=== PATIENT | male | born 1960 | race Caucasian/White ===

== ENCOUNTER 2021-08-24 11:49 | Inpatient (IN) ==
[2021-08-24] MEDS ORDERED: SODIUM CHLORIDE 0.9% 500 ML IV STA (12:33)
[2021-08-24] MEDS ORDERED: ONDANSETRON INJ 2 MG/ML 2 ML VIAL IV STA (12:33)
[2021-08-24] MEDS ORDERED: fentaNYL citrate 100 MCG/2 ML VIAL IV STA (12:33)
--- NOTE | 2021-08-24 12:40 | Emergency Department Note ---
History of Present Illness General Chief complaint: Chest Pain Stated complaint: CHEST PAIN Time Seen by Provider: 08/24/21 12:19 Source: patient History of Present Illness Provider complaint: Chest pain Onset (ago): hour(s) Location: chest and left Radiation: non-radiation Pain Consistency: + intermittent Maximum Pain Intensity: 2 Quality: + sharp Relieved By: + medication (Nitroglycerin) Exacerbated By: + other (Coughing) Associated symptoms: + chest pain, + cough and + shortness of breath; no diaphoresis or no nausea/vomiting This is a 60-year-old male with a history of CAD and cardiac stent presenting with chest pain starting yesterday evening. The pain is intermittent. He states its left of his sternum without radiation. It is associated with some shortness of breath. He is however normally short of breath due to his COPD and is on 3 L of oxygen 02/09. He states that his chest pain is worse when he coughs. He has a regular smoker's cough. He denies feeling fevers or malaise or any loss of taste or smell. He denies any leg swelling or pain. He does have a prior history of cardiac stent and states that his chest pain feels similar to that. He also states that he has been having 6 months of chest tightness with exertion and saw a fish cutting machine operator for that recently. He is scheduled for a nuclear stress test. He denies any abdominal pain, vomiting, diarrhea, or urinary symptoms. He states that he was given nitroglycerin in the ambulance and his pain is almost gone. He was also given aspirin. Home Medications Medication Instructions Recorded Confirmed Type Oxygen Home #1 ea 09/21/18 10/17/20 History albuterol sulfate 2.5 mg inhalation DIRECTED PRN 09/21/18 08/24/21 History Shortness Of Breath #1 mL aspirin 81 mg tablet,delayed 81 mg PO DAILY 10/05/18 08/24/21 History release tiotropium bromide 2.5 2 inh inhalation DAILY #4 grams 06/15/20 08/24/21 Rx mcg/actuation mist for inhalation fluticasone furoate 200 1 inh inhalation DAILY #1 ea 01/17/21 08/24/21 Rx mcg-vilanterol 25 mcg/dose inhalation powder furosemide 20 mg tablet 20 mg PO DAILY #30 tabs 03/15/21 08/24/21 Rx albuterol sulfate 90 mcg/actuation 2 inh inhalation Q6H PRN Shortness 08/24/21 08/24/21 History aerosol inhaler Of Breath Or Wheezing metoprolol succinate 25 mg 25 mg PO DAILY 08/24/21 08/24/21 History tablet,extended release 24 hr Allergies Allergy/AdvReac Type Severity Reaction Status Date / Time No Known Allergies Allergy Verified 08/24/21 15:47 Past Med/Surg History Medical History [id number] deficiency CAD (coronary artery disease) Chronic obstructive pulmonary disease Social History Smoking Status: Current every day smoker Tobacco Type: Cigarettes Preferred Language: French Feels Safe at Home: Yes Review of Systems See HPI for pertinent positives & negatives. and A total of 10 systems reviewed and were otherwise negative Physical Exam Vital Signs Vital Signs - 24 hr 08/24/21 11:49 08/24/21 13:11 08/24/21 12:27 Temperature 36.6 C Temperature Source Oral Pulse Rate 86 70 Pulse Rate [Finger] 77 Pulse Rate from SpO2 Sensor Pulse Rhythm Regular Pulse Rhythm [Finger] Pulse Strength [Finger] Respiratory Rate 16 12 16 Respiratory Effort / Characteristics Non-Labored Respiratory Depth Normal Respiratory Pattern Regular Blood Pressure 104/75 Blood Pressure [Left Arm] 119/79 Blood Pressure Mean 84 Blood Pressure Mean [Left Arm] 92 Blood Pressure Position [Left Arm] Pulse Oximetry 97 94 96 Oxygen Delivery Method Nasal Cannula Nasal Cannula Room Air Oxygen Flow Rate 3 3 Sepsis Recent Fever Within 48 Hours No Sepsis New/Unexplained Change in Mental Status No Sepsis Action Taken by Nursing No Action Required 08/24/21 13:11 08/24/21 13:30 08/24/21 14:00 Temperature Temperature Source Pulse Rate 75 73 76 Pulse Rate [Finger] Pulse Rate from SpO2 Sensor 75 75 75 Pulse Rhythm Pulse Rhythm [Finger] Pulse Strength [Finger] Respiratory Rate 23 21 14 Respiratory Effort / Characteristics Respiratory Depth Respiratory Pattern Blood Pressure 119/79 120/77 122/81 Blood Pressure [Left Arm] Blood Pressure Mean 92 91 94 Blood Pressure Mean [Left Arm] Blood Pressure Position [Left Arm] Pulse Oximetry 95 92 95 Oxygen Delivery Method Oxygen Flow Rate Sepsis Recent Fever Within 48 Hours Sepsis New/Unexplained Change in Mental Status Sepsis Action Taken by Nursing 08/24/21 14:30 08/24/21 16:36 Temperature Temperature Source Pulse Rate 74 Pulse Rate [Finger] 77 Pulse Rate from SpO2 Sensor 75 Pulse Rhythm Pulse Rhythm [Finger] Regular Pulse Strength [Finger] Normal Respiratory Rate 17 16 Respiratory Effort / Characteristics Non-Labored Spontaneous Respiratory Depth Normal Respiratory Pattern Regular Blood Pressure 128/99 Blood Pressure [Left Arm] 143/81 H Blood Pressure Mean 108 Blood Pressure Mean [Left Arm] 101 Blood Pressure Position [Left Arm] Sitting Pulse Oximetry 98 99 Oxygen Delivery Method Nebulizer Oxygen Flow Rate 8 Sepsis Recent Fever Within 48 Hours Sepsis New/Unexplained Change in Mental Status Sepsis Action Taken by Nursing Constitutional: Vital signs reviewed. Eyes: Pupils are equal round reactive to light. Conjunctiva are noninjected. ENT: Pharynx is clear without erythema or exudate. Mucous membranes are moist. Neck supple without meningeal signs. Respiratory: Clear to auscultation bilaterally. Breath sounds are equal bilaterally. Cardiovascular: Regular rate and rhythm. No rubs or gallops. GI: Soft, nondistended and nontender. Bowel sounds are present. Musculoskeletal: No peripheral edema. No lower extremity tenderness. Integumentary: No cyanosis. or jaundice. Neurological: The patient is awake and alert. No focal deficits. Psychiatric: Normal affect. Not anxious appearing. Course Administered Medications Discontinued Medications Albuterol (Albut/Ipratrop 3mg/0.5mg Neb 3 Ml Vial) 3 ml NEB NOW STA; Protocol Stop: 08/24/21 15:42 Last Admin: 08/24/21 16:29 Dose: 3 ml Documented By: DIXIE Fentanyl Citrate (Fentanyl Citrate 100 Mcg/2 Ml Vial) 50 mcg IV NOW STA Stop: 08/24/21 12:34 Last Admin: 08/24/21 13:07 Dose: 50 mcg Documented By: SERJIO Sodium Chloride (Nss) 500 mls @ 999 mls/hr IV .Q31M STA Stop: 08/24/21 13:03 Last Infusion: 08/24/21 13:49 Dose: 0 mls/hr Documented By: Admin: 08/24/21 13:07 Dose: 999 mls/hr Documented By: SERJIO Piperacillin Sod/Tazobactam Sod (Zosyn) 4.5 gm in 120 mls @ 240 mls/hr IV NOW ONE Stop: 08/24/21 16:10 Last Infusion: 08/24/21 17:05 Dose: 0 mls/hr Documented By: Admin: 08/24/21 16:29 Dose: 240 mls/hr Documented By: DIXIE Ioversol (Optiray 320 125ml) 120 ml IV ONCE ONE Stop: 08/24/21 15:10 Last Admin: 08/24/21 15:09 Dose: 120 ml Documented By: GEMINI Methylprednisolone (Methylprednisolone 125 Mg/2 Ml Vial) 125 mg IV NOW STA Stop: 08/24/21 15:42 Last Admin: 08/24/21 16:29 Dose: 125 mg Documented By: DIXIE Ondansetron HCl (Ondansetron Inj 2 Mg/Ml 2 Ml Vial) 4 mg IV NOW STA Stop: 08/24/21 12:34 Last Admin: 08/24/21 13:07 Dose: 4 mg Documented By: SERJIO Medical Decision Making Differential Diagnosis Unstable angina, OK, PE, pneumonia, pleurisy, GERD Medical Records Attestation: I reviewed the patient's medical records. I did perform a limited focused review of portions of the patient's old chart o n the electronic medical record. The patient has had no recent pertinent visits to this hospital. Home Medications Current Medication List: was personally reviewed by me Laboratory Data Attestation: I reviewed the patient's lab results. Result diagrams: 08/24/21 12:09 08/24/21 12:09 Lab Results 08/24/21 08/24/21 08/24/21 Range/Units 12:09 12:09 12:09 WBC 15.50 H (4.8-10.8) K/ul RBC 4.67 (4.63-6.08) M/uL Hgb 14.7 (14.0-18.0) g/dl Hct 44.9 (40.1-51.0) % MCV 96.1 (80.0-100.0) fL MCH 31.5 (25.0-34.0) pg MCHC 32.7 (32.0-36.0) g/dL RDW Std Deviation 44.9 (36.4-46.3) fL RDW Coeff of Lena 12.7 (11.5-14.5) % Plt Count 204 (130-400) K/uL MPV 10.4 (9.4-12.4) fL Immature Gran % (Auto) 0.5 % Neut % (Auto) 83.2 % Lymph % (Auto) 7.2 % Imperial % (Auto) 7.5 % Eos % (Auto) 1.3 % Baso % (Auto) 0.3 % Neut # (Auto) 12.88 H (1.4-6.5) K/uL Lymph # (Auto) 1.12 L (1.2-3.4) K/uL Imperial # (Auto) 1.17 H (0.24-0.82) K/uL Eos # (Auto) 0.20 (0-0.50) K/uL Baso # (Auto) 0.05 (0-0.2) K/uL Immature Gran # (Auto) 0.08 H (0.00-0.02) K/uL PT 11.7 (9.0-12.0) Seconds INR 1.1 (0.9-1.1) APTT 29.9 (21.0-31.0) Seconds PTT Ratio 1.1 D-Dimer 530 H* (0-500) ug/L FEU Sodium 139 (136-145) mmol/L Potassium 4.3 (3.5-5.1) mmol/L Chloride 99 (98-107) mmol/L Carbon Dioxide 34 H (21-32) mmol/L Anion Gap 6 (3-11) BUN 12 (6-23) mg/dl Creatinine 0.72 (0.6-1.4) mg/dl Est Cr Clr Drug Dosing 96.0 ml/min Est GFR ( Amer) 115.9 ml/min Est GFR (Non-Af Amer) 100.0 ml/min BUN/Creatinine Ratio 16.7 (10-20) Glucose 92 (70-99(Fasting)) mg/dl Calcium 9.5 (8.5-10.1) mg/dl Total Bilirubin 1.5 H (0.2-1.0) mg/dl AST 16 (13-39) U/L ALT 13 (7-52) U/L Alkaline Phosphatase 85 (34-104) U/L Troponin I High Sens 5.3 (0-20) pg/ml Total Protein 7.2 (6.0-8.3) gm/dl Albumin 3.8 (3.4-5.0) gm/dl Globulin 3.4 (2.5-4.0) gm/dl Albumin/Globulin Ratio 1.1 (0.9-2) Lipase 9 L (11-82) U/L SARS-CoV-2, RNA, NAAT (NEGATIVE) 08/24/21 Range/Units 13:15 WBC (4.8-10.8) K/ul RBC (4.63-6.08) M/uL Hgb (14.0-18.0) g/dl Hct (40.1-51.0) % MCV (80.0-100.0) fL MCH (25.0-34.0) pg MCHC (32.0-36.0) g/dL RDW Std Deviation (36.4-46.3) fL RDW Coeff of Lena (11.5-14.5) % Plt Count (130-400) K/uL MPV (9.4-12.4) fL Immature Gran % (Auto) % Neut % (Auto) % Lymph % (Auto) % Imperial % (Auto) % Eos % (Auto) % Baso % (Auto) % Neut # (Auto) (1.4-6.5) K/uL Lymph # (Auto) (1.2-3.4) K/uL Imperial # (Auto) (0.24-0.82) K/uL Eos # (Auto) (0-0.50) K/uL Baso # (Auto) (0-0.2) K/uL Immature Gran # (Auto) (0.00-0.02) K/uL PT (9.0-12.0) Seconds INR (0.9-1.1) APTT (21.0-31.0) Seconds PTT Ratio D-Dimer (0-500) ug/L FEU Sodium (136-145) mmol/L Potassium (3.5-5.1) mmol/L Chloride (98-107) mmol/L Carbon Dioxide (21-32) mmol/L Anion Gap (3-11) BUN (6-23) mg/dl Creatinine (0.6-1.4) mg/dl Est Cr Clr Drug Dosing ml/min Est GFR ( Amer) ml/min Est GFR (Non-Af Amer) ml/min BUN/Creatinine Ratio (10-20) Glucose (70-99(Fasting)) mg/dl Calcium (8.5-10.1) mg/dl Total Bilirubin (0.2-1.0) mg/dl AST (13-39) U/L ALT (7-52) U/L Alkaline Phosphatase (34-104) U/L Troponin I High Sens (0-20) pg/ml Total Protein (6.0-8.3) gm/dl Albumin (3.4-5.0) gm/dl Globulin (2.5-4.0) gm/dl Albumin/Globulin Ratio (0.9-2) Lipase (11-82) U/L SARS-CoV-2, RNA, NAAT NEGATIVE (NEGATIVE) Imaging Data Radiologist's Impression: Chest X-Ray 08/24/21 12:33 XR chest 1V portable CLINICAL HISTORY: Chest Pain evalfor pna TECHNIQUE: Single frontal radiograph of the chest was obtained. Comparison: Comparison is made to outside hospital chest radiograph 09/18/2020 FINDINGS: No lines and tubes are seen. Interval removal of previously noted right sided catheter. The cardiomediastinal silhouette is normal. Interval development of a left midlung airspace opacity. No evidence of pleural effusion or pneumothorax. IMPRESSION: Left midlung airspace opacity may represent atelectasis, pneumonia, and/or as piration. ACT 112: Negative or not required by law. Electronically signed by: Sajan Rosenbaum M.D. 08/24/2021 12:53 PM Chest CTA 08/24/21 13:44 CT ANGIOGRAM OF THE CHEST CLINICAL HISTORY: Atypical chest pain. Dyspnea. COMPARISON STUDY: Chest x-ray dated 08/24/2021. TECHNIQUE: Following the IV administration of 120 cc of Optiray 320, CT angiogram of the chest was performed from the upper abdomen to the thoracic inlet utilizing the pulmonary embolus protocol. Images are reviewed in the axial, sagittal, and coronal planes. 3-D MIPS images are created and assessed. IV contrast was administered without complication. A dose lowering technique was utilized adhering to the principles of ALARA. CT DOSE: 326.74 mGy.cm FINDINGS: Thyroid: Imaged portions of the thyroid gland are normal in size and attenu ation. Thoracic aorta: There is atherosclerotic calcification of the thoracic aorta, which is normal in caliber and demonstrates standard 3-vessel arch anatomy. No dissection is seen. Pulmonary vasculature: The pulmonary trunk is normal in caliber. There are no filling defects identified in main, lobar, or segmental pulmonary branches to suggest pulmonary embolus. 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 The superior vena cava appears decompressed/diminutive above the level of the aortic arch. There are large azygos and hemiazygos veins. Heart: The heart is top normal in size and without pericardial effusion. The coronary arteries are densely calcified there Lungs and pleural spaces: There is advanced emphysema. Patchy airspace consolidation is seen in the anterior left upper lobe and lingula, as well as dependently at the left lung base. Additional minimal patchy airspace opacities are seen at the right lung base Foci of parenchymal scarring are seen throughout both lungs. Diffuse peribronchial thickening is observed. There are scattered calcified granulomas. Mediastinum: There is no mediastinal lymphadenopathy. Giselle: Mildly enlarged hilar nodes measure up to 12 mm in short axis. Axillae: There is no axillary lymphadenopathy. Upper abdomen: A 13 mm hyperdense cyst is seen in the upper pole of the right kidney. Nonobstructing calculi in the upper pole of the left kidney measure up to 4 mm. There is nonspecific perinephric stranding. Skeletal structures: No lytic or blastic bony lesions are seen. Arthritic change is noted in the shoulders. There are chronic/healed right-sided rib fractures. IMPRESSION: 1. There is no evidence of pulmonary embolus in the main, lobar, or segmental pulmonary arteries. 2. Advanced emphysema. 3. Airspace consolidation throughout the left lung as detailed above is typical for pneumonia/aspiration pneumonitis. There are also minimal opacities at the right lung base. Radiographic follow-up to resolution is recommended. A 3 month follow-up chest CT is recommended to assess the underlying lung parenchyma and exclude underlying pulmonary lesion. 4. There is left-sided nephrolithiasis and nonspecific bilateral perinephric stranding. Correlate with clinical findings and urinalysis. 5. 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 Although not well assessed, the SVC also appears to be diminutive above the level of the aortic arch. Underlying stenoses of these vessels is not excluded. 6. Mildly enlarged hilar lymph nodes are nonspecific and may be reactive. 7. Additional findings as above. ACT 112: Negative or not required by law. Electronically signed by: Andres Astorga M.D. 08/24/2021 3:25 PM ECG Data Attestation: I personally reviewed and interpreted this ECG as follows: Indication: + chest pain Rate (beats per minute): 84 Rhythm: + normal sinus ECG [place]: + Left axis deviation ECG ST segments: + ST elevation ECG Findings: + Q waves; no PVCs Comparison ECG Date: from (August 22, 2021) Change: no significant change Additional Comments: Repeat twelve-lead EKG performed at 1227 per my interpretation demonstrates normal sinus rhythm at a rate of 81 bpm. There is a new PVC. He has continued ST elevations in leads V3 to V6. These have not changed at all and were present from his previous EKG from August 22. Continued left axis deviation and Q waves inferiorly. MDM Narrative I did evaluate the patient as noted above. The patient is presenting with cough and pleuritic chest pain on the left side. He also states that he has been having exertional chest tightness which has been going on for approximately 6 months. He just saw his fish cutting machine operator for this and is scheduled to have an outpatient nuclear stress test. He is not having any chest tightness at this time. He states the last time he had it was last night. IV access was established. I did place an order for continuous cardiac monitoring. The monitor showed normal sinus rhythm at a rate of 76 bpm. I did order and personally review the patient's 12-lead EKG as described above. His EKG is concerning with some ST elevations in the precordial leads. We did obtain an old EKG from earlier this month from his fish cutting machine operator office and these findings are not new. I did repeat another twelve-lead EKG and he had similar findings. I did treat the patient with fentanyl IV for pain. He was also given Zofran for nausea. I did order and personally reviewed the images of the patient's chest x-ray as described above. Chest x-ray is concerning for left-sided infiltrate. I did order and review the patient's blood work as noted in the electronic medical record. CBC demonstrates an elevated white count of 15.5. He is not anemic. D-dimer is elevated at 530. CMP is unremarkable other than a total bili of 1.5. High-sensitivity troponin is negative. After discussion with the patient, I did order a CT angiogram of the chest to rule out PE. I did review the images myself as well as the radiology report as described above. He has consolidation in the left lower lobe as well as some infiltrate on the right side. He has no pulmonary embolism. I did reevaluate the patient. He states that he does not feel well. He has been having difficulty with activity at home due to his shortness of breath. I did reexamine him. He has some mild expiratory wheezing on exam and so I did treat him with a DuoNeb as well as Solu-Medrol IV. I did order blood cultures and he was given Zosyn IV. I did discuss the case with the hospitalist and director case. Impression & Plan Multifocal pneumonia, Chest pain, exertional, Acute exacerbation of chronic obstructive pulmonary disease Discharge Plan Visit Data Chief Complaint: Chest Pain Stated Complaint: CHEST PAIN ED Provider: Joel Pringle Discharge Problem: Multifocal pneumonia, Chest pain, exertional, Acute exacerbation of chronic obstructive pulmonary disease Patient Disposition: Being Evaluated by Hospitalist Forms Stand Alone Forms: My [facility] Prescriptions Prescriptions: No Action tiotropium bromide 2.5 mcg/actuation mist 2 inh inhalation DAILY Qty: 4 5RF fluticasone furoate-vilanterol 200-25 mcg/dose blister with device 1 inh inhalation DAILY Qty: 1 5RF furosemide 20 mg tablet 20 mg PO DAILY Qty: 30 2RF (DME) Oxygen Home Liters Per Minute See Dose Instructions .ROUTE .MEDSUPPLY Qty: 1 Rx Instructions: As directed albuterol sulfate 2.5 mg /3 mL (0.083 %) solution for nebulization 2.5 mg inhalation DIRECTED PRN (Reason: Shortness Of Breath) Qty: 1 aspirin 81 mg tablet,delayed release (DR/EC) 81 mg PO DAILY metoprolol succinate 25 mg tablet extended release 24 hr 25 mg PO DAILY albuterol sulfate 90 mcg/actuation HFA aerosol inhaler 2 inh inhalation Q6H PRN (Reason: Shortness Of Breath Or Wheezing) Referrals Referrals: Mirna Moore PA-C [Outside Practitioners] -
--- NOTE | 2021-08-24 12:54 | XRay Report ---
XR chest 1V portable CLINICAL HISTORY: Chest Pain evalfor pna TECHNIQUE: Single frontal radiograph of the chest was obtained. Comparison: Comparison is made to outside hospital chest radiograph 09/18/2020 FINDINGS: No lines and tubes are seen. Interval removal of previously noted right sided catheter. The cardiomed iastinal silhouette is normal. Interval development of a left midlung airspace opacity. No evidence o f pleural effusion or pneumothorax. IMPRESSION: Left midlung airspace opacity may represent atelectasis, pneumonia, and/or aspiration. ACT 112: Negative or not required by law. Electronically signed by: Sajan Rosenbaum M.D. 08/24/2021 12:53 PM
[2021-08-24 13:09] LABS: INR 1.1 (0.9-1.1); Partial Thromboplastin Ratio 1.1; Partial Thromboplastin Time 29.9 Seconds (21.0-31.0); Prothrombin Time 11.7 Seconds (9.0-12.0)
[2021-08-24 13:14] LABS: Troponin I High Sensitivity 5.3 pg/ml (0-20)
[2021-08-24 13:16] LABS: Basophils # (auto) 0.05 K/uL (0-0.2); Basophils % (auto) 0.3 %; D Dimer 530 ug/L FEU (0-500); Eosinophils % (auto) 1.3 %; Hematocrit (blood only) 44.9 % (40.1-51.0); Hemoglobin 14.7 g/dl (14.0-18.0); Immature Granulocytes # (auto) 0.08 K/uL (0.00-0.02); Immature Granulocytes % (auto) 0.5 %; Lymphocytes # (auto) 1.12 K/uL (1.2-3.4); Lymphocytes % (auto) 7.2 %; Mean Corpuscular Hemoglobin 31.5 pg (25.0-34.0); Mean Corpuscular Hgb Conc 32.7 g/dL (32.0-36.0); Mean Corpuscular Volume 96.1 fL (80.0-100.0); Mean Platelet Volume 10.4 fL (9.4-12.4); Monocytes # (auto) 1.17 K/uL (0.24-0.82); Monocytes % (auto) 7.5 %; Neutrophils # (auto) 12.88 K/uL (1.4-6.5); Neutrophils % (auto) 83.2 %; Platelet Count 204 K/uL (130-400); RDW Coefficient of Variation 12.7 % (11.5-14.5); RDW Standard Deviation 44.9 fL (36.4-46.3); Red Blood Count 4.67 M/uL (4.63-6.08)
[2021-08-24 13:24] LABS: Albumin Globulin Ratio 1.1 (0.9-2); Albumin Level 3.8 gm/dl (3.4-5.0); BUN Creatinine Ratio 16.7 (10-20); Bilirubin,Total 1.5 mg/dl (0.2-1.0); Calcium 9.5 mg/dl (8.5-10.1); Est GFR (African American) 115.9 ml/min; Globulin 3.4 gm/dl (2.5-4.0); Potassium 4.3 mmol/L (3.5-5.1); Total Protein 7.2 gm/dl (6.0-8.3)
[2021-08-24] MEDS ORDERED: OPTIRAY 320 125ml IV ONE (15:09)
--- NOTE | 2021-08-24 15:26 | CT Scan Report ---
CT ANGIOGRAM OF THE CHEST CLINICAL HISTORY: Atypical chest pain. Dyspnea. COMPARISON STUDY: Chest x-ray dated 08/24/2021. TECHNIQUE: Following the IV administration of 120 cc of Optiray 320, CT angiogram of the chest was pe rformed from the upper abdomen to the thoracic inlet utilizing the pulmonary embolus protocol. Images are reviewed in the axial, sagittal, and coronal planes. 3-D MIPS images are created and assessed. I V contrast was administered without complication. A dose lowering technique was utilized adhering to the principles of ALARA. CT DOSE: 326.74 mGy.cm FINDINGS: Thyroid: Imaged portions of the thyroid gland are normal in size and attenuation. Thoracic aorta: There is atherosclerotic calcification of the thoracic aorta, which is normal in eugene jemma and demonstrates standard 3-vessel arch anatomy. No dissection is seen. Pulmonary vasculature: The pulmonary trunk is normal in caliber. There are no filling defects identif ied in main, lobar, or segmental pulmonary branches to suggest pulmonary embolus. 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 The superior vena cava appe ars decompressed/diminutive above the level of the aortic arch. There are large azygos and hemiazygos veins. Heart: The heart is top normal in size and without pericardial effusion. The coronary arteries are de nsely calcified there Lungs and pleural spaces: There is advanced emphysema. Patchy airspace consolidation is seen in the a nterior left upper lobe and lingula, as well as dependently at the left lung base. Additional minimal patchy airspace opacities are seen at the right lung base Foci of parenchymal scarring are seen thro ughout both lungs. Diffuse peribronchial thickening is observed. There are scattered calcified granul omas. Mediastinum: There is no mediastinal lymphadenopathy. Giselle: Mildly enlarged hilar nodes measure up to 12 mm in short axis. Axillae: There is no axillary lymphadenopathy. Upper abdomen: A 13 mm hyperdense cyst is seen in the upper pole of the right kidney. Nonobstructing calculi in the upper pole of the left kidney measure up to 4 mm. There is nonspecific perinephric str anding. Skeletal structures: No lytic or blastic bony lesions are seen. Arthritic change is noted in the shou lders. There are chronic/healed right-sided rib fractures. IMPRESSION: 1. There is no evidence of pulmonary embolus in the main, lobar, or segmental pulmonary arteries. 2. Advanced emphysema. 3. Airspace consolidation throughout the left lung as detailed above is typical for pneumonia/aspirat ion pneumonitis. There are also minimal opacities at the right lung base. Radiographic follow-up to [facility] is recommended. A 3 month follow-up chest CT is recommended to assess the underlying lung p arenchyma and exclude underlying pulmonary lesion. 4. There is left-sided nephrolithiasis and nonspecific bilateral perinephric stranding. Correlate wit h clinical findings and urinalysis. 5. 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 Although not well assessed, the SV C also appears to be diminutive above the level of the aortic arch. Underlying stenoses of these vess els is not excluded. 6. Mildly enlarged hilar lymph nodes are nonspecific and may be reactive. 7. Additional findings as above. ACT 112: Negative or not required by law. Electronically signed by: Andres Astorga M.D. 08/24/2021 3:25 PM
[2021-08-24] MEDS ORDERED: ALBUT/IPRATROP 3MG/0.5MG NEB 3 ML VIAL NEB STA (15:41)
[2021-08-24] MEDS ORDERED: PIPERACILLIN/TAZOBACTAM 4.5 GM/120 ML BAG IV ONE (15:41)
[2021-08-24] MEDS ORDERED: methylPREDNISolone 125 MG/2 ML VIAL IV STA (15:41)
--- NOTE | 2021-08-24 16:14 | History & Physical Report ---
Date of Service August 24, 2021 Assessment & Plan (1) Pneumonia: Plan: Community acquired pneumonia in a 60 yo male with history of centrilobular emphysema Patient continues to smoke, THOUGH HE IS CUTTING BACK. Patient also has Alpha 1-antitrypsin deficiiency will place on antibiotics: cefepime for antipseudomona coverage as stated place on solumedrol 40 mg resume home inhalers. (2) CAD (coronary artery disease): Plan: resume aspirin. H/O stent placement. Patient does not take statins. Patient does not know why. (3) Yueqa-4-srpmogckbav deficiency: Plan: as above (4) Chronic obstructive pulmonary disease: Plan: As stated above, (5) History of tobacco use: Plan: Patient reports he has cut back from his smoking and onlybhad 1 cigarette yesterday. Patient refuses nicotine patch Plan dvt: heparin History of Present Illness Chief Complaint: chest pain. Primary Care Provider: [facility] 60 yo male with PMH of Coronary artery disease, presents with sharp chest pain and a cough. Patient decided to come to the ER. Patient reports the pain is intermittent, left sternum with no radiation. This is accompanied by SOB. Patient was found to have pneumonia on CTA imaging and admission was called. Patient also reports 6 mponth hsitory of pressure like chest pain. This acute chest pain however is different. Allergies Allergy/AdvReac Type Severity Reaction Status Date / Time No Known Allergies Allergy Verified 08/24/21 15:47 Home Medications Medication Instructions Recorded Confirmed Type Oxygen Home #1 ea 09/21/18 10/17/20 History albuterol sulfate 2.5 mg inhalation DIRECTED PRN 09/21/18 08/24/21 History Shortness Of Breath #1 mL aspirin 81 mg tablet,delayed 81 mg PO DAILY 10/05/18 08/24/21 History release tiotropium bromide 2.5 2 inh inhalation DAILY #4 grams 06/15/20 08/24/21 Rx mcg/actuation mist for inhalation fluticasone furoate 200 1 inh inhalation DAILY #1 ea 01/17/21 08/24/21 Rx mcg-vilanterol 25 mcg/dose inhalation powder furosemide 20 mg tablet 20 mg PO DAILY #30 tabs 03/15/21 08/24/21 Rx albuterol sulfate 90 mcg/actuation 2 inh inhalation Q6H PRN Shortness 08/24/21 08/24/21 History aerosol inhaler Of Breath Or Wheezing metoprolol succinate 25 mg 25 mg PO DAILY 08/24/21 08/24/21 History tablet,extended release 24 hr Past Med/Surg History Medical History Ljuyw-1-[id number] deficiency CAD (coronary artery disease) Chronic obstructive pulmonary disease Social History Smoking Status: Current every day smoker Tobacco Type: Cigarettes Cigarettes Per Day: 1; Second Hand Exposure: No; Do You Dip or Chew Tobacco: No; Tobacco Cessation Education Requested by Patient: No Hx Alcohol Use: No Hx Substance Use: Yes Last Used Substance: Days (ago) Preferred Language: Chinese Communication Ability: Effective Depilatory Painter Required: No Beliefs That Will Affect Care: None Current Living Situation: Family Current Living Situation Comment: dtr Other Information That Helps Us Care for You: No Feels Safe at Home: Yes Safety Concerns: Feels Safe At This Time Assistive Devices: Denture - Upper, Denture - Lower and Oxygen - Continuous Review of Systems Constitutional: no fever and no body aches Eyes: no blind spots Ear, Nose, Mouth, Throat: no ear pain and no ear trauma Respiratory: + cough and + dyspnea Cardiovascular: + chest pain Gastrointestinal: no abdominal pain Genitourinary: no dysuria Musculoskeletal: no back pain Integumentary: no acne Neurologic: no gait abnormality Psychiatric: no behavioral changes Endocrine: no fatigue Hematologic / Lymphatic: no easy bleeding Allergy / Immunological: no GI upset with certain foods Physical Exam Constitutional: WD/WN, vitals as above (on oxymask: 6 liters) Eyes: PERRL, conjunctivae normal, anicteric sclerae ENMT: external ear and nose normal, oropharynx normal Neck: trachea midline, no thyromegaly Respiratory: using accesory muscles to breath, decreased breath sounds on lower lung jacobson bilaterally Cardiovascular: RRR, no murmur, no edema Gastrointestinal (Abdomen): normal bowel sounds, soft, nontender, no hepatosplenomegaly Musculoskeletal: no cyanosis or clubbing, extremities motor strength 5/5 Skin: no rashes, warm and dry Neurologic: PERRL, EOMI, accommodation nl, no face palsy, no dysarthria Psychiatric: A+Ox3, euthymic affect Lymphatic: no cervical or axillary lymphadenopathy Results & Data Results & Data ([facility]) Vital Signs (Past 12 Hours) Vital Signs Temp Pulse Pulse Resp BP BP Pulse Ox 08/24/21 14:30 74 17 128/99 98 08/24/21 14:00 76 14 122/81 95 08/24/21 13:30 73 21 120/77 92 08/24/21 13:11 75 23 119/79 95 08/24/21 12:27 70 16 96 08/24/21 13:11 77 12 119/79 94 08/24/21 11:49 36.6 C 86 16 104/75 97 O2 Del Method O2 Flow Rate 08/24/21 14:30 08/24/21 14:00 08/24/21 13:30 08/24/21 13:11 08/24/21 12:27 Room Air 08/24/21 13:11 Nasal Cannula 3 08/24/21 11:49 Nasal Cannula 3 PG Care Time/CCT Total # of Minutes Spent Total Time Spent with Patient: Total time spent is greater than 50% in coordination of care (as documented) at patient's floor/unit and/or counseling patient: Coding Level of Care Code 72077 Initial Inpt Care Lvl 3 Diagnoses Pneumonia J18.9 CAD (coronary artery disease) I25.10 Orklz-2-zgykpuetczx deficiency E88.01 Chronic obstructive pulmonary disease J44.9 History of tobacco use Z87.891
[2021-08-24] MEDS ORDERED: ALBUTEROL 0.083% NEBU SOLN 3 ML VIAL INH PRN (16:50)
--- NOTE | 2021-08-24 18:09 | Electrocardiogram Report ---
Test Reason : Blood Pressure : / mmHG Vent. Rate : 084 BPM Atrial Rate : 084 BPM P-R Int : 160 ms QRS Dur : 096 ms QT Int : 380 ms P-R-T Axes : 064 -72 065 degrees QTc Int : 449 ms Normal sinus rhythm Left axis deviation Inferior infarct , age undetermined Anteroseptal infarct , age undetermined Abnormal ECG No previous ECGs available Confirmed by Víctor Hernandez ([id number]) on 08/24/2021 6:09:23 PM Referred By: REFERRED SELF Confirmed By:Chapin Hernandez
--- NOTE | 2021-08-24 18:10 | Electrocardiogram Report ---
Test Reason : Blood Pressure : / mmHG Vent. Rate : 081 BPM Atrial Rate : 081 BPM P-R Int : 162 ms QRS Dur : 098 ms QT Int : 386 ms P-R-T Axes : 036 -74 061 degrees QTc Int : 448 ms Sinus rhythm with occasional Premature ventricular complexes Left axis deviation Inferior infarct (cited on or before 24-AUG-2021) Anteroseptal infarct (cited on or before 24-AUG-2021) T wave abnormality, consider lateral ischemia Abnormal ECG When compared with ECG of 24-AUG-2021 11:56, (unconfirmed) Premature ventricular complexes are now Present Confirmed by Víctor Hernandez ([id number]) on 08/24/2021 6:10:05 PM Referred By: REFERRED SELF Confirmed By:Chapin Hernandez
[2021-08-25] MEDS: CEFEPIME 2,000 MG in SYRINGE 0 ML IV SCH ×3 (00:03→16:46)
[2021-08-25 06:41] LABS: Hematocrit (blood only) 45.2 % (40.1-51.0); Hemoglobin 14.5 g/dl (14.0-18.0); Mean Corpuscular Hgb Conc 32.1 g/dL (32.0-36.0); Mean Corpuscular Volume 96.8 fL (80.0-100.0); Mean Platelet Volume 10.2 fL (9.4-12.4); Platelet Count 186 K/uL (130-400); RDW Coefficient of Variation 12.4 % (11.5-14.5); RDW Standard Deviation 44.3 fL (36.4-46.3); Red Blood Count 4.67 M/uL (4.63-6.08); White Blood Count 10.96 K/ul (4.8-10.8)
[2021-08-25 07:13] LABS: BUN Creatinine Ratio 17.9 (10-20); Calcium 8.8 mg/dl (8.5-10.1); Chol HDL Ratio 2.7 (0-5); Creatinine Clr Calc Pharmacy 82.3 ml/min; Est GFR (African American) 108.8 ml/min; Est GFR (Non-African American) 93.8 ml/min; Potassium 5.2 mmol/L (3.5-5.1)
[2021-08-25] MEDS: FUROSEMIDE 20 MG TAB PO SCH (08:46)
[2021-08-25] MEDS: METOPROLOL SUCC 25MG EXT REL TAB PO SCH (08:46)
[2021-08-25] MEDS: ASPIRIN 81 MG ECTAB PO SCH (08:46)
[2021-08-25] MEDS: FLUTICASONE/VILANTEROL 200/25MCG 14 PUFFS/INHALER INH SCH (08:47)
[2021-08-25] MEDS: UMECLIDINIUM BROMIDE 62.5MCG/BLISTER 7 PUFFS/INHALER INH SCH (08:47)
[2021-08-25] MEDS: HEPARIN SOD 5,000 UNIT/0.5 ML VIAL SQ SCH ×2 (08:48→20:49)
[2021-08-25] MEDS ORDERED: methylPREDNISolone 40 MG in SYRINGE 0 ML IV SCH (09:00)
--- NOTE | 2021-08-25 12:35 | Hospitalist Progress Note ---
Date of Service August 25, 2021 Assessment & Plan (1) Pneumonia: Plan: Community acquired pneumonia in a 60 yo male with history of centrilobular emphysema Patient continues to smoke, claims he has cut back significantly X ray shows evidence of multilobar PNA CTA did not show any evidence of PE Patient also has Alpha 1-antitrypsin deficiency will place on antibiotics: cefepime for antipseudomonal coverage as stated resume home inhalers. (2) CAD (coronary artery disease): Plan: resume aspirin. H/O stent placement. Patient does not take statins. Patient does not know why. (3) Heolo-6-lnznmqzfkut deficiency: Plan: Follows up with Pulmonology outpatient Used to receive injections of prolastin If he stops smoking, he may be a candidate for lung transplant (4) Chronic obstructive pulmonary disease: Plan: As stated above, (5) History of tobacco use: Plan: Patient reports he has cut back from his smoking and onlybhad 1 cigarette yesterday. Patient refuses nicotine patch Plan dvt: heparin Full code Admission and Anticipated Discharge Date Admission Date: August 24, 2021 Subjective patient seen and examined, says SOB is better, still coughing a little bit Review of Systems Review of Systems: All systems reviewed are negative, apart from the ones contained in the history. Physical Exam Physical Exam: The patient is awake, alert and oriented 3, well developed and well nourished, normocephalic and atraumatic, lying in bed and in no acute distress. HEENT--PERRL, EOMI, mucous membranes and oropharynx mildly dry Neck--supple. No JVD. No bruits. Thyroid normal, trachea midline, no adenopathy. Heart--normal S1 and S2. No murmurs, rubs or gallops. Lungs--Reduced air entry on auscultation Abdomen--normal bowel sounds and soft. Mild epigastric and left sided abdominal pain Extremities--no cyanosis or clubbing. No edema. Dermatologic--normal skin turgor, normal color, no abnormal lymph nodes, no rash. Neurologic--cranial nerves II through XII grossly intact. Rheumatologic--normal range of motion. Psychiatric--normal affect. Results & Data Results & Data ([facility]) Vital Signs (Past 12 Hours) Vital Signs Temp Pulse Pulse Resp BP Pulse Ox O2 Del Method 08/25/21 12:14 85 08/25/21 12:14 Oxymask 08/25/21 11:35 97.5 F L 80 20 108/73 92 Oxymask 08/25/21 07:03 98.1 F 80 20 123/87 90 Oxymask 08/25/21 03:48 97.5 F L 81 20 117/75 94 Oxymask O2 Flow Rate 08/25/21 12:14 08/25/21 12:14 6 08/25/21 11:35 7.0 08/25/21 07:03 7.0 08/25/21 03:48 6 PG Care Time/CCT Total # of Minutes Spent Total Time Spent with Patient: Total time spent is greater than 50% in coordination of care (as documented) at patient's floor/unit and/or counseling patient: Coding Level of Care Code 66725 Subseq Hosp Care Lvl 2 Diagnoses Pneumonia J18.9 CAD (coronary artery disease) I25.10 Bzskq-3-qjhkdsiofvh deficiency E88.01 Chronic obstructive pulmonary disease J44.9 History of tobacco use Z87.891 Time Spent (min) 35
[2021-08-26] MEDS: CEFEPIME 2,000 MG in SYRINGE 0 ML IV SCH ×2 (00:16→08:56)
[2021-08-26] MEDS: METOPROLOL SUCC 25MG EXT REL TAB PO SCH (08:54)
[2021-08-26] MEDS: FUROSEMIDE 20 MG TAB PO SCH (08:54)
[2021-08-26] MEDS: FLUTICASONE/VILANTEROL 200/25MCG 14 PUFFS/INHALER INH SCH (08:55)
[2021-08-26] MEDS: ASPIRIN 81 MG ECTAB PO SCH (08:55)
[2021-08-26] MEDS: UMECLIDINIUM BROMIDE 62.5MCG/BLISTER 7 PUFFS/INHALER INH SCH (08:55)
[2021-08-26] MEDS: HEPARIN SOD 5,000 UNIT/0.5 ML VIAL SQ SCH (08:55)
--- NOTE | 2021-08-26 13:03 | Discharge Summary ---
Date of Service August 26, 2021 Admission HPI Per Admitting Provider 60 yo male with PMH of Coronary artery disease, presents with sharp chest pain and a cough. Patient decided to come to the ER. Patient reports the pain is intermittent, left sternum with no radiation. This is accompanied by SOB. Patient was found to have pneumonia on CTA imaging and admission was called. Patient also reports 6 mponth hsitory of pressure like chest pain. This acute chest pain however is different. Principal Diagnosis multifocal PNA Discharge Exam The patient is awake, alert and oriented 3, well developed and well nourished, normocephalic and atraumatic, lying in bed and in no acute distress. HEENT--PERRL, EOMI, mucous membranes and oropharynx mildly dry Neck--supple. No JVD. No bruits. Thyroid normal, trachea midline, no adenopathy. Heart--normal S1 and S2. No murmurs, rubs or gallops. Lungs--Reduced air entry on auscultation Abdomen--normal bowel sounds and soft. Mild epigastric and left sided abdominal pain Extremities--no cyanosis or clubbing. No edema. Dermatologic--normal skin turgor, normal color, no abnormal lymph nodes, no rash. Neurologic--cranial nerves II through XII grossly intact. Rheumatologic--normal range of motion. Psychiatric--normal affect. Discharge Data Allergies Allergy/AdvReac Type Severity Reaction Status Date / Time No Known Allergies Allergy Verified 08/24/21 15:47 Consultations 08/24/21 15:49 ED Decision to Admit Stat Ordered Studies 08/24/21 13:44 CT angio chest PE protocol Stat Hospital Course (1) Pneumonia: Community acquired pneumonia in a 60 yo male with history of centrilobular emphysema Patient continues to smoke, claims he has cut back significantly X ray shows evidence of multilobar PNA CTA did not show any evidence of PE Patient also has Alpha 1-antitrypsin deficiency will place on antibiotics: cefepime for antipseudomonal coverage as stated resume home inhalers. Clinically much improved Cultures negative patient says he is at baseline and would like to be discharged Will d/c on PO Cefdinir 300mg and PO levofloxacin 500mg for 5 days (2) CAD (coronary artery disease): resume aspirin. H/O stent placement. Patient does not take statins. Patient does not know why. (3) Datyu-1-xusbxhgriwl deficiency: Follows up with Pulmonology outpatient Used to receive injections of prolastin If he stops smoking, he may be a candidate for lung transplant (4) Chronic obstructive pulmonary disease: As stated above, (5) History of tobacco use: Patient reports he has cut back from his smoking and onlybhad 1 cigarette yesterday. Patient refuses nicotine patch Plan dvt: heparin Full code Total Time Total Time Spent Total Time Spent (In Minutes): 35 Discharge Plan Discharge Items Patient Disposition: Home - Self-Care Reason For Visit: ACUTE RESPIRATORY FAILURE Discharge Diagnosis: Lobar PNA Activity: Resume your previous activity Non-emergency contact: Primary Care Provider and Cultural Centre Manager Call non-emergency contact if: you have any medication questions Follow-up/Referrals: [facility] [Primary Care Provider] - Diet: Regular Addtl Attending Provider Instructions: please make appointment to follow up with your regular PCP Pending Studies at Discharge: No Stand-Alone Forms: My [facility] [employer], Smoking Cessation Medications and DC Order Prescriptions: New cefdinir 300 mg capsule 300 mg PO BID 5 Days Qty: 10 0RF levofloxacin 500 mg tablet 500 mg PO DAILY 5 Days Qty: 5 0RF Continued tiotropium bromide 2.5 mcg/actuation mist 2 inh inhalation DAILY Qty: 4 5RF fluticasone furoate-vilanterol 200-25 mcg/dose blister with device 1 inh inhalation DAILY Qty: 1 5RF furosemide 20 mg tablet 20 mg PO DAILY Qty: 30 2RF (DME) Oxygen Home Liters Per Minute See Dose Instructions .ROUTE .MEDSUPPLY Qty: 1 Rx Instructions: As directed albuterol sulfate 2.5 mg /3 mL (0.083 %) solution for nebulization 2.5 mg inhalation DIRECTED PRN (Reason: Shortness Of Breath) Qty: 1 aspirin 81 mg tablet,delayed release (DR/EC) 81 mg PO DAILY metoprolol succinate 25 mg tablet extended release 24 hr 25 mg PO DAILY albuterol sulfate 90 mcg/actuation HFA aerosol inhaler 2 inh inhalation Q6H PRN (Reason: Shortness Of Breath Or Wheezing) Discharge Orders: Discharge Order (Routine); Ordered 08/26/21 Ordered By: Susan Silva Admission Data Admit Date/Time: 08/24/21 16:41 Attending Provider: Susan Silva Admit Provider: Ariel Tanner Primary Care Provider: [facility] Other Providers: Ariel Tanner Other Interventions: Discharge Summary Assessment (RN) Last Done: 08/26/21 11:44 Coding Level of Care Code D/C DAY MANAGEMENT >30 MINS Diagnoses Pneumonia J18.9 CAD (coronary artery disease) I25.10 Xibzt-0-izmndltcsov deficiency E88.01 Chronic obstructive pulmonary disease J44.9 History of tobacco use Z87.891 Time Spent (min) 35
== END 2021-08-26 13:18 | disposition home or self-care (01) | DRG 194 ==
LOC: ED 11:49 → SUATTDRO 16:41 → 2S 16:41

== ENCOUNTER 2021-10-01 12:46 | Inpatient (IN) ==
[2021-10-01] MEDS ORDERED: ALBUT/IPRATROP 3MG/0.5MG NEB 3 ML VIAL NEB ONE (13:02)
--- NOTE | 2021-10-01 13:10 | Emergency Department Note ---
History of Present Illness General Chief complaint: Shortness of Breath/Dyspnea Time Seen by Provider: 10/01/21 12:52 Source: patient Mode of arrival: EMS Limitations: physical limitation History of Present Illness Provider complaint: Increased shortness of breath Onset (ago): week(s) 1 Maximum Pain Intensity: 0 This is a 60-year-old male presents emergency department via EMS due to increased shortness of breath. Patient does have a history of COPD and typically wears oxygen at home, 2 L/min. Patient states over the course of the last week he has increased it to 4 L/min at home and despite continuing to use his home breathing treatments still feels increasingly short of breath. He states his symptoms are worse with exertion. He denies any change in his cough or sputum production, denies hemoptysis. He states with fits of coughing he develops chest tightness and lightheadedness. He denies fevers, chills, or any known sick contact. Denies leg swelling, vomiting, change in bowel or bladder function. In route, patient was given 1 DuoNeb and Solu-Medrol 125 mg. Pt seen during a time of high acuity and national emergency pandemic while wearing PPE. Home Medications Medication Instructions Recorded Confirmed Type Oxygen Home #1 ea 09/21/18 10/17/20 History albuterol sulfate 2.5 mg/3 mL 2.5 mg inhalation DIRECTED PRN 09/21/18 08/24/21 History (0.083 %) solution for nebulization Shortness Of Breath #1 mL aspirin 81 mg tablet,delayed 81 mg PO DAILY 10/05/18 08/24/21 History release tiotropium bromide 2.5 2 inh inhalation DAILY #4 grams 06/15/20 08/24/21 Rx mcg/actuation mist for inhalation fluticasone furoate 200 1 inh inhalation DAILY #1 ea 01/17/21 08/24/21 Rx mcg-vilanterol 25 mcg/dose inhalation powder furosemide 20 mg tablet 20 mg PO DAILY #30 tabs 03/15/21 08/24/21 Rx albuterol sulfate 90 mcg/actuation 2 inh inhalation Q6H PRN Shortness 08/24/21 08/24/21 History aerosol inhaler Of Breath Or Wheezing metoprolol succinate 25 mg 25 mg PO DAILY 08/24/21 08/24/21 History tablet,extended release 24 hr Allergies Allergy/AdvReac Type Severity Reaction Status Date / Time No Known Allergies Allergy Verified 08/24/21 15:47 Past Med/Surg History Medical History Cujqh-[id number]-shtqrlrvuhk deficiency CAD (coronary artery disease) Chronic obstructive pulmonary disease Multifocal pneumonia Social History Smoking Status: Former smoker Tobacco Type: Cigarettes Cigarettes Per Day: 1; Second Hand Exposure: No; Hx Alcohol Use: Yes Alcohol type: beer Hx Substance Use: Yes Last Used Substance: Days (ago) Last Used Substance Other:: he states a few days ago. Preferred Language: [place] Communication Ability: Effective Production Artist Required: No Beliefs That Will Affect Care: None marital status: Single Current Living Situation: Family Current Living Situation Comment: dtr Feels Safe at Home: Yes Assistive Devices: Oxygen - Continuous Review of Systems A total of 10 systems reviewed and were otherwise negative All systems reviewed & are unremarkable except as noted in HPI & below Physical Exam Vital Signs Vital Signs - 24 hr 10/01/21 12:57 10/01/21 12:57 10/01/21 13:36 Temperature 36.9 C Temperature Source Oral Pulse Rate 95 H Pulse Rate [Apical] Respiratory Rate 22 96 H Respiratory Effort / Characteristics Spontaneous Blood Pressure 121/92 Blood Pressure [Left Arm] Blood Pressure Mean 101 Blood Pressure Mean [Left Arm] Pulse Oximetry 98 97 98 Oxygen Delivery Method Nasal Cannula Nasal Cannula Nasal Cannula Oxygen Flow Rate 4 4 4 Sepsis Recent Fever Within 48 Hours No Sepsis New/Unexplained Change in Mental Status No Sepsis Action Taken by Nursing No Action Required 10/01/21 15:53 Temperature Temperature Source Pulse Rate Pulse Rate [Apical] 108 H Respiratory Rate 20 Respiratory Effort / Characteristics Blood Pressure Blood Pressure [Left Arm] 118/80 Blood Pressure Mean Blood Pressure Mean [Left Arm] 92 Pulse Oximetry 89 L Oxygen Delivery Method Oxygen Flow Rate Sepsis Recent Fever Within 48 Hours Sepsis New/Unexplained Change in Mental Status Sepsis Action Taken by Nursing GENERAL: alert, well appearing, well nourished, no distress, non-toxic EYE EXAM: normal conjunctiva, PERRL and EOM's grossly intact OROPHARYNX: no exudate, no erythema, lips, buccal mucosa, and tongue normal and mucous membranes are moist NECK: supple, no nuchal rigidity, no adenopathy, non-tender LUNGS: Normal chest wall mechanics, no r/r, scattered bilateral expiratory wheeze, decreased air movement bilaterally, mild tachypnea noted HEART: no murmurs, S1 normal and S2 normal ABDOMEN: abdomen soft, non-tender, normo-active bowel sounds, no masses, no rebound or guarding. BACK: Back is symmetrical on inspection and there is no deformity, no midline tenderness, no CVA tenderness. SKIN: no rashes and no bruising UPPER EXTREMITIES: upper extremities are grossly normal. FROM, nml pulses b/l. LOWER EXTREMITIES: No pitting edema. FROM, nml pulses b/l. NEURO EXAM: Normal sensorium, cranial nerves II-XII grossly intact, normal speech, no gross weakness of arms, no gross weakness of legs. Gross sensation intact. Course Course 1515: Pt states he is feeling improved. Repeat lung exam improved with no further wheezing and increased air movement. Administered Medications Albuterol (Albuterol 0.083% Nebu Soln 3 Ml Vial) 2.5 mg INH Q6R [facility]; Protocol Stop: 11/01/21 00:59 Last Admin: 10/02/21 19:36 Dose: Not Given Documented By: Admin: 10/02/21 13:30 Dose: 2.5 mg Documented By: Admin: 10/02/21 07:14 Dose: Not Given Documented By: Admin: 10/02/21 01:22 Dose: 2.5 mg Documented By: SANDRA Aspirin (Aspirin 81 Mg Ectab) 81 mg PO DAILY [facility] Stop: 11/01/21 08:59 Last Admin: 10/02/21 09:01 Dose: 81 mg Documented By: HOLLIS Fluticasone/Vilanterol (Fluticasone/Vilanterol 200/25mcg 14 Puffs/Inhaler) 1 puffs INH DAILY [facility] Stop: 11/01/21 08:59 Last Admin: 10/02/21 09:02 Dose: 1 puffs Documented By: HOLLIS Formoterol Fumarate (Formoterol 20 Mcg/2 Ml Vial) 20 mcg NEB BIDR [facility] Stop: 10/31/21 22:23 Last Admin: 10/02/21 19:36 Dose: 20 mcg Documented By: Admin: 10/02/21 07:14 Dose: 20 mcg Documented By: Admin: 10/01/21 23:24 Dose: 20 mcg Documented By: SANDRA Heparin Sodium/Dextrose (Heparin Sodium/Dextrose) 25,000 units in 500 mls @ 22 mls/hr IV .[id number] [facility]; Protocol Stop: 10/31/21 18:44 Last Admin: 10/02/21 19:24 Dose: 1,100 units/hr, 22 mls/hr Documented By: HOLLIS Co-signed By: REYNOLD Titration: 10/02/21 19:24 Dose: 1,100 units/hr, 22 mls/hr Documented By: RLElpidio Co-signed By: CML Titration: 10/02/21 11:43 Dose: 1,100 units/hr, 22 mls/hr Documented By: HOLLIS Co-signed By: SHANNAN Titration: 10/02/21 04:59 Dose: 1,100 units/hr, 22 mls/hr Documented By: DILLON Co-signed By: Admin: 10/01/21 21:35 Dose: 1,150 units/hr, 23 mls/hr Documented By: MED Co-signed By: SADE Methylprednisolone 40 mg/ (Syringe) 0.64 mls @ 1.5 mls/min IV Q6 [facility] Stop: 10/31/21 22:29 Last Admin: 10/02/21 18:07 Dose: 1.5 mls/min Documented By: Admin: 10/02/21 12:44 Dose: 1.5 mls/min Documented By: Admin: 10/02/21 05:55 Dose: 1.5 mls/min Documented By: Admin: 10/01/21 23:48 Dose: 1.5 mls/min Documented By: DILLON Insulin Aspart (Insulin Aspart Per Unit) 0 units SC ACHS [facility] Stop: 11/01/21 16:29 Last Admin: 10/02/21 18:08 Dose: Not Given Documented By: HOLLIS Metoprolol Succinate (Metoprolol Succ 25mg Ext Rel Tab) 25 mg PO DAILY [facility] Stop: 11/01/21 08:59 Last Admin: 10/02/21 09:01 Dose: 25 mg Documented By: HOLLIS Miscellaneous (Remove Nicoderm Patch) 1 each N/A DAILY@0859 [facility] Stop: 11/01/21 08:58 Last Admin: 10/02/21 09:00 Dose: Not Given Documented By: HOLLIS Nicotine (Nicotine 14 Mg/24 Hr Patch) 14 mg TD QAM [facility] Stop: 10/31/21 22:23 Last Admin: 10/02/21 09:02 Dose: Not Given Documented By: Admin: 10/01/21 23:47 Dose: Not Given Documented By: DILLON Umeclidinium [place] (Umeclidinium [place] 62.5mcg/Blister 7 Puffs/Inhaler) 1 puffs INH DAILY [facility] Stop: 10/31/21 22:23 Last Admin: 10/02/21 09:01 Dose: 1 puffs Documented By: Admin: 10/01/21 23:47 Dose: 1 puffs Documented By: DILLON Discontinued Medications Albuterol (Albut/Ipratrop 3mg/0.5mg Neb 3 Ml Vial) 12 ml NEB ONE ONE; Protocol Stop: 10/01/21 13:03 Last Admin: 10/01/21 13:36 Dose: 12 ml Documented By: [id number] Azithromycin (Azithromycin 250 Mg Tab) 500 mg PO NOW ONE Stop: 10/01/21 22:25 Last Admin: 10/01/21 23:49 Dose: 500 mg Documented By: DILLON Doxycycline Hyclate (Doxycycline Hyclate 100 Mg Cap) 100 mg PO NOW STA Stop: 10/01/21 14:56 Last Admin: 10/01/21 15:58 Dose: 100 mg Documented By: SADE(2) Furosemide (Furosemide 20 Mg Tab) 20 mg PO ONE ONE Stop: 10/02/21 15:55 Last Admin: 10/02/21 18:07 Dose: 20 mg Documented By: HOLLIS Heparin Sodium (Porcine) (Heparin Sod (Porcine) 1000 Unit/Ml) 5,000 units IV NOW ONE Stop: 10/01/21 19:01 Last Admin: 10/01/21 21:35 Dose: 5,000 units Documented By: MED Co-signed By: SADE Heparin Sodium (Porcine) (Heparin Sod (Porcine) 1000 Unit/Ml) Confirm Administered Dose 1,000 units .ROUTE .STK-MED ONE Stop: 10/01/21 21:33 Last Admin: 10/01/21 23:19 Dose: Not Given Documented By: DILLON Sodium Chloride (Nss 1000ml) 1,000 mls @ 125 mls/hr IV .Q8H [facility] Stop: 10/31/21 13:14 Last Admin: 10/02/21 19:27 Dose: Not Given Documented By: Infusion: 10/02/21 06:58 Dose: 0 mls/hr Documented By: Admin: 10/01/21 13:59 Dose: 125 mls/hr Documented By: GILMER Ioversol (Optiray 300 500ml) 120 ml IV ONCE ONE Stop: 10/01/21 16:11 Last Admin: 10/01/21 16:14 Dose: 120 ml Documented By: JASIEL Medical Decision Making Differential Diagnosis Differential diagnoses includes but is not limited to pneumonia, bronchitis, COPD/Asthma exacerbation, pneumothorax, pulmonary embolism, congestive heart failure, acute coronary syndrome Medical Records Attestation: I reviewed the patient's medical records. Home Medications Current Medication List: was personally reviewed by me Laboratory Data Attestation: I reviewed the patient's lab results. Result diagrams: 10/02/21 04:03 10/02/21 04:03 Lab Results 10/01/21 10/01/21 10/01/21 Range/Units 13:17 13:17 13:17 WBC 9.38 (4.8-10.8) K/ul RBC 4.61 L (4.63-6.08) M/uL Hgb 14.1 (14.0-18.0) g/dl POC Hgb (14.0-18.0) g/dl Hct 43.8 (40.1-51.0) % POC Hct (42-52) % MCV 95.0 (80.0-100.0) fL MCH 30.6 (25.0-34.0) pg MCHC 32.2 (32.0-36.0) g/dL RDW Std Deviation 43.8 (36.4-46.3) fL RDW Coeff of Lena 12.6 (11.5-14.5) % Plt Count 217 (130-400) K/uL MPV 10.4 (9.4-12.4) fL Immature Gran % (Auto) 0.3 % Neut % (Auto) 47.4 % Lymph % (Auto) 13.8 % [place] % (Auto) 8.4 % Eos % (Auto) 29.4 % Baso % (Auto) 0.7 % Neut # (Auto) 4.44 (1.4-6.5) K/uL Lymph # (Auto) 1.29 (1.2-3.4) K/uL [place] # (Auto) 0.79 (0.24-0.82) K/uL Eos # (Auto) 2.76 H (0-0.50) K/uL Baso # (Auto) 0.07 (0-0.2) K/uL Immature Gran # (Auto) 0.03 H (0.00-0.02) K/uL POC pH (7.35-7.45) POC pCO2 (35-46) mmHg POC pO2 (80-95) mmHg POC HCO3 (19-24) jossy/L POC Total CO2 (24-31) mmol/L POC Base Excess (-9-1.8) jossy/L POC ABG O2 Sat (90-95) % POC Sodium (135-144) mmol/L Sodium 138 (136-145) mmol/L POC Potassium (3.3-5.0) mmol/L Potassium 4.3 (3.5-5.1) mmol/L Chloride 97 L (98-107) mmol/L Carbon Dioxide 36 H (21-32) mmol/L Anion Gap 5 (3-11) BUN 12 (6-23) mg/dl Creatinine 0.80 (0.6-1.4) mg/dl Est Cr Clr Drug Dosing Not Reportable Est GFR ( Amer) 111.0 ml/min Est GFR (Non-Af Amer) 95.7 ml/min BUN/Creatinine Ratio 15.0 (10-20) Glucose 85 (70-99(Fasting)) mg/dl Calcium 9.1 (8.5-10.1) mg/dl Magnesium 1.8 (1.7-2.4) mg/dl Total Bilirubin 0.6 (0.2-1.0) mg/dl AST 21 (13-39) U/L ALT 15 (7-52) U/L Alkaline Phosphatase 105 H (34-104) U/L Troponin I High Sens 6.9 (0-20) pg/ml Total Protein 7.3 (6.0-8.3) gm/dl Albumin 4.2 (3.4-5.0) gm/dl Globulin 3.1 (2.5-4.0) gm/dl Albumin/Globulin Ratio 1.4 (0.9-2) TSH 0.681 (0.300-4.500) uIu/ml SARS-CoV-2 (PCR) (Negative) Influenza Type A (PCR) (Neg) Influenza Type B (PCR) (Neg) RSV (RT-PCR) (Neg) 10/01/21 10/01/21 Range/Units 13:20 13:47 WBC (4.8-10.8) K/ul RBC (4.63-6.08) M/uL Hgb (14.0-18.0) g/dl POC Hgb 14.6 (14.0-18.0) g/dl Hct (40.1-51.0) % POC Hct 43 (42-52) % MCV (80.0-100.0) fL MCH (25.0-34.0) pg MCHC (32.0-36.0) g/dL RDW Std Deviation (36.4-46.3) fL RDW Coeff of Lena (11.5-14.5) % Plt Count (130-400) K/uL MPV (9.4-12.4) fL Immature Gran % (Auto) % Neut % (Auto) % Lymph % (Auto) % [place] % (Auto) % Eos % (Auto) % Baso % (Auto) % Neut # (Auto) (1.4-6.5) K/uL Lymph # (Auto) (1.2-3.4) K/uL [place] # (Auto) (0.24-0.82) K/uL Eos # (Auto) (0-0.50) K/uL Baso # (Auto) (0-0.2) K/uL Immature Gran # (Auto) (0.00-0.02) K/uL POC pH 7.35 (7.35-7.45) POC pCO2 70 H (35-46) mmHg POC pO2 94 (80-95) mmHg POC HCO3 38 H (19-24) jossy/L POC Total CO2 > 40 H* (24-31) mmol/L POC Base Excess 13.0 H (-9-1.8) jossy/L POC ABG O2 Sat 96.0 H (90-95) % POC Sodium 135 (135-144) mmol/L Sodium (136-145) mmol/L POC Potassium 4.4 (3.3-5.0) mmol/L Potassium (3.5-5.1) mmol/L Chloride (98-107) mmol/L Carbon Dioxide (21-32) mmol/L Anion Gap (3-11) BUN (6-23) mg/dl Creatinine (0.6-1.4) mg/dl Est Cr Clr Drug Dosing Est GFR ( Amer) ml/min Est GFR (Non-Af Amer) ml/min BUN/Creatinine Ratio (10-20) Glucose (70-99(Fasting)) mg/dl Calcium (8.5-10.1) mg/dl Magnesium (1.7-2.4) mg/dl Total Bilirubin (0.2-1.0) mg/dl AST (13-39) U/L ALT (7-52) U/L Alkaline Phosphatase (34-104) U/L Troponin I High Sens (0-20) pg/ml Total Protein (6.0-8.3) gm/dl Albumin (3.4-5.0) gm/dl Globulin (2.5-4.0) gm/dl Albumin/Globulin Ratio (0.9-2) TSH (0.300-4.500) uIu/ml SARS-CoV-2 (PCR) NEGATIVE (Negative) Influenza Type A (PCR) Negative (Neg) Influenza Type B (PCR) Negative (Neg) RSV (RT-PCR) Negative (Neg) Imaging Data Radiologist's Impression: Chest X-Ray 10/01/21 13:02 XR chest 1V portable CLINICAL HISTORY: sob TECHNIQUE: Single frontal radiograph of the chest was obtained. Comparison: Comparison is made to chest radiograph 08/24/2021 FINDINGS: No lines and tubes are seen. The cardiomediastinal silhouette is normal. Previous seen noted left midlung opacity has resolved. Emphysema is unchanged. No evidence of pleural effusion or pneumothorax. IMPRESSION: Emphysema without acute chest disease. ACT 112: Negative or not required by law. Electronically signed by: Sajan Rosenbaum M.D. 10/01/2021 1:21 PM Chest CTA 10/01/21 16:00 CT angio chest PE protocol CT DOSE: 360.24 mGy.cm HISTORY: 60 years-old Male with PE. Acute shortness of breath TECHNIQUE: Multiple CTA images of the chest were obtained after the intravenous administration of 113 ml Optiray. Coronal and sagittal MIPS were obtained from the axial data set and were submitted for review. All measurements were obtained according to NASCET criteria. A dose lowering technique was utilized adhering to the principles of ALARA. COMPARISON: Chest radiograph of same day, CTA chest 08/24/2021 FINDINGS: CTA: The heart is normal in size. No pericardial effusion. Extensive coronary artery calcifications. Atherosclerosis of the thoracic aorta. The pulmonary artery is o pacified to the level of the inguinal branches. The subsegmental branches are not well visualized secondary to contrast bolus timing. There is a tiny linear nonocclusive filling defect noted within a segmental branch of the right lower lobe on image 151 which is unchanged from the prior study and may represent a small chronic pulmonary embolus. No acute pulmonary emboli are identified. Narrowing of the left brachiocephalic vein likely chronic with numerous opacified collateral vessels within the mediastinum and left chest. The superior vena cava is also diminutive and may be chronically thrombosed or narrowed. Contrast opacified azygos venous system. CT CHEST: Unremarkable thyroid. Nonspecific mildly prominent bilateral hilar lymph nodes are favored to be reactive. There is no pneumothorax or overt pulmonary edema. Severe emphysema with chronic fibrotic changes. Bronchial wall thickening suggestive of bronchitis with areas of mucous plugging. There is improved aeration of the left lung compared to the prior study with mild persistent predominantly linear subsegmental consolidation noted within the left lung base. There are no new or worsening pulmonary opacities identified. 5 mm fissural nodule within the right midlung on image 186 is unchanged suggestive of a benign lymph node. Decreased transverse dimension of the trachea (Aber sheath trachea). Nonspecific bilateral perinephric stranding redemonstrated. Nonobstructing calculi of the bilateral kidneys measure up to 4 mm. 1.3 cm proteinaceous versus hemorrhagic cyst of the superior pole right kidney. Subcentimeter hepatic hypodensities are too small to characterize. Unremarkable soft tissues. No acute fracture. IMPRESSION: 1. No acute pulmonary emboli identified. 2. Probable tiny chronic segmental pulmonary embolus within the right lower lobe is unchanged from 08/24/2021. 3. Severe emphysema with bronchial wall thickening suggestive of bronchitis. 4. There is improved aeration of left lung with mild persistent subsegmental linear opacities suggestive of atelectasis versus postinflammatory scarring. A mild residual infectious or inflammatory pneumonitis is considered less likely. 5. Nonobstructing bilateral nephrolithiasis. 6. Additional findings as above. ACT 112: Negative or not required by law. The above report was generated using voice recognition software. It may contain grammatical, syntax or spelling errors. Electronically signed by: Anderson Beckwith M.D. 10/01/2021 4:43 PM ECG Data Attestation: I personally reviewed and interpreted this ECG as follows: Indication: + SOB/dyspnea MDM Narrative An order was placed for continuous cardiac monitoring. The monitor shows a rate of _96__ with _normal sinus_ rhythm. This is a 60-year-old male who presents emergency department due to concern for worsening shortness of breath despite use of home breathing treatments and home oxygen. Patient with diminished breath sounds with diffuse bilateral wheezing on initial exam and oxygen was increased. He was otherwise afebrile and hemodynamically stable. Patient had received Solu-Medrol and a DuoNeb by EMS prior to arrival. A continuous DuoNeb was given here which did have some improvement. Patient did not feel back to his baseline and continued to require higher oxygen amounts than his baseline at home. Patient's other labs reassurin g. Due to persistent tachycardia despite improvement of symptoms and prior diagnosis of pneumonia despite negative chest x-ray, patient was sent for CT of the chest. There was some question as to a possible PE on the CT. Patient denied any prior known diagnosis of PE. Case discussed with hospitalist for additional evaluation and management. Impression & Plan Dyspnea, Chest pain, exertional, Acute exacerbation of chronic obstructive pulmonary disease (COPD), Hypoxia Discharge Plan Visit Data Chief Complaint: Shortness of Breath/Dyspnea ED Provider: Gabriela Weeks Discharge Problem: Dyspnea, Chest pain, exertional, Acute exacerbation of chronic obstructive pulmonary disease (COPD), Hypoxia Patient Disposition: Admitted As Inpatient Condition: Fair Discharge Instructions Interventions: ED Discharge Assessment Last Done: 10/01/21 22:01
--- NOTE | 2021-10-01 13:22 | XRay Report ---
XR chest 1V portable CLINICAL HISTORY: sob TECHNIQUE: Single frontal radiograph of the chest was obtained. Comparison: Comparison is made to chest radiograph 08/24/2021 FINDINGS: No lines and tubes are seen. The cardiomediastinal silhouette is normal. Previous seen noted left mid lung opacity has resolved. Emphysema is unchanged. No evidence of pleural effusion or pneumothorax. IMPRESSION: Emphysema without acute chest disease. ACT 112: Negative or not required by law. Electronically signed by: Sajan Rosenbaum M.D. 10/01/2021 1:21 PM
[2021-10-01 13:44] LABS: Basophils # (auto) 0.07 K/uL (0-0.2); Basophils % (auto) 0.7 %; Eosinophils # (auto) 2.76 K/uL (0-0.50); Eosinophils % (auto) 29.4 %; Hematocrit (blood only) 43.8 % (40.1-51.0); Hemoglobin 14.1 g/dl (14.0-18.0); Immature Granulocytes # (auto) 0.03 K/uL (0.00-0.02); Immature Granulocytes % (auto) 0.3 %; Lymphocytes # (auto) 1.29 K/uL (1.2-3.4); Lymphocytes % (auto) 13.8 %; Mean Corpuscular Hemoglobin 30.6 pg (25.0-34.0); Mean Corpuscular Hgb Conc 32.2 g/dL (32.0-36.0); Mean Platelet Volume 10.4 fL (9.4-12.4); Monocytes # (auto) 0.79 K/uL (0.24-0.82); Monocytes % (auto) 8.4 %; Neutrophils # (auto) 4.44 K/uL (1.4-6.5); Neutrophils % (auto) 47.4 %; Platelet Count 217 K/uL (130-400); RDW Coefficient of Variation 12.6 % (11.5-14.5); RDW Standard Deviation 43.8 fL (36.4-46.3); Red Blood Count 4.61 M/uL (4.63-6.08); White Blood Count 9.38 K/ul (4.8-10.8)
[2021-10-01] MEDS: SODIUM CHLORIDE 0.9% 1000ML 1,000 ML IV SCH (13:59)
[2021-10-01 14:03] LABS: iSTAT Arterial Blood Gas HCO3 38 meg/L (19-24); iSTAT Arterial Blood Gas pCO2 70 mmHg (35-46); iSTAT Arterial Blood Gas pH 7.35 (7.35-7.45); iSTAT Arterial Blood Gas pO2 94 mmHg (80-95); iSTAT Carbon Dioxide > 40 mmol/L (24-31); iSTAT Hematocrit 43 % (42-52); iSTAT Hemoglobin 14.6 g/dl (14.0-18.0); iSTAT Potassium 4.4 mmol/L (3.3-5.0); iSTAT Sodium 135 mmol/L (135-144)
[2021-10-01 14:06] LABS: Alanine Aminotransferase 15 U/L (7-52); Albumin Globulin Ratio 1.4 (0.9-2); Albumin Level 4.2 gm/dl (3.4-5.0); Alkaline Phosphatase 105 U/L (34-104); Anion Gap 5 (3-11); Aspartate Aminotransferase 21 U/L (13-39); Bilirubin,Total 0.6 mg/dl (0.2-1.0); Blood Urea Nitrogen 12 mg/dl (6-23); Calcium 9.1 mg/dl (8.5-10.1); Carbon Dioxide 36 mmol/L (21-32); Chloride 97 mmol/L (98-107); Est GFR (Non-African American) 95.7 ml/min; Globulin 3.1 gm/dl (2.5-4.0); Glucose 85 mg/dl (70-99(Fasting)); Magnesium 1.8 mg/dl (1.7-2.4); Potassium 4.3 mmol/L (3.5-5.1); Sodium 138 mmol/L (136-145); Total Protein 7.3 gm/dl (6.0-8.3)
[2021-10-01 14:08] LABS: Troponin I High Sensitivity 6.9 pg/ml (0-20)
[2021-10-01 14:22] LABS: Influenza A virus by PCR Negative (Neg); Influenza B virus by PCR Negative (Neg); RSV by PCR Negative (Neg); SARS CoV2 RNA(COVID-19) InHosp NEGATIVE (Negative)
[2021-10-01] MEDS ORDERED: DOXYCYCLINE HYCLATE 100 MG CAP PO STA (14:55)
[2021-10-01] MEDS ORDERED: OPTIRAY 300 500mL IV ONE (16:10)
--- NOTE | 2021-10-01 16:45 | CT Scan Report ---
CT angio chest PE protocol CT DOSE: 360.24 mGy.cm HISTORY: 60 years-old Male with PE. Acute shortness of breath TECHNIQUE: Multiple CTA images of the chest were obtained after the intravenous administration of 113 ml Optiray. Coronal and sagittal MIPS were obtained from the axial data set and were submitted for review. All measurements were obtained according to NASCET criteria. A dose lowering technique was u tilized adhering to the principles of ALARA. COMPARISON: Chest radiograph of same day, CTA chest 08/24/2021 FINDINGS: CTA: The heart is normal in size. No pericardial effusion. Extensive coronary artery calcifications. Ather osclerosis of the thoracic aorta. The pulmonary artery is opacified to the level of the inguinal bran ches. The subsegmental branches are not well visualized secondary to contrast bolus timing. There is a tiny linear nonocclusive filling defect noted within a segmental branch of the right lower lobe on image 151 which is unchanged from the prior study and may represent a small chronic pulmonary embolus . No acute pulmonary emboli are identified. Narrowing of the left brachiocephalic vein likely chronic with numerous opacified collateral vessels within the mediastinum and left chest. The superior vena cava is also diminutive and may be chronically thrombosed or narrowed. Contrast opacified azygos veno us system. CT CHEST: Unremarkable thyroid. Nonspecific mildly prominent bilateral hilar lymph nodes are favored to be reac tive. There is no pneumothorax or overt pulmonary edema. Severe emphysema with chronic fibrotic changes. Br onchial wall thickening suggestive of bronchitis with areas of mucous plugging. There is improved aer ation of the left lung compared to the prior study with mild persistent predominantly linear subsegme ntal consolidation noted within the left lung base. There are no new or worsening pulmonary opacities identified. 5 mm fissural nodule within the right midlung on image 186 is unchanged suggestive of a benign lymph node. Decreased transverse dimension of the trachea (Aber sheath trachea). Nonspecific bilateral perinephric stranding redemonstrated. Nonobstructing calculi of the bilateral k idneys measure up to 4 mm. 1.3 cm proteinaceous versus hemorrhagic cyst of the superior pole right ki dney. Subcentimeter hepatic hypodensities are too small to characterize. Unremarkable soft tissues. N o acute fracture. IMPRESSION: 1. No acute pulmonary emboli identified. 2. Probable tiny chronic segmental pulmonary embolus within the right lower lobe is unchanged from . 3. Severe emphysema with bronchial wall thickening suggestive of bronchitis. 4. There is improved aeration of left lung with mild persistent subsegmental linear opacities suggest isaura of atelectasis versus postinflammatory scarring. A mild residual infectious or inflammatory pneum onitis is considered less likely. 5. Nonobstructing bilateral nephrolithiasis. 6. Additional findings as above. ACT 112: Negative or not required by law. The above report was generated using voice recognition software. It may contain grammatical, syntax o r spelling errors. Electronically signed by: Anderson Beckwith M.D. 10/01/2021 4:43 PM
--- NOTE | 2021-10-01 17:46 | History & Physical Report ---
Date of Service October 01, 2021 Assessment & Plan (1) Acute exacerbation of chronic obstructive pulmonary disease: Plan: Abdulaziz is a 58-year-old male with a past medical history of COPD, alpha 1 antitrypsin deficiency, and CA with PCI to LAD in 2018 who presents with increased hypoxia and increase in chronic oxygen requirement from 2.5-3 L to 4 L with incomplete return to baseline after recent treatment for pneumonia. Patient does have antibiotics with him, has 2 bottles of Bactrim 1 from a year ago and 1 from beginning of September but with 4 tablets still remaining. He is a very poor historian of which med he takes and how often. Has multiple bottles of Brilinta. Acute on chronic COPD exacerbation Received 125 mg methylprednisolone in route by EMS, this is not noted on the APR. 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, continue inhalers as above CAD, CA with history of LAD stent More than 1 year out, reportedly on DAPT Will anticoagulate for possible segmental chronic PE as noted and switch DAPT to aspirin monotherapy Patient has multiple bottles of clopidogrel, concern for medication noncompliance and is an extremely poor historian of his medications Continue metoprolol Segmental PE, chronic Patient with CTA showing chronic isolated segmental PE, not mentioned on prior report in August but on comparison does appear to be present at that time review Dopplers without evidence of DVT We will continue empiric anticoagulation with heparin at this time Alpha antitrypsin deficiency: Status post port placement for transfusions and subsequent removal. No acute intervention at this time Medication compliance issues: Would consult case management to see if patient can have home health services for patient at discharge. He is a very poor historian of his medications, has had difficulties signing up online and with his refills, and suspect that he is largely noncompliant with these due to overall compliance and poor health literacy. Would benefit from having home health check ins periodically and assistance with medication management. DVT PPX: Heparin CODE: Full (2) CAD (coronary artery disease): (3) Yzdei-8-uottghgtdtf deficiency: (4) Emphysema lung: (5) H/O heart artery stent: (6) History of tobacco use: History of Present Illness Primary Care Provider: [facility] Abdulaziz is a 58-year-old male with a past medical history of COPD, alpha 1 antitrypsin deficiency, and CA with PCI to LAD in 2019 who presents with increased hypoxia and increase in chronic oxygen requirement from 2.5-3 L to 4 L with incomplete return to baseline after recent treatment for pneumonia. Patient does have antibiotics with him, has 2 bottles of Bactrim 1 from a year ago and 1 from beginning of September but with 4 tablets still remaining. He is a very poor historian of which med he takes and how often. Has multiple bottles of Brilinta. Breathing suddenly worsened on Friday Shortness of breath increased Brining up clear/yellowish/thick sputum which has not changed recently No fevers or chills Uses his nebulizer at home ~1ce per day. Has not increased doses, but is running out of the neb and has not increased to more than 1ce a day out of fear of running out. Has not been able to get a hold of his PCP with the [facility]. PCP is Dr. Real. Next followup is Jan 10 Quit tobacco recently. Using nicotine tablets and patch, uses the patch less. Has not used Chantix. Uses a 14mcg patch. Cardiac History: - Hx of CA with PCI - LAD stend x1 ADELAIDA XIENCE Anyi 2.5x15mm in 2019 at [facility] - Remains on DAPT, has not followed up with Epic Beacon Analyst recently - Takes lasix 20mg daily as needed, does not weigh himself daily - Hx HTN: Metoprolol, has run out of meds Hx COPD - Spriva, Breo, Albuterol at home - Home oxygen has been at 4L for last month, baseline normally ~2.5-3L - Breathign has not returned to baseline since PNA 1 month ago Medical History: Reviewed, very poor historian Medications: Reviewed, as below. Checked w/ medications in bag pt had on person Surgical History: Reviewed Allergies: Reviewed Social History: Tobacco as noted, quit recently. No EtoH Code Status: Full Vitamin D3 Brilinta 90mg Lasix 20mg PRN MTP Succinate 25mg daily Aspirin 81mg daily Atorvastatin 40mg Bactrim x 14days refills filled Sep 20 with 4 left. Amlodipine 2.5mg Hx Port Placement, subsequent removal ~May of this year, thinks has not been used since prior ~October Allergies Allergy/AdvReac Type Severity Reaction Status Date / Time No Known Allergies Allergy Verified 08/24/21 15:47 Home Medications Medication Instructions Recorded Confirmed Type Oxygen Home #1 ea 09/21/18 10/17/20 History albuterol sulfate 2.5 mg/3 mL 2.5 mg inhalation DIRECTED PRN 09/21/18 08/24/21 History (0.083 %) solution for nebulization Shortness Of Breath #1 mL aspirin 81 mg tablet,delayed 81 mg PO DAILY 10/05/18 08/24/21 History release tiotropium bromide 2.5 2 inh inhalation DAILY #4 grams 06/15/20 08/24/21 Rx mcg/actuation mist for inhalation fluticasone furoate 200 1 inh inhalation DAILY #1 ea 01/17/21 08/24/21 Rx mcg-vilanterol 25 mcg/dose inhalation powder furosemide 20 mg tablet 20 mg PO DAILY #30 tabs 03/15/21 08/24/21 Rx albuterol sulfate 90 mcg/actuation 2 inh inhalation Q6H PRN Shortness 08/24/21 08/24/21 History aerosol inhaler Of Breath Or Wheezing metoprolol succinate 25 mg 25 mg PO DAILY 08/24/21 08/24/21 History tablet,extended release 24 hr Past Med/Surg History Medical History Cqnsz-7-hcssiizgtiq deficiency CAD (coronary artery disease) Chronic obstructive pulmonary disease Multifocal pneumonia Social History Smoking Status: Former smoker Tobacco Type: Cigarettes Cigarettes Per Day: 1; Second Hand Exposure: No; Do You Dip or Chew Tobacco: No; Tobacco Cessation Education Requested by Patient: No Hx Alcohol Use: Yes Alcohol type: beer Hx Substance Use: Yes Last Used Substance: Days (ago) Last Used Substance Other :: he states a few days ago. Preferred Language: Niuean Communication Ability: Effective Packer Required: No Beliefs That Will Affect Care: None Current Living Situation: Family Current Living Situation Comment: dtr Other Information That Helps Us Care for You: No Feels Safe at Home: Yes Safety Concerns: Feels Safe At This Time Assistive Devices: Oxygen - Continuous Review of Systems Review of Systems: All systems reviewed & are unremarkable except as noted in Subjective Physical Exam Physical Exam: General: A&Ox3. NAD. Cooperative. HEENT: Atraumatic, normocephalic.Vision and hearing grossly intact Pulm: With diffuse inspiratory wheezes, expiratory wheezes and prolonged expiration symmetrical chest rise. No increase in work of breathing. No respiratory distress. Cardiac: Regular, tachycardic, -mrg. Radial pulses intact and symmetrical. Abdominal: Nontender, nondistended, soft. BS present. Extremities: Warm, dry. No lower extremity edema. Results & Data Results & Data ([facility]) Vital Signs (Past 12 Hours) Vital Signs Temp Pulse Pulse Resp BP BP Pulse Ox 10/01/21 17:20 111 H 18 121/77 91 10/01/21 15:53 108 H 20 118/80 89 L 10/01/21 13:36 96 H 98 10/01/21 12:57 97 10/01/21 12:57 36.9 C 95 H 22 121/92 98 O2 Del Method O2 Flow Rate 10/01/21 17:20 Nasal Cannula 4 10/01/21 15:53 10/01/21 13:36 Nasal Cannula 4 10/01/21 12:57 Nasal Cannula 4 10/01/21 12:57 Nasal Cannula 4 PG Care Time/CCT Total # of Minutes Spent Total Time Spent with Patient: Total time spent is greater than 50% in coordination of care (as documented) at patient's floor/unit and/or counseling patient: Coding Level of Care Code 61899 Initial Inpt Care Lvl 3 Diagnoses Acute exacerbation of chronic obstructive pulmonary disease J44.1 CAD (coronary artery disease) I25.10 Erezq-6-pnfbdhpsasm deficiency E88.01 Emphysema lung J43.9 H/O heart artery stent Z95.5 History of tobacco use Z87.891
[2021-10-01] MEDS ORDERED: Heparin IV Adult Wt-Based Standard WITH Bolus Protocol IV STA (18:13)
[2021-10-01] MEDS ORDERED: Heparin IV Adult Wt-Based Standard WITH Bolus Protocol IV SCH (18:45)
[2021-10-01] MEDS ORDERED: HEPARIN SOD (PORCINE) 1000 UNIT/ML IV ONE (19:00)
[2021-10-01 19:01] LABS: INR 1.1 (0.9-1.1); Partial Thromboplastin Time 26.8 Seconds (21.0-31.0); Prothrombin Time 11.2 Seconds (9.0-12.0)
[2021-10-01 20:50] LABS: Influenza A virus by PCR Negative (Negative); Influenza B virus by PCR Negative (Negative)
[2021-10-01] MEDS ORDERED: HEPARIN SOD (PORCINE) 1000 UNIT/ML ONE (21:32)
[2021-10-01] MEDS: HEPARIN SODIUM/DEXTROSE 25,000 UNITS/500 ML BAG IV SCH (21:35)
[2021-10-01] MEDS ORDERED: ACETAMINOPHEN 325 MG TAB PO PRN (22:24)
[2021-10-01] MEDS ORDERED: AZITHROMYCIN 250 MG TAB PO ONE (22:24)
[2021-10-01] MEDS: FORMOTEROL 20 MCG/2 ML VIAL NEB SCH (23:24)
[2021-10-01] MEDS: NICOTINE 14 MG/24 HR PATCH TD SCH (23:47)
[2021-10-01] MEDS: UMECLIDINIUM BROMIDE 62.5MCG/BLISTER 7 PUFFS/INHALER INH SCH (23:47)
[2021-10-01] MEDS: methylPREDNISolone 40 MG in SYRINGE 0 ML IV SCH (23:48)
[2021-10-02] MEDS: ALBUTEROL 0.083% NEBU SOLN 3 ML VIAL INH SCH ×4 (01:22→19:36)
[2021-10-02 04:21] LABS: Basophils # (auto) 0.01 K/uL (0-0.2); Basophils % (auto) 0.1 %; Hematocrit (blood only) 39.8 % (40.1-51.0); Hemoglobin 12.7 g/dl (14.0-18.0); Immature Granulocytes # (auto) 0.04 K/uL (0.00-0.02); Immature Granulocytes % (auto) 0.5 %; Lymphocytes % (auto) 8.6 %; Mean Corpuscular Hemoglobin 30.5 pg (25.0-34.0); Mean Corpuscular Hgb Conc 31.9 g/dL (32.0-36.0); Mean Corpuscular Volume 95.7 fL (80.0-100.0); Mean Platelet Volume 10.1 fL (9.4-12.4); Monocytes # (auto) 0.21 K/uL (0.24-0.82); Monocytes % (auto) 2.6 %; Neutrophils # (auto) 7.17 K/uL (1.4-6.5); Neutrophils % (auto) 88.2 %; Platelet Count 188 K/uL (130-400); RDW Coefficient of Variation 12.3 % (11.5-14.5); RDW Standard Deviation 43.5 fL (36.4-46.3); Red Blood Count 4.16 M/uL (4.63-6.08); White Blood Count 8.13 K/ul (4.8-10.8)
[2021-10-02 04:46] LABS: BUN Creatinine Ratio 19.8 (10-20); Calcium 8.5 mg/dl (8.5-10.1); Creatinine Clr Calc Pharmacy 80.4 ml/min; Est GFR (African American) 107.7 ml/min; Est GFR (Non-African American) 92.9 ml/min; Magnesium 1.8 mg/dl (1.7-2.4); Potassium 4.2 mmol/L (3.5-5.1)
[2021-10-02 04:49] LABS: Partial Thromboplastin Ratio 2.5
[2021-10-02 04:56] LABS: Partial Thromboplastin Time 69.2 Seconds (21.0-31.0)
[2021-10-02] MEDS: methylPREDNISolone 40 MG in SYRINGE 0 ML IV SCH ×3 (05:55→18:07)
[2021-10-02] MEDS: FORMOTEROL 20 MCG/2 ML VIAL NEB SCH ×2 (07:14→19:36)
--- NOTE | 2021-10-02 07:38 | Hospitalist Progress Note ---
Date of Service October 02, 2021 Assessment & Plan (1) Acute exacerbation of chronic obstructive pulmonary disease: Plan: Abdulaziz is a 58-year-old male with a past medical history of COPD, alpha 1 antitrypsin deficiency (prior port and treatment with Prolastin once a week at home for 5 years which were stopped Oct 2020 and levels normal per recent pulm note earlier this year), who presents with increased hypoxia and increase in chronic oxygen requirement from 2.5-3 L to 4 L with incomplete return to baseline after recent treatment for pneumonia. Although, notes with pulm (Hilton Chauhan) from earlier this year with O2 requirement up to 4L prior to coming in with pneumonia. Also with hx and UT with PCI to LAD in 2019 . Also has bottles of Brillinta but states he takes this everyday. ? suspect poor historian, has 2 bottle of bactrim from >1 year ago (reports putting meds in that bottle, had from a cyst to back of his next I&D earlier this year at [place], denies hx MRSA) Recent admission for LEFT sided pneumonia, appears sent rxs for Levaquin and Cefdinir (to two different pharmacies) after discharge last month, however these were not filled until September 20. Acute on chronic COPD exacerbation Reports feeling better than he did on admission CTA chest * severe emphysema with bronchial wall thickening suggestive of bronchitis. ==> Flu, RSV, COVID NEGATIVE on admit * Improvement in aeration of LEFT LUNG with mild persistant subsegmental linear opacities suggestive of atelctasis vs postinflammatory scarring. Mild residual infectious or inflammatory pneumonitis considered less likely mindful of patient non-compliance w/ abx however improvement in prior L pneumonia Methylprednisolone 125mg en route by EMS (not on APR) --Continue 80mg IV Q8H for now, consider transitioning to prednisone 40mg daily x 5 days tomorrow Continue azithromycin 5 day course (day 2 of therapy) Added mucinex Continue incentive spirometer, flutter valve Sputum cx if able to produce Patient to be on Breo, Spiriva, Tiotropium at home -- has not had medications, getting nebs "from a friend" only using 1x/daily to reserve and not run out Continue on Breo, Incruse Perforomist BID while inpatient Will need new rx for discharge along with nebulizers Venous Dopplers NEGATIVE for acute DVT however CTA chest showing chronic isolated segmental PE (not mentioned on prior report in August but on comparison does appear to have been present at that time) -Continue empiric Heparin gtt for now Will further discuss with patient chronic anticoagulation vs discontinuing once return call back from daughter to corroborate story. Had been following with Mc Chauhan earlier this year from pulmonology, however notes state patient wanted to follow up elsewhere rather than see one of the other pulmonologists in the office. Last alpha 1 antitrypsin level normal per pulm notes -Will need CM to assist with arranging Continue smoking cessation -- recently quit and using nicotine patches/tablets. Titrate O2 to maintain sat >=88% (2) CAD (coronary artery disease): Plan: Hx UT s/p PCI to LAD 2018 at [facility]. trop high sen on admit 6.9, no CP re ported To supposedly have remained on DAPT, but hasn't followed with cardiology recently also with multiple bottles of brillinta Takes lasix 20mg daily as needed but does not weigh himself daily Will check BNP w/ AM labs given Na 135 however suspect from steroids. TSH wnl Daily weights/I&O Is >1 year out, and as anticoagulation for chronic PEs noted above, switched to monotherapy with ASA alone Patient also reports he ran out of his metoprolol -- to be on 25mg succinate daily continued. need new rx at d/c Does not appear to be on statin either? -- [facility], patient listed to be taking atorvastatin 80mg daily (also had prednisone 5mg daily listed at that time January 2021) --will check lipid panel in AM for risk strat however given CAD with PCI to LAD should be on high intensity statin Also checking A1c given prior level in 2020 5.7, continued steroid use add ISS while inpatient on steroids Will check ECHO given chronic PEs, continued exertional dyspnea and possible non-compliance with medications at home. Trop neg on admit, no CP, but progressive SOB since earlier this year (after stopping tx for alpha 1) Will need cardiology follow up at discharge, local vs closer to [facility] depending on patient preference (3) Himtu-9-lqooxqxuxle deficiency: Plan: Status post port placement for transfusions and subsequent removal. had been getting weekly injections with prolastin, stopped in October 2020 No acute intervention at this time needs outpatient pulm in follow up (4) Emphysema lung: Plan: supplemental o2 as needed continued smoking cessation (had been smoking up until recently) continue nicotine patch (5) H/O heart artery stent: Plan: noted hx in 2019, no CP reported continue ASA daily, heparin gtt for above and plavix stopped given >1 year since ADELAIDA (6) History of tobacco use: Plan: continued smoking cessation Medication compliance issues Consulted case management to assist with social issues. [facility]. daughter contacted by CM this morning and apparently was unaware of her father running out of medications either. Will need to coordinate/new rxs and follow up care at discharge as [facility]. Helping to arrange home heatlh as well. 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 Subjective Evaluated this morning Reports feeling better than admission On questioning about antibiotics, he states he had put all of them in the same bottle and he did have bactrim leftover from a cyst on the back of his neck that wouldn't go away and had this drained at hospital in [place] earlier this year. Denies knowing +MRSA, but assumed was for staph. Not coughing up anything today but was coughing up yellow sputum on admission yesterday. Had been using nebulizers at home but only once a day for fear of running out. He said he got them from someone. Discussed will contact CM and assist with getting any medications at home needed and that he needs closer follow up. Uses 2.5-3L at baseline but currently up to 4L. Faint expiratory wheezing primarily on the posterior right side. Did have elevated requirements to 4L when seen by pulmonary earlier this year, [facility] Chauhan PA-C. Denies fever/chills at home, no chest pain, nausea, or abdominal pain, dysuria reported. Per discussion with CM, lives with daughter and she takes him to appointments but she was also unaware of him running out of medications. Called, no answer, left voicemail and will call again in AM to discuss medications/compliance/follow up. Review of Systems Review of Systems: All systems reviewed & are unremarkable except as noted in HPI & below Physical Exam Physical Exam: General: WD/WN elderly male, sitting up at side of bed, NAD HEENT: head normocephalic, atraumatic, mmm, trachea midline without deviation Resp: prolonged expiratory phase, faint end expiratory wheezing, L>R, diminished in the bases, no crackles, no cough, not tachypneic, on 4L NC CV: RRR, no m/r/g, no calf edema or tenderness GI: +BS, soft, nontender : no tomas MSk/Neuro: moves all extremities, no focal deficits Psych: alert, oriented to person/place/event however appears unreliable historian Skin: cool, dry Results & Data Results & Data ([facility]) Vital Signs (Past 12 Hours) Vital Signs Temp Pulse Pulse Resp BP BP Pulse Ox 10/02/21 07:29 36.3 C L 80 16 111/73 94 10/02/21 07:14 90 18 92 10/02/21 01:23 101 H 20 91 10/01/21 21:53 10/01/21 23:26 102 H 22 92 10/01/21 21:45 109 H 24 116/72 93 10/01/21 22:01 109 H 24 116/72 93 O2 Del Method O2 Flow Rate 10/02/21 07:29 Nasal Cannula 4 10/02/21 07:14 Nasal Cannula 4 10/02/21 01:23 Nasal Cannula 4 10/01/21 21:53 Nasal Cannula 4 10/01/21 23:26 Nasal Cannula 4 10/01/21 21:45 Nasal Cannula 4 10/01/21 22:01 Nasal Cannula 4 Laboratory Results 10/02/21 10/02/21 10/02/21 Range/Units 10:55 04:03 04:03 WBC (4.8-10.8) K/ul RBC (4.63-6.08) M/uL Hgb (14.0-18.0) g/dl Hct (40.1-51.0) % MCV (80.0-100.0) fL MCH (25.0-34.0) pg MCHC (32.0-36.0) g/dL RDW Std Deviation (36.4-46.3) fL RDW Coeff of Lena (11.5-14.5) % Plt Count (130-400) K/uL MPV (9.4-12.4) fL Immature Gran % (Auto) % Neut % (Auto) % Lymph % (Auto) % [place] % (Auto) % Eos % (Auto) % Baso % (Auto) % Neut # (Auto) (1.4-6.5) K/uL Lymph # (Auto) (1.2-3.4) K/uL [place] # (Auto) (0.24-0.82) K/uL Eos # (Auto) (0-0.50) K/uL Baso # (Auto) (0-0.2) K/uL Immature Gran # (Auto) (0.00-0.02) K/uL PT (9.0-12.0) Seconds INR (0.9-1.1) APTT 57.8 H* 69.2 H* (21.0-31.0) Seconds PTT Ratio 2.1 2.5 Sodium 135 L (136-145) mmol/L Potassium 4.2 (3.5-5.1) mmol/L Chloride 99 (98-107) mmol/L Carbon Dioxide 33 H (21-32) mmol/L Anion Gap 3 (3-11) BUN 17 (6-23) mg/dl Creatinine 0.86 (0.6-1.4) mg/dl Est Cr Clr Drug Dosing 80.4 ml/min Est GFR ( Amer) 107.7 ml/min Est GFR (Non-Af Amer) 92.9 ml/min BUN/Creatinine Ratio 19.8 (10-20) Glucose 151 H (70-99(Fasting)) mg/dl Calcium 8.5 (8.5-10.1) mg/dl Magnesium 1.8 (1.7-2.4) mg/dl Influ A Molecular Assay (Negative) Influ B Molecular Assay (Negative) 10/02/21 10/01/21 10/01/21 Range/Units 04:03 18:45 18:35 WBC 8.13 (4.8-10.8) K/ul RBC 4.16 L (4.63-6.08) M/uL Hgb 12.7 L (14.0-18.0) g/dl Hct 39.8 L (40.1-51.0) % MCV 95.7 (80.0-100.0) fL MCH 30.5 (25.0-34.0) pg MCHC 31.9 L (32.0-36.0) g/dL RDW Std Deviation 43.5 (36.4-46.3) fL RDW Coeff of Lena 12.3 (11.5-14.5) % Plt Count 188 (130-400) K/uL MPV 10.1 (9.4-12.4) fL Immature Gran % (Auto) 0.5 % Neut % (Auto) 88.2 % Lymph % (Auto) 8.6 % [place] % (Auto) 2.6 % Eos % (Auto) 0.0 % Baso % (Auto) 0.1 % Neut # (Auto) 7.17 H (1.4-6.5) K/uL Lymph # (Auto) 0.70 L (1.2-3.4) K/uL [place] # (Auto) 0.21 L (0.24-0.82) K/uL Eos # (Auto) 0.00 (0-0.50) K/uL Baso # (Auto) 0.01 (0-0.2) K/uL Immature Gran # (Auto) 0.04 H (0.00-0.02) K/uL PT 11.2 (9.0-12.0) Seconds INR 1.1 (0.9-1.1) APTT 26.8 (21.0-31.0) Seconds PTT Ratio 1.0 Sodium (136-145) mmol/L Potassium (3.5-5.1) mmol/L Chloride (98-107) mmol/L Carbon Dioxide (21-32) mmol/L Anion Gap (3-11) BUN (6-23) mg/dl Creatinine (0.6-1.4) mg/dl Est Cr Clr Drug Dosing ml/min Est GFR ( Amer) ml/min Est GFR (Non-Af Amer) ml/min BUN/Creatinine Ratio (10-20) Glucose (70-99(Fasting)) mg/dl Calcium (8.5-10.1) mg/dl Magnesium (1.7-2.4) mg/dl Influ A Molecular Assay Negative (Negative) Influ B Molecular Assay Negative (Negative) Diagnostic Findings Chest CTA 10/01/21 16:00 CT angio chest PE protocol CT DOSE: 360.24 mGy.cm HISTORY: 60 years-old Male with PE. Acute shortness of breath TECHNIQUE: Multiple CTA images of the chest were obtained after the intravenous administration of 113 ml Optiray. Coronal and sagittal MIPS were obtained from the axial data set and were submitted for review. All measurements were obtained according to NASCET criteria. A dose lowering technique was utilized adhering to the principles of ALARA. COMPARISON: Chest radiograph of same day, CTA chest 08/24/2021 FINDINGS: CTA: The heart is normal in size. No pericardial effusion. Extensive coronary artery calcifications. Atherosclerosis of the thoracic aorta. The pulmonary artery is opacified to the level of the inguinal branches. The subsegmental branches are not well visualized secondary to contrast bolus timing. There is a tiny linear nonocclusive filling defect noted within a segmental branch of the right lower lobe on image 151 which is unchanged from the prior study and may represent a small chronic pulmonary embolus. No acute pulmonary emboli are identified. Narrowing of the left brachiocephalic vein likely chronic with numerous opa cified collateral vessels within the mediastinum and left chest. The superior vena cava is also diminutive and may be chronically thrombosed or narrowed. Contrast opacified azygos venous system. CT CHEST: Unremarkable thyroid. Nonspecific mildly prominent bilateral hilar lymph nodes are favored to be reactive. There is no pneumothorax or overt pulmonary edema. Severe emphysema with chronic fibrotic changes. Bronchial wall thickening suggestive of bronchitis with areas of mucous plugging. There is improved aeration of the left lung compared to the prior study with mild persistent predominantly linear subsegmental consolidation noted within the left lung base. There are no new or worsening pulmonary opacities identified. 5 mm fissural nodule within the right midlung on image 186 is unchanged suggestive of a benign lymph node. Decreased transverse dimension of the trachea (Aber sheath trachea). Nonspecific bilateral perinephric stranding redemonstrated. Nonobstructing calculi of the bilateral kidneys measure up to 4 mm. 1.3 cm proteinaceous versus hemorrhagic cyst of the superior pole right kidney. Subcentimeter hepatic hypodensities are too small to characterize. Unremarkable soft tissues. No acute fracture. IMPRESSION: 1. No acute pulmonary emboli identified. 2. Probable tiny chronic segmental pulmonary embolus within the right lower lobe is unchanged from 08/24/2021. 3. Severe emphysema with bronchial wall thickening suggestive of bronchitis. 4. There is improved aeration of left lung with mild persistent subsegmental linear opacities suggestive of atelectasis versus postinflammatory scarring. A mild residual infectious or inflammatory pneumonitis is considered less likely. 5. Nonobstructing bilateral nephrolithiasis. 6. Additional findings as above. ACT 112: Negative or not required by law. The above report was generated using voice recognition software. It may contain grammatical, syntax or spelling errors. Electronically signed by: Anderson Beckwith M.D. 10/01/2021 4:43 PM Venous Doppler Study 10/01/21 18:13 ULTRASOUND BILATERAL LOWER EXTREMITY VENOUS CLINICAL HISTORY: Pulmonary embolus. COMPARISON STUDY: No priors. TECHNIQUE: Real-time, grayscale, and color Doppler sonography of the deep veins of the right and left lower extremity was performed from the inguinal crease to the calf. Compression and augmentation were utilized. FINDINGS: There is no sonographic evidence of deep venous thrombosis identified in the right or left lower extremity. The common femoral, superficial femoral, and popliteal veins are patent and normally compressible bilaterally. The greater saphenous vein and the profunda femoris vein at the junction with the common femoral vein are clear in both legs. The visualized calf veins are patent bilaterally. IMPRESSION: There is no sonographic evidence of deep venous thrombosis identified in the right or left lower extremity. ACT 112: Negative or not required by law. Electronically signed by: Andres Astorga M.D. 10/02/2021 7:44 AM PG Care Time/CCT Total # of Minutes Spent Total Time Spent with Patient: Total time spent is greater than 50% in coordination of care (as documented) at patient's floor/unit and/or counseling patient: Coding Level of Care Code 13935 Subseq Hosp Care Lvl 3 Diagnoses Acute exacerbation of chronic obstructive pulmonary disease J44.1 CAD (coronary artery disease) I25.10 Xqmnb-9-afwddfpaoeh deficiency E88.01 Emphysema lung J43.9 H/O heart artery stent Z95.5 History of tobacco use Z87.891
--- NOTE | 2021-10-02 07:46 | Ultrasound Report ---
ULTRASOUND BILATERAL LOWER EXTREMITY VENOUS CLINICAL HISTORY: Pulmonary embolus. COMPARISON STUDY: No priors. TECHNIQUE: Real-time, grayscale, and color Doppler sonography of the deep veins of the right and left lower extremity was performed from the inguinal crease to the calf. Compression and augmentation wer e utilized. FINDINGS: There is no sonographic evidence of deep venous thrombosis identified in the right or left lower extremity. The common femoral, superficial femoral, and popliteal veins are patent and normally compressible bilaterally. The greater saphenous vein and the profunda femoris vein at the junction w ith the common femoral vein are clear in both legs. The visualized calf veins are patent bilaterally. IMPRESSION: There is no sonographic evidence of deep venous thrombosis identified in the right or lef t lower extremity. ACT 112: Negative or not required by law. Electronically signed by: Andres Astorga M.D. 10/02/2021 7:44 AM
[2021-10-02] MEDS: ASPIRIN 81 MG ECTAB PO SCH (09:01)
[2021-10-02] MEDS: UMECLIDINIUM BROMIDE 62.5MCG/BLISTER 7 PUFFS/INHALER INH SCH (09:01)
[2021-10-02] MEDS: METOPROLOL SUCC 25MG EXT REL TAB PO SCH (09:01)
[2021-10-02] MEDS: FLUTICASONE/VILANTEROL 200/25MCG 14 PUFFS/INHALER INH SCH (09:02)
[2021-10-02] MEDS: NICOTINE 14 MG/24 HR PATCH TD SCH (09:02)
--- NOTE | 2021-10-02 09:02 | Electrocardiogram Report ---
Test Reason : Blood Pressure : / mmHG Vent. Rate : 091 BPM Atrial Rate : 091 BPM P-R Int : 150 ms QRS Dur : 090 ms QT Int : 340 ms P-R-T Axes : 043 -79 059 degrees QTc Int : 418 ms Normal sinus rhythm Left axis deviation Low voltage QRS Old Inferior infarct (cited on or before 24-AUG-2021) Old Anteroseptal infarct (cited on or before 24-AUG-2021) Abnormal ECG When compared with ECG of 24-AUG-2021 12:27, Premature ventricular complexes are no longer Present T wave inversion no longer evident in Lateral leads Confirmed by José Manuel Henry ([id number]) on 10/02/2021 9:01:41 AM Referred By: REFERRED SELF Confirmed By:José Manuel Henry
[2021-10-02 11:34] LABS: Partial Thromboplastin Ratio 2.1
[2021-10-02 11:35] LABS: Partial Thromboplastin Time 57.8 Seconds (21.0-31.0)
[2021-10-02] MEDS ORDERED: DEXTROSE 50% 50 ML SYRINGE IV PRN (15:44)
[2021-10-02] MEDS ORDERED: GLUCAGON FOR INJ 1 MG VIAL SQ PRN (15:44)
[2021-10-02] MEDS ORDERED: CARBOHYDRATES FOR HYPOGLYCEMIA PO PRN (15:44)
[2021-10-02] MEDS ORDERED: GLUCOSE 40% GEL 15 GM TUBE PO PRN (15:44)
[2021-10-02] MEDS ORDERED: GLUCOSE 10 TAB/TUBE PO PRN (15:44)
[2021-10-02] MEDS ORDERED: FUROSEMIDE 20 MG TAB PO ONE (15:54)
[2021-10-02] MEDS: INSULIN ASPART PER UNIT SC SCH ×2 (18:08→22:16)
[2021-10-02] MEDS: HEPARIN SODIUM/DEXTROSE 25,000 UNITS/500 ML BAG IV SCH (19:24)
[2021-10-02] MEDS: SODIUM CHLORIDE 0.9% 1000ML 1,000 ML IV SCH (19:27)
[2021-10-02] MEDS: AZITHROMYCIN 250 MG TAB PO SCH (21:33)
[2021-10-02] MEDS: guaiFENesin 600 MG TABCR PO SCH (21:33)
[2021-10-03] MEDS: methylPREDNISolone 40 MG in SYRINGE 0 ML IV SCH ×4 (00:07→18:21)
[2021-10-03] MEDS: ALBUTEROL 0.083% NEBU SOLN 3 ML VIAL INH SCH ×4 (00:12→19:59)
[2021-10-03 06:10] LABS: Hematocrit (blood only) 38.5 % (40.1-51.0); Hemoglobin 12.7 g/dl (14.0-18.0); Mean Corpuscular Hemoglobin 30.8 pg (25.0-34.0); Mean Corpuscular Volume 93.4 fL (80.0-100.0); Mean Platelet Volume 10.5 fL (9.4-12.4); Platelet Count 202 K/uL (130-400); RDW Coefficient of Variation 12.4 % (11.5-14.5); RDW Standard Deviation 42.8 fL (36.4-46.3); Red Blood Count 4.12 M/uL (4.63-6.08); White Blood Count 17.06 K/ul (4.8-10.8)
[2021-10-03 06:36] LABS: Partial Thromboplastin Ratio 2.1
[2021-10-03 06:44] LABS: Anion Gap 5 (3-11); BUN Creatinine Ratio 28.8 (10-20); Blood Urea Nitrogen 21 mg/dl (6-23); Calcium 8.7 mg/dl (8.5-10.1); Carbon Dioxide 32 mmol/L (21-32); Chloride 100 mmol/L (98-107); Creatinine Clr Calc Pharmacy 94.7 ml/min; Est GFR (African American) 115.2 ml/min; Est GFR (Non-African American) 99.4 ml/min; Glucose 132 mg/dl (70-99(Fasting)); Potassium 4.7 mmol/L (3.5-5.1); Sodium 137 mmol/L (136-145)
[2021-10-03 06:48] LABS: Partial Thromboplastin Time 58.7 Seconds (21.0-31.0)
[2021-10-03 06:51] LABS: Ferritin 126.1 ng/ml (8-388)
[2021-10-03 06:53] LABS: Alanine Aminotransferase 12 U/L (7-52); Albumin Globulin Ratio 1.4 (0.9-2); Albumin Level 3.7 gm/dl (3.4-5.0); Alkaline Phosphatase 83 U/L (34-104); Aspartate Aminotransferase 17 U/L (13-39); Bilirubin,Total 0.4 mg/dl (0.2-1.0); Chol HDL Ratio 2.6 (0-5); Cholesterol 128 mg/dl (0-200); Globulin 2.7 gm/dl (2.5-4.0); HDL Cholesterol 50 mg/dl; Iron 199 mcg/dl (35-175); LDL Cholesterol Calculated 69 mg/dl; Total Protein 6.4 gm/dl (6.0-8.3); Triglycerides 46 mg/dl (0-150); Unsaturated Iron Binding Cap < 55 mcg/dl (155-355); VLDL Cholesterol 9 mg/dl (0-30)
[2021-10-03 06:56] LABS: Folate (Folic Acid) 11.99 ng/ml (>5.38)
[2021-10-03] MEDS: FORMOTEROL 20 MCG/2 ML VIAL NEB SCH ×2 (07:06→19:58)
--- NOTE | 2021-10-03 07:20 | Hospitalist Progress Note ---
Date of Service October 03, 2021 Assessment & Plan (1) Acute exacerbation of chronic obstructive pulmonary disease: Plan: Abdulaziz is a 58-year-old male with a past medical history of COPD, alpha 1 antitrypsin deficiency, who presents with increased hypoxia and increase in chronic oxygen requirement from 2.5-3 L to 4 L with incomplete return to baseline after recent treatment for pneumonia. Although, notes with pulm ([facility]au[facility]) from earlier this year with O2 requirement up to 4L prior to coming in with pneumonia. Also with hx and [place] with PCI to LAD in 2019 . Also has bottles of Brillinta but states he takes this everyday. ? suspect poor historian, has 2 bottle of bactrim from >1 year ago (reports putting meds in that bottle, had from a cyst to back of his next I&D earlier this year at [facility], denies hx MRSA) Recent admission for LEFT sided pneumonia, appears sent rxs for Levaquin and Cefdinir (to two different pharmacies) after discharge last month, however these were not filled until September 20. mindful of patient non-compliance w/ abx however improvement in prior L pneumonia last month Last alpha 1 antitrypsin level normal per pulm notes, has not bee on prolastin since last October but was on for 5 years weekly CTA chest on admit * severe emphysema with bronchial wall thickening suggestive of bronchitis. * Improvement in aeration of LEFT LUNG with mild persistant subsegmental linear opacities suggestive of atelctasis vs postinflammatory scarring. Mild residual infectious or inflammatory pneumonitis considered less likely ==> Flu, RSV, COVID NEGATIVE on admit Reports feeling better than he did on admission but about the same as day prior Methylprednisolone 125mg x1 by EMS, continues on 80mg Q8H patient 88% on 4L currently and will continue Continue nebulizers added hypertonic saline BID Continue added mucinex BID Azithromycin (day 3 of therapy) Monitor sputum cx Continue incentive spirometer, flutter valve Patient to be on Breo, Spiriva, Tiotropium at home -- has not had medications, getting nebs "from a friend" only using 1x/daily to reserve and not run out Continue on Breo, Incruse Perforomist BID while inpatient Will need new rx for discharge along with nebulizers Titrate O2 to maintain 88% or greater QUIT SMOKING AFTER LAST ADMISSION WITH PNEUMONIA, AUGUST 2021. 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 --> Menendez checked Eliquis 5mg BID, <$10/month, discussed with daughter ([facility]). Transition to eliquis tonight vs tomorrow as consultation placed for pulmonary (He did agree for local f/u with Dr Larson, arranged by ) (3) Acute respiratory failure with hypoxia: Plan: as above, could have 4L as new baseline, but with bronchitis as above, PEs heparin, nebs, medications as above pulmonary consulted for additional recommendations, appreciate assistance (4) CAD (coronary artery disease): Plan: Hx [place] s/p PCI to LAD 2018 at [facility]. trop high sen on admit 6.9, no CP reported To supposedly have remained on DAPT, but hasn't followed with cardiology recently also with multiple bottles of brillinta Takes lasix 20mg daily as needed but does not weigh himself daily --> given 20mg dose evening 10/02 and will continue daily while on steroids Is >1 year out, and as anticoagulation for chronic PEs noted above --> switched to monotherapy with ASA alone Patient also reports he ran out of his metoprolol -- to be on 25mg succinate daily which has been continued and need new rx at d/c Does not appear to be on statin either? -- [facility], patient listed to be taking atorvastatin 80mg daily (also had prednisone 5mg daily listed at that time January 2021) placed back on 80mg atorvastatin HS given CAD w/ PCI to LAD A1c 6.0 -- will need counseling/ISS added while inpatient on steroids, BSGs acceptable Checked ECHO given progressive SOB/chest tightness (?from subseg PEs) for the past 5-6 months. Does NOT feel like prior [place] symptoms of L chest pain * ECHO w/ normal LV size, but systolic function low normal 50-55%. Moderate apical wall hypokinesis. RV normal in size and function. RVSP elevated at 30- 40mmHg. Inferior vena cava mildly dilated. No significant valvular heart disease Will request records from [facility] Will need cardiology follow up at discharge (5) Awcwa-6-qssvtziqncm deficiency: Plan: Status post port placement for transfusions and subsequent removal. had been getting weekly injections with prolastin, stopped in October 2020 No acute intervention at this time needs outpatient pulm in follow up (6) Emphysema lung: Plan: supplemental o2 as needed to maintain sats 88% or greater continued smoking cessation (had been smoking up until recently with pneumonia) if <1 year without smoking , consideration for transplant candidate? pulm consulted as above (7) H/O heart artery stent: Plan: noted hx in 2018, no CP reported continue ASA daily, heparin gtt for above and plavix stopped given >1 year since A[facility]LAIDA needs cards outpt f/u (8) History of tobacco use: Plan: continued smoking cessation encouraged Medication compliance issues Consulted case management to assist with social issues. [facility]. daughter contacted by CM this morning and apparently was unaware of her father running out of medications either. Will need to coordinate/new rxs and follow up care at discharge as [facility]. Helping to arrange home heatlh as well-- daughter aggreeable for HH She states her dad stays in his room most of the time and had been bringing him his meals over the past several weeks. ?benefit from pulmonary rehab outpatient if possible PT/OT consulted Plan continued inpatient stay Admission and Anticipated Discharge Date Admission Date: October 01, 2021 Supervising Physician Co-Signing Physician Notes PA Supervision Note: I did not personally see or examine the patient today, but I verified all mcguire points of MAYCO Mahmood's assessment and plan with the following exceptions/additions: None Subjective evaluated this morning. stating breathing improved but about the same. is coughing up more sputum today, brown in color, states RN sent down to lab. No fever/chills. Does have shortness of breath and with inspiration. Denies having ever been on anticoagulation in the past but agreeable to place on for 3 months given findings on admit. Will have CM menendez check to see about coverage prior to switching to NOAC. Discussed called daughter but left voicemail, will attempt again today. Patient denies any chest pain (symptom from prior [place] 2018), abdominal pain, nausea or vomiting. Eating/drinking without issue. States in [facility], 2021. Quit smoking since his last pneumonia. Encouraged continued abstinence. Denies need for nicotine patch. Discussed would like RN to titrate oxygen to maintain 88 or better. He is aware of prior conversations with [facility] Chauhan not to be over corrected. Review of Systems Review of Systems: All systems reviewed & are unremarkable except as noted in HPI & below Physical Exam Physical Exam: General: WD/WN elderly male, sitting up at side of bed, NAD HEENT: head normocephalic, atraumatic, mmm, trachea midline without deviation Resp: prolonged expiratory phase, improved but still present faint end expiratory wheezing primarily on the left, posterior lung field, no rales, on 4L NC CV: RRR, no m/r/g, no calf edema or tenderness, SCDs in place GI: +BS, soft, nontender : no tomas MSk/Neuro: moves all extremities, no focal deficits, no slurred speech/facial droop Psych: AOx3, cooperative Skin: cool, dry Results & Data Results & Data ([facility]) Vital Signs (Past 12 Hours) Vital Signs Temp Pulse Pulse Resp BP Pulse Ox O2 Del Method 10/03/21 07:06 83 18 92 Nasal Cannula 10/03/21 06:43 36.5 C 79 18 108/68 96 Nasal Cannula 10/02/21 20:45 Nasal Cannula 10/03/21 00:13 87 18 92 Nasal Cannula 10/02/21 22:48 36.9 C 91 H 18 125/82 91 Nasal Cannula 10/02/21 19:36 90 18 91 Nasal Cannula O2 Flow Rate 10/03/21 07:06 4 10/03/21 06:43 4.0 10/02/21 20:45 4 10/03/21 00:13 4 10/02/21 22:48 4.0 10/02/21 19:36 4 Laboratory Results 10/03/21 10/03/21 10/03/21 Range/Units 05:39 05:39 05:39 WBC (4.8-10.8) K/ul RBC (4.63-6.08) M/uL Hgb (14.0-18.0) g/dl Hct (40.1-51.0) % MCV (80.0-100.0) fL MCH (25.0-34.0) pg MCHC (32.0-36.0) g/dL RDW Std Deviation (36.4-46.3) fL RDW Coeff of Lena (11.5-14.5) % Plt Count (130-400) K/uL MPV (9.4-12.4) fL APTT (21.0-31.0) Seconds PTT Ratio Sodium (136-145) mmol/L Potassium (3.5-5.1) mmol/L Chloride (98-107) mmol/L Carbon Dioxide (21-32) mmol/L Anion Gap (3-11) BUN (6-23) mg/dl Creatinine (0.6-1.4) mg/dl Est Cr Clr Drug Dosing ml/min Est GFR ( Amer) ml/min Est GFR (Non-Af Amer) ml/min BUN/Creatinine Ratio (10-20) Glucose (70-99(Fasting)) mg/dl POC Glucose (70-99) mg/dl Estimat Average Glucose Pending Hemoglobin A1c Pending Calcium (8.5-10.1) mg/dl Magnesium (1.7-2.4) mg/dl Iron (35-175) mcg/dl TIBC Unsaturated IBC (155-355) mcg/dl Transferrin % Sat Ferritin (8-388) ng/ml Total Bilirubin (0.2-1.0) mg/dl AST (13-39) U/L ALT (7-52) U/L Alkaline Phosphatase (34-104) U/L B-Natriuretic Peptide 62 (0-100) pg/ml Total Protein (6.0-8.3) gm/dl Albumin (3.4-5.0) gm/dl Globulin (2.5-4.0) gm/dl Albumin/Globulin Ratio (0.9-2) Triglycerides (0-150) mg/dl Cholesterol (0-200) mg/dl LDL Cholesterol, Calc mg/dl VLDL Cholesterol, Calc (0-30) mg/dl HDL Cholesterol mg/dl Cholesterol/HDL Ratio (0-5) Vitamin B12 901 (180-914) pg/ml Folate 11.99 (>5.38) ng/ml 10/03/21 10/03/2122 Range/Units 05:39 05:39 05:39 WBC 17.06 H (4.8-10.8) K/ul RBC 4.12 L (4.63-6.08) M/uL Hgb 12.7 L (14.0-18.0) g/dl Hct 38.5 L (40.1-51.0) % MCV 93.4 (80.0-100.0) fL MCH 30.8 (25.0-34.0) pg MCHC 33.0 (32.0-36.0) g/dL RDW Std Deviation 42.8 (36.4-46.3) fL RDW Coeff of Lena 12.4 (11.5-14.5) % Plt Count 202 (130-400) K/uL MPV 10.5 (9.4-12.4) fL APTT 58.7 H* (21.0-31.0) Seconds PTT Ratio 2.1 Sodium 137 (136-145) mmol/L Potassium 4.7 (3.5-5.1) mmol/L Chloride 100 (98-107) mmol/L Carbon Dioxide 32 (21-32) mmol/L Anion Gap 5 (3-11) BUN 21 (6-23) mg/dl Creatinine 0.73 (0.6-1.4) mg/dl Est Cr Clr Drug Dosing 94.7 ml/min Est GFR ( Amer) 115.2 ml/min Est GFR (Non-Af Amer) 99.4 ml/min BUN/Creatinine Ratio 28.8 H (10-20) Glucose 132 H (70-99(Fasting)) mg/dl POC Glucose (70-99) mg/dl Estimat Average Glucose Hemoglobin A1c Calcium 8.7 (8.5-10.1) mg/dl Magnesium 2.0 (1.7-2.4) mg/dl Iron 199 H (35-175) mcg/dl TIBC TNP Unsaturated IBC < 55 L (155-355) mcg/dl Transferrin % Sat TNP Ferritin 126.1 (8-388) ng/ml Total Bilirubin 0.4 (0.2-1.0) mg/dl AST 17 (13-39) U/L ALT 12 (7-52) U/L Alkaline Phosphatase 83 (34-104) U/L B-Natriuretic Peptide (0-100) pg/ml Total Protein 6.4 (6.0-8.3) gm/dl Albumin 3.7 (3.4-5.0) gm/dl Globulin 2.7 (2.5-4.0) gm/dl Albumin/Globulin Ratio 1.4 (0.9-2) Triglycerides 46 (0-150) mg/dl Cholesterol 128 (0-200) mg/dl LDL Cholesterol, Calc 69 mg/dl VLDL Cholesterol, Calc 9 (0-30) mg/dl HDL Cholesterol 50 mg/dl Cholesterol/HDL Ratio 2.6 (0-5) Vitamin B12 (180-914) pg/ml Folate (>5.38) ng/ml 10/02/21 10/02/21 10/02/21 Range/Units 20:40 16:56 10:55 WBC (4.8-10.8) K/ul RBC (4.63-6.08) M/uL Hgb (14.0-18.0) g/dl Hct (40.1-51.0) % MCV (80.0-100.0) fL MCH (25.0-34.0) pg MCHC (32.0-36.0) g/dL RDW Std Deviation (36.4-46.3) fL RDW Coeff of Lena (11.5-14.5) % Plt Count (130-400) K/uL MPV (9.4-12.4) fL APTT 57.8 H* (21.0-31.0) Seconds PTT Ratio 2.1 Sodium (136-145) mmol/L Potassium (3.5-5.1) mmol/L Chloride (98-107) mmol/L Carbon Dioxide (21-32) mmol/L Anion Gap (3-11) BUN (6-23) mg/dl Creatinine (0.6-1.4) mg/dl Est Cr Clr Drug Dosing ml/min Est GFR ( Amer) ml/min Est GFR (Non-Af Amer) ml/min BUN/Creatinine Ratio (10-20) Glucose (70-99(Fasting)) mg/dl POC Glucose 155 H 126 H (70-99) mg/dl Estimat Average Glucose Hemoglobin A1c Calcium (8.5-10.1) mg/dl Magnesium (1.7-2.4) mg/dl Iron (35-175) mcg/dl TIBC Unsaturated IBC (155-355) mcg/dl Transferrin % Sat Ferritin (8-388) ng/ml Total Bilirubin (0.2-1.0) mg/dl AST (13-39) U/L ALT (7-52) U/L Alkaline Phosphatase (34-104) U/L B-Natriuretic Peptide (0-100) pg/ml Total Protein (6.0-8.3) gm/dl Albumin (3.4-5.0) gm/dl Globulin (2.5-4.0) gm/dl Albumin/Globulin Ratio (0.9-2) Triglycerides (0-150) mg/dl Cholesterol (0-200) mg/dl LDL Cholesterol, Calc mg/dl VLDL Cholesterol, Calc (0-30) mg/dl HDL Cholesterol mg/dl Cholesterol/HDL Ratio (0-5) Vitamin B12 (180-914) pg/ml Folate (>5.38) ng/ml PG Care Time/CCT Total # of Minutes Spent Total Time Spent with Patient: Total time spent is greater than 50% in coordination of care (as documented) at patient's floor/unit and/or counseling patient: Coding Level of Care Code 89614 Subseq Hosp Care Lvl 3 Diagnoses Acute exacerbation of chronic obstructive pulmonary disease J44.1 Pulmonary emboli I26.99 Acute respiratory failure with hypoxia J96.01 CAD (coronary artery disease) I25.10 Eokus-7-fjjnnadostu deficiency E88.01 Emphysema lung J43.9 H/O heart artery stent Z95.5 History of tobacco use Z87.891
[2021-10-03] MEDS: NICOTINE 14 MG/24 HR PATCH TD SCH (07:44)
[2021-10-03] MEDS: ASPIRIN 81 MG ECTAB PO SCH (07:45)
[2021-10-03] MEDS: METOPROLOL SUCC 25MG EXT REL TAB PO SCH (07:45)
[2021-10-03] MEDS: guaiFENesin 600 MG TABCR PO SCH ×2 (07:45→21:38)
[2021-10-03] MEDS: FLUTICASONE/VILANTEROL 200/25MCG 14 PUFFS/INHALER INH SCH (07:45)
[2021-10-03] MEDS: UMECLIDINIUM BROMIDE 62.5MCG/BLISTER 7 PUFFS/INHALER INH SCH (07:45)
[2021-10-03] MEDS: INSULIN ASPART PER UNIT SC SCH ×4 (08:05→21:37)
[2021-10-03 08:14] LABS: Estimated Average Glucose 126 mg/dl
[2021-10-03 08:25] LABS: Basophils # (auto) 0.01 K/uL (0-0.2); Basophils % (auto) 0.1 %; Immature Granulocytes # (auto) 0.09 K/uL (0.00-0.02); Immature Granulocytes % (auto) 0.5 %; Lymphocytes % (auto) 4.1 %; Monocytes # (auto) 0.63 K/uL (0.24-0.82); Monocytes % (auto) 3.7 %; Neutrophils # (auto) 15.63 K/uL (1.4-6.5); Neutrophils % (auto) 91.6 %
--- NOTE | 2021-10-03 13:00 | XCELERA ---
[id number] \\[id number]
[2021-10-03] MEDS: DOCUSATE SODIUM/SENNA 50/8.6MG TAB PO SCH (14:26)
[2021-10-03] MEDS: POLYETHYLENE (MIRALAX) 17 GM PACK PO SCH (14:26)
--- NOTE | 2021-10-03 17:05 | Pulmonary Consultation ---
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: (5) Pulmonary hypertension: (6) Mixed restrictive and obstructive lung disease: (7) Pulmonary emboli: (8) History of tobacco use: Plan CT chest 10/01/2021 personally reviewed: Severe centrilobular and paraseptal emphysema appreciated bilaterally Right upper lobe scarring, lingular scarring with adjacent bullous disease Multiple dependent atelectasis bilateral lower lobes No mediastinal lymphadenopathy Compared to CT chest 08/24/2021 there is improvement in the lingular pneumonia 2D echo 10/03/2021: EF 50-55%, moderate apical wall hypokinesis, RVSP 30-40 mmHg, grade 1 diastolic dysfunction PFT 10/09/2020 personally reviewed: Very severe COPD, significant bronchodilator response, mild decrease in TLC, very severe decrease in DLCO FVC 2.04 L 49%, FEV1 0.62 L 19%, FEV1/FVC 30%, RV 112%, TLC 71%, RV/TLC ratio 52, DLCO 16%, DLCO/VA 32% -- Acute on chronic hypoxic hypercapnic respiratory failure Likely secondary to COPD exacerbation QTC 418 on 10/01/2021 COVID-19 PCR negative Influenza A/B negative Continue with O2 supplementation to keep oxygen between 88-92% BiPAP nightly and as needed shortness of breath --Very severe COPD with emphysema On Breo and Spiriva at home FEV1 is only 19% predicted. 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 This does not qualify him for treatment. Will repeat alpha-1 level Plan: Continue with Solu-Medrol and azithromycin Chronic subsegmental pulmonary emboli appreciated in the right lower lobe. Continue with heparin drip Continue with hypertonic saline and Mucinex. Continue with flutter valve Repeat ABG in the morning If the patient is still hypercapnic and he will benefit from a trilogy machine at home Palliative care consult to discuss goals of care can also be thought of given very severe COPD Pulmonary will continue to follow Please note the above document was generated using voice recognition software. It may contain grammatical, syntax or spelling errors.Any formal questions or concerns about the content, text or information contained within the body of this dictation should be directly addressed to the provider for clarification. History of Present Illness Attending Physician: Carley Mckeon MD History of Present Illness 60-year-old male came to the hospital for shortness of breath Past medical history: COPD, coronary artery disease s/p LAD, chronic hypoxic respiratory failure on 2-3 L at home There is documentation the patient has alpha 1 antitrypsin deficiency. I do not see any alpha-1 level in the system or in any documentation Patient was following up with Mc Chauhan. He saw the patient last on 02/27/2021 I did go over the previous records images as well as PFT Patient says that he is feeling better compared to when he came to the hospital It is slowly getting better He does complain of chest congestion and is able to bring up the phlegm with the help of flutter valve. No hemoptysis Denies any chest pain. Does feel a tightness in the chest. No fever or chills No headache, no blurry vision No night sweats, no unintentional weight loss There is no family history of alpha 1 antitrypsin deficiency. There is a possibility of his brother also being carriers Social history: Approximately 33-rqug-vsko smoking history, states that he quit a month ago. 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 Did not wear mask all the time Allergies Allergy/AdvReac Type Severity Reaction Status Date / Time No Known Allergies Allergy Verified 08/24/21 15:47 Home Medications Medication Instructions Recorded Confirmed Type Oxygen Home #1 ea 09/21/18 10/17/20 History albuterol sulfate 2.5 mg/3 mL 2.5 mg inhalation DIRECTED PRN 09/21/18 08/24/21 History (0.083 %) solution for nebulization Shortness Of Breath #1 mL aspirin 81 mg tablet,delayed 81 mg PO DAILY 10/05/18 08/24/21 History release tiotropium bromide 2.5 2 inh inhalation DAILY #4 grams 06/15/20 08/24/21 Rx mcg/actuation mist for inhalation fluticasone furoate 200 1 inh inhalation DAILY #1 ea 01/17/21 08/24/21 Rx mcg-vilanterol 25 mcg/dose inhalation powder furosemide 20 mg tablet 20 mg PO DAILY #30 tabs 03/15/21 08/24/21 Rx albuterol sulfate 90 mcg/actuation 2 inh inhalation Q6H PRN Shortness 08/24/21 08/24/21 History aerosol inhaler Of Breath Or Wheezing metoprolol succinate 25 mg 25 mg PO DAILY 08/24/21 08/24/21 History tablet,extended release 24 hr apixaban 5 mg tablet (Eliquis) 5 mg PO BID #60 tabs 10/03/21 Rx Patient History Medical History Juhut-2-gorsorhenxi deficiency CAD (coronary artery disease) Chronic obstructive pulmonary disease Multifocal pneumonia Social History Smoking Status: Former smoker Tobacco Type: Cigarettes Cigarettes Per Day: 1; Second Hand Exposure: No; Hx Alcohol Use: Yes Alcohol type: beer Hx Substance Use: Yes Last Used Substance: Days (ago) Last Used Substance Other:: he states a few days ago. Preferred Language: [place] Islander Communication Ability: Effective Gopherman Required: No Beliefs That Will Affect Care: None marital status: Single Current Living Situation: Family Current Living Situation Comment: dtr Feels Safe at Home: Yes Assistive Devices: Oxygen - Continuous Review of Systems Review of Systems: All systems reviewed & are unremarkable except as noted in HPI & below Physical Exam Physical Exam: Constitutional: No acute distress HEENT: EOMI, PERRLA Respiratory system: Decreased air entry bilaterally, no rhonchi, mild crackles bilateral lower lobes, positive expiratory wheeze CVS: S1-S2 positive, no murmurs or gallops Abdomen: Soft, nontender, nondistended, positive bowel sounds x4 Extremities: +2 pulses bilaterally radialis/ dorsalis pedis, no cyanosis, no edema Neuro: Awake alert oriented x3 Psych: Normal mood and affect G/U: No Bazzi Skin: no rashes, warm and dry Lymphatic: no cervical or axillary lymphadenopathy Results & Data Results & Data ([facility]) Vital Signs (Past 12 Hours) Vital Signs Temp Pulse Resp BP Pulse Ox O2 Del Method O2 Flow Rate 10/03/21 14:25 37.1 C 96 H 20 106/68 10/03/21 14:24 88 L Nasal Cannula 4 10/03/21 12:57 90 20 90 Nasal Cannula 4 10/03/21 07:06 83 18 92 Nasal Cannula 4 10/03/21 06:43 36.5 C 79 18 108/68 96 Nasal Cannula 4.0 Laboratory Results 10/03/21 05:39 10/03/21 05:39 PG Care Time/CCT Total # of Minutes Spent Total Time Spent with Patient: Total time spent is greater than 50% in coordination of care (as documented) at patient's floor/unit and/or counseling patient: Coding Level of Care Code 72384 Inpt Consult Level 5 Diagnoses Acute exacerbation of chronic obstructive pulmonary disease J44.1 Acute on chronic respiratory failure with hypoxia and hypercapnia J96.21; J96.22 COPD with emphysema J43.9 Flcco-0-kndqtfzhakz deficiency carrier Z14.8 Pulmonary hypertension I27.20 Mixed restrictive and obstructive lung disease J43.9; J98.4 Pulmonary emboli I26.99 History of tobacco use Z87.891
[2021-10-03] MEDS: FUROSEMIDE 20 MG TAB PO SCH (17:30)
[2021-10-03] MEDS: HEPARIN SODIUM/DEXTROSE 25,000 UNITS/500 ML BAG IV SCH (18:25)
[2021-10-03] MEDS: SODIUM CHLOR 7% 4 ML NEB NEB SCH (19:58)
[2021-10-03] MEDS: ATORVASTATIN 40 MG TAB PO SCH (21:38)
[2021-10-03] MEDS: APIXABAN 5 MG TABLET PO SCH (21:38)
[2021-10-03] MEDS: AZITHROMYCIN 250 MG TAB PO SCH (21:39)
[2021-10-04] MEDS: methylPREDNISolone 40 MG in SYRINGE 0 ML IV SCH ×4 (01:04→22:24)
[2021-10-04] MEDS: ALBUTEROL 0.083% NEBU SOLN 3 ML VIAL INH SCH ×4 (01:36→19:37)
[2021-10-04] MEDS: FORMOTEROL 20 MCG/2 ML VIAL NEB SCH ×2 (07:07→19:38)
[2021-10-04] MEDS: SODIUM CHLOR 7% 4 ML NEB NEB SCH ×2 (07:07→19:37)
[2021-10-04 07:32] LABS: Hematocrit (blood only) 39.8 % (40.1-51.0); Mean Corpuscular Hemoglobin 31.3 pg (25.0-34.0); Mean Corpuscular Hgb Conc 32.7 g/dL (32.0-36.0); Mean Corpuscular Volume 95.7 fL (80.0-100.0); Mean Platelet Volume 9.9 fL (9.4-12.4); Platelet Count 218 K/uL (130-400); RDW Coefficient of Variation 12.7 % (11.5-14.5); RDW Standard Deviation 44.8 fL (36.4-46.3); Red Blood Count 4.16 M/uL (4.63-6.08); White Blood Count 13.14 K/ul (4.8-10.8)
[2021-10-04 07:48] LABS: Basophils # (auto) 0.01 K/uL (0-0.2); Basophils % (auto) 0.1 %; Immature Granulocytes # (auto) 0.09 K/uL (0.00-0.02); Immature Granulocytes % (auto) 0.7 %; Lymphocytes # (auto) 0.45 K/uL (1.2-3.4); Lymphocytes % (auto) 3.4 %; Monocytes # (auto) 0.29 K/uL (0.24-0.82); Monocytes % (auto) 2.2 %; Neutrophils % (auto) 93.6 %
[2021-10-04 07:54] LABS: Partial Thromboplastin Time 26.7 Seconds (21.0-31.0)
[2021-10-04 08:09] LABS: Base Excess ABG 7.6 mEq/L (-9-1.8); HCO3 ABG 34 mmol/L (19-24); Oxygen Saturation ABG 94.1 % (90-95); PCO2 ABG 52 mmHg (35-46); PO2 ABG 64 mmHg (80-95); pH ABG 7.42 (7.35-7.45)
[2021-10-04 08:11] LABS: Allen Test Pos (Pos)
--- NOTE | 2021-10-04 08:18 | Hospitalist Progress Note ---
Date of Service October 04, 2021 Assessment & Plan (1) Acute exacerbation of chronic obstructive pulmonary disease: Plan: Abdulaziz is a 58-year-old male with a past medical history of COPD, alpha 1 antitrypsin deficiency, who presents with increased hypoxia and increase in chronic oxygen requirement from 2.5-3 L to 4 L with incomplete return to baseline after recent treatment for pneumonia. Although, notes with pulm ([facility]) from earlier this year with O2 requirement up to 4L prior to coming in with pneumonia. Also with hx and OH with PCI to LAD in 2019 . Also has bottles of Brillinta but states he takes this everyday. ? suspect poor historian, has 2 bottle of bactrim from >1 year ago (reports putting meds in that bottle, had from a cyst to back of his next I&D earlier this year at [place], denies hx MRSA) Recent admission for LEFT sided pneumonia, appears sent rxs for Levaquin and Cefdinir (to two different pharmacies) after discharge last month, however these were not filled until September 20. mindful of patient non-compliance w/ abx however improvement in prior L pneumonia last month Last alpha 1 antitrypsin level normal per pulm notes, has not bee on prolastin since last October but was on for 5 years weekly CTA chest on admit * severe emphysema with bronchial wall thickening suggestive of bronchitis. * Improvement in aeration of LEFT LUNG with mild persistant subsegmental linear opacities suggestive of atelctasis vs postinflammatory scarring. Mild residual infectious or inflammatory pneumonitis considered less likely ==> Flu, RSV, COVID NEGATIVE on admit Placed on azithromycin (day 4 of therapy), consider M-W-F at discharge Continue nebulizers and hypertonic saline BID added 10/03, mucinex BID Continue incentive spirometer, flutter valve Pulmonary on consult BIPAP ordered HS, patient stated he tolerated this Prior FEV1 only 19% predicted, end-stage COPD ABG w/ 7.35/70/94--> 7.42/52/64 on 2L 10/04 after BiPAP last evening "Given the persistent hypercapnia even after using BiPAP at night I do think patient will benefit from trilogy machine * Due to chronic respiratory failure consequent to COPD, patient now requires a noninvasive home ventilator. Bilevel therapy with and without a rate would be ineffective as patient requires a volume targeted mode. * Ventilation is required to decrease work of breathing and improve pulmonary status. Interruption of ventilator support would lead to decline of health status. * NIMV settings should be AVAPS-AE; Breath rate: auto; Inspiratory time:auto; Sigh: off; Tidal Volume: 350-450, PS min: 4-10 PS max: 12-20; EPAP min: 6-10; EPAP max: 10-16; AVAPS rate: 14 during sleep and as needed " * Also agrees w/ anticoagulation x 3 months (see below) * Messaged , they are to arrange with [facility], may not have auth until Friday. Also [facility] and running out Decreased wheezing, methylprednisolone decreased from 80mg Q8H to 40mg Q8H for now Continues on added daily 20mg lasix as taking "prn" at home but hadn't been taking --> kidney function remains stable and would continue Titrate O2 to maintain sats --> 91% on 3L currently (using 2.5-3L baseline, but Ed at [facility] appt was req 4L) Patient to be on Breo, Spiriva, Tiotropium at home -- has not had medications, getting nebs "from a friend" only using 1x/daily to reserve and not run out. Needs new rxs Smoking cessation --> has not smoked since August w/ admission for pneumonia. Continued cessation. F/u pul for continued discussions regarding transplant. Also did have discussion with palliative today, wants to remain full code Needing outpatient PFTs, consider daliresp at d/c as well for end stage COPD Continued inpatient monitoring/working on [facility] for trilegy. 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 --> Mcmahon checked Eliquis 5mg BID, <$10/month, discussed with daughter (patient [facility]). ??if from prior port placement on Left for his alpha 1 medication infusions, since removed in May as not getting any longer Transitioned to eliquis evening 10/03 --> 10mg BID x 7 days, then decrease to 5mg BID after AM dose 10/10 (3) Acute respiratory failure with hypoxia: Plan: as above, could have 4L as new baseline, but with bronchitis as above, PEs heparin, nebs, medications as above pulmonary consulted for additional recommendations, appreciate assistance martina bernstein CM working on this also will need outpatient PFTs repeated alpha 1 level sent by pulm (4) CAD (coronary artery disease): Plan: Hx OH s/p PCI to LAD 2018 at [facility]. -- To supposedly have remained on DAPT, but hasn't followed with cardiology recently also with multiple bottles of brillinta Takes Lasix 20mg daily as needed but does not weigh himself daily Is >1 year out, and as anticoagulation for chronic PEs noted above--> switched to monotherapy with ASA alone, especially given anticoagulation as above Checked ECHO given progressive SOB/chest tightness (?from subseg PEs) for the past 5-6 months. Does NOT feel like prior OH symptoms of L chest pain * ECHO w/ normal LV size, but systolic function low normal 50-55%. Moderate apical wall hypokinesis. RV normal in size and function. RVSP elevated at 30- 40mmHg. Inferior vena cava mildly dilated. No significant valvular heart disease Requested request records from [facility] Placed back on metoprolol 25mg daily -- stated he ran out of this. New rx at d/c Also placed on "daily 20mg lasix" as taking prn at home and on steroids. Kidney function remains stable Did not appear to be on statin either? -- per [facility], patient listed to be taking atorvastatin 80mg daily (also had prednisone 5mg daily listed at that time January 2021) placed back on 80mg atorvastatin HS given CAD w/ PCI to LAD A1c 6.0-- will need counseling ISS added while inpatient on steroids, BSGs acceptable Will need cardiology follow up at discharge -- agreed to local as made appts for pulm locally as well EKG c CP, trop negative on admit (5) Ndlms-3-ftrjjbhxafk deficiency: Plan: Status post port placement for transfusions and subsequent removal. had been getting weekly injections with prolastin, stopped in October 2020 No acute intervention at this time needs outpatient pulm in follow up (6) Emphysema lung: Plan: supplemental o2 as needed to maintain sats 88% or greater continued smoking cessation (had been smoking up until recently with pneumonia) if <1 year without smoking , consideration for transplant candidate? -- he deferred for now, continued outpatient follow up (7) H/O heart artery stent: Plan: noted hx in 2019, no CP reported continue ASA daily, heparin gtt transitioned to eliquis as above plavix stopped as >1 year from [facility] records from [facility] requested cards outpt f/u (8) History of tobacco use: Plan: continued smoking cessation encouraged Medication compliance issues Consulted case management to assist with social issues. [facility]. daughter contacted by CM this morning and apparently was unaware of her father running out of medications either. Will need to coordinate/new rxs and follow up care at discharge as [facility] follows [facility]. Helping to arrange home health as well-- daughter agreeable for HH She states her dad stays in his room most of the time and had been bringing him his meals over the past several weeks. Per patient, daughter going through a divorce at this time... ?benefit from pulmonary rehab outpatient if possible PT/OT consulted while inpatient Plan continued inpatient stay decreased methylprednisolone to 40mg IV Q8, continue azithromycin and nebulizers/hypertonic saline, mucinex, supplemental O2 continue eliquis 10mg BID x 10 days, decrease to 5mg BID PM 10/10 CM following, assisting with setting up trilogy at discharge Admission and Anticipated Discharge Date Admission Date: October 01, 2021 Supervising Physician Co-Signing Physician Notes PA Supervision Note: I did not personally see or examine the patient today, but I verified all mcguire points of MAYCO Mahmood's assessment and plan with the following exceptions/additions: None Subjective Patient evaluated this morning. Doing much better, feeling breathing improved. Some slight wheezing primarily on the right, but overall much improved and steroids to be decreased. Hypertonic saline nebulizers effective at having him expectorate sputum and having clear sputum with some brown tinges in cup (chronic). Tolerated BIpAP last evening and discussed pending ABG would be able to qualify for trelegy at home. Continues on lasix daily for now. Discussed pending improvement tomorrow/set up for home health and possible discharge tomorrow with outpatient follow-up. Discussed switching to eliquis and continue at discharge. His port was removed in May earlier this year, was on the left side, and likely cause for SVC/brachiocephalic findings on CT chest. Review of Systems Review of Systems: All systems reviewed & are unremarkable except as noted in HPI & below Physical Exam Physical Exam: General: WD/WN elderly male, sitting up in bed eating breakfast, NAD HEENT: head normocephalic, atraumatic, mmm, trachea midline without deviation Chest: prior L port site scar well healed, non tender Resp: prolonged expiratory phase, decreased overall but improved air entry bilaterally, no rhonic, mild bibasilar crackles, faint expiratory wheezing left posterior lung jacobson, on 3L NC CV: RRR, no m/r/g, no calf edema or tenderness, SCDs in place GI: +BS, soft, nontender : no tomas MSk/Neuro: moves all extremities, no focal deficits, no slurred speech/facial droop Psych: AOx3, pleasant, improved mood and affect Skin: cool, dry Results & Data Results & Data ([facility]) Vital Signs (Past 12 Hours) Vital Signs Temp Pulse Pulse Resp BP Pulse Ox O2 Del Method 10/04/21 07:45 36.6 C 82 18 100/67 91 Nasal Cannula 10/04/21 07:07 84 20 Nasal Cannula 10/04/21 01:37 85 23 96 BiPAP O2 Flow Rate 10/04/21 07:45 2 10/04/21 07:07 4 10/04/21 01:37 4 Laboratory Results 10/04/21 10/04/21 10/04/21 Range/Units 12:26 10:44 07:48 WBC (4.8-10.8) K/ul RBC (4.63-6.08) M/uL Hgb (14.0-18.0) g/dl Hct (40.1-51.0) % MCV (80.0-100.0) fL MCH (25.0-34.0) pg MCHC (32.0-36.0) g/dL RDW Std Deviation (36.4-46.3) fL RDW Coeff of Lena (11.5-14.5) % Plt Count (130-400) K/uL MPV (9.4-12.4) fL Immature Gran % (Auto) % Neut % (Auto) % Lymph % (Auto) % [place] % (Auto) % Eos % (Auto) % Baso % (Auto) % Neut # (Auto) (1.4-6.5) K/uL Lymph # (Auto) (1.2-3.4) K/uL [place] # (Auto) (0.24-0.82) K/uL Eos # (Auto) (0-0.50) K/uL Baso # (Auto) (0-0.2) K/uL Immature Gran # (Auto) (0.00-0.02) K/uL APTT (21.0-31.0) Seconds PTT Ratio ABG pH 7.42 ABG pCO2 52 H ABG pO2 64 L ABG HCO3 34 H ABG O2 Saturation 94.1 ABG Base Excess 7.6 H Skip Test Pos Barometric Pressure Oxygen Given 2L Sodium 139 (136-145) mmol/L Potassium 4.1 (3.5-5.1) mmol/L Chloride 100 (98-107) mmol/L Carbon Dioxide 36 H (21-32) mmol/L Anion Gap 3 (3-11) BUN 21 (6-23) mg/dl Creatinine 0.68 (0.6-1.4) mg/dl Est Cr Clr Drug Dosing 101.6 ml/min Est GFR ( Amer) 118.6 ml/min Est GFR (Non-Af Amer) 102.4 ml/min BUN/Creatinine Ratio 30.9 H (10-20) Glucose 145 H (70-99(Fasting)) mg/dl POC Glucose 126 H (70-99) mg/dl Calcium 8.7 (8.5-10.1) mg/dl Magnesium (1.7-2.4) mg/dl Total Bilirubin 0.5 (0.2-1.0) mg/dl AST 16 (13-39) U/L ALT 12 (7-52) U/L Alkaline Phosphatase 75 (34-104) U/L Total Protein 6.1 (6.0-8.3) gm/dl Albumin 3.5 (3.4-5.0) gm/dl Globulin 2.6 (2.5-4.0) gm/dl Albumin/Globulin Ratio 1.3 (0.9-2) Noyfz-5-Rmclcmliihu 08/25/22 08/25/22 08/25/22 Range/Units 07:13 07:13 07:13 WBC (4.8-10.8) K/ul RBC (4.63-6.08) M/uL Hgb (14.0-18.0) g/dl Hct (40.1-51.0) % MCV (80.0-100.0) fL MCH (25.0-34.0) pg MCHC (32.0-36.0) g/dL RDW Std Deviation (36.4-46.3) fL RDW Coeff of Lena (11.5-14.5) % Plt Count (130-400) K/uL MPV (9.4-12.4) fL Immature Gran % (Auto) % Neut % (Auto) % Lymph % (Auto) % [place] % (Auto) % Eos % (Auto) % Baso % (Auto) % Neut # (Auto) (1.4-6.5) K/uL Lymph # (Auto) (1.2-3.4) K/uL [place] # (Auto) (0.24-0.82) K/uL Eos # (Auto) (0-0.50) K/uL Baso # (Auto) (0-0.2) K/uL Immature Gran # (Auto) (0.00-0.02) K/uL APTT (21.0-31.0) Seconds PTT Ratio ABG pH Cancelled ABG pCO2 Cancelled ABG pO2 Cancelled ABG HCO3 Cancelled ABG O2 Saturation Cancelled ABG Base Excess Cancelled Skip Test Cancelled Barometric Pressure Cancelled Oxygen Given Cancelled Sodium (136-145) mmol/L Potassium (3.5-5.1) mmol/L Chloride (98-107) mmol/L Carbon Dioxide (21-32) mmol/L Anion Gap (3-11) BUN (6-23) mg/dl Creatinine (0.6-1.4) mg/dl Est Cr Clr Drug Dosing ml/min Est GFR ( Amer) ml/min Est GFR (Non-Af Amer) ml/min BUN/Creatinine Ratio (10-20) Glucose (70-99(Fasting)) mg/dl POC Glucose (70-99) mg/dl Calcium (8.5-10.1) mg/dl Magnesium 2.0 (1.7-2.4) mg/dl Total Bilirubin (0.2-1.0) mg/dl AST (13-39) U/L ALT (7-52) U/L Alkaline Phosphatase (34-104) U/L Total Protein (6.0-8.3) gm/dl Albumin (3.4-5.0) gm/dl Globulin (2.5-4.0) gm/dl Albumin/Globulin Ratio (0.9-2) Tgnmo-3-Mctglppwmej Pending 10/04/21 10/04/21 10/03/21 Range/Units 07:13 07:13 20:56 WBC 13.14 H (4.8-10.8) K/ul RBC 4.16 L (4.63-6.08) M/uL Hgb 13.0 L (14.0-18.0) g/dl Hct 39.8 L (40.1-51.0) % MCV 95.7 (80.0-100.0) fL MCH 31.3 (25.0-34.0) pg MCHC 32.7 (32.0-36.0) g/dL RDW Std Deviation 44.8 (36.4-46.3) fL RDW Coeff of Lnea 12.7 (11.5-14.5) % Plt Count 218 (130-400) K/uL MPV 9.9 (9.4-12.4) fL Immature Gran % (Auto) 0.7 % Neut % (Auto) 93.6 % Lymph % (Auto) 3.4 % [place] % (Auto) 2.2 % Eos % (Auto) 0.0 % Baso % (Auto) 0.1 % Neut # (Auto) 12.30 H (1.4-6.5) K/uL Lymph # (Auto) 0.45 L (1.2-3.4) K/uL [place] # (Auto) 0.29 (0.24-0.82) K/uL Eos # (Auto) 0.00 (0-0.50) K/uL Baso # (Auto) 0.01 (0-0.2) K/uL Immature Gran # (Auto) 0.09 H (0.00-0.02) K/uL APTT 26.7 (21.0-31.0) Seconds PTT Ratio 1.0 ABG pH ABG pCO2 ABG pO2 ABG HCO3 ABG O2 Saturation ABG Base Excess Skip Test Barometric Pressure Oxygen Given Sodium (136-145) mmol/L Potassium (3.5-5.1) mmol/L Chloride (98-107) mmol/L Carbon Dioxide (21-32) mmol/L Anion Gap (3-11) BUN (6-23) mg/dl Creatinine (0.6-1.4) mg/dl Est Cr Clr Drug Dosing ml/min Est GFR ( Amer) ml/min Est GFR (Non-Af Amer) ml/min BUN/Creatinine Ratio (10-20) Glucose (70-99(Fasting)) mg/dl POC Glucose 130 H (70-99) mg/dl Calcium (8.5-10.1) mg/dl Magnesium (1.7-2.4) mg/dl Total Bilirubin (0.2-1.0) mg/dl AST (13-39) U/L ALT (7-52) U/L Alkaline Phosphatase (34-104) U/L Total Protein (6.0-8.3) gm/dl Albumin (3.4-5.0) gm/dl Globulin (2.5-4.0) gm/dl Albumin/Globulin Ratio (0.9-2) Vvhwz-8-Tqouphndvez 10/03/21 Range/Units 17:02 WBC (4.8-10.8) K/ul RBC (4.63-6.08) M/uL Hgb (14.0-18.0) g/dl Hct (40.1-51.0) % MCV (80.0-100.0) fL MCH (25.0-34.0) pg MCHC (32.0-36.0) g/dL RDW Std Deviation (36.4-46.3) fL RDW Coeff of Lena (11.5-14.5) % Plt Count (130-400) K/uL MPV (9.4-12.4) fL Immature Gran % (Auto) % Neut % (Auto) % Lymph % (Auto) % [place] % (Auto) % Eos % (Auto) % Baso % (Auto) % Neut # (Auto) (1.4-6.5) K/uL Lymph # (Auto) (1.2-3.4) K/uL [place] # (Auto) (0.24-0.82) K/uL Eos # (Auto) (0-0.50) K/uL Baso # (Auto) (0-0.2) K/uL Immature Gran # (Auto) (0.00-0.02) K/uL APTT (21.0-31.0) Seconds PTT Ratio ABG pH ABG pCO2 ABG pO2 ABG HCO3 ABG O2 Saturation ABG Base Excess Skip Test Barometric Pressure Oxygen Given Sodium (136-145) mmol/L Potassium (3.5-5.1) mmol/L Chloride (98-107) mmol/L Carbon Dioxide (21-32) mmol/L Anion Gap (3-11) BUN (6-23) mg/dl Creatinine (0.6-1.4) mg/dl Est Cr Clr Drug Dosing ml/min Est GFR ( Amer) ml/min Est GFR (Non-Af Amer) ml/min BUN/Creatinine Ratio (10-20) Glucose (70-99(Fasting)) mg/dl POC Glucose 165 H (70-99) mg/dl Calcium (8.5-10.1) mg/dl Magnesium (1.7-2.4) mg/dl Total Bilirubin (0.2-1.0) mg/dl AST (13-39) U/L ALT (7-52) U/L Alkaline Phosphatase (34-104) U/L Total Protein (6.0-8.3) gm/dl Albumin (3.4-5.0) gm/dl Globulin (2.5-4.0) gm/dl Albumin/Globulin Ratio (0.9-2) Knlmn-4-Yguoukhtrbs PG Care Time/CCT Total # of Minutes Spent Total Time Spent with Patient: Total time spent is greater than 50% in coordination of care (as documented) at patient's floor/unit and/or counseling patient: Coding Level of Care Code 87698 Subseq Hosp Care Lvl 3 Diagnoses Acute exacerbation of chronic obstructive pulmonary disease J44.1 Pulmonary emboli I26.99 Acute respiratory failure with hypoxia J96.01 CAD (coronary artery disease) I25.10 Eshmf-8-sogbeilecmj deficiency E88.01 Emphysema lung J43.9 H/O heart artery stent Z95.5 History of tobacco use Z87.891
[2021-10-04] MEDS: INSULIN ASPART PER UNIT SC SCH ×4 (08:48→21:55)
[2021-10-04] MEDS: ASPIRIN 81 MG ECTAB PO SCH (08:51)
[2021-10-04] MEDS: DOCUSATE SODIUM/SENNA 50/8.6MG TAB PO SCH (08:51)
[2021-10-04] MEDS: FUROSEMIDE 20 MG TAB PO SCH (08:52)
[2021-10-04] MEDS: METOPROLOL SUCC 25MG EXT REL TAB PO SCH (08:52)
[2021-10-04] MEDS: APIXABAN 5 MG TABLET PO SCH ×2 (08:52→21:55)
[2021-10-04] MEDS: guaiFENesin 600 MG TABCR PO SCH ×2 (08:52→21:55)
[2021-10-04] MEDS: UMECLIDINIUM BROMIDE 62.5MCG/BLISTER 7 PUFFS/INHALER INH SCH (08:53)
[2021-10-04] MEDS: POLYETHYLENE (MIRALAX) 17 GM PACK PO SCH (08:53)
[2021-10-04] MEDS: FLUTICASONE/VILANTEROL 200/25MCG 14 PUFFS/INHALER INH SCH (08:53)
--- NOTE | 2021-10-04 09:20 | Pulmonology Progress Note ---
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: (5) Pulmonary hypertension: (6) Mixed restrictive and obstructive lung disease: (7) Pulmonary emboli: (8) History of tobacco use: Plan CT chest 10/01/2021 personally reviewed: Severe centrilobular and paraseptal emphysema appreciated bilaterally Right upper lobe scarring, lingular scarring with adjacent bullous disease Multiple dependent atelectasis bilateral lower lobes No mediastinal lymphadenopathy Compared to CT chest 08/24/2021 there is improvement in the lingular pneumonia 2D echo 10/03/2021: EF 50-55%, moderate apical wall hypokinesis, RVSP 30-40 mmHg, grade 1 diastolic dysfunction PFT 10/09/2020 personally reviewed: Very severe COPD, significant bronchodilator response, mild decrease in TLC, very severe decrease in DLCO FVC 2.04 L 49%, FEV1 0.62 L 19%, FEV1/FVC 30%, RV 112%, TLC 71%, RV/TLC ratio 52, DLCO 16%, DLCO/VA 32% ABG 10/01/2021: 7.35/70/94 --> 10/04/2021: 7.42/52/64 on 2 L -- Acute on chronic hypoxic hypercapnic respiratory failure Likely secondary to COPD exacerbation QTC 418 on 10/01/2021 COVID-19 PCR negative Influenza A/B negative Continue with O2 supplementation to keep oxygen between 88-92% BiPAP nightly and as needed shortness of breath --Very severe COPD with emphysema On Breo and Spiriva at home FEV1 is only 19% predicted. Patient will be classified as an end-stage COPD Consider adding azithromycin 250 mg Ovelpi-Bykakzdwf-Htyxdp Daliresp can also be thought to be added prior to discharge I did go over the possibility of lung transplant given the patient is only 60 years old but is not interested in that right now -- Restrictive lung disease Mild restriction also appreciated Could be secondary to not a good test Patient will benefit from a repeat PFT on discharge --Pulmonary embolism Seems to be chronic right lower lobe subsegmental Doppler lower extremity bilaterally negative on 10/01/2021 Continue with anticoagulation for total of 3 months --Alpha-1 antitrypsin carrier 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 This does not qualify him for treatment. Will repeat alpha-1 level Plan: In/out: -2.6 L, urine output 2925 Given the persistent hypercapnia even after using BiPAP at night I do think patient will benefit from trilogy machine Due to chronic respiratory failure consequent to COPD, patient now requires a noninvasive home ventilator. Bilevel therapy with and without a rate would be ineffective as patient requires a volume targeted mode. Ventilation is required to decrease work of breathing and improve pulmonary status. Interruption of ventilator support would lead to decline of health status. NIMV settings should be AVAPS-AE; Breath rate: auto; Inspiratory time:auto; Sigh: off; Tidal Volume: 350-450, PS min: 4-10 PS max: 12-20; EPAP min: 6-10; EPAP max: 10-16; AVAPS rate: 14 during sleep and as needed Patient is still actively wheezing but I will go down on Solu-Medrol to 40 mg every 8 hours. Continue with Breo and Incruse along with azithromycin Please note the above document was generated using voice recognition software. It may contain grammatical, syntax or spelling errors.Any formal questions or concerns about the content, text or information contained within the body of this dictation should be directly addressed to the provider for clarification. Admission and Anticipated Discharge Date Admission Date: October 01, 2021 Subjective Patient seen and examined at bedside. No acute distress, no adverse events overnight. Patient was saturating 87% on 2 L nasal cannula at the time of examination Increase it to 3 L and he was able to maintain his saturation 88-89% Shortness of breath is getting better. Denies any hemoptysis. He is able to bring up phlegm with the help of the flutter valve. No nausea vomiting Fair appetite. Review of Systems Review of Systems: All systems reviewed & are unremarkable except as noted in Subjective Physical Exam Physical Exam: Constitutional: No acute distress HEENT: EOMI, PERRLA Respiratory system: Decreased air entry bilaterally, no rhonchi, mild crackles bilateral lower lobes, positive expiratory wheeze CVS: S1-S2 positive, no murmurs or gallops Abdomen: Soft, nontender, nondistended, positive bowel sounds x4 Extremities: +2 pulses bilaterally radialis/ dorsalis pedis, no cyanosis, no edema Neuro: Awake alert oriented x3 Psych: Normal mood and affect G/U: No Bazzi Skin: no rashes, warm and dry Lymphatic: no cervical or axillary lymphadenopathy Results & Data Results & Data ([facility]) Vital Signs (Past 12 Hours) Vital Signs Temp Pulse Pulse Resp BP Pulse Ox O2 Del Method 10/04/21 07:45 36.6 C 82 18 100/67 91 Nasal Cannula 10/04/21 07:07 84 20 Nasal Cannula 10/04/21 01:37 85 23 96 BiPAP O2 Flow Rate 10/04/21 07:45 2 10/04/21 07:07 4 10/04/21 01:37 4 Laboratory Results 10/04/21 07:13 10/03/21 05:39 PG Care Time/CCT Total # of Minutes Spent Total Time Spent with Patient: Total time spent is greater than 50% in coordination of care (as documented) at patient's floor/unit and/or counseling patient: Coding Level of Care Code 82567 Subseq Hosp Care Lvl 3 Diagnoses Acute exacerbation of chronic obstructive pulmonary disease J44.1 Acute on chronic respiratory failure with hypoxia and hypercapnia J96.21; J96.22 COPD with emphysema J43.9 Adlyf-5-wehjcvfxaqw deficiency carrier Z14.8 Pulmonary hypertension I27.20 Mixed restrictive and obstructive lung disease J43.9; J98.4 Pulmonary emboli I26.99 History of tobacco use Z87.891
[2021-10-04 11:20] LABS: Albumin Globulin Ratio 1.3 (0.9-2); Albumin Level 3.5 gm/dl (3.4-5.0); BUN Creatinine Ratio 30.9 (10-20); Bilirubin,Total 0.5 mg/dl (0.2-1.0); Calcium 8.7 mg/dl (8.5-10.1); Creatinine Clr Calc Pharmacy 101.6 ml/min; Est GFR (African American) 118.6 ml/min; Est GFR (Non-African American) 102.4 ml/min; Globulin 2.6 gm/dl (2.5-4.0); Potassium 4.1 mmol/L (3.5-5.1); Total Protein 6.1 gm/dl (6.0-8.3)
--- NOTE | 2021-10-04 13:44 | Palliative Care Consultation ---
Date of Consultation October 04, 2021 Assessment & Plan (1) Dyspnea: at or near baseline with steroid and antibiotics in addition to his regular medications. He is being set up for trilogy at home. (2) Palliative care encounter: I talked with Mr. Louie about how he is coping with his illness. 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 He enjoys being outside and is hoping to go hunting this fall. He has some psychosocial stressors right now, having lost his son in May and living with his daughter who is going through a divorce. Being with his family and grandchildren bring him much enjoyment and purpose. His greatest worry is being dependent on others for care and becoming "a vegetable". He defines quality of life as being able to do things independently and not be dependent on others. We talked about his current code status as full code. He understands that he could potentially be ventilator dependent if he were intubated. He would not want exterminator helper termite vent support but would want to be intubated initially to see if he is able to improve. He tells me that his daughter, Tamara, would be his surrogate decision maker. He has talked with her about his wishes and feels comfortable that she would know what to do on his behalf. (3) Acute on chronic respiratory failure with hypoxia and hypercapnia: (4) Acute exacerbation of chronic obstructive pulmonary disease (COPD): History of Present Illness Reason for Consultation: goals of care Requesting Physician: RICK Barba Attending Physician: Carley Mckeon MD History of Present Illness 60 yo gentleman with very advanced COPD and FEV1 of 19%. He has chronic hypoxic, hypercapnic respiratory failure and is on 2-3L of oxygen at baseline. He reports that at baseline he is able to do his own self care though he lives with his daughter and she prepares meals for him. He presented with increased shortness of breath and hypoxia. He is also noted to have a chronic subsegmental PE in RLL. He has had some improvement with solumedrol and azithromycin and tells me that he was able to ambulate in the hallway with PT, though he did have to stop and rest 2 or 3 times. He denies shortness of breath at rest but feels that CASTILLO is at baseline for him. Allergies Allergy/AdvReac Type Severity Reaction Status Date / Time No Known Allergies Allergy Verified 08/24/21 15:47 Home Medications Medication Instructions Recorded Confirmed Type Oxygen Home #1 ea 09/21/18 10/17/20 History aspirin 81 mg tablet,delayed 81 mg PO DAILY 10/05/18 08/24/21 History release fluticasone furoate 200 1 inh inhalation DAILY #1 ea 01/17/21 08/24/21 Rx mcg-vilanterol 25 mcg/dose inhalation powder albuterol sulfate 2.5 mg/3 mL 2.5 mg (3 mL) inhalation 10/04/21 Rx (0.083 %) solution for nebulization DIRECTED PRN Shortness Of Breath #75 mL albuterol sulfate 90 mcg/actuation 2 inh inhalation Q6H PRN Shortness 10/04/21 Rx aerosol inhaler Of Breath Or Wheezing #6.7 grams atorvastatin 80 mg tablet 80 mg PO HS #30 tabs 10/04/21 Rx furosemide 20 mg tablet 20 mg PO DAILY #30 tabs 10/04/21 Rx metoprolol succinate 25 mg 25 mg PO DAILY #30 tabs 10/04/21 Rx tablet,extended release 24 hr tiotropium bromide 2.5 2 inh inhalation DAILY #4 grams 10/04/21 Rx mcg/actuation mist for inhalation Patient History Medical History Nsvhj-0-qtdqlmingkh deficiency CAD (coronary artery disease) Chronic obstructive pulmonary disease Multifocal pneumonia Social History Smoking Status: Former smoker Tobacco Type: Cigarettes Cigarettes Per Day: 1; Second Hand Exposure: No; Hx Alcohol Use: Yes Alcohol type: beer Hx Substance Use: Yes Last Used Substance: Days (ago) Last Used Substance Other:: he states a few days ago. Preferred Language: Bel[place]an Communication Ability: Effective Benefits Analyst Required: No Beliefs That Will Affect Care: None marital status: Single Current Living Situation: Family Current Living Situation Comment: dtr Feels Safe at Home: Yes Assistive Devices: Oxygen - Continuous Review of Systems Review of Systems: ESAS Pain 0/3 Dyspnea 2/3 Nausea 0/3 Fatigue 1/3 Drowsiness 0/3 PPS 50% Physical Exam Constitutional: no acute distress ENMT: Mouth: oral mucous membranes not dry Respiratory: normal respiratory effort; no labored breathing Cardiovascular: Extremities: no edema Musculoskeletal: Extremities: extremities normal to inspection Skin: warm and dry Neurologic: Speech / Cognition: normal cognition Genitourinary: continent Results & Data ([facility]) Vital Signs (Past 12 Hours) Vital Signs Temp Pulse Pulse Resp BP Pulse Ox O2 Del Method 10/04/21 13:03 85 18 90 Nasal Cannula 10/04/21 10:21 Nasal Cannula 10/04/21 09:54 98.2 F 80 18 101/68 91 Nasal Cannula 10/04/21 07:45 97.9 F 82 18 100/67 91 Nasal Cannula 10/04/21 07:07 84 20 Nasal Cannula 10/04/21 01:37 85 23 96 BiPAP O2 Flow Rate 10/04/21 13:03 2.5 10/04/21 10:21 3 10/04/21 09:54 2 10/04/21 07:45 2 10/04/21 07:07 4 10/04/21 01:37 4 PG Care Time/CCT Total # of Minutes Spent Total Time Spent: 56 Total Time Spent with Patient: Total time spent is greater than 50% in coordination of care (as documented) at patient's floor/unit and/or counseling patient: goals of care, code status, surrogate decision maker Coding Level of Care Code 53565 Initial Inpt Care Lvl 2 Diagnoses Dyspnea R06.00 Palliative care encounter Z51.5 Acute on chronic respiratory failure with hypoxia and hypercapnia J96.21; J96.22 Acute exacerbation of chronic obstructive pulmonary disease (COPD) J44.1
[2021-10-04] MEDS: AZITHROMYCIN 250 MG TAB PO SCH (21:55)
[2021-10-04] MEDS: ATORVASTATIN 40 MG TAB PO SCH (21:55)
[2021-10-05] MEDS: ALBUTEROL 0.083% NEBU SOLN 3 ML VIAL INH SCH ×4 (01:36→18:59)
[2021-10-05] MEDS: methylPREDNISolone 40 MG in SYRINGE 0 ML IV SCH ×2 (05:52→21:43)
[2021-10-05] MEDS: FORMOTEROL 20 MCG/2 ML VIAL NEB SCH ×2 (07:43→18:58)
[2021-10-05] MEDS: SODIUM CHLOR 7% 4 ML NEB NEB SCH ×2 (07:43→18:59)
[2021-10-05 08:02] LABS: Basophils # (auto) 0.02 K/uL (0-0.2); Basophils % (auto) 0.2 %; Hematocrit (blood only) 38.9 % (40.1-51.0); Hemoglobin 12.9 g/dl (14.0-18.0); Immature Granulocytes # (auto) 0.14 K/uL (0.00-0.02); Immature Granulocytes % (auto) 1.1 %; Lymphocytes % (auto) 3.8 %; Mean Corpuscular Hemoglobin 30.9 pg (25.0-34.0); Mean Corpuscular Hgb Conc 33.2 g/dL (32.0-36.0); Mean Corpuscular Volume 93.1 fL (80.0-100.0); Mean Platelet Volume 10.3 fL (9.4-12.4); Monocytes # (auto) 0.66 K/uL (0.24-0.82); Neutrophils # (auto) 11.75 K/uL (1.4-6.5); Neutrophils % (auto) 89.9 %; Platelet Count 219 K/uL (130-400); RDW Coefficient of Variation 12.6 % (11.5-14.5); RDW Standard Deviation 43.4 fL (36.4-46.3); Red Blood Count 4.18 M/uL (4.63-6.08); White Blood Count 13.07 K/ul (4.8-10.8)
[2021-10-05 08:35] LABS: BUN Creatinine Ratio 31.3 (10-20); Calcium 8.3 mg/dl (8.5-10.1); Est GFR (African American) 121.6 ml/min; Est GFR (Non-African American) 104.9 ml/min; Potassium 4.6 mmol/L (3.5-5.1)
[2021-10-05] MEDS: UMECLIDINIUM BROMIDE 62.5MCG/BLISTER 7 PUFFS/INHALER INH SCH (09:21)
[2021-10-05] MEDS: ASPIRIN 81 MG ECTAB PO SCH (09:21)
[2021-10-05] MEDS: FLUTICASONE/VILANTEROL 200/25MCG 14 PUFFS/INHALER INH SCH (09:21)
[2021-10-05] MEDS: FUROSEMIDE 20 MG TAB PO SCH (09:21)
[2021-10-05] MEDS: guaiFENesin 600 MG TABCR PO SCH ×2 (09:22→21:41)
[2021-10-05] MEDS: APIXABAN 5 MG TABLET PO SCH ×2 (09:22→21:41)
[2021-10-05] MEDS: METOPROLOL SUCC 25MG EXT REL TAB PO SCH (09:22)
[2021-10-05] MEDS: INSULIN ASPART PER UNIT SC SCH ×4 (09:25→21:44)
[2021-10-05] MEDS: DOCUSATE SODIUM/SENNA 50/8.6MG TAB PO SCH (09:28)
[2021-10-05] MEDS: POLYETHYLENE (MIRALAX) 17 GM PACK PO SCH (09:28)
--- NOTE | 2021-10-05 10:31 | Pulmonology Progress Note ---
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: (7) Pulmonary emboli: (8) History of tobacco use: Plan CT chest 10/01/2021 personally reviewed: Severe centrilobular and paraseptal emphysema appreciated bilaterally Right upper lobe scarring, lingular scarring with adjacent bullous disease Multiple dependent atelectasis bilateral lower lobes No mediastinal lymphadenopathy Compared to CT chest 08/24/2021 there is improvement in the lingular pneumonia 2D echo 10/03/2021: EF 50-55%, moderate apical wall hypokinesis, RVSP 30-40 mmHg, grade 1 diastolic dysfunction PFT 10/09/2020 personally reviewed: Very severe COPD, significant bronchodilator response, mild decrease in TLC, very severe decrease in DLCO FVC 2.04 L 49%, FEV1 0.62 L 19%, FEV1/FVC 30%, RV 112%, TLC 71%, RV/TLC ratio 52, DLCO 16%, DLCO/VA 32% ABG 10/01/2021: 7.35/70/94 --> 10/04/2021: 7.42/52/64 on 2 L -- Acute on chronic hypoxic hypercapnic respiratory failure Likely secondary to COPD exacerbation QTC 418 on 10/01/2021 COVID-19 PCR negative Influenza A/B negative Continue with O2 supplementation to keep oxygen between 88-92% BiPAP nightly and as needed shortness of breath --Very severe COPD with emphysema On Breo and Spiriva at home FEV1 is only 19% predicted. Patient will be classified as an end-stage COPD Consider adding azithromycin 250 mg Utmwrz-Tsswfgwbb-Udldby Daliresp can also be thought to be added prior to discharge I did go over the possibility of lung transplant given the patient is only 60 years old but is not interested in that right now -- Restrictive lung disease Mild restriction also appreciated Could be secondary to not a good test Patient will benefit from a repeat PFT on discharge --Pulmonary embolism Seems to be chronic right lower lobe subsegmental Doppler lower extremity bilaterally negative on 10/01/2021 Continue with anticoagulation for total of 3 months --Alpha-1 antitrypsin carrier 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 This does not qualify him for treatment. Will repeat alpha-1 level Plan: In/out: - 1.3 L, urine output 1300 Decreased Solu-Medrol to 40 mg every 12 hours Continue with Breo and Incruse along with azithromycin Continue with nebulized hypertonic saline and flutter valve Please note the above document was generated using voice recognition software. It may contain grammatical, syntax or spelling errors.Any formal questions or c oncerns about the content, text or information contained within the body of this dictation should be directly addressed to the provider for clarification. Admission and Anticipated Discharge Date Admission Date: October 01, 2021 Subjective Patient seen and examined at bedside. No acute distress, no adverse events overnight. Overall is feeling better Shortness of breath is improved Has been coughing up phlegm. No hemoptysis No nausea vomiting, fair appetite Review of Systems Review of Systems: All systems reviewed & are unremarkable except as noted in Subjective Physical Exam Physical Exam: Constitutional: No acute distress HEENT: EOMI, PERRLA Respiratory system: Decreased air entry bilaterally, no rhonchi, mild crackles bilateral lower lobes, positive expiratory wheeze CVS: S1-S2 positive, no murmurs or gallops Abdomen: Soft, nontender, nondistended, positive bowel sounds x4 Extremities: +2 pulses bilaterally radialis/ dorsalis pedis, no cyanosis, no edema Neuro: Awake alert oriented x3 Psych: Normal mood and affect G/U: No Bazzi Skin: no rashes, warm and dry Lymphatic: no cervical or axillary lymphadenopathy Results & Data Results & Data ([facility]) Vital Signs (Past 12 Hours) Vital Signs Temp Pulse Pulse Pulse Resp BP Pulse Ox 10/05/21 08:07 36.9 C 72 18 130/62 98 10/05/21 07:44 78 18 92 10/05/21 01:43 75 25 H 95 10/04/21 23:30 70 24 91 10/05/21 01:36 75 23 95 10/04/21 22:48 36.5 C 83 18 134/84 93 O2 Del Method O2 Flow Rate 10/05/21 08:07 Nasal Cannula 4 10/05/21 07:44 BiPAP 3 10/05/21 01:43 3 10/04/21 23:30 3 10/05/21 01:36 BiPAP 3 10/04/21 22:48 Nasal Cannula 3 Laboratory Results 10/05/21 07:16 10/05/21 07:16 PG Care Time/CCT Total # of Minutes Spent Total Time Spent with Patient: Total time spent is greater than 50% in coordination of care (as documented) at patient's floor/unit and/or counseling patient: Coding Level of Care Code 20314 Subseq Hosp Care Lvl 2 Diagnoses Acute exacerbation of chronic obstructive pulmonary disease J44.1 Acute on chronic respiratory failure with hypoxia and hypercapnia J96.21; J96.22 COPD with emphysema J43.9 Eevro-8-bonlueymprs deficiency carrier Z14.8 Pulmonary hypertension I27.20 Mixed restrictive and obstructive lung disease J43.9; J98.4 Pulmonary emboli I26.99 History of tobacco use Z87.891
--- NOTE | 2021-10-05 19:29 | Hospitalist Progress Note ---
Date of Service October 05, 2021 Assessment & Plan (1) Acute exacerbation of chronic obstructive pulmonary disease: Plan: Abdulaziz is a 58-year-old male with a past medical history of end stage COPD, alpha 1 antitrypsin deficiency, who presents with increased hypoxia and increase in chronic oxygen requirement from 2.5-3 L to 4 L with incomplete return to baseline after recent treatment for pneumonia. CTA chest on admit-severe emphysema with bronchial wall thickening suggestive of bronchitis. Improvement in aeration of LEFT LUNG with mild persistent subsegmental linear opacities suggestive of atelectasis vs postinflammatory scarring. Mild residual infectious or inflammatory pneumonitis considered less likely Flu, RSV, COVID NEGATIVE on admit Now improving on steroids, completed 5 days azithro- plan to discharge on azithro M-W-F Continue nebulizers and hypertonic saline BID, mucinex BID Continue incentive spirometer, flutter valve Appreciate Pulmonary consult -BIPAP ordered HS,is tolerating-ABG w/ 7.35/70/94--> 7.42/52/64 on 2L 10/04 after BiPAP use Recommending Trilogy vent for home use on discharge "Given the persistent hypercapnia even after using BiPAP at night I do think patient will benefit from trilogy machine * Due to chronic respiratory failure consequent to COPD, patient now requires a noninvasive home ventilator. Bilevel therapy with and without a rate would be ineffective as patient requires a volume targeted mode. * Ventilation is required to decrease work of breathing and improve pulmonary status. Interruption of ventilator support would lead to decline of health status. * NIMV settings should be AVAPS-AE; Breath rate: auto; Inspiratory time:auto; Sigh: off; Tidal Volume: 350-450, PS min: 4-10 PS max: 12-20; EPAP min: 6-10; EPAP max: 10-16; AVAPS rate: 14 during sleep and as needed " -wean down on steroids today -continue maintenance inhalers and will Rx at discharge -encouraged Smoking cessation -F/u pulm for continued discussions regarding transplant. 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 Transitioned to eliquis evening 10/03 --> 10mg BID x 7 days, then decrease to 5mg BID after AM dose 10/10 (3) Acute respiratory failure with hypoxia: Plan: Acute and chronic respiratory failure with hypoxia and hypercania acute 2/2 COPD exacerbation on 2LNC at home, 4LNC at times here and w/ exertion CM working on getting Trilogy vent for qhs use at home (4) CAD (coronary artery disease): Plan: Hx PA s/p PCI to LAD 2018 at [facility]. -- To supposedly have remained on DAPT, but hasn't followed with cardiology recently Takes Lasix 20mg daily as needed but does not weigh himself daily Is >1 year out, and as anticoagulation for chronic PEs noted above--> switched to monotherapy with ASA alone, especially given anticoagulation as above -ECHO w/ normal LV size, but systolic function low normal 50-55%. Moderate apical wall hypokinesis. RV normal in size and function. RVSP elevated at 30- 40mmHg. Inferior vena cava mildly dilated. No significant valvular heart disease -Placed back on metoprolol 25mg daily -- stated he ran out of this. New rx at d/c -Also placed on lasix 20mg daily -placed back on 80mg atorvastatin HS given CAD w/ PCI to LAD A1c 6.0-- will need counseling ISS added while inpatient on steroids, BSGs acceptable Will need cardiology follow up at discharge -- agreed to local as made appts for pulm locally as well EKG c CP, trop negative on admit (5) Lhtag-2-iipfjdwuipc deficiency: Plan: Status post port placement for transfusions and subsequent removal. had been getting weekly injections with prolastin, stopped in October 2020 No acute intervention at this time needs outpatient pulm in follow up alpha-1 level pending (6) History of tobacco use: Plan: continued smoking cessation encouraged Plan Dispo-continued stay awaiting Trilogy machine Needs refills of all meds on discharge Admission and Anticipated Discharge Date Admission Date: October 01, 2021 Subjective Pt feeling better, not coughing up much sputum at all. Is on 2LNC with POx 92%. Denies constipation or diarrhea, no leg swelling. Review of Systems Review of Systems: All systems reviewed & are unremarkable except as noted in HPI & below Physical Exam Constitutional: WD/WN, vitals as above Eyes: + anicteric sclerae ENMT: external ear and nose normal, oropharynx normal Neck: trachea midline, no thyromegaly Respiratory: normal respiratory effort; no cough Auscultation: + wheezes (diffuse bilat exp); no crackles and no rhonchi Cardiovascular: RRR, no murmur, no edema Chest (Breasts): Chest: normal inspection of chest Gastrointestinal (Abdomen): normal bowel sounds, soft, nontender, no hepatosplenomegaly Musculoskeletal: Extremities: extremities normal to inspection; no cyanosis and no clubbing Skin: no rashes, warm and dry Neurologic: moves all extremities and awake; no focal motor deficits Psychiatric: A+Ox3, euthymic affect Lymphatic: no lymphedema Results & Data Results & Data ([facility]) Vital Signs (Past 12 Hours) Vital Signs Temp Pulse Pulse Resp BP Pulse Ox O2 Del Method 10/05/21 19:00 83 20 92 Nasal Cannula 10/05/21 15:40 36.7 C 81 18 125/80 93 Nasal Cannula 10/05/21 12:47 87 18 90 Nasal Cannula 10/05/21 11:36 82 94 Nasal Cannula 10/05/21 11:29 36.4 C L 86 17 120/75 92 Nasal Cannula 10/05/21 08:07 36.9 C 72 18 130/62 98 Nasal Cannula 10/05/21 07:44 78 18 92 BiPAP O2 Flow Rate 10/05/21 19:00 2 10/05/21 15:40 2 10/05/21 12:47 2.5 10/05/21 11:36 2 10/05/21 11:29 4 10/05/21 08:07 4 10/05/21 07:44 3 Laboratory Results 10/05/21 10/05/21 10/05/21 Range/Units 17:00 12:20 08:15 WBC (4.8-10.8) K/ul RBC (4.63-6.08) M/uL Hgb (14.0-18.0) g/dl Hct (40.1-51.0) % MCV (80.0-100.0) fL MCH (25.0-34.0) pg MCHC (32.0-36.0) g/dL RDW Std Deviation (36.4-46.3) fL RDW Coeff of Lena (11.5-14.5) % Plt Count (130-400) K/uL MPV (9.4-12.4) fL Immature Gran % (Auto) % Neut % (Auto) % Lymph % (Auto) % Treasure % (Auto) % Eos % (Auto) % Baso % (Auto) % Neut # (Auto) (1.4-6.5) K/uL Lymph # (Auto) (1.2-3.4) K/uL Treasure # (Auto) (0.24-0.82) K/uL Eos # (Auto) (0-0.50) K/uL Baso # (Auto) (0-0.2) K/uL Immature Gran # (Auto) (0.00-0.02) K/uL Sodium (136-145) mmol/L Potassium (3.5-5.1) mmol/L Chloride (98-107) mmol/L Carbon Dioxide (21-32) mmol/L Anion Gap (3-11) BUN (6-23) mg/dl Creatinine (0.6-1.4) mg/dl Est Cr Clr Drug Dosing ml/min Est GFR ( Amer) ml/min Est GFR (Non-Af Amer) ml/min BUN/Creatinine Ratio (10-20) Glucose (70-99(Fasting)) mg/dl POC Glucose 85 165 H 116 H (70-99) mg/dl Calcium (8.5-10.1) mg/dl 10/05/21 10/05/21 10/04/21 Range/Units 07:16 07:16 20:53 WBC 13.07 H (4.8-10.8) K/ul RBC 4.18 L (4.63-6.08) M/uL Hgb 12.9 L (14.0-18.0) g/dl Hct 38.9 L (40.1-51.0) % MCV 93.1 (80.0-100.0) fL MCH 30.9 (25.0-34.0) pg MCHC 33.2 (32.0-36.0) g/dL RDW Std Deviation 43.4 (36.4-46.3) fL RDW Coeff of Lena 12.6 (11.5-14.5) % Plt Count 219 (130-400) K/uL MPV 10.3 (9.4-12.4) fL Immature Gran % (Auto) 1.1 % Neut % (Auto) 89.9 % Lymph % (Auto) 3.8 % Treasure % (Auto) 5.0 % Eos % (Auto) 0.0 % Baso % (Auto) 0.2 % Neut # (Auto) 11.75 H (1.4-6.5) K/uL Lymph # (Auto) 0.50 L (1.2-3.4) K/uL Treasure # (Auto) 0.66 (0.24-0.82) K/uL Eos # (Auto) 0.00 (0-0.50) K/uL Baso # (Auto) 0.02 (0-0.2) K/uL Immature Gran # (Auto) 0.14 H (0.00-0.02) K/uL Sodium 137 (136-145) mmol/L Potassium 4.6 (3.5-5.1) mmol/L Chloride 102 (98-107) mmol/L Carbon Dioxide 32 (21-32) mmol/L Anion Gap 3 (3-11) BUN 20 (6-23) mg/dl Creatinine 0.64 (0.6-1.4) mg/dl Est Cr Clr Drug Dosing 108.0 ml/min Est GFR ( Amer) 121.6 ml/min Est GFR (Non-Af Amer) 104.9 ml/min BUN/Creatinine Ratio 31.3 H (10-20) Glucose 109 H (70-99(Fasting)) mg/dl POC Glucose 94 (70-99) mg/dl Calcium 8.3 L (8.5-10.1) mg/dl PG Care Time/CCT Total # of Minutes Spent Total Time Spent with Patient: Total time spent is greater than 50% in coordination of care (as documented) at patient's floor/unit and/or counseling patient: Coding Level of Care Code 24561 Subseq Hosp Care Lvl 2 Diagnoses Acute exacerbation of chronic obstructive pulmonary disease J44.1 Pulmonary emboli I26.99 Acute respiratory failure with hypoxia J96.01 CAD (coronary artery disease) I25.10 Mhjyv-0-nnkwgldsinf deficiency E88.01 History of tobacco use Z87.891
[2021-10-05] MEDS: AZITHROMYCIN 250 MG TAB PO SCH (21:42)
[2021-10-05] MEDS: ATORVASTATIN 40 MG TAB PO SCH (21:42)
[2021-10-06] MEDS: ALBUTEROL 0.083% NEBU SOLN 3 ML VIAL INH SCH ×4 (00:38→19:02)
[2021-10-06] MEDS: FORMOTEROL 20 MCG/2 ML VIAL NEB SCH ×2 (07:21→19:02)
[2021-10-06] MEDS: INSULIN ASPART PER UNIT SC SCH ×4 (09:08→20:44)
[2021-10-06] MEDS: ASPIRIN 81 MG ECTAB PO SCH (09:12)
[2021-10-06] MEDS: APIXABAN 5 MG TABLET PO SCH ×2 (09:12→20:43)
[2021-10-06] MEDS: guaiFENesin 600 MG TABCR PO SCH ×2 (09:13→20:44)
[2021-10-06] MEDS: FLUTICASONE/VILANTEROL 200/25MCG 14 PUFFS/INHALER INH SCH (09:13)
[2021-10-06] MEDS: METOPROLOL SUCC 25MG EXT REL TAB PO SCH (09:13)
[2021-10-06] MEDS: UMECLIDINIUM BROMIDE 62.5MCG/BLISTER 7 PUFFS/INHALER INH SCH (09:13)
[2021-10-06] MEDS: FUROSEMIDE 20 MG TAB PO SCH (09:13)
[2021-10-06] MEDS: methylPREDNISolone 40 MG in SYRINGE 0 ML IV SCH ×2 (09:13→20:43)
[2021-10-06] MEDS: DOCUSATE SODIUM/SENNA 50/8.6MG TAB PO SCH (09:21)
[2021-10-06] MEDS: POLYETHYLENE (MIRALAX) 17 GM PACK PO SCH (09:21)
--- NOTE | 2021-10-06 10:21 | Pulmonology Progress Note ---
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: (5) Pulmonary hypertension: (6) Mixed restrictive and obstructive lung disease: (7) Pulmonary emboli: (8) History of tobacco use: Plan CT chest 10/01/2021 personally reviewed: Severe centrilobular and paraseptal emphysema appreciated bilaterally Right upper lobe scarring, lingular scarring with adjacent bullous disease Multiple dependent atelectasis bilateral lower lobes No mediastinal lymphadenopathy Compared to CT chest 08/24/2021 there is improvement in the lingular pneumonia 2D echo 10/03/2021: EF 50-55%, moderate apical wall hypokinesis, RVSP 30-40 mmHg, grade 1 diastolic dysfunction PFT 10/09/2020 personally reviewed: Very severe COPD, significant bronchodilator response, mild decrease in TLC, very severe decrease in DLCO FVC 2.04 L 49%, FEV1 0.62 L 19%, FEV1/FVC 30%, RV 112%, TLC 71%, RV/TLC ratio 52, DLCO 16%, DLCO/VA 32% ABG 10/01/2021: 7.35/70/94 --> 10/04/2021: 7.42/52/64 on 2 L -- Acute on chronic hypoxic hypercapnic respiratory failure Likely secondary to COPD exacerbation QTC 418 on 10/01/2021 COVID-19 PCR negative Influenza A/B negative Continue with O2 supplementation to keep oxygen between 88-92% BiPAP nightly and as needed shortness of breath --Very severe COPD with emphysema On Breo and Spiriva at home FEV1 is only 19% predicted. Patient will be classified as an end-stage COPD Consider adding azithromycin 250 mg Hlvnbo-Vfxrddjxd-Kxhdqz Daliresp can also be thought to be added prior to discharge I did go over the possibility of lung transplant given the patient is only 60 years old but is not interested in that right now -- Restrictive lung disease Mild restriction also appreciated Could be secondary to not a good test Patient will benefit from a repeat PFT on discharge --Pulmonary embolism Seems to be chronic right lower lobe subsegmental Doppler lower extremity bilaterally negative on 10/01/2021 Continue with anticoagulation for total of 3 months --Alpha-1 antitrypsin carrier 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 This does not qualify him for treatment. Will repeat alpha-1 level Plan: Okay to transition to prednisone 40 mg for 3 days followed by 20 mg for 3 days Trilogy machine on discharge Outpatient pulmonary follow-up Will likely need 3 L oxygen [id number]. Try to keep O2 between 88-92% Case discussed with Dr. Mckeon Please note the above document was generated using voice recognition software. It may contain grammatical, syntax or spelling errors.Any formal questions or concerns about the content, text or information contained within the body of this dictation should be directly addressed to the provider for clarification. Admission and Anticipated Discharge Date Admission Date: October 01, 2021 Subjective Patient seen and examined at bedside. No acute distress, no dressings overnight Overall he says he is feeling better Bringing up phlegm. No hemoptysis No headache, no nausea, no vomiting He was saturating 86% on 2 L nasal cannula. I increased to 3 L and he was able to maintain his saturation around 89-90% Fair appetite Review of Systems Review of Systems: All systems reviewed & are unremarkable except as noted in Subjective Physical Exam Physical Exam: Constitutional: No acute distress HEENT: EOMI, PERRLA Respiratory system: Decreased air entry bilaterally, no rhonchi, mild crackles bilateral lower lobes, no wheeze CVS: S1-S2 positive, no murmurs or gallops Abdomen: Soft, nontender, nondistended, positive bowel sounds x4 Extremities: +2 pulses bilaterally radialis/ dorsalis pedis, no cyanosis, no edema Neuro: Awake alert oriented x3 Psych: Normal mood and affect G/U: No Bazzi Skin: no rashes, warm and dry Lymphatic: no cervical or axillary lymphadenopathy Results & Data Results & Data ([facility]) Vital Signs (Past 12 Hours) Vital Signs Temp Pulse Resp BP BP Pulse Ox O2 Del Method 10/06/21 08:44 36.5 C 76 18 122/78 98 Nasal Cannula 10/06/21 07:23 76 18 91 Nasal Cannula 10/06/21 06:48 72 16 96 Nasal Cannula 10/06/21 05:51 36.7 C 71 16 109/70 95 CPAP 10/06/21 03:27 23 93 10/06/21 00:40 23 92 BiPAP 10/06/21 00:39 23 92 O2 Flow Rate 10/06/21 08:44 2 10/06/21 07:23 2 10/06/21 06:48 2 10/06/21 05:51 2 10/06/21 03:27 2 10/06/21 00:40 2 10/06/21 00:39 2 Laboratory Results 10/05/21 07:16 10/05/21 07:16 PG Care Time/CCT Total # of Minutes Spent Total Time Spent with Patient: Total time spent is greater than 50% in coordination of care (as documented) at patient's floor/unit and/or counseling patient: Coding Level of Care Code 80623 Subseq Hosp Care Lvl 2 Diagnoses Acute exacerbation of chronic obstructive pulmonary disease J44.1 Acute on chronic respiratory failure with hypoxia and hypercapnia J96.21; J96.22 COPD with emphysema J43.9 Ulqut-7-rnmnatjqtqk deficiency carrier Z14.8 Pulmonary hypertension I27.20 Mixed restrictive and obstructive lung disease J43.9; J98.4 Pulmonary emboli I26.99 History of tobacco use Z87.891
--- NOTE | 2021-10-06 14:52 | Hospitalist Progress Note ---
Date of Service October 06, 2021 Assessment & Plan (1) Acute exacerbation of chronic obstructive pulmonary disease: Plan: Abdulaziz is a 58-year-old male with a past medical history of end stage COPD, alpha 1 antitrypsin deficiency, who presents with increased hypoxia and increase in chronic oxygen requirement from 2.5-3 L to 4 L with incomplete return to baseline after recent treatment for pneumonia. CTA chest on admit-severe emphysema with bronchial wall thickening suggestive of bronchitis. Improvement in aeration of LEFT LUNG with mild persistent subsegmental linear opacities suggestive of atelectasis vs postinflammatory scarring. Mild residual infectious or inflammatory pneumonitis considered less likely Flu, RSV, COVID NEGATIVE on admit Now improving on steroids, completed 5 days azithro- plan to discharge on azithro M-W-F Continue nebulizers and hypertonic saline BID, mucinex BID Continue incentive spirometer, flutter valve Appreciate Pulmonary consult -BIPAP ordered HS,is tolerating-ABG w/ 7.35/70/94--> 7.42/52/64 on 2L 10/04 after BiPAP use Recommending Trilogy vent for home use on discharge "Given the persistent hypercapnia even after using BiPAP at night I do think patient will benefit from trilogy machine * Due to chronic respiratory failure consequent to COPD, patient now requires a noninvasive home ventilator. Bilevel therapy with and without a rate would be ineffective as patient requires a volume targeted mode. * Ventilation is required to decrease work of breathing and improve pulmonary status. Interruption of ventilator support would lead to decline of health status. * NIMV settings should be AVAPS-AE; Breath rate: auto; Inspiratory time:auto; Sigh: off; Tidal Volume: 350-450, PS min: 4-10 PS max: 12-20; EPAP min: 6-10; EPAP max: 10-16; AVAPS rate: 14 during sleep and as needed " -wean down on steroids today-after tonight dc IV Solu Medrol and change to prednisone 40mg daily x 3 days then 20mg daily x 3 dys -continue maintenance inhalers and will Rx at discharge -encouraged Smoking cessation -F/u pulm for continued discussions regarding transplant. 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 Transitioned to eliquis evening 10/03 --> 10mg BID x 7 days, then decrease to 5mg BID after AM dose 10/10 (3) Acute respiratory failure with hypoxia: Plan: Acute and chronic respiratory failure with hypoxia and hypercania acute 2/2 COPD exacerbation on 2LNC at home, 4LNC at times here and w/ exertion CM working on getting Trilogy vent for qhs use at home (4) CAD (coronary artery disease): Plan: Hx [place] s/p PCI to LAD 2018 at [facility]. -- To supposedly have remained on DAPT, but hasn't followed with cardiology recently Takes Lasix 20mg daily as needed but does not weigh himself daily Is >1 year out, and as anticoagulation for chronic PEs noted above--> switched to monotherapy with ASA alone, especially given anticoagulation as above -ECHO w/ normal LV size, but systolic function low normal 50-55%. Moderate apical wall hypokinesis. RV normal in size and function. RVSP elevated at 30-4 0mmHg. Inferior vena cava mildly dilated. No significant valvular heart disease -Placed back on metoprolol 25mg daily -- stated he ran out of this. New rx at d/c -Also placed on lasix 20mg daily -placed back on 80mg atorvastatin HS given CAD w/ PCI to LAD A1c 6.0-- will need counseling ISS added while inpatient on steroids, BSGs acceptable Will need cardiology follow up at discharge -- agreed to local as made appts for pulm locally as well EKG c CP, trop negative on admit (5) Ecwoc-6-nqhnaqlegsh deficiency: Plan: Status post port placement for transfusions and subsequent removal. had been getting weekly injections with prolastin, stopped in October 2020 No acute intervention at this time needs outpatient pulm in follow up alpha-1 level pending (6) History of tobacco use: Plan: continued smoking cessation encouraged Plan Dispo-continued stay awaiting Trilogy machine Needs refills of all meds on discharge Admission and Anticipated Discharge Date Admission Date: October 01, 2021 Subjective Pt has no complaints. Tolerating BiPAP Review of Systems Review of Systems: All systems reviewed & are unremarkable except as noted in HPI & below Physical Exam Constitutional: WD/WN, vitals as above Eyes: + anicteric sclerae Neck: trachea midline, no thyromegaly Respiratory: normal respiratory effort; no cough Auscultation: + diminished lung sounds (throughout) and + wheezes (exp in right uppr lung field, otherwise improved from previous); no crackles and no rhonchi Cardiovascular: RRR, no murmur, no edema Chest (Breasts): Chest: normal inspection of chest Gastrointestinal (Abdomen): normal bowel sounds, soft, nontender, no hepatosplenomegaly Musculoskeletal: Extremities: extremities normal to inspection; no cyanosis and no clubbing Skin: no rashes, warm and dry Neurologic: moves all extremities and awake; no focal motor deficits Psychiatric: A+Ox3, euthymic affect Lymphatic: no lymphedema Results & Data Results & Data ([facility]) Vital Signs (Past 12 Hours) Vital Signs Temp Pulse Resp BP BP Pulse Ox O2 Del Method 10/06/21 13:08 73 17 93 Nasal Cannula 10/06/21 07:55 Nasal Cannula 10/06/21 08:44 36.5 C 76 18 122/78 98 Nasal Cannula 10/06/21 07:23 76 18 91 Nasal Cannula 10/06/21 06:48 72 16 96 Nasal Cannula 10/06/21 05:51 36.7 C 71 16 109/70 95 CPAP 10/06/21 03:27 23 93 O2 Flow Rate 10/06/21 13:08 3 10/06/21 07:55 2 10/06/21 08:44 2 10/06/21 07:23 2 10/06/21 06:48 2 10/06/21 05:51 2 10/06/21 03:27 2 PG Care Time/CCT Total # of Minutes Spent Total Time Spent with Patient: Total time spent is greater than 50% in coordination of care (as documented) at patient's floor/unit and/or counseling patient: Coding Level of Care Code 20949 Subseq Hosp Care Lvl 2 Diagnoses Acute exacerbation of chronic obstructive pulmonary disease J44.1 Pulmonary emboli I26.99 Acute respiratory failure with hypoxia J96.01 CAD (coronary artery disease) I25.10 Ysqwe-1-dwxopzimffs deficiency E88.01 History of tobacco use Z87.891
[2021-10-06] MEDS: ATORVASTATIN 40 MG TAB PO SCH (20:44)
[2021-10-07] MEDS: ALBUTEROL 0.083% NEBU SOLN 3 ML VIAL INH SCH ×4 (01:25→19:11)
[2021-10-07] MEDS: FORMOTEROL 20 MCG/2 ML VIAL NEB SCH ×2 (07:02→19:10)
[2021-10-07] MEDS: FUROSEMIDE 20 MG TAB PO SCH (08:52)
[2021-10-07] MEDS: predniSONE 20 MG TAB PO SCH (08:52)
[2021-10-07] MEDS: METOPROLOL SUCC 25MG EXT REL TAB PO SCH (08:53)
[2021-10-07] MEDS: APIXABAN 5 MG TABLET PO SCH ×2 (08:53→20:35)
[2021-10-07] MEDS: guaiFENesin 600 MG TABCR PO SCH ×2 (08:53→20:35)
[2021-10-07] MEDS: FLUTICASONE/VILANTEROL 200/25MCG 14 PUFFS/INHALER INH SCH (08:54)
[2021-10-07] MEDS: ASPIRIN 81 MG ECTAB PO SCH (08:54)
[2021-10-07] MEDS: UMECLIDINIUM BROMIDE 62.5MCG/BLISTER 7 PUFFS/INHALER INH SCH (08:55)
[2021-10-07] MEDS: DOCUSATE SODIUM/SENNA 50/8.6MG TAB PO SCH (09:04)
[2021-10-07] MEDS: POLYETHYLENE (MIRALAX) 17 GM PACK PO SCH (09:04)
[2021-10-07] MEDS: INSULIN ASPART PER UNIT SC SCH ×4 (09:05→21:08)
--- NOTE | 2021-10-07 09:51 | Pulmonology Progress Note ---
Date of Service October 07, 2021 Assessment & Plan (1) Acute exacerbation of chronic obstructive pulmonary disease: (2) Acute on chronic respiratory failure with hypoxia and hypercapnia: (3) COPD with emphysema: (4) Iehha-1-dbgojdqwoun deficiency carrier: (5) Pulmonary hypertension: (6) Mixed restrictive and obstructive lung disease: (7) Pulmonary emboli: (8) History of tobacco use: Plan CT chest 10/01/2021 personally reviewed: Severe centrilobular and paraseptal emphysema appreciated bilaterally Right upper lobe scarring, lingular scarring with adjacent bullous disease Multiple dependent atelectasis bilateral lower lobes No mediastinal lymphadenopathy Compared to CT chest 08/24/2021 there is improvement in the lingular pneumonia 2D echo 10/03/2021: EF 50-55%, moderate apical wall hypokinesis, RVSP 30-40 mmHg, grade 1 diastolic dysfunction PFT 10/09/2020 personally reviewed: Very severe COPD, significant bronchodilator response, mild decrease in TLC, very severe decrease in DLCO FVC 2.04 L 49%, FEV1 0.62 L 19%, FEV1/FVC 30%, RV 112%, TLC 71%, RV/TLC ratio 52, DLCO 16%, DLCO/VA 32% ABG 10/01/2021: 7.35/70/94 --> 10/04/2021: 7.42/52/64 on 2 L -- Acute on chronic hypoxic hypercapnic respiratory failure Likely secondary to COPD exacerbation QTC 418 on 10/01/2021 COVID-19 PCR negative Influenza A/B negative Continue with O2 supplementation to keep oxygen between 88-92% BiPAP nightly and as needed shortness of breath --Very severe COPD with emphysema On Breo and Spiriva at home FEV1 is only 19% predicted. Patient will be classified as an end-stage COPD Consider adding azithromycin 250 mg Emfehk-Bzeboalws-Lbclzx Daliresp can also be thought to be added prior to discharge I did go over the possibility of lung transplant given the patient is only 60 years old but is not interested in that right now -- Restrictive lung disease Mild restriction also appreciated Could be secondary to not a good test Patient will benefit from a repeat PFT on discharge --Pulmonary embolism Seems to be chronic right lower lobe subsegmental Doppler lower extremity bilaterally negative on 10/01/2021 Continue with anticoagulation for total of 3 months --Alpha-1 antitrypsin carrier 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 This does not qualify him for treatment. Will repeat alpha-1 level Plan: Await AVAPS machine prior to discharge Continue tapering steroids No further recommendation from pulmonary perspective Will sign off, please call directly with any questions Please note the above document was generated using voice recognition software. It may contain grammatical, syntax or spelling errors.Any formal questions or concerns about the content, text or information contained within the body of this dictation should be directly addressed to the provider for clarification. Admission and Anticipated Discharge Date Admission Date: October 01, 2021 Subjective Appetite Patient seen and examined at bedside. No acute distress, no delusions overnight. Overall he is feeling much better. Not bringing up any phlegm anymore. No hemoptysis Shortness of breath is significantly improved No chest pain. He was saturating 97% on 2 L nasal cannula at rest at the time of examination with heart rate of 65 Review of Systems Review of Systems: All systems reviewed & are unremarkable except as noted in Subjective Physical Exam Physical Exam: Constitutional: No acute distress HEENT: EOMI, PERRLA Respiratory system: Decreased air entry bilaterally, no rhonchi, minimal crackles bilateral lower lobes, mild expiratory wheeze CVS: S1-S2 positive, no murmurs or gallops Abdomen: Soft, nontender, nondistended, positive bowel sounds x4 Extremities: +2 pulses bilaterally radialis/ dorsalis pedis, no cyanosis, no edema Neuro: Awake alert oriented x3 Psych: Normal mood and affect G/U: No Bazzi Skin: no rashes, warm and dry Lymphatic: no cervical or axillary lymphadenopathy Results & Data Results & Data ([facility]) Vital Signs (Past 12 Hours) Vital Signs Temp Pulse Pulse Resp BP Pulse Ox O2 Del Method 10/07/21 07:57 Nasal Cannula 10/07/21 07:48 36.8 C 78 18 115/74 94 Nasal Cannula 10/07/21 07:03 68 23 96 BiPAP 10/07/21 07:03 68 23 96 10/07/21 01:25 88 20 92 BiPAP 10/06/21 23:05 16 95 O2 Flow Rate 10/07/21 07:57 3 10/07/21 07:48 3 10/07/21 07:03 4 10/07/21 07:03 4 10/07/21 01:25 3 10/06/21 23:05 3 Laboratory Results 10/05/21 07:16 10/05/21 07:16 PG Care Time/CCT Total # of Minutes Spent Total Time Spent with Patient: Total time spent is greater than 50% in coordination of care (as documented) at patient's floor/unit and/or counseling patient: Coding Level of Care Code 94891 Subseq Hosp Care Lvl 2 Diagnoses Acute exacerbation of chronic obstructive pulmonary disease J44.1 Acute on chronic respiratory failure with hypoxia and hypercapnia J96.21; J96.22 COPD with emphysema J43.9 Usutq-5-uijalxvenik deficiency carrier Z14.8 Pulmonary hypertension I27.20 Mixed restrictive and obstructive lung disease J43.9; J98.4 Pulmonary emboli I26.99 History of tobacco use Z87.891
--- NOTE | 2021-10-07 13:36 | Hospitalist Progress Note ---
Date of Service October 07, 2021 Assessment & Plan (1) Acute exacerbation of chronic obstructive pulmonary disease: Plan: Abdulaziz is a 58-year-old male with a past medical history of end stage COPD, alpha 1 antitrypsin deficiency, who presents with increased hypoxia and increase in chronic oxygen requirement from 2.5-3 L to 4 L with incomplete return to baseline after recent treatment for pneumonia. CTA chest on admit-severe emphysema with bronchial wall thickening suggestive of bronchitis. Improvement in aeration of LEFT LUNG with mild persistent subsegmental linear opacities suggestive of atelectasis vs postinflammatory scarring. Mild residual infectious or inflammatory pneumonitis considered less likely Flu, RSV, COVID NEGATIVE on admit Now improving on steroids, completed 5 days azithro- plan to discharge on azithro M-W-F Continue nebulizers and hypertonic saline BID, mucinex BID Continue incentive spirometer, flutter valve Appreciate Pulmonary consult -BIPAP ordered HS,is tolerating-ABG w/ 7.35/70/94--> 7.42/52/64 on 2L 10/04 after BiPAP use Recommending Trilogy vent for home use on discharge "Given the persistent hypercapnia even after using BiPAP at night I do think patient will benefit from trilogy machine * Due to chronic respiratory failure consequent to COPD, patient now requires a noninvasive home ventilator. Bilevel therapy with and without a rate would be ineffective as patient requires a volume targeted mode. * Ventilation is required to decrease work of breathing and improve pulmonary status. Interruption of ventilator support would lead to decline of health status. * NIMV settings should be AVAPS-AE; Breath rate: auto; Inspiratory time:auto; Sigh: off; Tidal Volume: 350-450, PS min: 4-10 PS max: 12-20; EPAP min: 6-10; EPAP max: 10-16; AVAPS rate: 14 during sleep and as needed " -wean down on steroids -continue prednisone 40mg daily then on 10/10, convert to 20mg daily x 3 dys -continue maintenance inhalers and will Rx at discharge -encouraged Smoking cessation -F/u pulm for continued discussions regarding transplant. 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 Transitioned to eliquis evening 10/03 --> 10mg BID x 7 days, then decrease to 5mg BID after AM dose 10/10 (3) Acute respiratory failure with hypoxia: Plan: Acute and chronic respiratory failure with hypoxia and hypercania acute 2/2 COPD exacerbation on 2LNC at home, 4LNC at times here and w/ exertion CM working on getting Trilogy vent for qhs use at home (4) CAD (coronary artery disease): Plan: Hx [place] s/p PCI to LAD 2018 at [facility]. -- To supposedly have remained on DAPT, but hasn't followed with cardiology recently Takes Lasix 20mg daily as needed but does not weigh himself daily Is >1 year out, and as anticoagulation for chronic PEs noted above--> switched to monotherapy with ASA alone, especially given anticoagulation as above -ECHO w/ normal LV size, but systolic function low normal 50-55%. Moderate apical wall hypokinesis. RV normal in size and function. RVSP elevated at 30- 40mmHg. Inferior vena cava mildly dilated. No significant valvular heart disease -Placed back on metoprolol 25mg daily -- stated he ran out of this. New rx at d/c -Also placed on lasix 20mg daily -placed back on 80mg atorvastatin HS given CAD w/ PCI to LAD A1c 6.0-- will need counseling ISS added while inpatient on steroids, BSGs acceptable Will need cardiology follow up at discharge -- agreed to local as made appts for pulm locally as well EKG c CP, trop negative on admit (5) Zwnqu-4-efwoszyjcgi deficiency: Plan: Status post port placement for transfusions and subsequent removal. had been getting weekly injections with prolastin, stopped in October 2020 No acute intervention at this time needs outpatient pulm in follow up alpha-1 level pending (6) History of tobacco use: Plan: continued smoking cessation encouraged Plan Dispo-continued stay awaiting Trilogy machine-hopeful for discharge on Friday Needs refills of all meds on discharge Admission and Anticipated Discharge Date Admission Date: October 01, 2021 Subjective Patient has no complaints. Feels well, not short of breath, no chest pain, no headache or lightheadedness, no nausea/vomiting, no diarrhea or constipation. He is eating and drinking well. He is ambulating around the room. He is tolerating BiPAP all night long. Is ready for discharged home, awaiting vent machine at home Review of Systems Review of Systems: All systems reviewed & are unremarkable except as noted in HPI & below Physical Exam Constitutional: WD/WN, vitals as above Eyes: + anicteric sclerae Neck: trachea midline, no thyromegaly Respiratory: normal respiratory effort; no cough Auscultation: + diminished lung sounds (throughout) and + wheezes (Mild, bilateral expiratory); no crackles and no rhonchi Cardiovascular: RRR, no murmur, no edema Chest (Breasts): Chest: normal inspection of chest Gastrointestinal (Abdomen): normal bowel sounds, soft, nontender, no hepatosplenomegaly Musculoskeletal: Extremities: extremities normal to inspection; no cyanosis and no clubbing Skin: no rashes, warm and dry Neurologic: moves all extremities and awake; no focal motor deficits Psychiatric: A+Ox3, euthymic affect Lymphatic: no lymphedema Results & Data Results & Data ([facility]) Vital Signs (Past 12 Hours) Vital Signs Temp Pulse Pulse Resp BP Pulse Ox O2 Del Method 10/07/21 12:12 70 18 95 Nasal Cannula 10/07/21 07:57 Nasal Cannula 10/07/21 07:48 36.8 C 78 18 115/74 94 Nasal Cannula 10/07/21 07:03 68 23 96 BiPAP 10/07/21 07:03 68 23 96 O2 Flow Rate 10/07/21 12:12 2.5 10/07/21 07:57 3 10/07/21 07:48 3 10/07/21 07:03 4 10/07/21 07:03 4 PG Care Time/CCT Total # of Minutes Spent Total Time Spent with Patient: Total time spent is greater than 50% in coordination of care (as documented) at patient's floor/unit and/or counseling patient: Coding Level of Care Code 60210 Subseq Hosp Care Lvl 1 Diagnoses Acute exacerbation of chronic obstructive pulmonary disease J44.1 Pulmonary emboli I26.99 Acute respiratory failure with hypoxia J96.01 CAD (coronary artery disease) I25.10 Qkjgs-9-brkgnwceign deficiency E88.01 History of tobacco use Z87.891
[2021-10-07] MEDS: ATORVASTATIN 40 MG TAB PO SCH (20:35)
[2021-10-08] MEDS: ALBUTEROL 0.083% NEBU SOLN 3 ML VIAL INH SCH ×4 (00:14→19:32)
[2021-10-08] MEDS: FORMOTEROL 20 MCG/2 ML VIAL NEB SCH ×2 (07:08→19:32)
--- NOTE | 2021-10-08 08:01 | Hospitalist Progress Note ---
Date of Service October 08, 2021 Assessment & Plan (1) Acute exacerbation of chronic obstructive pulmonary disease: Plan: Abdulaziz is a 58-year-old male with a past medical history of end stage COPD, alpha 1 antitrypsin deficiency, who presents with increased hypoxia and increase in chronic oxygen requirement from 2.5-3 L to 4 L with incomplete return to baseline after recent treatment for pneumonia. CTA chest on admit-severe emphysema with bronchial wall thickening suggestive of bronchitis. Improvement in aeration of LEFT LUNG with mild persistent subsegmental linear opacities suggestive of atelectasis vs postinflammatory scarring. Mild residual infectious or inflammatory pneumonitis considered less likely Flu, RSV, COVID NEGATIVE on admit Now improving on steroids, completed 5 days azithro- plan to discharge on azithro M-W-F Continue nebulizers and hypertonic saline BID, mucinex BID Continue incentive spirometer, flutter valve Appreciate Pulmonary consult -BIPAP ordered HS,is tolerating-ABG w/ 7.35/70/94--> 7.42/52/64 on 2L 10/04 after BiPAP use Recommending Trilogy vent for home use on discharge "Given the persistent hypercapnia even after using BiPAP at night I DO think patient will benefit from trilogy machine * Due to chronic respiratory failure consequent to COPD, patient now requires a noninvasive home ventilator. Bilevel therapy with and without a rate would be ineffective as patient requires a volume targeted mode. * Ventilation is required to decrease work of breathing and improve pulmonary status. Interruption of ventilator support would lead to decline of health status. * NIMV settings should be AVAPS-AE; Breath rate: auto; Inspiratory time:auto; Sigh: off; Tidal Volume: 350-450, PS min: 4-10 PS max: 12-20; EPAP min: 6-10; EPAP max: 10-16; AVAPS rate: 14 during sleep and as needed " -wean down on steroids -continue prednisone 40mg daily then on 10/10, convert to 20mg daily x 3 dys -continue maintenance inhalers and will Rx at discharge -encouraged Smoking cessation (hasn't smoked since last admit with pneumonia) -F/u pulm for continued discussions regarding transplant. Also did have discussion with palliative- wants to remain full code -needs outpatient PFTs in follow up with pulm -consider daliresp at d/c as well for end stage COPD if covered by insurance/[facility] -- asked Chari to check $$ while awaiting to get insurance auth for Trilogy (2) Pulmonary emboli: Plan: Venous Dopplers NEGATIVE for acute DVT however CTA chest showing chronic isolated segmental PE (not mentioned on prior report in August but on comparison does appear to have been present at that time) started on Heparin gtt and then converted to Eliquis -recommend continuing anticoagulation for 3 months given chronic segmental PE but also with narrowing and 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 Transitioned to eliquis evening 10/03 --> 10mg BID x 7 days, then decrease to 5mg BID after AM dose 10/10 (3) Acute respiratory failure with hypoxia: Plan: Acute and chronic respiratory failure with hypoxia and hypercania acute 2/2 COPD exacerbation on 2-3LNC at home, 4LNC at times here and w/ exertion but appears consistently with 2.5-3L over past 24 hours CM working on getting Trilogy vent for qhs use at home -- no auth yet today 10/08 (4) CAD (coronary artery disease): Plan: Hx [place] s/p PCI to LAD 2018 at [facility]. -- To supposedly have remained on DAPT, but hasn't followed with cardiology recently Takes Lasix 20mg daily as needed but does not weigh himself daily Is >1 year out, and as anticoagulation for chronic PEs noted above--> switched to monotherapy with ASA alone, especially given anticoagulation as above -ECHO w/ normal LV size, but systolic function low normal 50-55%. Moderate apical wall hypokinesis. RV normal in size and function. RVSP elevated at 30- 40mmHg. Inferior vena cava mildly dilated. No significant valvular heart disease -Placed back on metoprolol 25mg daily -- stated he ran out of this. New rx at d/c -Also placed on lasix 20mg daily -placed back on 80mg atorvastatin HS given CAD w/ PCI to LAD A1c 6.0-- counseling ISS added while inpatient on steroids, trending down, BSGs acceptable Will need cardiology follow up at discharge -- agreed to local as made appts for pulm locally as well. on dc instructions EKG c CP, trop negative on admit (5) Gjlxy-2-akrjemdioca deficiency: Plan: Status post port placement for transfusions and subsequent removal. had been getting weekly injections with prolastin, stopped in October 2020 No acute intervention at this time needs outpatient pulm in follow up alpha-1 level pending (6) History of tobacco use: Plan: continued smoking cessation encouraged Plan Dispo-continued stay awaiting Trilogy machine-hopeful for d/c today but no auth yet Remains inpatient, needs refills of all meds on d/c. [facility]. Will need to send rx for prednisone pending what day he leaves Admission and Anticipated Discharge Date Admission Date: October 01, 2021 Subjective Patient evaluated this morning. Resting comfortable in bed, no acute distress. No concerns at this time, awaiting trilogy authorization and patient is hopeful for discharge today. No fever/chills. Breathing stable, no chest pain. Will arrange local follow up with pulm/cardiology. Questions/concerns addressed at this time. Review of Systems Review of Systems: All systems reviewed & are unremarkable except as noted in HPI & below Physical Exam Physical Exam: General: WD/WN elderly male, sitting up in bed eating breakfast, NAD HEENT: head normocephalic, atraumatic, mmm, trachea midline without deviation Chest: prior L port site scar well healed, non tender Resp: prolonged expiratory phase, diminished lung sounds throughout, bilateral end expiratory wheezing L>R, on 2.5L NC with SpO2 93% CV: RRR, no m/r/g, no calf edema or tenderness, SCDs in place GI: +BS, soft, nontender : no tomas MSk/Neuro: moves all extremities, no focal deficits, no slurred speech/facial droop Psych: AOx3, pleasant, improved mood and affect Skin: cool, dry Results & Data Results & Data ([facility]) Vital Signs (Past 12 Hours) Vital Signs Temp Pulse Pulse Resp BP Pulse Ox O2 Del Method 10/08/21 07:11 66 18 93 Nasal Cannula 10/08/21 03:09 77 23 94 10/08/21 00:14 79 22 94 BiPAP 10/07/21 22:25 80 21 96 10/07/21 22:06 36.7 C 85 18 102/71 93 Nasal Cannula O2 Flow Rate 10/08/21 07:11 2.5 10/08/21 03:09 2.5 10/08/21 00:14 2.5 10/07/21 22:25 2.5 10/07/21 22:06 2.0 Laboratory Results 10/08/21 10/08/21 10/07/21 Range/Units 12:01 08:03 20:28 POC Glucose 100 H 78 138 H (70-99) mg/dl 10/07/21 Range/Units 16:51 POC Glucose 124 H (70-99) mg/dl PG Care Time/CCT Total # of Minutes Spent Total Time Spent with Patient: Total time spent is greater than 50% in coordination of care (as documented) at patient's floor/unit and/or counseling patient: Coding Level of Care Code 98199 Subseq Hosp Care Lvl 1 Diagnoses Acute exacerbation of chronic obstructive pulmonary disease J44.1 Pulmonary emboli I26.99 Acute respiratory failure with hypoxia J96.01 CAD (coronary artery disease) I25.10 Fgnud-5-cagdfourzni deficiency E88.01 History of tobacco use Z87.981
[2021-10-08] MEDS: APIXABAN 5 MG TABLET PO SCH ×2 (08:41→20:55)
[2021-10-08] MEDS: predniSONE 20 MG TAB PO SCH (08:41)
[2021-10-08] MEDS: METOPROLOL SUCC 25MG EXT REL TAB PO SCH (08:41)
[2021-10-08] MEDS: guaiFENesin 600 MG TABCR PO SCH ×2 (08:41→20:56)
[2021-10-08] MEDS: FUROSEMIDE 20 MG TAB PO SCH (08:41)
[2021-10-08] MEDS: DOCUSATE SODIUM/SENNA 50/8.6MG TAB PO SCH (08:42)
[2021-10-08] MEDS: UMECLIDINIUM BROMIDE 62.5MCG/BLISTER 7 PUFFS/INHALER INH SCH (08:42)
[2021-10-08] MEDS: FLUTICASONE/VILANTEROL 200/25MCG 14 PUFFS/INHALER INH SCH (08:42)
[2021-10-08] MEDS: POLYETHYLENE (MIRALAX) 17 GM PACK PO SCH (08:42)
[2021-10-08] MEDS: ASPIRIN 81 MG ECTAB PO SCH (08:42)
[2021-10-08] MEDS: INSULIN ASPART PER UNIT SC SCH ×4 (08:43→21:40)
[2021-10-08] MEDS ORDERED: AZITHROMYCIN 250 MG TAB PO SCH (09:00)
[2021-10-08] MEDS: ATORVASTATIN 40 MG TAB PO SCH (20:56)
[2021-10-09] MEDS: ALBUTEROL 0.083% NEBU SOLN 3 ML VIAL INH SCH ×3 (00:10→13:07)
[2021-10-09] MEDS: FORMOTEROL 20 MCG/2 ML VIAL NEB SCH (07:03)
[2021-10-09 07:06] LABS: BUN Creatinine Ratio 35.5 (10-20); Calcium 7.6 mg/dl (8.5-10.1); Creatinine Clr Calc Pharmacy 111.5 ml/min; Est GFR (African American) 123.2 ml/min; Est GFR (Non-African American) 106.3 ml/min
--- NOTE | 2021-10-09 08:02 | Hospitalist Progress Note ---
Date of Service October 09, 2021 Assessment & Plan (1) Acute exacerbation of chronic obstructive pulmonary disease: Plan: Abdulaziz is a 58-year-old male with a past medical history of end stage COPD, alpha 1 antitrypsin deficiency, who presents with increased hypoxia and increase in chronic oxygen requirement from 2.5-3 L to 4 L with incomplete return to baseline after recent treatment for pneumonia. CTA chest on admit-severe emphysema with bronchial wall thickening suggestive of bronchitis. Improvement in aeration of LEFT LUNG with mild persistent subsegmental linear opacities suggestive of atelectasis vs postinflammatory scarring. Mild residual infectious or inflammatory pneumonitis considered less likely Flu, RSV, COVID NEGATIVE on admit Now improving on steroids, completed 5 days azithro- plan to discharge on azithro M-W-F Continue nebulizers and hypertonic saline BID, mucinex BID Continue incentive spirometer, flutter valve Appreciate Pulmonary consult -BIPAP ordered HS,is tolerating-ABG w/ 7.35/70/94--> 7.42/52/64 on 2L 10/04 after BiPAP use Recommending Trilogy vent for home use on discharge "Given the persistent hypercapnia even after using BiPAP at night I DO think patient will benefit from trilogy machine * Due to chronic respiratory failure consequent to COPD, patient now requires a noninvasive home ventilator. Bilevel therapy with and without a rate would be ineffective as patient requires a volume targeted mode. * Ventilation is required to decrease work of breathing and improve pulmonary status. Interruption of ventilator support would lead to decline of health status. * NIMV settings should be AVAPS-AE; Breath rate: auto; Inspiratory time:auto; Sigh: off; Tidal Volume: 350-450, PS min: 4-10 PS max: 12-20; EPAP min: 6-10; EPAP max: 10-16; AVAPS rate: 14 during sleep and as needed " -wean down on steroids -continue prednisone 40mg daily then on 10/10, convert to 20mg daily x 3 dys -continue maintenance inhalers and will Rx at discharge -encouraged Smoking cessation (hasn't smoked since last admit with pneumonia) -F/u pulm for continued discussions regarding transplant. Also did have discussion with palliative- wants to remain full code -needs outpatient PFTs in follow up with pulm -consider daliresp at d/c as well for end stage COPD if covered by insurance/[facility] -- asked Chari to check $$ while awaiting to get insurance auth for Trilogy. [facility] 10/09 Working with insurance auth/peer-peer working on trilogy, prior denied Attempting to get BiPAP arranged in meantime per discussion with pulmonology and CM outpatient can work on getting the Trilogy approved in the meantime. 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 Transitioned to eliquis evening 10/03 --> 10mg BID x 7 days, then decrease to 5mg BID after AM dose 10/10 (tomorrow morning, then will be on 5mg BID thereafter, minimum 3 months) (3) Acute respiratory failure with hypoxia: Plan: Acute and chronic respiratory failure with hypoxia and hypercania acute 2/2 COPD exacerbation on 2-3LNC at home, 4LNC at times here and w/ exertion but appears consistently with 2-3L over past 24 hours CM working on getting Trilogy vent for qhs use at home -- no auth yet today 10/08 (4) CAD (coronary artery disease): Plan: Hx [place] s/p PCI to LAD 2019 at [facility]. -- To supposedly have remained on DAPT, but hasn't followed with cardiology recently Takes Lasix 20mg daily as needed but does not weigh himself daily Is >1 year out, and as anticoagulation for chronic PEs noted above--> switched to monotherapy with ASA alone, especially given anticoagulation as above -ECHO w/ normal LV size, but systolic function low normal 50-55%. Moderate apical wall hypokinesis. RV normal in size and function. RVSP elevated at 30- 40mmHg. Inferior vena cava mildly dilated. No significant valvular heart disease -Placed back on metoprolol 25mg daily -- stated he ran out of this. New rx at d/c -Also placed on lasix 20mg daily -placed back on 80mg atorvastatin HS given CAD w/ PCI to LAD A1c 6.0-- counseling ISS added while inpatient on steroids, trending down, BSGs acceptable Will need cardiology follow up at discharge -- agreed to local as made appts for pulm locally as well. on dc instructions EKG c CP, trop negative on admit (5) Gygoi-5-ejcnucpjusa deficiency: Plan: Status post port placement for transfusions and subsequent removal. had been getting weekly injections with prolastin, stopped in October 2020 No acute intervention at this time needs outpatient pulm in follow up alpha-1 level pending (6) History of tobacco use: Plan: continued smoking cessation encouraged Plan continued inpatient stay working on NIV for discharge, CM following Admission and Anticipated Discharge Date Admission Date: October 01, 2021 Subjective Patient evaluated this morning. No new issues, still waiting for trilogy approval. Denied by insurance, attempting [id number] today to see if approved, otherwise will attempt BiPAP and have outpatient CM work on trilogy set up. Called number for peer-peer, told not able to overturn or discuss with provider based on CMS guidelines. CM discussed with Chidi from [place] and working on another number but will give CM rx for BipAP as stated and hopefully can hear back sooner than later given patient continued stable but remaining inpatient. CM stated may need overnight study and ABG in AM, however did discuss had ABG last week after BiPAp and had continued hypercapnea, which was the reason wanting the Trilogy in the first place. Review of Systems Review of Systems: All systems reviewed & are unremarkable except as noted in HPI & below Physical Exam Physical Exam: General: WD/WN elderly male, sitting up in bed, NAD HEENT: head normocephalic, atraumatic, mmm, trachea midline without deviation Chest: prior L port site scar well healed, non tender Resp: prolonged expiratory phase, diminished lung sounds throughout, faint end expiratory wheezing much improved, on 2L SpO2 90% CV: RRR, no m/r/g, no calf edema or tenderness, SCDs in place GI: +BS, soft, nontender : no tomas MSk/Neuro: moves all extremities, no focal deficits, no slurred speech/facial droop Psych: AOx3, pleasant, improved mood and affect Skin: cool, dry Results & Data Results & Data ([facility]) Vital Signs (Past 12 Hours) Vital Signs Temp Pulse Pulse Resp BP Pulse Ox O2 Del Method 10/09/21 07:03 69 19 95 Nasal Cannula 10/09/21 03:18 76 17 97 10/09/21 00:10 19 96 BiPAP 10/08/21 23:47 78 20 95 10/08/21 23:18 36.4 C L 75 20 117/77 94 Nasal Cannula 10/08/21 20:55 Nasal Cannula O2 Flow Rate 10/09/21 07:03 2.5 10/09/21 03:18 3 10/09/21 00:10 3 10/08/21 23:47 3 10/08/21 23:18 3 10/08/21 20:55 3 Laboratory Results 10/09/21 10/09/21 10/08/21 Range/Units 07:52 06:19 20:24 Sodium 137 (136-145) mmol/L Potassium 4.0 (3.5-5.1) mmol/L Chloride 103 (98-107) mmol/L Carbon Dioxide 32 (21-32) mmol/L Anion Gap 2 L (3-11) BUN 22 (6-23) mg/dl Creatinine 0.62 (0.6-1.4) mg/dl Est Cr Clr Drug Dosing 111.5 ml/min Est GFR ( Amer) 123.2 ml/min Est GFR (Non-Af Amer) 106.3 ml/min BUN/Creatinine Ratio 35.5 H (10-20) Glucose 75 (70-99(Fasting)) mg/dl POC Glucose 82 151 H (70-99) mg/dl Calcium 7.6 L (8.5-10.1) mg/dl Gvlzu-7-Qtrrstcpxry (83-199) mg/dL 10/08/21 10/08/21 10/08/21 Range/Units 17:14 12:01 08:03 Sodium (136-145) mmol/L Potassium (3.5-5.1) mmol/L Chloride (98-107) mmol/L Carbon Dioxide (21-32) mmol/L Anion Gap (3-11) BUN (6-23) mg/dl Creatinine (0.6-1.4) mg/dl Est Cr Clr Drug Dosing ml/min Est GFR ( Amer) ml/min Est GFR (Non-Af Amer) ml/min BUN/Creatinine Ratio (10-20) Glucose (70-99(Fasting)) mg/dl POC Glucose 151 H 100 H 78 (70-99) mg/dl Calcium (8.5-10.1) mg/dl Mlkbk-3-Tedqzouhajw (83-199) mg/dL 10/04/ Range/Units 07:13 Sodium (136-145) mmol/L Potassium (3.5-5.1) mmol/L Chloride (98-107) mmol/L Carbon Dioxide (21-32) mmol/L Anion Gap (3-11) BUN (6-23) mg/dl Creatinine (0.6-1.4) mg/dl Est Cr Clr Drug Dosing ml/min Est GFR ( Amer) ml/min Est GFR (Non-Af Amer) ml/min BUN/Creatinine Ratio (10-20) Glucose (70-99(Fasting)) mg/dl POC Glucose (70-99) mg/dl Calcium (8.5-10.1) mg/dl [id number]-6-[id number] 86 (83-199) mg/dL PG Care Time/CCT Total # of Minutes Spent Total Time Spent with Patient: Total time spent is greater than 50% in coordination of care (as documented) at patient's floor/unit and/or counseling patient: Coding Level of Care Code 85754 Subseq Hosp Care Lvl 2 Diagnoses Acute exacerbation of chronic obstructive pulmonary disease J44.1 Pulmonary emboli I26.99 Acute respiratory failure with hypoxia J96.01 CAD (coronary artery disease) I25.10 Kndbn-2-tkmeppxcmtd deficiency E88.01 History of tobacco use Z87.891
[2021-10-09] MEDS: INSULIN ASPART PER UNIT SC SCH ×3 (08:14→17:17)
[2021-10-09] MEDS: METOPROLOL SUCC 25MG EXT REL TAB PO SCH (08:57)
[2021-10-09] MEDS: FUROSEMIDE 20 MG TAB PO SCH (08:57)
[2021-10-09] MEDS: FLUTICASONE/VILANTEROL 200/25MCG 14 PUFFS/INHALER INH SCH (08:58)
[2021-10-09] MEDS: APIXABAN 5 MG TABLET PO SCH (08:58)
[2021-10-09] MEDS: guaiFENesin 600 MG TABCR PO SCH (08:58)
[2021-10-09] MEDS: predniSONE 20 MG TAB PO SCH (08:58)
[2021-10-09] MEDS: ASPIRIN 81 MG ECTAB PO SCH (08:58)
[2021-10-09] MEDS: UMECLIDINIUM BROMIDE 62.5MCG/BLISTER 7 PUFFS/INHALER INH SCH (08:59)
[2021-10-09] MEDS: POLYETHYLENE (MIRALAX) 17 GM PACK PO SCH (09:00)
[2021-10-09] MEDS: DOCUSATE SODIUM/SENNA 50/8.6MG TAB PO SCH (09:00)
--- NOTE | 2021-10-09 15:11 | Discharge Summary ---
Date of Service October 09, 2021 Admission HPI Per Admitting Provider Abdulaziz is a 58-year-old male with a past medical history of COPD, alpha 1 antitrypsin deficiency, and LA with PCI to LAD in 2019 who presents with increased hypoxia and increase in chronic oxygen requirement from 2.5-3 L to 4 L with incomplete return to baseline after recent treatment for pneumonia. Patient does have antibiotics with him, has 2 bottles of Bactrim 1 from a year ago and 1 from beginning of September but with 4 tablets still remaining. He is a very poor historian of which med he takes and how often. Has multiple bottles of Brilinta. Breathing suddenly worsened on Friday Shortness of breath increased Brining up clear/yellowish/thick sputum which has not changed recently No fevers or chills Uses his nebulizer at home ~1ce per day. Has not increased doses, but is running out of the neb and has not increased to more than 1ce a day out of fear of running out. [facility] been [facility] PCP is Dr. Real. Next followup is Jan 10 Quit tobacco recently. Using nicotine tablets and patch, uses the patch less. Has not used Chantix. Uses a 14mcg patch. Cardiac History: - Hx of LA with PCI - LAD stend x1 ADELAIDA XIENCE Anyi 2.5x15mm in 2019 at [facility] - Remains on DAPT, has not followed up with Lithographic Artist recently - Takes lasix 20mg daily as needed, does not weigh himself daily - Hx HTN: Metoprolol, has run out of meds Hx COPD - Spriva, Breo, Albuterol at home - Home oxygen has been at 4L for last month, baseline normally ~2.5-3L - Breathign has not returned to baseline since PNA 1 month ago Medical History: Reviewed, very poor historian Medications: Reviewed, as below. Checked w/ medications in bag pt had on person Surgical History: Reviewed Allergies: Reviewed Social History: Tobacco as noted, quit recently. No EtoH Code Status: Full Vitamin D3 Brilinta 90mg Lasix 20mg PRN MTP Succinate 25mg daily Aspirin 81mg daily Atorvastatin 40mg Bactrim x 14days refills filled Sep 20 with 4 left. Amlodipine 2.5mg Hx Port Placement, subsequent removal ~May of this year, thinks has not been used since prior ~October Admission Exam Per Admitting Provider General: A&Ox3. NAD. Cooperative. HEENT: Atraumatic, normocephalic.Vision and hearing grossly intact Pulm: With diffuse inspiratory wheezes, expiratory wheezes and prolonged expiration symmetrical chest rise. No increase in work of breathing. No respiratory distress. Cardiac: Regular, tachycardic, -mrg. Radial pulses intact and symmetrical. Abdominal: Nontender, nondistended, soft. BS present. Extremities: Warm, dry. No lower extremity edema. Principal Diagnosis COPD Exacerbation, Acute on Chronic Respiratory Failure Discharge Exam General: WD/WN elderly male, sitting up in bed, NAD HEENT: head normocephalic, atraumatic, mmm, trachea midline without deviation Chest: prior L port site scar well healed, non tender Resp: prolonged expiratory phase, diminished lung sounds throughout, faint end expiratory wheezing much improved, on 2L SpO2 91% CV: RRR, no m/r/g, no calf edema or tenderness, SCDs in place GI: +BS, soft, nontender : no tomas MSk/Neuro: moves all extremities, no focal deficits, no slurred speech/facial droop Psych: AOx3, pleasant, improved mood and affect and happy about discharge today Skin: cool, dry Discharge Data Allergies Allergy/AdvReac Type Severity Reaction Status Date / Time No Known Allergies Allergy Verified 08/24/21 15:47 Consultations 10/03/21 16:04 Consult Pulmonology Routine 10/03/21 16:10 HIM [Consult Health Information Management] Routine 10/03/21 17:18 Consult Palliative Care Routine Ordered Studies Chest X-Ray 10/01/21 13:02 XR chest 1V portable CLINICAL HISTORY: sob TECHNIQUE: Single frontal radiograph of the chest was obtained. Comparison: Comparison is made to chest radiograph 08/24/2021 FINDINGS: No lines and tubes are seen. The cardiomediastinal silhouette is normal. Previous seen noted left midlung opacity has resolved. Emphysema is unchanged. No evidence of pleural effusion or pneumothorax. IMPRESSION: Emphysema without acute chest disease. ACT 112: Negative or not required by law. Electronically signed by: Sajan Rosenbaum M.D. 10/01/2021 1:21 PM Chest CTA 10/01/21 16:00 CT angio chest PE protocol CT DOSE: 360.24 mGy.cm HISTORY: 60 years-old Male with PE. Acute shortness of breath TECHNIQUE: Multiple CTA images of the chest were obtained after the intravenous administration of 113 ml Optiray. Coronal and sagittal MIPS were obtained from the axial data set and were submitted for review. All measurements were obtained according to NASCET criteria. A dose lowering technique was utilized adhering to the principles of ALARA. COMPARISON: Chest radiograph of same day, CTA chest 08/24/2021 FINDINGS: CTA: The heart is normal in size. No pericardial effusion. Extensive coronary artery calcifications. Atherosclerosis of the thoracic aorta. The pulmonary artery is opacified to the level of the inguinal branches. The subsegmental branches are not well visualized secondary to contrast bolus timing. There is a tiny linear nonocclusive filling defect noted within a segmental branch of the right lower lobe on image 151 which is unchanged from the prior study and may represent a small chronic pulmonary embolus. No acute pulmonary emboli are identified. Narrowing of the left brachiocephalic vein likely chronic with numerous opacified collateral vessels within the mediastinum and left chest. The superior vena cava is also diminutive and may be chronically thrombosed or narrowed. Contrast opacified azygos venous system. CT CHEST: Unremarkable thyroid. Nonspecific mildly prominent bilateral hilar lymph nodes are favored to be reactive. There is no pneumothorax or overt pulmonary edema. Severe emphysema with chronic fibrotic changes. Bronchial wall thickening suggestive of bronchitis with areas of mucous plugging. There is improved aeration of the left lung compared to the prior study with mild persistent predominantly linear subsegmental consolidation noted within the left lung base. There are no new or worsening pulmonary opacities identified. 5 mm fissural nodule within the right midlung on image 186 is unchanged suggestive of a benign lymph node. Decreased transverse dimension of the trachea (Aber sheath trachea). Nonspecific bilateral perinephric stranding redemonstrated. Nonobstructing calculi of the bilateral kidneys measure up to 4 mm. 1.3 cm proteinaceous versus hemorrhagic cyst of the superior pole right kidney. Subcentimeter hepatic hypodensities are too small to characterize. Unremarkable soft tissues. No acute fracture. IMPRESSION: 1. No acute pulmonary emboli identified. 2. Probable tiny chronic segmental pulmonary embolus within the right lower lobe is unchanged from 08/24/2021. 3. Severe emphysema with bronchial wall thickening suggestive of bronchitis. 4. There is improved aeration of left lung with mild persistent subsegmental linear opacities suggestive of atelectasis versus postinflammatory scarring. A mild residual infectious or inflammatory pneumonitis is considered less likely. 5. Nonobstructing bilateral nephrolithiasis. 6. Additional findings as above. ACT 112: Negative or not required by law. The above report was generated using voice recognition software. It may contain grammatical, syntax or spelling errors. Electronically signed by: Anderson Beckwith M.D. 10/01/2021 4:43 PM Venous Doppler Study 10/01/21 18:13 ULTRASOUND BILATERAL LOWER EXTREMITY VENOUS CLINICAL HISTORY: Pulmonary embolus. COMPARISON STUDY: No priors. TECHNIQUE: Real-time, grayscale, and color Doppler sonography of the deep veins of the right and left lower extremity was performed from the inguinal crease to the calf. Compression and augmentation were utilized. FINDINGS: There is no sonographic evidence of deep venous thrombosis identified in the right or left lower extremity. The common femoral, superficial femoral, and popliteal veins are patent and normally compressible bilaterally. The greater saphenous vein and the profunda femoris vein at the junction with the common femoral vein are clear in both legs. The visualized calf veins are patent bilaterally. IMPRESSION: There is no sonographic evidence of deep venous thrombosis identified in the right or left lower extremity. ACT 112: Negative or not required by law. Electronically signed by: Andres Astorga M.D. 10/02/2021 7:44 AM 10/03/21 ECHOCARDIOGRAM No prior study for comparison LV systolic function is low normal. Ejection Fraction 50-55% There is moderate apical wall hypokinesis. The right ventricle is normal in size and function. RVSP elevated at 30-40mmHg. Inferior vena cava mildly dilated. No significant valvular disease. Hospital Course (1) Acute exacerbation of chronic obstructive pulmonary disease: Abdulaziz is a 58-year-old male with a past medical history of end stage COPD, alpha 1 antitrypsin deficiency, who presents with increased hypoxia and increase in chronic oxygen requirement from 2.5-3 L to 4 L with incomplete return to baseline after recent treatment for pneumonia. CTA chest on admit-severe emphysema with bronchial wall thickening suggestive of bronchitis. Improvement in aeration of LEFT LUNG with mild persistent subsegmental linear opacities suggestive of atelectasis vs postinflammatory scarring. Mild residual infectious or inflammatory pneumonitis considered less likely (does note possible PEs, see below) Flu, RSV, COVID NEGATIVE on admit Pulmonology consulted Improving on steroids, breathing stable Completed 5 days azithro while inpatient and sending on -- at discharge per pulm recs Methylprednisolone IV on admission, titrated to PO prednisone and completed 40mg x 3 days, to continue 20mg x 3 days on 10/10 then stop. Sent new rx for nebulizers as he previously ran out (as well as other medications as outlined), Mucinex BID, continue incentive spirometer/flutter valve Per pulm, [facility] [place] Rx sent and they will deliver to his house. To start 250mcg daily BIPAP ordered HS while inpatient, tolerating Repeat ABG w/ 7.35/70/94--> 7.42/52/64 on 2L 10/04 after BiPAP use Recommended Trilogy vent for home use on discharge per pulmonology recommend ations given persistent hypercapnia even after using BiPAP and felt patient would benefit from Trilogy --Multiple attempts made to arrange Trilogy through [employer], however prior claim denied. Attempted peer-peer, told not able to complete but could go online for process (takes several days) --Discussed with Dr Larson covering this week given stability with BiPAP for now and arranged for BiPAP at discharge: IPAP 10, EPAP 6, Rate 12, O2 3L --To send with mask/tubing utilized inpatient given he wouldn't be there for set up> [facility] to deliver BiPAP and then daughter to come pick patient up HH arranged at discharge (lives with daughter, going through divorce, patient had run out of meds, ?if not wanting to bother her, also his son passed in the last year, lot of family stressors and would benefit from additional help at home) Needs pulmonology in follow up, repeat outpatient PFTs, continued cessation of smoking (hasn't smoked since last admission for pneumonia in August 2021) alpha 1 level pending at discharge Of note, palliative was consulted during inpatient stay. He does want to remain a full code at this time but against prison vent support but would want to be intubated initially to see if he is able to improve. He has talked with his daughter about his wishes and feels comfortable that she would know what to do on his behalf if that were to occur. 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 Transitioned to eliquis evening 10/03 --> 10mg BID x 7 days, then decrease to 5mg BID after AM dose 10/10 -- discussed with patient as sent pack last week when attempt discharge earlier, take 10mg tablet in am, then decrease to the 5mg BID and he is to complete a minimum of three months of anticoaguation No bleeding, monitor at d/c (3) Acute respiratory failure with hypoxia: Acute and chronic respiratory failure with hypoxia and hypercania acute 2/2 COPD exacerbation stable on 2-3L prior to discharge (had been up to 4L) BiPAP, medications at discharge with f/u with pulmonology continued smoking cessation Outpt to work on trilogy (4) CAD (coronary artery disease): Hx LA s/p PCI to LAD 2018 at [facility]. -- To supposedly have remained on DAPT, but hasn't followed with cardiology recently Takes Lasix 20mg daily as needed but does not weigh himself daily Is >1 year out, and as anticoagulation for chronic PEs noted above --> switched to monotherapy with ASA alone, especially given anticoagulation as above -ECHO w/ normal LV size, but systolic function low normal 50-55%. Moderate apical wall hypokinesis. RV normal in size and function. RVSP elevated at 30- 40mmHg. Inferior vena cava mildly dilated. No significant valvular heart disease Placed back on metoprolol 25mg daily -- stated he ran out of this. New rx at d/c Also placed on lasix 20mg daily as volume overload contributing and Cr stable for days on his usual dose (also suspect more sodium intake at home as steroids weaned off) Restarted atorvastatin 80mg as previously on --> new rx at discharge A1c 6.0, pre-DM, watch diet/f/u PCP for continued monitoring Continue BB, ASA 81mg, statin at discharge Local cardiology appt to be made at discharge as he hasn't had follow up for a while (5) Jlxoa-[id number]-[id number] deficiency: Status post port placement for transfusions and subsequent removal. had been getting weekly injections with prolastin, stopped in October 2020 No acute intervention at this time needs outpatient pulm in follow up, alpha-1 level pending at discharge (6) History of tobacco use: continued smoking cessation encouraged could be lung transplant candidate, continued discussions in follow up I certify that this patient is under my care and that I, or a physicians assistant strength coach working with me, had a face to-face encounter that meets the home health [id number]-[id number] encounter requirements with this patient. The encounter with the patient was in whole, or in part, for the following medical condition, which is the primary reason for home health care (list medical condition): coopd- hypoxia-PE I certify that, based on my findings, the following services are medically necessary home health services: My clinical findings support the need for the above services because: Skilled Nsg Assessment Skilled Nsg Assess Pt Illness, Disease and Sx Monitoring Further, I certify that my clinical findings support that this patient is homebound (i.e. absences from home require considerable and taxing effort and are for medical reasons or [facility] or infrequently or of short duration when for other reasons) because: Poor Endurance; SOB Minimal Exertion Transportation Assistance/Unable to Leave Home Unassisted Certification for Home Health Services: Based on the above findings, I certify that this patient is confined to the home and needs intermittent senior care care, physical therapy and/or speech therapy or continues to need occupational therapy. The patient is under my care, and I have initiated the establishment of the plan of care. This patient will be followed by a physician who will periodically review the plan of care. Plan Discharged home with BiPAP (for now), continue prednisone 20mg x 3 days Continue azithromycin 250mg M-W- for prophylaxis New rx for medications, discontinued Brilinta and continue ASA 81mg alone Continue Eliquis 10mg BID until tomorrow morning, then decrease to 5mg BID x 3 months Daliresp to be sent from [place] for patient to start 250mcg daily Continued smoking cessation -- has been doing well Follow up with PCP, pulmonology, and cardiology at discharge Home health arranged at d/c. [facility] aware Total Time Total Time Spent Total Time Spent (In Minutes): 75 Discharge Plan Discharge Items Patient Disposition: Home - Home Health Services Reason For Visit: DYSPNEA,HYPOXIA,COPD, POSS PE Discharge Diagnosis: COPD Exacerbation, Acute on Chronic Respiratory Failure, PEs Condition on Discharge: Fair Goals: You have been hospitalized for an acute medical problem. During your stay at [facility], we have made an effort to correct the problem that brought you to the hospital while keeping you as comfortable as possible. Medications were used to bring your condition under control and your discharge instructions will include directions for any medications you should take after leaving the hospital. Please make sure you see your Primary Care Provider as part of your follow up plan. Activity: Resume your previous activity Non-emergency contact: Primary Care Provider, Lithographic Artist and Surface Plate Inspector Call non-emergency contact if: you have any medication questions, your symptoms worsen, your pain is concerning for you and you have a fever Follow-up/Referrals: Yury Monae MD [Physician] - (1 month, hx CAD, new patient) Momo Larson MD [Physician] - 10/30/21 3:45 pm (Please arrive 15 minutes prior to appointment. This is at the [facility] office. ) [facility] [Primary Care Provider] - Diet: Carb Consistent or DM2, Heart Healthy and Low Sodium (2gm) Addtl Attending Provider Instructions: You have been hospitalized for COPD exacerbation. You were treated with medications and steroids and consultation with pulmonology. New prescriptions have been sent for your medications and you should continue your nebulizers four times a day at home for the next week and then can back down to as needed. You have also been sent in new inhaler to use daily as directed. You should also continue Mucinex twice daily to help thin mucus and help to cou gh this up.. You should continue incentive spirometer and flutter valve after discharge. You were also found to have evidence of a blood clot in your chest CT and were treated with IV anticoagulation with Heparin before being switched to ELIQUIS 10mg TWICE daily for TEN days, then this decreases to 5mg twice daily after. YOU WERE SENT A STARTER PACK INITIALLY AND THIS INCLUDES THE TEN DAYS OF THE 10MG DOSE -- YOU ONLY HAVE ONE ADDITIONAL DOSE TOMORROW MORNING (10/10) AND THEN SHOULD ONLY BE ON 5mg TWICE DAILY AFTER, for three months total. MAKE SURE YOU ARE TAKING THE CORRECT DOSE. You are also being sent on prednisone to continue 20mg by mouth once daily for the next THREE DAYS, then stop. You should continue to avoid any smoking. We tried to set up a trilogy machine but have had insurance issues and your PCP and office case preparer and liner can assist in helping to arrange this as an outpatient but for the meantime you have been set up a BiPAP to help given your chronic elevations in carbon dioxide and ideally a trilogy is a ventilator machine that would be best,but BiPAP is ok for the meantime per discussions I've had with the proration clerk. You have been set up with a trilogy machine to use with sleeping/at night to help prevent worsening respiratory failure. You will continue antibiotics for prevention with azithromycin [id number]-[id number]-[id number] moving forward. Pulmonology has also recommended starting Daliresp 250mcg by mouth daily for lung function and [facility]. You have also had your BRILINTA STOPPED as you are now on Eliquis for ant icoagulation but SHOULD CONTINUE a BABY ASPIRIN 81mg ONCE DAILY indefinitely. You have had a new prescription sent for your metoprolol, Lasix, and atorvastatin (for your cholesterol) and we will work on getting you set up with local cardiology. Your medications were sent both to local pharmacy and [place] for additional coverage. Please follow up with your PCP in the next 7-10 days to monitor your progress. Please return to the ER with any worsening shortness of breath, chest pain, or for any symptoms concerning for you. Take care! Pending Studies at Discharge: Yes Studies:: alpha 1 antityrpsin level Stand-Alone Forms: My [facility] [employer], Smoking Cessation Medications and DC Order Prescriptions: New atorvastatin 80 mg tablet 80 mg PO HS Qty: 30 0RF Eliquis 5 mg (74 tabs) tablets,dose pack 5 mg PO BID Qty: 74 0RF Daliresp 250 mcg tablet 250 mcg PO DAILY 28 Days Qty: 28 0RF azithromycin 250 mg Tablet 250 mg PO MoWeFr@0900 Qty: 36 0RF guaifenesin [Mucinex] 600 mg Tablet Extended Release 12hr 600 mg PO Q12 Qty: 60 0RF prednisone 20 mg tablet 20 mg PO DAILY 3 Days Qty: 3 0RF (DME) BiPap Machine Misc See Rx Instructions .ROUTE Qty: 1 0RF Rx Instructions: As directed Continued (DME) Oxygen Home Liters Per Minute See Dose Instructions .ROUTE .MEDSUPPLY Qty: 1 Rx Instructions: As directed aspirin 81 mg tablet,delayed release (DR/EC) 81 mg PO DAILY metoprolol succinate 25 mg tablet extended release 24 hr 25 mg PO DAILY Qty: 30 0RF albuterol sulfate 2.5 mg /3 mL (0.083 %) solution for nebulization 2.5 mg inhalation DIRECTED PRN (Reason: Shortness Of Breath) Qty: 75 0RF furosemide 20 mg tablet 20 mg PO DAILY Qty: 30 2RF albuterol sulfate 90 mcg/actuation HFA aerosol inhaler 2 inh inhalation Q6H PRN (Reason: Shortness Of Breath Or Wheezing) Qty: 6.7 0RF tiotropium bromide 2.5 mcg/actuation mist 2 inh inhalation DAILY Qty: 4 5RF fluticasone furoate-vilanterol 200-25 mcg/dose blister with device 1 inh inhalation DAILY Qty: 1 5RF Discharge Orders: Discharge Order (Routine); Ordered 10/09/21 Ordered By: Milagros Cuevas/Other Patient Handouts: Prediabetes, 5 Steps for Eating Healthier Admission Data Admit Date/Time: 10/01/21 18:26 Attending Provider: Joel Walter Admit Provider: Chadwick Kc Primary Care Provider: [facility] Other Providers: Leland Ta [facility] ; Vannesa Martinez ; Gabriela Fisher ; [facility] Coding Level of Care Code D/C DAY MANAGEMENT >30 MINS Diagnoses Acute exacerbation of chronic obstructive pulmonary disease J44.1 Pulmonary emboli I26.99 Acute respiratory failure with hypoxia J96.01 CAD (coronary artery disease) I25.10 Bmprf-[id number]-[id number] deficiency E88.01 History of tobacco use Z87.891
[2021-10-10] MEDS ORDERED: predniSONE 20 MG TAB PO SCH (09:00)
== END 2021-10-09 18:37 | disposition home health service (06) | DRG 190 ==
LOC: ED 12:46 → SUATTDRO 18:26 → 3W 18:26 → 3E 10-04 06:08

== ENCOUNTER 2021-10-23 10:31 | Inpatient (IN) ==
[2021-10-23] MEDS ORDERED: ALBUT/IPRATROP 3MG/0.5MG NEB 3 ML VIAL NEB ONE (10:44)
--- NOTE | 2021-10-23 10:50 | Emergency Department Note ---
Impression & Plan Respiratory distress, COPD exacerbation, Carbon dioxide retention, Respiratory acidosis ED Provider Note NAME: STACY MAGAÑA AGE: 60 SEX: M : 1960 ARRIVES VIA: Ambulance INFORMANT: Patient[ems] ED PROVIDER(S): [Andres Quick MD] CHIEF COMPLAINT: Short of breath HISTORY OF PRESENT ILLNESS: The patient is a 60-year-old male with ongoing lung disease. He typically wears 3 L of oxygen. He was discharged from our hospital about 2 weeks ago with a flareup of his COPD. The patient has been having increasing shortness of breath for a few days. Today, he was quite short of breath. EMS administered 3 DuoNeb's, 125 mg of Solu-Medrol IV, 200 cc of IV saline prior to arrival. Blood sugar was recorded at 75. The patient is a poor historian. He seems quite somnolent. He does complain of all over pain. He complains of shortness of breath. Given his mental state, no further history obtainable. REVIEW OF SYSTEMS: Unobtainable given his sedation and mental state. PMHx/PSHx: See Below SOCIAL HISTORY: See Below. PHYSICAL EXAM: GENERAL: Patient is in moderate respiratory distress. HEENT: No acute trauma, normocephalic atraumatic, mucous membranes moist, no nasal congestion, no scleral icterus. NECK: No stridor, no adenopathy, no meningismus, trachea is midline. LUNGS: Increased respiratory rate with some accessory muscle use. Wheezing bilaterally. Moderate respiratory distress noted. HEART: Without murmurs gallops or rubs, regular rate and rhythm. ABDOMEN: Soft, nontender, bowel sounds positive, no peritonitis. EXTREMITIES: No cyanosis or edema, full range of motion of all the joints without pain or difficulty, no signs for acute trauma. NEUROLOGIC: Somnolent, falls asleep easily, awakes to voice. No focal motor deficits. SKIN: No rash, no jaundice, no diaphoresis. DIFFERENTIAL DIAGNOSIS: Reactive airway disease, pneumonia, COVID-19, CO2 retention, pneumothorax, COPD, CHF, infection, cardiac ischemia, pulmonary embolism, bronchitis, musculoskeletal, gastrointestinal, as well as other pathologies. EMERGENCY DEPARTMENT COURSE/PROCEDURES: ECG: Indication was shortness of breath. ECG shows a normal sinus rhythm with a rate of 92. There is an old inferior infarct. There is a potential old anterior infarct. There is no ST elevation, no PVCs. The QTc is 435. Continuous Cardiac Monitoring: An order was placed for continuous cardiac monitoring. The monitor shows a rate of 96 with normal sinus rhythm. Critical Care Note: I have personally spent 46 minutes of critical care time in the direct management of this patient. This includes bedside care, interpretation of diagnostic studies, and testing, discussion with consultants, patient, and family members, and other required patient management activities. This 46 minutes is in excess of all separately billable procedures. MEDICAL DECISION MAKING: There is no leukocytosis or worrisome anemia. There is a normal platelet count. No coagulopathy. Bedside ABG showed CO2 retention with a value of over 120. pH was low consistent with a respiratory acidosis. Renal panel testing shows a CO2 of 42, consistent with his respiratory acidosis. No renal failure. Lactic acid level was not elevated making severe sepsis less likely. Alk phos mildly elevated, the remaining liver enzymes were unremarkable. ECG shows a normal sinus rhythm, no ischemia. Cardiac enzyme testing x1 is not consistent with acute cardiac injury. Respiratory bio fire returned positive for rhinovirus. Chest film shows evidence for COPD, there was no pneumonia or CHF. On exam, the patient appeared to be in respiratory distress. He was somnolent. The patient was aggressively managed. He was placed emergently on BiPAP. He was given a continuous DuoNeb for 1 hour. The patient had received Solu-Medrol IV prior to arrival. The patient is in need of a hospital stay. He may require intubation if he does not improve on BiPAP. I think we can hold on intubation for now. I did speak with the patient and case management, the on-call hospitalist has been consulted. Past Med/Surg History Medical History [id number] deficiency CAD (coronary artery disease) Chronic obstructive pulmonary disease Multifocal pneumonia Surgical History (Updated 10/23/21 @ 13:27 by Ese Guevara PA-C) No significant past surgical history Family History (Updated 10/23/21 @ 13:27 by Ese Guevara PA-C) Other Family history non-contributory Social History Smoking Status: Current some day smoker Tobacco Type: Cigarettes Cigarettes Per Day: 1; Second Hand Exposure: No; Hx Alcohol Use: Yes Alcohol type: beer Hx Substance Use: Yes Last Used Substance: Days (ago) Last Used Substance Other:: he states a few days ago. Preferred Language: Yakut Communication Ability: Effective Ice Guard Inspector Required: No Beliefs That Will Affect Care: None marital status: Single Current Living Situation: Family Current Living Situation Comment: dtr Feels Safe at Home: Yes Assistive Devices: Oxygen - Continuous Allergies Allergies Allergy/AdvReac Type Severity Reaction Status Date / Time No Known Allergies Allergy Verified 08/24/21 15:47 Home Meds Home Medications Medication Instructions Recorded Confirmed Oxygen Home #1 ea 09/21/18 10/17/20 aspirin 81 mg tablet,delayed 81 mg PO DAILY 10/05/18 10/23/21 release Previous Rx's Medication Instructions Recorded albuterol sulfate 2.5 mg/3 mL 2.5 mg (3 mL) inhalation 10/04/21 (0.083 %) solution for nebulization DIRECTED PRN Shortness Of Breath #75 mL albuterol sulfate 90 mcg/actuation 2 inh inhalation Q6H PRN Shortness 10/04/21 aerosol inhaler Of Breath Or Wheezing #6.7 grams apixaban 5 mg (74 tabs) tablets in 5 mg PO BID #74 ea 10/04/21 a dose pack ([employer]) atorvastatin 80 mg tablet 80 mg PO HS #30 tabs 10/04/21 furosemide 20 mg tablet 20 mg PO DAILY #30 tabs 10/04/21 metoprolol succinate 25 mg 25 mg PO DAILY #30 tabs 10/04/21 tablet,extended release 24 hr tiotropium bromide 2.5 2 inh inhalation DAILY #4 grams 10/04/21 mcg/actuation mist for inhalation azithromycin 250 mg tablet 250 mg PO MoWeFr@0900 #36 tabs 10/08/21 fluticasone furoate 200 1 inh inhalation DAILY #1 ea 10/08/21 mcg-vilanterol 25 mcg/dose inhalation powder guaifenesin 600 mg tablet, 600 mg PO Q12 #60 tabs 10/08/21 extended release 12 hr (Mucinex) roflumilast 250 mcg tablet 250 mcg PO DAILY 4 weeks #28 tabs 10/08/21 (Daliresp) BiPap Machine #1 ea 10/09/21 Results & Data (ED) Vital Signs Vital Signs - 24 hr 10/23/21 10:44 10/23/21 10:58 10/23/21 11:00 Pulse Rate 89 Pulse Rate from SpO2 Sensor Respiratory Rate 35 H Respiratory Effort / Characteristics Accessory Muscle Use Grunting Short of Breath Accessory Muscle Use Short of Breath Respiratory Depth Respiratory Pattern Rapid/Shallow Tachypnea Tachypnea Blood Pressure 145/84 H Blood Pressure Mean 104 Blood Pressure Position Lying Pulse Oximetry 94 Oxygen Delivery Method Oxymask BiPAP Oxygen Flow Rate 7 Fraction of Inspired Oxygen SaO2/FiO2 Ratio Sepsis Recent Fever Within 48 Hours No Sepsis New/Unexplained Change in Mental Status Yes Sepsis Action Taken by Nursing Physician Notified 10/23/21 10:41 10/23/21 11:00 10/23/21 11:00 Pulse Rate 89 88 Pulse Rate from SpO2 Sensor 89 89 Respiratory Rate 33 H 34 H Respiratory Effort / Characteristics Respiratory Depth Respiratory Pattern Blood Pressure 138/95 Blood Pressure Mean 109 Blood Pressure Position Pulse Oximetry 96 95 Oxygen Delivery Method Oxymask BiPAP Oxygen Flow Rate 8 Fraction of Inspired Oxygen SaO2/FiO2 Ratio Sepsis Recent Fever Within 48 Hours Sepsis New/Unexplained Change in Mental Status Sepsis Action Taken by Nursing 10/23/21 11:06 10/23/21 11:19 10/23/21 11:05 Pulse Rate 94 H Pulse Rate from SpO2 Sensor Respiratory Rate 22 22 Respiratory Effort / Characteristics Spontaneous Spontaneous Respiratory Depth Shallow Respiratory Pattern Blood Pressure Blood Pressure Mean Blood Pressure Position Pulse Oximetry 94 94 93 Oxygen Delivery Method CPAP BiPAP Oxygen Flow Rate 8 Fraction of Inspired Oxygen 40 30 40 SaO2/FiO2 Ratio 313 Sepsis Recent Fever Within 48 Hours Sepsis New/Unexplained Change in Mental Status Sepsis Action Taken by Nursing 10/23/21 11:15 10/23/21 11:23 10/23/21 11:23 Pulse Rate 92 H 91 H Pulse Rate from SpO2 Sensor 91 H 91 H Respiratory Rate 35 H 32 H Respiratory Effort / Characteristics Respiratory Depth Respiratory Pattern Blood Pressure 135/87 Blood Pressure Mean 103 Blood Pressure Position Pulse Oximetry 95 93 Oxygen Delivery Method Oxygen Flow Rate Fraction of Inspired Oxygen SaO2/FiO2 Ratio Sepsis Recent Fever Within 48 Hours Sepsis New/Unexplained Change in Mental Status Sepsis Action Taken by Nursing 10/23/21 11:30 10/23/21 11:30 10/23/21 11:45 Pulse Rate 90 Pulse Rate from SpO2 Sensor 91 H Respiratory Rate 32 H Respiratory Effort / Characteristics Respiratory Depth Respiratory Pattern Blood Pressure 124/89 128/93 Blood Pressure Mean 100 104 Blood Pressure Position Pulse Oximetry 93 Oxygen Delivery Method Oxygen Flow Rate Fraction of Inspired Oxygen SaO2/FiO2 Ratio Sepsis Recent Fever Within 48 Hours Sepsis New/Unexplained Change in Mental Status Sepsis Action Taken by Nursing 10/23/21 11:45 Pulse Rate 90 Pulse Rate from SpO2 Sensor 90 Respiratory Rate 34 H Respiratory Effort / Characteristics Respiratory Depth Respiratory Pattern Blood Pressure Blood Pressure Mean Blood Pressure Position Pulse Oximetry 92 Oxygen Delivery Method Oxygen Flow Rate Fraction of Inspired Oxygen SaO2/FiO2 Ratio Sepsis Recent Fever Within 48 Hours Sepsis New/Unexplained Change in Mental Status Sepsis Action Taken by [facility] Medications Current Medication List: was personally reviewed by me Laboratory Data Attestation: I reviewed the patient's lab results. Result diagrams: 10/23/21 10:46 10/23/21 10:46 Lab Results 10/23/21 10/23/21 10/23/21 Range/Units 10:46 10:46 10:46 WBC 9.02 (4.8-10.8) K/ul RBC 4.54 L (4.63-6.08) M/uL Hgb 13.8 L (14.0-18.0) g/dl Hct 45.8 (40.1-51.0) % MCV 100.9 H (80.0-100.0) fL MCH 30.4 (25.0-34.0) pg MCHC 30.1 L (32.0-36.0) g/dL RDW Std Deviation 46.9 H (36.4-46.3) fL RDW Coeff of Lena 12.5 (11.5-14.5) % Plt Count 166 (130-400) K/uL MPV 9.9 (9.4-12.4) fL Immature Gran % (Auto) 0.8 % Neut % (Auto) 72.1 % Lymph % (Auto) 14.0 % [place] % (Auto) 10.8 % Eos % (Auto) 1.7 % Baso % (Auto) 0.6 % Neut # (Auto) 6.52 H (1.4-6.5) K/uL Lymph # (Auto) 1.26 (1.2-3.4) K/uL [place] # (Auto) 0.97 H (0.24-0.82) K/uL Eos # (Auto) 0.15 (0-0.50) K/uL Baso # (Auto) 0.05 (0-0.2) K/uL Immature Gran # (Auto) 0.07 H (0.00-0.02) K/uL PT 10.7 (9.0-12.0) Seconds INR 1.0 (0.9-1.1) APTT 29.6 (21.0-31.0) Seconds PTT Ratio 1.1 Sodium 141 (136-145) mmol/L Potassium 4.7 (3.5-5.1) mmol/L Chloride 96 L (98-107) mmol/L Carbon Dioxide 42 H* (21-32) mmol/L Anion Gap 3 (3-11) BUN 14 (6-23) mg/dl Creatinine 0.59 L (0.6-1.4) mg/dl Est Cr Clr Drug Dosing 121.4 ml/min Est GFR ( Amer) 125.8 ml/min Est GFR (Non-Af Amer) 108.5 ml/min BUN/Creatinine Ratio 23.7 H (10-20) Glucose 93 (70-99(Fasting)) mg/dl Lactate (0.4-2.0) mmol/L Calcium 9.2 (8.5-10.1) mg/dl Magnesium 2.1 (1.7-2.4) mg/dl Total Bilirubin 0.4 (0.2-1.0) mg/dl AST 32 (13-39) U/L ALT 38 (7-52) U/L Alkaline Phosphatase 120 H (34-104) U/L Troponin I High Sens 12.1 D (0-20) pg/ml Total Protein 7.6 (6.0-8.3) gm/dl Albumin 4.3 (3.4-5.0) gm/dl Globulin 3.3 (2.5-4.0) gm/dl Albumin/Globulin Ratio 1.3 (0.9-2) 10/23/21 Range/Units 10:46 WBC (4.8-10.8) K/ul RBC (4.63-6.08) M/uL Hgb (14.0-18.0) g/dl Hct (40.1-51.0) % MCV (80.0-100.0) fL MCH (25.0-34.0) pg MCHC (32.0-36.0) g/dL RDW Std Deviation (36.4-46.3) fL RDW Coeff of Lena (11.5-14.5) % Plt Count (130-400) K/uL MPV (9.4-12.4) fL Immature Gran % (Auto) % Neut % (Auto) % Lymph % (Auto) % [place] % (Auto) % Eos % (Auto) % Baso % (Auto) % Neut # (Auto) (1.4-6.5) K/uL Lymph # (Auto) (1.2-3.4) K/uL [place] # (Auto) (0.24-0.82) K/uL Eos # (Auto) (0-0.50) K/uL Baso # (Auto) (0-0.2) K/uL Immature Gran # (Auto) (0.00-0.02) K/uL PT (9.0-12.0) Seconds INR (0.9-1.1) APTT (21.0-31.0) Seconds PTT Ratio Sodium (136-145) mmol/L Potassium (3.5-5.1) mmol/L Chloride (98-107) mmol/L Carbon Dioxide (21-32) mmol/L Anion Gap (3-11) BUN (6-23) mg/dl Creatinine (0.6-1.4) mg/dl Est Cr Clr Drug Dosing ml/min Est GFR ( Amer) ml/min Est GFR (Non-Af Amer) ml/min BUN/Creatinine Ratio (10-20) Glucose (70-99(Fasting)) mg/dl Lactate 0.6 (0.4-2.0) mmol/L Calcium (8.5-10.1) mg/dl Magnesium (1.7-2.4) mg/dl Total Bilirubin (0.2-1.0) mg/dl AST (13-39) U/L ALT (7-52) U/L Alkaline Phosphatase (34-104) U/L Troponin I High Sens (0-20) pg/ml Total Protein (6.0-8.3) gm/dl Albumin (3.4-5.0) gm/dl Globulin (2.5-4.0) gm/dl Albumin/Globulin Ratio (0.9-2) Administered Medications Albuterol (Albut/Ipratrop 3mg/0.5mg Neb 3 Ml Vial) 3 ml INH Q6R SILVIA Stop: 11/22/21 15:38 Last Admin: 10/23/21 17:20 Dose: 3 ml Documented By: [facility] Doxycycline Hyclate 100 mg/ (Dextrose) 110 mls @ 50 mls/hr IV Q12H SILVIA Stop: 10/28/21 15:59 Last Admin: 10/23/21 16:22 Dose: 50 mls/hr Documented By: WS Methylprednisolone 80 mg/ (Syringe) 1.28 mls @ 1.5 mls/min IV Q8H SILVIA Stop: 11/22/21 16:29 Last Admin: 10/23/21 16:22 Dose: 1.5 mls/min Documented By: MIRZA Discontinued Medications Albuterol (Albut/Ipratrop 3mg/0.5mg Neb 3 Ml Vial) 12 ml NEB ONE ONE; Protocol Stop: 10/23/21 10:45 Last Admin: 10/23/21 11:06 Dose: 12 ml Documented By: [facility] Doxycycline Hyclate 100 mg/ (Dextrose) 110 mls @ 50 mls/hr IV NOW STA Stop: 10/23/21 14:51 Last Infusion: 10/23/21 16:30 Dose: 0 mls/hr Documented By: Admin: 10/23/21 13:03 Dose: 50 mls/hr Documented By: AP Imaging Data Radiologist's Impression: Chest X-Ray 10/23/21 10:44 XR chest 1V portable HISTORY: 60 years-old Male sob acute shortness of breath with difficulty breathing COMPARISON: Chest radiograph and CTA chest 10/01/2021 TECHNIQUE: Portable AP view of the chest FINDINGS: Cardiomediastinal and hilar silhouettes are unchanged. There is no pneumothorax, pleural effusion or overt pulmonary edema. Emphysema with chronic interstitial coarsening. Degenerative changes of the shoulders and spine. IMPRESSION: Emphysema without acute process. ACT 112: Negative or not required by law. The above report was generated using voice recognition software. It may contain grammatical, syntax or spelling errors. Electronically signed by: Anderson Beckwith M.D. 10/23/2021 11:06 AM Discharge Plan Visit Data Chief Complaint: Shortness of Breath/Dyspnea Stated Complaint: SOB ED Provider: Andres Quick Discharge Problem: Respiratory distress, COPD exacerbation, Carbon dioxide retention, Respiratory acidosis Patient Disposition: Admitted As Inpatient Condition: Serious Discharge Instructions Interventions: ED Discharge Assessment Last Done: 10/23/21 14:38
--- NOTE | 2021-10-23 11:07 | XRay Report ---
XR chest 1V portable HISTORY: 60 years-old Male sob acute shortness of breath with difficulty breathing COMPARISON: Chest radiograph and CTA chest 10/01/2021 TECHNIQUE: Portable AP view of the chest FINDINGS: Cardiomediastinal and hilar silhouettes are unchanged. There is no pneumothorax, pleural effusion or overt pulmonary edema. Emphysema with chronic interstitial coarsening. Degenerative changes of the sh oulders and spine. IMPRESSION: Emphysema without acute process. ACT 112: Negative or not required by law. The above report was generated using voice recognition software. It may contain grammatical, syntax o r spelling errors. Electronically signed by: Anderson Beckwith M.D. 10/23/2021 11:06 AM
[2021-10-23 11:22] LABS: Basophils # (auto) 0.05 K/uL (0-0.2); Basophils % (auto) 0.6 %; Eosinophils # (auto) 0.15 K/uL (0-0.50); Eosinophils % (auto) 1.7 %; Hematocrit (blood only) 45.8 % (40.1-51.0); Hemoglobin 13.8 g/dl (14.0-18.0); Immature Granulocytes # (auto) 0.07 K/uL (0.00-0.02); Immature Granulocytes % (auto) 0.8 %; Lymphocytes # (auto) 1.26 K/uL (1.2-3.4); Mean Corpuscular Hemoglobin 30.4 pg (25.0-34.0); Mean Corpuscular Hgb Conc 30.1 g/dL (32.0-36.0); Mean Corpuscular Volume 100.9 fL (80.0-100.0); Mean Platelet Volume 9.9 fL (9.4-12.4); Monocytes # (auto) 0.97 K/uL (0.24-0.82); Monocytes % (auto) 10.8 %; Neutrophils # (auto) 6.52 K/uL (1.4-6.5); Neutrophils % (auto) 72.1 %; Platelet Count 166 K/uL (130-400); RDW Coefficient of Variation 12.5 % (11.5-14.5); RDW Standard Deviation 46.9 fL (36.4-46.3); Red Blood Count 4.54 M/uL (4.63-6.08); White Blood Count 9.02 K/ul (4.8-10.8)
[2021-10-23 11:35] LABS: Partial Thromboplastin Ratio 1.1; Partial Thromboplastin Time 29.6 Seconds (21.0-31.0); Prothrombin Time 10.7 Seconds (9.0-12.0)
[2021-10-23 11:45] LABS: Troponin I High Sensitivity 12.1 pg/ml (0-20)
[2021-10-23 11:51] LABS: Albumin Globulin Ratio 1.3 (0.9-2); Albumin Level 4.3 gm/dl (3.4-5.0); BUN Creatinine Ratio 23.7 (10-20); Bilirubin,Total 0.4 mg/dl (0.2-1.0); Calcium 9.2 mg/dl (8.5-10.1); Creatinine Clr Calc Pharmacy 121.4 ml/min; Est GFR (African American) 125.8 ml/min; Est GFR (Non-African American) 108.5 ml/min; Globulin 3.3 gm/dl (2.5-4.0); Magnesium 2.1 mg/dl (1.7-2.4); Potassium 4.7 mmol/L (3.5-5.1); Total Protein 7.6 gm/dl (6.0-8.3)
--- NOTE | 2021-10-23 11:51 | History & Physical Report ---
Date of Service October 23, 2021 Assessment & Plan (1) Acute on chronic respiratory failure with hypoxia and hypercapnia: Plan: - Patient's daughter, patient has been complaining of face puffiness and worsening shortness of breath over several days. When EMS was called this morning, patient was found to be at 79% on his chronic 3L NC. - Patient received 3 DuoNeb's, 125 IV Solu-Medrol, and 200 cc IV saline prior to arrival. - He was placed on 10L NC in route and O2 improved to 94%. - Transitioned in ED to CPAP 8L/min, FiO2 ratio 30 w/ SpO2 93%, patient appears comfortable but still with diffuse expiratory wheezes throughout. - Continue home inhalers: Breo, Spiriva, tiotropium. - Scheduled DuoNebs. - Continue doxycycline 5 day course. - Continue Solu-Medrol 80 mg every 8 hours for now. - Continue Mucinex BID. - O2 goal 88-92% - vB.18/123/32/46 - Resp PCR: positive for rhinovirus/enterovirus Patient admitted 2 weeks ago for COPD exacerbation at that time changes made: - BiPAP at night (patient's insurance denied trilogy) - Daliresp 250 mcg daily. 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 - No longer has port. - Alpha-1 antitrypsin level checked last admission: 86 mg/dL (3) Chronic pulmonary embolism: Plan: - Patient last month, he was found to have a chronic isolated segmental PE, Dopplers at the time negative for acute DVT. - He was started on heparin drip and converted to Eliquis 5 mg twice daily and recommended remaining on this for at least 3 months for chronic PE, as well as narrowing and/or thrombosis of SVC and brachiocephalic vein. - Continue Eliquis. (4) CAD (coronary artery disease): Plan: - [place] in 2019 s/p ADELAIDA to LAD at [facility]. - Continue beta-amber, statin, baby aspirin, Lasix. - As the patient is >1-year out from ADELAIDA, DAPT was narrowed to aspirin alone on last admission given he was placed on Eliquis x3 months for chronic PE. - Echo 10/03/2021 showed EF 50-55%, moderate apical wall hypokinesis, RVSP elevated at 30-40 mmHg. Inferior vena cava is mildly dilated. - Patient not complaining of chest pain today, troponin WNL. - Referral was made on discharge last admission for cardiology follow-up. (5) History of tobacco use: Plan: - Patient quit smoking this summer, utilize nicotine patches. Will offer them to patient while admitted. History of Present Illness Chief Complaint: shortness of breath for several days Primary Care Provider: [facility] Abdulaziz Louie is a 60 y/o male with a PMH of COPD, alpha-1 antitrypsin deficiency, CAD, and chronic segmental PE on Eliquis who presents today for worsening SOB over the past several days. Patient is very poor historian, history obtained from EMS report as well as daughter, Tamara who I spoke to over the phone. On his age her father was discharged from the hospital on 10/09 for COPD exacerbation and has been doing well since then and she reports he has been compliant with his medications. For the last 3 days, he has been more short of breath and has noticed that his face has been more puffy. Initially it seemed to get better, but again this morning woke up with a bloated appearing face and continued shortness of breath, therefore EMS was called for transportation to the ED. Patient is on 3 L NC chronically, when EMS arrived he was reportedly 79% on this. He was placed on 10 LNC with improvement of SPO2 to 94%. En route to ED, patient received 2 DuoNebs, 125 IV Solu-Medrol, and 200cc NSS. BSG 75. Again, patient is poor historian and also has BiPAP on making history difficult obtain, but he does seem confused and answers yes to any and all questions. Upon presentation to the ED, he was tachypneic with RR in 30s, SpO2 > 92%. He was transitioned to BIPAP. He is afebrile, normotensive, HR wnl. Labs significant for Elevated bicarb of 42 on BMP. Without leukocytosis, change in chronic anemia, electrolyte abnormalities, or decreased renal function. Lactate 0.6. ABG, respiratory bio fire panel pending. Allergies Allergy/AdvReac Type Severity Reaction Status Date / Time No Known Allergies Allergy Verified 08/24/21 15:47 Home Medications Medication Instructions Recorded Confirmed Type Oxygen Home #1 ea 09/21/18 10/17/20 History aspirin 81 mg tablet,delayed 81 mg PO DAILY 10/05/18 10/23/21 History release albuterol sulfate 2.5 mg/3 mL 2.5 mg (3 mL) inhalation 10/04/21 10/23/21 Rx (0.083 %) solution for nebulization DIRECTED PRN Shortness Of Breath #75 mL albuterol sulfate 90 mcg/actuation 2 inh inhalation Q6H PRN Shortness 10/04/21 10/23/21 Rx aerosol inhaler Of Breath Or Wheezing #6.7 grams apixaban 5 mg (74 tabs) tablets in 5 mg PO BID #74 ea 10/04/21 10/23/21 Rx a dose pack (Eliquis) atorvastatin 80 mg tablet 80 mg PO HS #30 tabs 10/04/21 10/23/21 Rx furosemide 20 mg tablet 20 mg PO DAILY #30 tabs 10/04/21 10/23/21 Rx metoprolol succinate 25 mg 25 mg PO DAILY #30 tabs 10/04/21 10/23/21 Rx tablet,extended release 24 hr tiotropium bromide 2.5 2 inh inhalation DAILY #4 grams 10/04/21 10/23/21 Rx mcg/actuation mist for inhalation azithromycin 250 mg tablet 250 mg PO MoWeFr@0900 #36 tabs 10/08/21 10/23/21 Rx fluticasone furoate 200 1 inh inhalation DAILY #1 ea 10/08/21 10/23/21 Rx mcg-vilanterol 25 mcg/dose inhalation powder guaifenesin 600 mg tablet, 600 mg PO Q12 #60 tabs 10/08/21 10/23/21 Rx extended release 12 hr (Mucinex) roflumilast 250 mcg tablet 250 mcg PO DAILY 4 weeks #28 tabs 10/08/21 10/23/21 Rx (Daliresp) BiPap Machine #1 ea 10/09/21 Rx Past Med/Surg History Medical History Jqpui-1-aknqqeacijm deficiency CAD (coronary artery disease) Chronic obstructive pulmonary disease Multifocal pneumonia Surgical History (Updated 10/23/21 @ 13:27 by Ese Guevara PA-C) No significant past surgical history Family History (Updated 10/23/21 @ 13:27 by Ese Guevara PA-C) Other Family history non-contributory Social History Smoking Status: Current some day smoker Tobacco Type: Cigarettes Cigarettes Per Day: 1; Second Hand Exposure: No; Hx Alcohol Use: Yes Alcohol type: beer Hx Substance Use: Yes Last Used Substance: Days (ago) Last Used Substance Other:: he states a few days ago. Preferred Language: [place] Communication Ability: Effective [employer] Law Clerk Required: No Beliefs That Will Affect Care: None marital status: Single Current Living Situation: Family Current Living Situation Comment: dtr Feels Safe at Home: Yes Assistive Devices: Oxygen - Continuous Review of Systems Review of Systems: Unobtainable due to cognitive status Physical Exam Physical Exam: General: awake, alert, no apparent distress Head: Normocephalic, atraumatic ENT: PERRL, EOMI, no pharyngeal exudate, mucous membranes moist Chest: Clear to auscultation, on room air, no adventitious breath sounds Cardiac: Regular rate and rhythm, no murmur, no JVD, normal peripheral pulses, good capillary refill Abdominal: NABS x 4 quadrants, soft, nontender to palpation, no rebound, guarding or tenderness Extremities: Normal inspection, no peripheral edema or erythema, calfs nontender to palpation Psych: Normal mood and affect Neuro: AAO x 3, strength intact bilaterally and rated 5/5, no motor deficits, speech is clear, no peripheral sensory deficits Skin: no rash or erythema Results & Data Results & Data ([facility]) Vital Signs (Past 12 Hours) Vital Signs Pulse Resp BP Pulse Ox O2 Del Method O2 Flow Rate FiO2 10/23/21 11:05 22 93 BiPAP 40 10/23/21 11:19 94 CPAP 8 30 10/23/21 11:06 94 H 22 94 40 10/23/21 11:00 88 34 H 95 BiPAP 10/23/21 11:00 138/95 10/23/21 10:41 89 33 H 96 Oxymask 8 10/23/21 11:00 BiPAP 10/23/21 10:44 89 35 H 145/84 H 94 Oxymask 7 Laboratory Results Abnormal lab results 10/23/21 10/23/21 Range/Units 10:46 10:46 RBC 4.54 L (4.63-6.08) M/uL Hgb 13.8 L (14.0-18.0) g/dl MCV 100.9 H (80.0-100.0) fL MCHC 30.1 L (32.0-36.0) g/dL RDW Std Deviation 46.9 H (36.4-46.3) fL Neut # (Auto) 6.52 H (1.4-6.5) K/uL Lyman # (Auto) 0.97 H (0.24-0.82) K/uL Immature Gran # (Auto) 0.07 H (0.00-0.02) K/uL Chloride 96 L (98-107) mmol/L Carbon Dioxide 42 H* (21-32) mmol/L Creatinine 0.59 L (0.6-1.4) mg/dl BUN/Creatinine Ratio 23.7 H (10-20) Alkaline Phosphatase 120 H (34-104) U/L Diagnostic Findings Chest X-Ray 10/23/21 10:44 XR chest 1V portable HISTORY: 60 years-old Male sob acute shortness of breath with difficulty breathing COMPARISON: Chest radiograph and CTA chest 10/01/2021 TECHNIQUE: Portable AP view of the chest FINDINGS: Cardiomediastinal and hilar silhouettes are unchanged. There is no pneumothorax, pleural effusion or overt pulmonary edema. Emphysema with chronic interstitial coarsening. Degenerative changes of the shoulders and spine. IMPRESSION: Emphysema without acute process. ACT 112: Negative or not required by law. The above report was generated using voice recognition software. It may contain grammatical, syntax or spelling errors. Electronically signed by: Anderson Beckwith M.D. 10/23/2021 11:06 AM Code Status & VTE Plan VTE Prophylaxis Plan VTE Prophylaxis will be ordered: Yes PG Care Time/CCT Total # of Minutes Spent Total Time Spent with Patient: Total time spent is greater than 50% in coordination of care (as documented) at patient's floor/unit and/or counseling patient: Coding Level of Care Code 60981 Initial Inpt Care Lvl 3 Diagnoses Acute on chronic respiratory failure with hypoxia and hypercapnia J96.21; J96.22 Bcdgx-4-rhuxdvcrceu deficiency carrier Z14.8 Chronic pulmonary embolism I27.82 CAD (coronary artery disease) I25.10 History of tobacco use Z87.891
[2021-10-23] MEDS ORDERED: DOXYCYCLINE HYCLATE 100 MG in DEXTROSE 5% 100 ML IV STA (12:40)
[2021-10-23 12:50] LABS: Base Excess VBG 12.2 mEq/L; HCO3 VBG 46 mmol/L; Oxygen Saturation VBG < 60.0 %; PCO2 VBG 123 mmHg (38-50); PO2 VBG 32 mmHg; pH VBG 7.18 (7.36-7.41)
[2021-10-23 13:58] LABS: Adenovirus PCR Not Detected (NotDetected); Bordetella parapertussis PCR Not Detected (NotDetected); Bordetella pertussis PCR Not Detected (NotDetected); Chlamydia pneumoniae PCR Not Detected (NotDetected); Coronavirus 229E PCR Not Detected (NotDetected); Coronavirus CoV-2 (COVID19)PCR Not Detected (NotDetected); Coronavirus HKU1 PCR Not Detected (NotDetected); Coronavirus NL63 PCR Not Detected (NotDetected); Coronavirus OC43PCR Not Detected (NotDetected); Human Metapneumovirus PCR Not Detected (NotDetected); Influenza A PCR Not Detected (NotDetected); Influenza B PCR Not Detected (NotDetected); Mycoplasma pneumoniae PCR Not Detected (NotDetected); Parainfluenza Virus 1 PCR Not Detected (NotDetected); Parainfluenza Virus 2 PCR Not Detected (NotDetected); Parainfluenza Virus 3 PCR Not Detected (NotDetected); Parainfluenza Virus 4 PCR Not Detected (NotDetected); Respiratory Syncytial VirusPCR Not Detected (NotDetected)
[2021-10-23 14:03] LABS: Rhinovirus/Enterovirus PCR DETECTED (NotDetected)
--- NOTE | 2021-10-23 14:14 | Electrocardiogram Report ---
Test Reason : Blood Pressure : / mmHG Vent. Rate : 092 BPM Atrial Rate : 092 BPM P-R Int : 170 ms QRS Dur : 086 ms QT Int : 352 ms P-R-T Axes : 077 -79 072 degrees QTc Int : 435 ms Normal sinus rhythm Left axis deviation Inferior infarct (cited on or before 24-AUG-2021) Anteroseptal infarct (cited on or before 24-AUG-2021) Abnormal ECG When compared with ECG of 01-OCT-2021 12:54, Nonspecific T wave abnormality no longer evident in Lateral leads Confirmed by Walker Anne ([id number]) on 10/23/2021 2:13:28 PM Referred By: REFERRED SELF Confirmed By:Walker Anne
[2021-10-23] MEDS ORDERED: POLYETHYLENE (MIRALAX) 17 GM PACK PO PRN (15:39)
[2021-10-23] MEDS ORDERED: ONDANSETRON INJ 2 MG/ML 2 ML VIAL IV PRN (15:39)
[2021-10-23] MEDS ORDERED: ALBUTEROL HFA 8 GM INHALER INH PRN (15:39)
[2021-10-23] MEDS ORDERED: ALBUTEROL 0.083% NEBU SOLN 3 ML VIAL INH PRN (15:39)
[2021-10-23] MEDS: DOXYCYCLINE HYCLATE 100 MG in DEXTROSE 5% 100 ML IV SCH (16:22)
[2021-10-23] MEDS: methylPREDNISolone 80 MG in SYRINGE 0 ML IV SCH (16:22)
[2021-10-23] MEDS: ALBUT/IPRATROP 3MG/0.5MG NEB 3 ML VIAL INH SCH ×2 (17:20→19:14)
[2021-10-23 17:54] LABS: Base Excess VBG 16.5 mEq/L; HCO3 VBG 50 mmol/L; Oxygen Saturation VBG < 60.0 %; PCO2 VBG > 125 mmHg (38-50); PO2 VBG 33 mmHg; pH VBG 7.21 (7.36-7.41)
[2021-10-23 19:15] LABS: HCO3 ABG 47 mmol/L (19-24); Oxygen Saturation ABG 98.5 % (90-95); PCO2 ABG 102 mmHg (35-46); PO2 ABG 84 mmHg (80-95); pH ABG 7.27 (7.35-7.45)
[2021-10-23 19:16] LABS: Allen Test POS (Pos)
[2021-10-23] MEDS ORDERED: RAPID SEQUENCE INDUCTION BAG ONE (19:37)
[2021-10-23] MEDS ORDERED: SODIUM BICARB 8.4% INJ 50 MEQ/50 ML SYR IV ONE (19:38)
[2021-10-23] MEDS ORDERED: PROPOFOL IV EMULSION 10 MG/ML 100 ML VIAL IV ONE (19:45)
[2021-10-23] MEDS ORDERED: PHENYLEPHRINE 100MCG/ML 5ML SYR ONE (19:53)
[2021-10-23] MEDS ORDERED: MIDAZOLAM HCL 125MG/250ML D5W ONE (19:55)
[2021-10-23] MEDS ORDERED: fentaNYL citrate 2,500 MCG/250 ML BAG IV ONE (19:55)
[2021-10-23] MEDS: fentaNYL citrate 2,500 MCG/250 ML BAG IV SCH (20:00)
[2021-10-23] MEDS: propofoL 1,000 MG/100 ML VIAL IV SCH (20:00)
--- NOTE | 2021-10-23 20:30 | Critical Care Consultation ---
Date of Consultation October 23, 2021 Assessment & Plan (1) Acute on chronic respiratory failure with hypoxia and hypercapnia: Reason Critically Ill: [] Neuro - Sedation: Propofol, fentanyl Cardiac - Diastolic heart failurepatient with previous [place] in 2019 which she received ADELAIDA to the LAD. Last echo 10/01 EF 50 to 55%, moderate apical wall hypokinesis, elevated RA VSP -Troponin WNL -Sinus tachycardia on monitor -Hold metoprolol and Lasix for now as patient is slightly hypotensive with sedation. Currently on low-dose Levophed -Continue ASA, statin -Continuous monitoring on telemetry Respiratory - Acute on chronic respiratory failure with hypoxia and hypercapniapatient admitted with worsening hypercapnia and confusion with CO2 initially 125 on VBG. ABG revealed CO2 greater than 130 and he was transferred to ICU for intubation. Now mechanically ventilated. -Patient follows in pulmonary clinic for severe COPD with emphysema, FEV1 19% predicted. On 3 L nasal cannula baseline -Patient with history of chronic PE and on Eliquis. Lower extremity Doppler negative. Hypoxia seems to be at baseline -Viral PCR positive for rhinovirus/enterovirus -Chest x-ray without evidence of infiltrates, edema -Continue IV Solu-Medrol, continue scheduled nebs, continue Mucinex -Wean vent as tolerated. Repeat ABG post intubation 7.3 85/67/40/84 -Continuous end-tidal CO2 and pulse ox monitoring -Follow-up chest x-ray and ABG in a.m. GI - N.p.o. RENAL/LYTES - Creatinine within normal limits, no significant electrolyte abnormalities. Monitor routine BMPs - Foleystrict I's and O's ENDO - No history of diabetes or thyroid disease HEME - H&H stable ID - Sputum culture pending. No leukocytosis or fevers. Viral PCR positive for rhinovirus/enterovirus Continue with empiric doxycycline for now LINES/IV ACCESS - Peripheral IVs, OG tube, ET tube DVT PROPHYLAXIS - SCDs, on Eliquis I have personally spent 55 minutes of critical care time in the direct management of this patient. This is a life/limb threatening event. This includes time spent evaluating patient, direct bedside care, chart review, placing orders, interpretation of diagnostic studies, discussion with consultants, patient, and family members, as well as other required patient management activities. This time is exclusive of all separately billable procedures, and teaching time and separate from and in addition to any other critical care service time. Thank you for allowing us to participate in the care of this patient. Please refer to my attending physician's documentation for any further recommendations. (2) COPD exacerbation: (3) Pulmonary hypertension: (4) Chronic pulmonary embolism: (5) CAD (coronary artery disease): History of Present Illness Attending Physician: Ariel Tanner History of Present Illness Patient is a 60-year-old male with past medical history significant for COPD, alpha-1 trend septin deficiency, CAD, chronic PE (on Eliquis), who presented to the emergency department earlier today with worsening shortness of breast over the past few days. At the time patient was noted to be confused and poor historian. He had been placed on BiPAP and was treated with Solu-Medrol and nebs and transferred to PCU. Initial VBG showed CO2 of 125 with pH of 7.15. Patient been on BiPAP for several hours and neurological exam appeared to be improving, however repeat ABG showed CO2 now greater than 130 and patient was transferred to ICU for intubation after failure of BiPAP trial. Patient now sedated and mechanically ventilated following intubation. Further management in ICU for now Allergies Allergy/AdvReac Type Severity Reaction Status Date / Time No Known Allergies Allergy Verified 08/24/21 15:47 Home Medications Medication Instructions Recorded Confirmed Type Oxygen Home #1 ea 09/21/18 10/17/20 History aspirin 81 mg tablet,delayed 81 mg PO DAILY 10/05/18 10/23/21 History release albuterol sulfate 2.5 mg/3 mL 2.5 mg (3 mL) inhalation 10/04/21 10/23/21 Rx (0.083 %) solution for nebulization DIRECTED PRN Shortness Of Breath #75 mL albuterol sulfate 90 mcg/actuation 2 inh inhalation Q6H PRN Shortness 10/04/21 10/23/21 Rx aerosol inhaler Of Breath Or Wheezing #6.7 grams apixaban 5 mg (74 tabs) tablets in 5 mg PO BID #74 ea 10/04/21 10/23/21 Rx a dose pack (Eliquis) atorvastatin 80 mg tablet 80 mg PO HS #30 tabs 10/04/21 10/23/21 Rx furosemide 20 mg tablet 20 mg PO DAILY #30 tabs 10/04/21 10/23/21 Rx metoprolol succinate 25 mg 25 mg PO DAILY #30 tabs 10/04/21 10/23/21 Rx tablet,extended release 24 hr tiotropium bromide 2.5 2 inh inhalation DAILY #4 grams 10/04/21 10/23/21 Rx mcg/actuation mist for inhalation azithromycin 250 mg tablet 250 mg PO MoWeFr@0900 #36 tabs 10/08/21 10/23/21 Rx fluticasone furoate 200 1 inh inhalation DAILY #1 ea 10/08/21 10/23/21 Rx mcg-vilanterol 25 mcg/dose inhalation powder guaifenesin 600 mg tablet, 600 mg PO Q12 #60 tabs 10/08/21 10/23/21 Rx extended release 12 hr (Mucinex) roflumilast 250 mcg tablet 250 mcg PO DAILY 4 weeks #28 tabs 10/08/21 10/23/21 Rx (Daliresp) BiPap Machine #1 ea 10/09/21 Rx Patient History Medical History Jinvl-5-cllidvjebkr deficiency CAD (coronary artery disease) Chronic obstructive pulmonary disease Multifocal pneumonia Surgical History (Updated 10/23/21 @ 13:27 by Ese Guevara PA-C) No significant past surgical history Family History (Updated 10/23/21 @ 13:27 by Ese Guevara PA-C) Other Family history non-contributory Social History Smoking Status: Current some day smoker Tobacco Type: Cigarettes Cigarettes Per Day: 1; Second Hand Exposure: No; Hx Alcohol Use: Yes Alcohol type: beer Hx Substance Use: No Preferred Language: Upper Sorbian Communication Ability: Effective Applications Sales Representative Required: No Beliefs That Will Affect Care: None marital status: Single Current Living Situation: Other Current Living Situation Comment: Sister Other Information That Helps Us Care for You: No Feels Safe at Home: Yes Safety Concerns: Feels Safe At This Time Assistive Devices: Oxygen - Continuous Review of Systems Review of Systems: Unobtainable due to cognitive status Physical Exam Constitutional: + mechanically ventilated Eyes: PERRL, conjunctivae normal, anicteric sclerae ENMT: external ear and nose normal, oropharynx normal Neck: trachea midline, no thyromegaly Respiratory: Lungs diminished, wheezing bilaterally, symmetrical chest wall movement, mechanically ventilated Cardiovascular: RRR, no murmur, no edema Heart Sounds: normal S1 and normal S2; no murmur Extremities: normal capillary refill; no edema Gastrointestinal (Abdomen): normal bowel sounds, soft, nontender, no hepatosplenomegaly Musculoskeletal: no cyanosis or clubbing, extremities motor strength 5/5 Skin: no rashes, warm and dry Neurologic: Unable to assess due to sedation Psychiatric: Unable to assess due to sedation Genitourinary: Indwelling Bazzi catheter present Results & Data Results & Data ([facility]) Vital Signs (Past 12 Hours) Vital Signs Temp Pulse Pulse Resp BP BP Pulse Ox 10/23/21 19:22 36.6 C 100 H 20 132/88 97 10/23/21 19:14 97 H 28 H 92 10/23/21 19:14 97 H 28 H 92 10/23/21 17:21 93 H 24 93 10/23/21 15:42 96 H 10/23/21 15:32 36.3 C L 14 136/87 95 10/23/21 15:43 10/23/21 14:46 166/99 H 10/23/21 14:46 96 H 33 H 10/23/21 14:45 96 H 35 H 10/23/21 14:30 96 H 31 H 10/23/21 14:30 112/71 10/23/21 14:15 98 H 32 H 90 10/23/21 14:15 128/80 10/23/21 14:38 36.9 C 96 H 29 H 128/80 91 10/23/21 14:00 98 H 32 H 91 10/23/21 14:00 138/66 10/23/21 13:47 101 H 32 H 93 10/23/21 13:47 107/65 10/23/21 13:45 97 H 31 H 92 10/23/21 13:30 100 H 31 H 92 10/23/21 13:30 151/93 H 10/23/21 13:15 100 H 37 H 91 10/23/21 13:15 156/103 H 10/23/21 13:00 103 H 39 H 90 10/23/21 13:00 148/97 H 10/23/21 12:45 93 H 32 H 93 10/23/21 12:45 131/78 10/23/21 12:30 97 H 30 H 95 10/23/21 12:30 148/92 H 10/23/21 12:16 156/108 H 10/23/21 12:16 102 H 38 H 85 L 10/23/21 12:15 103 H 41 H 85 L 10/23/21 12:01 92 H 34 H 93 10/23/21 12:01 118/79 10/23/21 12:00 91 H 40 H 93 10/23/21 11:45 90 34 H 92 10/23/21 11:45 128/93 10/23/21 11:30 90 32 H 93 10/23/21 11:30 124/89 10/23/21 11:23 91 H 32 H 93 10/23/21 11:23 135/87 10/23/21 11:15 92 H 35 H 95 10/23/21 11:05 22 93 10/23/21 11:19 94 10/23/21 11:06 94 H 22 94 10/23/21 11:00 88 34 H 95 10/23/21 11:00 138/95 10/23/21 10:41 89 33 H 96 10/23/21 11:00 10/23/21 10:44 89 35 H 145/84 H 94 O2 Del Method O2 Flow Rate FiO2 10/23/21 19:22 BiPAP 10/23/21 19:14 40 10/23/21 19:14 BiPAP 40 10/23/21 17:21 BiPAP 40 10/23/21 15:42 10/23/21 15:32 CPAP 10/23/21 15:43 CPAP 10/23/21 14:46 10/23/21 14:46 10/23/21 14:45 10/23/21 14:30 10/23/21 14:30 10/23/21 14:15 10/23/21 14:15 10/23/21 14:38 CPAP 45 10/23/21 14:00 10/23/21 14:00 10/23/21 13:47 10/23/21 13:47 10/23/21 13:45 10/23/21 13:30 10/23/21 13:30 10/23/21 13:15 10/23/21 13:15 10/23/21 13:00 10/23/21 13:00 10/23/21 12:45 10/23/21 12:45 10/23/21 12:30 10/23/21 12:30 10/23/21 12:16 10/23/21 12:16 10/23/21 12:15 10/23/21 12:01 10/23/21 12:01 10/23/21 12:00 10/23/21 11:45 10/23/21 11:45 10/23/21 11:30 10/23/21 11:30 10/23/21 11:23 10/23/21 11:23 10/23/21 11:15 10/23/21 11:05 BiPAP 40 10/23/21 11:19 CPAP 8 30 10/23/21 11:06 40 10/23/21 11:00 BiPAP 10/23/21 11:00 10/23/21 10:41 Oxymask 8 10/23/21 11:00 BiPAP 10/23/21 10:44 Oxymask 7 Coding Level of Care Code Critical Care 1st 30-74 mins Diagnoses Acute on chronic respiratory failure with hypoxia and hypercapnia J96.21; J96.22 COPD exacerbation J44.1 Pulmonary hypertension I27.20 Chronic pulmonary embolism I27.82 CAD (coronary artery disease) I25.10
--- NOTE | 2021-10-23 20:30 | Procedure Note ---
Procedure Note Date of Service October 23, 2021 Note INTUBATION PROCEDURE NOTE: Provider: KATE Deutsch Attending: Ann A time-out was completed verifying correct patient, procedure, site, positioning. Patient was evaluated and required intubation for acute hypercapnic respiratory failure. Sedative agent used: Propofol Paralysis agent used: Succinylcholine Emergent consent was implied given patients rapidly declining clinical status and need for airway protection. The patient was prepared in the appropriate fashion. Sedation was achieved utilizing propofol and succinylcholine, per Dr. Reid administration. The patient was easily ventilated using [id number] to achieve adequate oxygenation. A 7.5 Estonian endotracheal tube was placed utilizing gluidescope. Grade 1 visual was obtained and the ETT was inserted pass the vocal chords to 23 cm at the lip. The stylette was removed and balloon was inflated with 10mL of air. Appropriate Colorimetric change was appreciated. Bilateral breath sounds were heard without air sounds in the abdomen. Dr. Reid was present for the entire procedure. Post Intubation Chest X-ray confirms placement without pneumothorax. Patient experienced brief period of hypotension during the procedure due to sedation but did respond well to phenylephrine administration. No other complications during procedure Coding CPT Codes Resuscitation - Resuscitation: 07558 Endotracheal Intubation, emergency ([id number]) [facility] Procedure Codes (Charges) Resuscitation Resuscitation: 60325 Endotracheal Intubation, emergency
--- NOTE | 2021-10-23 20:34 | XRay Report ---
XR chest 1V portable CLINICAL HISTORY: intubation COMPARISON STUDY: Chest CT October 01, 2021. Chest radiograph performed earlier today. FINDINGS: Tip of endotracheal tube is 4 cm above the tata. Tip of nasogastric tube is within the ga stric fundus. No pneumothorax or pleural effusion is noted. There is no evidence for pulmonary edema. Cardiomediastinal silhouette is unremarkable. There is emphysema. No consolidation is identified. Li near densities favor scarring. IMPRESSION: 1. Tip of endotracheal tube 4 cm above the tata. 2. Emphysema. 3. No pneumothorax. No consolidation. ACT 112: Negative or not required by law. Electronically signed by: Rudolph Cotton M.D. 10/23/2021 8:32 PM
[2021-10-23] MEDS ORDERED: fentaNYL BOLUS from BAG IV PRN (20:58)
[2021-10-23] MEDS ORDERED: MIDAZOLAM BOLUS FROM BAG IV PRN (20:58)
[2021-10-23] MEDS ORDERED: STAT IV Infusion **Titration per Protocol STA (20:58)
[2021-10-23] MEDS ORDERED: PROPOFOL BOLUS FROM BAG IV PRN (20:58)
[2021-10-23] MEDS: NOREPINEPHRINE/D5W 4 MG/250 ML PLCT IV SCH (21:00)
[2021-10-23] MEDS ORDERED: MIDAZOLAM HCL 125 MG/250 ML BAG IV SCH (21:00)
[2021-10-23] MEDS: APIXABAN 5 MG TABLET PO SCH (21:25)
[2021-10-23] MEDS: ATORVASTATIN 40 MG TAB PO SCH (21:27)
[2021-10-23] MEDS: guaiFENesin 600 MG TABCR PO SCH (21:28)
[2021-10-23 21:39] LABS: iSTAT Allen Test Pass; iSTAT Art Bld Gas pCO2 Correct 67 mmHg (35-46); iSTAT Art Bld Gas pH Corrected 7.385 (7.35-7.45); iSTAT Arterial Blood Gas HCO3 40 meg/L (19-24); iSTAT Arterial Blood Gas pCO2 66 mmHg (35-46); iSTAT Arterial Blood Gas pH 7.39 (7.35-7.45); iSTAT Arterial Blood Gas pO2 81 mmHg (80-95); iSTAT Arterial Blood Gas pO2 C 84; iSTAT Carbon Dioxide > 40 mmol/L (24-31); iSTAT FiO2 50 %; iSTAT Hematocrit 40 % (42-52); iSTAT Hemoglobin 13.6 g/dl (14.0-18.0); iSTAT Potassium 4.7 mmol/L (3.3-5.0); iSTAT Site L Radial; iSTAT Sodium 137 mmol/L (135-144)
[2021-10-23] MEDS ORDERED: ICU PROTOCOL FOR HYPERGLYCEMIA PRN (23:10)
[2021-10-24] MEDS: ALBUT/IPRATROP 3MG/0.5MG NEB 3 ML VIAL INH SCH ×4 (00:14→20:26)
[2021-10-24] MEDS: NORMOSOL-R 1,000 ML IV SCH ×2 (00:24→11:31)
[2021-10-24] MEDS: ACETAMINOPHEN 325 MG TAB PO PRN ×2 (00:24→08:02)
[2021-10-24] MEDS: CEFEPIME 2,000 MG in SYRINGE 0 ML IV SCH ×3 (00:25→18:05)
[2021-10-24] MEDS: methylPREDNISolone 80 MG in SYRINGE 0 ML IV SCH (00:46)
[2021-10-24] MEDS ORDERED: VANCOMYCIN CONSULT ACTIVE PRN (01:31)
[2021-10-24] MEDS ORDERED: VANCOMYCIN HCL 1,500 MG in SODIUM CHLORIDE 0.9% 500 ML IV ONE (02:00)
[2021-10-24] MEDS: propofoL 1,000 MG/100 ML VIAL IV SCH ×3 (02:27→18:06)
[2021-10-24 04:40] LABS: Appearance Urine Turbid (Clear); Bilirubin Urine Negative (Negative); Blood Urine 3+ (Negative); Color Urine Dark Yellow; Epithelial Cell Urine Auto >30 /lpf (0-5); Glucose Urine UA Negative (Negative); Ketones Urine 1+ (Negative); Leukocyte Esterase Urine Negative (Negative); Nitrite Urine Negative (Negative); Protein Urine 2+ (Negative); Specific Gravity Urine 1.043 (1.000-1.030); Urobilinogen Urine Negative (Negative); pH Urine 5.5 (4.5-7.5)
[2021-10-24] MEDS: DOXYCYCLINE HYCLATE 100 MG in DEXTROSE 5% 100 ML IV SCH ×2 (04:49→18:05)
[2021-10-24 05:12] LABS: Anion Gap 7 (3-11); BUN Creatinine Ratio 29.9 (10-20); Blood Urea Nitrogen 23 mg/dl (6-23); Calcium 8.6 mg/dl (8.5-10.1); Carbon Dioxide 36 mmol/L (21-32); Chloride 95 mmol/L (98-107); Est GFR (African American) 112.7 ml/min; Est GFR (Non-African American) 97.3 ml/min; Glucose 184 mg/dl (70-99(Fasting)); Potassium 3.9 mmol/L (3.5-5.1); Sodium 138 mmol/L (136-145)
[2021-10-24 05:15] LABS: Magnesium 1.9 mg/dl (1.7-2.4); Phosphorus < 1.0 mg/dl (2.5-4.9)
[2021-10-24 05:18] LABS: iSTAT Allen Test Pass; iSTAT Art Bld Gas pCO2 Correct 47 mmHg (35-46); iSTAT Art Bld Gas pH Corrected 7.556 (7.35-7.45); iSTAT Arterial Blood Gas HCO3 41 meg/L (19-24); iSTAT Arterial Blood Gas pCO2 44 mmHg (35-46); iSTAT Arterial Blood Gas pH 7.58 (7.35-7.45); iSTAT Arterial Blood Gas pO2 73 mmHg (80-95); iSTAT Arterial Blood Gas pO2 C 80; iSTAT Carbon Dioxide > 40 mmol/L (24-31); iSTAT FiO2 35 %; iSTAT Hematocrit 36 % (42-52); iSTAT Hemoglobin 12.2 g/dl (14.0-18.0); iSTAT Potassium 3.7 mmol/L (3.3-5.0); iSTAT Site R Radial; iSTAT Sodium 138 mmol/L (135-144)
[2021-10-24 05:44] LABS: Basophils # (auto) 0.01 K/uL (0-0.2); Basophils % (auto) 0.1 %; Hematocrit (blood only) 37.7 % (40.1-51.0); Hemoglobin 11.7 g/dl (14.0-18.0); Immature Granulocytes # (auto) 0.04 K/uL (0.00-0.02); Immature Granulocytes % (auto) 0.5 %; Lymphocytes # (auto) 0.68 K/uL (1.2-3.4); Lymphocytes % (auto) 9.3 %; Mean Corpuscular Hemoglobin 30.5 pg (25.0-34.0); Mean Corpuscular Volume 98.2 fL (80.0-100.0); Mean Platelet Volume 10.9 fL (9.4-12.4); Monocytes # (auto) 0.33 K/uL (0.24-0.82); Monocytes % (auto) 4.5 %; Neutrophils # (auto) 6.23 K/uL (1.4-6.5); Neutrophils % (auto) 85.6 %; Platelet Count 129 K/uL (130-400); Platelet Estimate Normal (Normal); RDW Coefficient of Variation 12.3 % (11.5-14.5); RDW Standard Deviation 44.6 fL (36.4-46.3); Red Blood Count 3.84 M/uL (4.63-6.08); White Blood Count 7.29 K/ul (4.8-10.8)
[2021-10-24] MEDS ORDERED: POTASSIUM PHOS 3 MMOL/1 ML INFUSION IV STA (06:06)
[2021-10-24] MEDS ORDERED: MAGNESIUM SULFATE / D5W 1 GM/100 ML BAG IV ONE (06:06)
[2021-10-24] MEDS ORDERED: POTASSIUM PHOSPHATE 9 MMOL in SODIUM CHLORIDE 0.9% 250 ML IV ONE (06:30)
[2021-10-24 06:51] LABS: RBC Urine Automated >30 /hpf (0-4)
[2021-10-24 06:53] LABS: Amorphous Sediment Urine Present (None Prsent)
[2021-10-24 06:54] LABS: Bacteria Urine Automated 1+ (Negative)
[2021-10-24] MEDS: ASPIRIN 81 MG ECTAB PO SCH (07:04)
[2021-10-24] MEDS: guaiFENesin 600 MG TABCR PO SCH ×2 (07:04→19:28)
[2021-10-24] MEDS ORDERED: UMECLIDINIUM BROMIDE 62.5MCG/BLISTER 7 PUFFS/INHALER INH SCH (08:00)
[2021-10-24] MEDS ORDERED: FLUTICASONE/VILANTEROL 200/25MCG 14 PUFFS/INHALER INH SCH (08:00)
[2021-10-24] MEDS: APIXABAN 5 MG TABLET PO SCH ×2 (08:02→19:44)
[2021-10-24] MEDS: ROFLUMILAST 500 MCG TAB PO SCH (08:02)
--- NOTE | 2021-10-24 08:15 | Critical Care Progress Note ---
Date of Service October 24, 2021 Assessment & Plan (1) Acute on chronic respiratory failure with hypoxia and hypercapnia: Plan: 60-year-old male with advanced COPD (FEV1 of 19%), heterozygote for alpha-1 antitrypsin mutation (MZ genotype with normal alpha-1 antitrypsin levels) and coronary artery disease who presented to the hospital with shortness of breath and severe hypercapnia. He was ultimately intubated 10/23/2021 due to worsening hypoxemic and hypercapnic respiratory failure. Neuro - Sedation: Propofol, fentanyl. RASS goal of 0 to -1. Cardiac - Diastolic heart failurepatient with previous MA in 2019 which she received ADELAIDA to the LAD. Last echo 10/01 EF 50 to 55%, moderate apical wall hypokinesis, elevated RA VSP -Troponin WNL -Sinus tachycardia on monitor -Hold metoprolol and Lasix for now as patient is slightly hypotensive with sedation. Currently on low-dose Levophed -Continue ASA, statin -Continuous monitoring on telemetry -He has cor pulmonale due to severe lung disease. Continue oxygen and diuretics as able. Respiratory - Acute on chronic respiratory failure with hypoxia and hypercapniapatient admitted with worsening hypercapnia and confusion with CO2 initially 125 on VBG. ABG revealed CO2 greater than 130 and he was transferred to ICU for intubation. Now mechanically ventilated. -Patient follows in pulmonary clinic for severe COPD with emphysema, FEV1 19% predicted. On 3 L nasal cannula baseline -Patient with history of chronic PE and on Eliquis. Lower extremity Doppler negative. Hypoxia seems to be at baseline -Viral PCR positive for rhinovirus/enterovirus -Chest x-ray without evidence of infiltrates, edema -Continue IV Solu-Medrol, continue scheduled nebs, continue Mucinex, Roflumilast -Wean vent as tolerated. -Continuous end-tidal CO2 and pulse ox monitoring -Follow-up chest x-ray and ABG in a.m. -Patient currently over ventilated. Respiratory rate and inspiratory time decreased. We will obtain follow-up ABG. GI - Start Protonix for GI prophylaxis. Start tube feeds. RENAL/LYTES - Creatinine within normal limits. Replace electrolytes aggressively. Phosphorus critically low. - Foleystrict I's and O's TSH last checked in September within normal limits. HEME - Patient with a history of tiny chronic subsegmental pulmonary embolism within the right lower lobe dating back to 08/24/2021 last seen on CTA 10/01/2021. Continue Eliquis. ID - Sputum culture pending. No leukocytosis or fevers. Viral PCR positive for rhinovirus/enterovirus Continue with empiric doxycycline, vancomycin and cefepime. MRSA screen was positive. Follow sputum cultures, urine cultures and blood cultures. LINES/IV ACCESS - Peripheral IVs, OG tube, ET tube DVT PROPHYLAXIS - SCDs, on Eliquis I have personally spent 48 minutes of critical care time in the direct management of this patient. This is a life/limb threatening event. This includes time spent evaluating patient, direct bedside care, chart review, placing orders, interpretation of diagnostic studies, discussion with consultants, patient, and family members, as well as other required patient management activities. This time is exclusive of all separately billable procedures, and teaching time and separate from and in addition to any other critical care service time. Thank you for allowing us to participate in the care of this patient. Please refer to my attending physician's documentation for any further recommendations. (2) COPD exacerbation: (3) Pulmonary hypertension: (4) Chronic pulmonary embolism: (5) CAD (coronary artery disease): Admission and Anticipated Discharge Date Admission Date: October 23, 2021 Subjective Patient appears to be heavily sedated on fentanyl and propofol. He is requiring low-dose Levophed. No significant issues overnight. ABG reviewed and the patient appears over ventilated. He is currently alkalotic. Unable to obtain review of systems as he is currently intubated and sedated. Discussed with bedside nurse and respiratory therapist. Physical Exam Constitutional: + mechanically ventilated Eyes: PERRL, conjunctivae normal, anicteric sclerae ENMT: external ear and nose normal, oropharynx normal Neck: trachea midline, no thyromegaly Respiratory: Lungs diminished, wheezing bilaterally, symmetrical chest wall movement, mechanically ventilated Cardiovascular: RRR, no murmur, no edema Heart Sounds: normal S1 and normal S2; no murmur Extremities: normal capillary refill; no edema Gastrointestinal (Abdomen): normal bowel sounds, soft, nontender, no hepatosplenomegaly Musculoskeletal: no cyanosis or clubbing, extremities motor strength 5/5 Skin: no rashes, warm and dry Neurologic: Unable to assess due to sedation Psychiatric: Unable to assess due to sedation Genitourinary: Indwelling Bazzi catheter present Results & Data Results & Data ([place]) Vital Signs (Past 12 Hours) Vital Signs Temp Pulse Pulse Resp BP Pulse Ox O2 Del Method 10/24/21 07:52 101 H 20 100 Mechanical Vent 10/24/21 07:49 101 H 20 100 10/24/21 06:08 38.2 C H 96 H 20 98 10/24/21 06:08 101/67 10/24/21 06:00 38.2 C H 95 H 20 97 10/24/21 05:53 38.2 C H 96 H 20 98 10/24/21 05:53 106/67 10/24/21 05:38 38.3 C H 98 H 20 98 10/24/21 05:38 105/67 10/24/21 05:23 38.3 C H 99 H 20 98 10/24/21 05:23 104/68 10/24/21 05:08 38.3 C H 98 H 20 100 10/24/21 05:08 110/72 10/24/21 05:00 38.3 C H 101 H 27 H 100 10/24/21 04:53 38.3 C H 103 H 27 H 100 10/24/21 04:53 102/71 10/24/21 04:38 38.3 C H 103 H 27 H 10/24/21 04:38 110/74 10/24/21 04:23 102/70 10/24/21 04:23 38.2 C H 106 H 27 H 100 10/24/21 04:08 94/65 L 10/24/21 04:08 38.3 C H 106 H 27 H 95 10/24/21 04:00 38.2 C H 107 H 27 H 95 10/24/21 03:53 92/65 L 10/24/21 03:53 38.2 C H 107 H 27 H 95 10/24/21 03:38 38.1 C H 106 H 27 H 95 10/24/21 03:38 101/66 10/24/21 03:23 38.1 C H 108 H 27 H 96 10/24/21 03:23 91/63 L 10/24/21 03:08 38.1 C H 108 H 27 H 96 10/24/21 03:08 95/68 L 10/24/21 03:00 38.1 C H 109 H 27 H 96 10/24/21 02:53 38.1 C H 109 H 27 H 96 10/24/21 02:53 95/65 L 10/24/21 02:38 38.1 C H 109 H 27 H 96 10/24/21 02:38 99/66 L 10/24/21 02:23 38.1 C H 109 H 27 H 97 10/24/21 02:23 101/70 10/24/21 02:08 93/70 L 10/24/21 02:08 38.0 C H 111 H 27 H 97 10/24/21 02:00 38.0 C H 112 H 27 H 96 10/24/21 01:53 38.0 C H 111 H 27 H 97 10/24/21 01:53 93/69 L 10/24/21 01:38 38.0 C H 112 H 27 H 97 10/24/21 01:38 99/72 L 10/24/21 01:23 92/65 L 10/24/21 01:23 38.0 C H 114 H 27 H 98 10/24/21 01:08 94/66 L 10/24/21 01:08 38.0 C H 116 H 27 H 97 10/24/21 01:00 38.0 C H 118 H 27 H 97 10/24/21 00:53 91/66 L 10/24/21 00:53 38.0 C H 118 H 27 H 97 10/24/21 04:00 10/24/21 05:25 98 H 20 100 10/24/21 00:00 Mechanical Vent 10/24/21 00:15 38.1 C H 105 H 27 H 97 10/24/21 00:08 95/74 L 10/24/21 00:08 38.1 C H 106 H 27 H 96 10/24/21 00:00 38.1 C H 107 H 27 H 96 10/23/21 23:53 38.1 C H 104 H 27 H 97 10/23/21 23:53 99/75 L 10/24/21 00:00 107 H 10/24/21 00:00 10/24/21 00:14 103 H 27 H 94 Mechanical Vent 10/23/21 23:45 38.1 C H 108 H 27 H 97 10/23/21 23:38 38.0 C H 106 H 27 H 96 10/23/21 23:38 95/74 L 10/23/21 23:30 38.0 C H 107 H 27 H 96 10/23/21 23:23 37.9 C H 104 H 27 H 97 10/23/21 23:23 99/75 L 10/23/21 23:15 37.9 C H 103 H 27 H 98 10/23/21 23:08 37.9 C H 104 H 27 H 98 10/23/21 23:08 103/79 10/23/21 23:00 37.8 C H 109 H 27 H 99 10/23/21 22:53 100/78 10/23/21 22:53 37.7 C H 102 H 27 H 99 10/23/21 22:45 37.7 C H 103 H 24 98 10/23/21 22:38 37.6 C H 103 H 27 H 99 10/23/21 22:38 103/82 10/23/21 22:30 37.5 C 96 H 24 98 10/23/21 22:23 37.4 C 98 H 27 H 94 10/23/21 22:23 107/79 10/23/21 22:15 37.4 C 96 H 24 99 10/23/21 22:08 109/79 10/23/21 22:08 37.3 C 97 H 27 H 99 10/23/21 22:00 37.2 C 103 H 24 93 10/23/21 21:53 37.3 C 96 H 27 H 99 10/23/21 21:53 108/82 10/23/21 21:45 37.3 C 98 H 24 99 10/23/21 21:38 37.4 C 103 H 30 H 98 10/23/21 21:38 100/78 10/23/21 21:30 37.5 C 105 H 30 H 97 10/23/21 21:23 96/74 L 10/23/21 21:23 37.5 C 107 H 30 H 96 10/23/21 21:15 37.5 C 110 H 30 H 96 10/23/21 21:08 37.4 C 108 H 30 H 99 10/23/21 21:08 103/80 10/23/21 21:00 37.3 C 100 H 30 H 96 10/23/21 20:53 37.3 C 102 H 30 H 98 10/23/21 20:53 107/79 10/23/21 20:45 37.2 C 103 H 30 H 100 10/23/21 20:38 106/81 10/23/21 20:38 37.1 C 101 H 30 H 98 10/23/21 20:30 37.1 C 99 H 23 94 10/23/21 20:28 87/69 L 10/23/21 20:28 37.1 C 112 H 29 H 99 10/23/21 20:23 80/61 L 10/23/21 20:23 110 H 29 H 10/23/21 20:21 104 H 27 H 98 10/23/21 20:21 90/73 L 10/23/21 20:19 71/55 L 10/23/21 20:19 97 H 25 H 100 10/23/21 20:17 96 H 24 96 10/23/21 20:17 82/69 L 10/23/21 23:01 104 H 27 H 99 10/23/21 21:35 112 H 30 H 98 10/23/21 21:35 102 H 30 H 98 Mechanical Vent FiO2 10/24/21 07:52 30 10/24/21 07:49 30 10/24/21 06:08 10/24/21 06:08 10/24/21 06:00 10/24/21 05:53 10/24/21 05:53 10/24/21 05:38 10/24/21 05:38 10/24/21 05:23 10/24/21 05:23 10/24/21 05:08 10/24/21 05:08 10/24/21 05:00 10/24/21 04:53 10/24/21 04:53 10/24/21 04:38 10/24/21 04:38 10/24/21 04:23 10/24/21 04:23 10/24/21 04:08 10/24/21 04:08 10/24/21 04:00 10/24/21 03:53 10/24/21 03:53 10/24/21 03:38 10/24/21 03:38 10/24/21 03:23 10/24/21 03:23 10/24/21 03:08 10/24/21 03:08 10/24/21 03:00 10/24/21 02:53 10/24/21 02:53 10/24/21 02:38 10/24/21 02:38 10/24/21 02:23 10/24/21 02:23 10/24/21 02:08 10/24/21 02:08 10/24/21 02:00 10/24/21 01:53 10/24/21 01:53 10/24/21 01:38 10/24/21 01:38 10/24/21 01:23 10/24/21 01:23 10/24/21 01:08 10/24/21 01:08 10/24/21 01:00 10/24/21 00:53 10/24/21 00:53 10/24/21 04:00 30 10/24/21 05:25 30 10/24/21 00:00 30 10/24/21 00:15 10/24/21 00:08 10/24/21 00:08 10/24/21 00:00 10/23/21 23:53 10/23/21 23:53 10/24/21 00:00 10/24/21 00:00 35 10/24/21 00:14 35 10/23/21 23:45 10/23/21 23:38 10/23/21 23:38 10/23/21 23:30 10/23/21 23:23 10/23/21 23:23 10/23/21 23:15 10/23/21 23:08 10/23/21 23:08 10/23/21 23:00 10/23/21 22:53 10/23/21 22:53 10/23/21 22:45 10/23/21 22:38 10/23/21 22:38 10/23/21 22:30 10/23/21 22:23 10/23/21 22:23 10/23/21 22:15 10/23/21 22:08 10/23/21 22:08 10/23/21 22:00 10/23/21 21:53 10/23/21 21:53 10/23/21 21:45 10/23/21 21:38 10/23/21 21:38 10/23/21 21:30 10/23/21 21:23 10/23/21 21:23 10/23/21 21:15 10/23/21 21:08 10/23/21 21:08 10/23/21 21:00 10/23/21 20:53 10/23/21 20:53 10/23/21 20:45 10/23/21 20:38 10/23/21 20:38 10/23/21 20:30 10/23/21 20:28 10/23/21 20:28 10/23/21 20:23 10/23/21 20:23 10/23/21 20:21 10/23/21 20:21 10/23/21 20:19 10/23/21 20:19 10/23/21 20:17 10/23/21 20:17 10/23/21 23:01 35 10/23/21 21:35 50 10/23/21 21:35 35 Coding Level of Care Code Critical Care 1st 30-74 mins Diagnoses Acute on chronic respiratory failure with hypoxia and hypercapnia J96.21; J96.22 COPD exacerbation J44.1 Pulmonary hypertension I27.20 Chronic pulmonary embolism I27.82 CAD (coronary artery disease) I25.10 Time Spent (min) 48
[2021-10-24] MEDS: methylPREDNISolone 40 MG in SYRINGE 0 ML IV SCH ×2 (08:51→19:43)
[2021-10-24 08:59] LABS: iSTAT Allen Test Pass; iSTAT Art Bld Gas pCO2 Correct 60 mmHg (35-46); iSTAT Art Bld Gas pH Corrected 7.441 (7.35-7.45); iSTAT Arterial Blood Gas HCO3 40 meg/L (19-24); iSTAT Arterial Blood Gas pCO2 58 mmHg (35-46); iSTAT Arterial Blood Gas pH 7.45 (7.35-7.45); iSTAT Arterial Blood Gas pO2 47 mmHg (80-95); iSTAT Arterial Blood Gas pO2 C 50; iSTAT Carbon Dioxide > 40 mmol/L (24-31); iSTAT FiO2 30 %; iSTAT Hematocrit 34 % (42-52); iSTAT Hemoglobin 11.6 g/dl (14.0-18.0); iSTAT Potassium 3.6 mmol/L (3.3-5.0); iSTAT Site R Radial; iSTAT Sodium 138 mmol/L (135-144)
[2021-10-24 08:59] LABS: iSTAT Allen Test Pass; iSTAT Art Bld Gas pCO2 Correct 62 mmHg (35-46); iSTAT Art Bld Gas pH Corrected 7.424 (7.35-7.45); iSTAT Arterial Blood Gas HCO3 40 meg/L (19-24); iSTAT Arterial Blood Gas pCO2 60 mmHg (35-46); iSTAT Arterial Blood Gas pH 7.44 (7.35-7.45); iSTAT Arterial Blood Gas pO2 49 mmHg (80-95); iSTAT Arterial Blood Gas pO2 C 52; iSTAT Carbon Dioxide > 40 mmol/L (24-31); iSTAT FiO2 30 %; iSTAT Hematocrit 35 % (42-52); iSTAT Hemoglobin 11.9 g/dl (14.0-18.0); iSTAT Potassium 3.6 mmol/L (3.3-5.0); iSTAT Site R Radial; iSTAT Sodium 138 mmol/L (135-144)
[2021-10-24] MEDS ORDERED: FUROSEMIDE 20 MG TAB PO SCH (09:00)
[2021-10-24] MEDS ORDERED: METOPROLOL SUCC 25MG EXT REL TAB PO SCH (09:00)
[2021-10-24] MEDS: VANCOMYCIN HCL 1,500 MG in SODIUM CHLORIDE 0.9% 500 ML IV SCH (09:41)
[2021-10-24] MEDS ORDERED: VANCOMYCIN HCL 1,250 MG in SODIUM CHLORIDE 0.9% 250 ML IV SCH (10:00)
--- NOTE | 2021-10-24 11:27 | Pharmacy Report ---
Pharmacy PK ABX Note - Date of Service October 24, 2021 - Assessment and Plan Assessment 60 year old M receiving IV vancomycin, cefepime, and doxycycline for treatment of pulmonary infection. Patient critically ill, intubated and sedated, requiring minimal pressor support. MRSA nasal (+), blood and sputum cultures pending. Renal function stable. Day #1 of antimicrobial therapy. Plan Vancomycin * Loading dose: 1500 mg IV x 1 * Maintenance dose: 1500 mg IV every 18 hours * Regimen is predicted to achieve target AUC/MANJIT of 400-600 mg/L.hr * Will obtain a random level with 9/16 AM labs; sooner if clinically indicated Pharmacy will continue to follow and will adjust dose/frequency as necessary. Thank you. Pharmacy has transitioned to AUC monitoring for vancomycin. AUC/MANJIT is the preferred PK/PD target and is associated with decreased risk of nephrotoxicity compared to traditional trough targets.
[2021-10-24] MEDS: PANTOprazole 40 MG in SYRINGE 0 ML IV SCH (11:29)
[2021-10-24] MEDS ORDERED: SODIUM PHOSPHATE 30 MMOL in DEXTROSE 5% 500 ML IV ONE (12:15)
[2021-10-24 13:39] LABS: A calco-baum cmplx NotReported Not Detected (NotDetected); Bact fragilis Not Reported Not Detected (NotDetected); C auris Not Reported Not Detected (NotDetected); Calbicans Not Reported Not Detected (NotDetected); Candida glabrata Not Reported Not Detected (NotDetected); Candida krusei Not Reported Not Detected (NotDetected); Cneoformans/gatti Not Reported Not Detected (NotDetected); Cparapsilosis Not Reported Not Detected (NotDetected); Ctropicalis Not Reported Not Detected (NotDetected); E cloacae compx Not Reported Not Detected (NotDetected); Efaecalis Not Reported Not Detected (NotDetected); Efaecium Not Reported Not Detected (NotDetected); Enterobacterales Not Reported Not Detected (NotDetected); Escherichia coli Not Reported Not Detected (NotDetected); H influenzae Not Reported Not Detected (NotDetected); K aerogenes Not Reported Not Detected (NotDetected); Koxytoca Not Reported Not Detected (NotDetected); Kpneumoniae grp Not Reported Not Detected (NotDetected); Lmonocyt Not Reported Not Detected (NotDetected); N meningitidis Not Reported Not Detected (NotDetected); P aeruginosa Not Reported Not Detected (NotDetected); Proteus spp Not Reported Not Detected (NotDetected); Salmonella spp Not Reported Not Detected (NotDetected); Smarcescens Not Reported Not Detected (NotDetected); Staph lugdunensis Not Reported Not Detected (NotDetected); Staph spp. Not Reported DETECTED (NotDetected); Staphaureus Not Reported Not Detected (NotDetected); Staphepi Not Reported DETECTED (NotDetected); Staphylococcus epidermidis DETECTED (NotDetected); Stenmaltophilia Not Reported Not Detected (NotDetected); Strep agal(GrpB) Not Reported Not Detected (NotDetected); Strep pneum Not Reported Not Detected (NotDetected); Strep pyog (GrpA) Not Reported Not Detected (NotDetected); Strep spp Not Reported Not Detected (NotDetected); mecAC Resistant Gene Not Detected (NotDetected)
[2021-10-24 13:49] LABS: Staphylococcus spp. DETECTED (NotDetected)
--- NOTE | 2021-10-24 14:06 | XRay Report ---
XR chest 1V portable HISTORY: Respiratory failure. COMPARISON: Chest 10/23/2021. FINDINGS: Endotracheal tube terminates 4.5 cm from the tata. Nasogastric tube is curled within the proximal stomach. The heart is normal in size. No pneumothorax. No pleural effusions. There is mild d iffuse interstitial thickening. Left basilar linear densities favor subsegmental atelectasis. Linear scarlike densities within the right upper lobe also persists. IMPRESSION: 1. Satisfactory support line placement. 2. No change in the chronic interstitial thickening and left basilar linear densities. ACT 112: Negative or not required by law. Electronically signed by: Juan Persaud M.D. 10/24/2021 2:05 PM
[2021-10-24] MEDS ORDERED: PEPTAMEN INTENSE VHP 1.0 CAL 1,000 ML BAG OG SCH (15:00)
[2021-10-24] MEDS: NOREPINEPHRINE/D5W 4 MG/250 ML PLCT IV SCH (17:03)
[2021-10-24] MEDS: TUBE FEEDING WATER FLUSH OG SCH ×2 (17:04→20:23)
[2021-10-24] MEDS: ICU ELECTROLYTE REPLACEMENT PROTOCOL SCH (17:20)
[2021-10-24] MEDS: ATORVASTATIN 40 MG TAB PO SCH (19:44)
--- NOTE | 2021-10-24 20:38 | Hospitalist Progress Note ---
Date of Service October 24, 2021 Assessment & Plan (1) Acute on chronic respiratory failure with hypoxia and hypercapnia: Plan: - Patient's daughter, patient has been complaining of face puffiness and worsening shortness of breath over several days. When EMS was called this morning, patient was found to be at 79% on his chronic 3L NC. - Patient received 3 DuoNeb's, 125 IV Solu-Medrol, and 200 cc IV saline prior to arrival. - He was placed on 10L NC in route and O2 improved to 94%. - Transitioned in ED to CPAP 8L/min, FiO2 ratio 30 w/ SpO2 93%, patient appears comfortable but still with diffuse expiratory wheezes throughout. - Continue home inhalers: Breo, Spiriva, tiotropium. - Scheduled DuoNebs. - Continue doxycycline 5 day course. - Continue Solu-Medrol 80 mg every 8 hours for now. - Continue Mucinex BID. - O2 goal 88-92% - vB.18/123/32/46 - Resp PCR: positive for rhinovirus/enterovirus Patient admitted 2 weeks ago for COPD exacerbation at that time changes made: - BiPAP at night (patient's insurance denied trilogy) - Daliresp 250 mcg daily. - Azithro M-W-F. Overnight, patient remained acidotic and required mechanical ventilation. Patient intubated on 10/23 Patient remained in intensive care unit for above diagnosis. 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 - No longer has port. - Alpha-1 antitrypsin level checked last admission: 86 mg/dL (3) Chronic pulmonary embolism: Plan: - Patient last month, he was found to have a chronic isolated segmental PE, Dopplers at the time negative for acute DVT. - He was started on heparin drip and converted to Eliquis 5 mg twice daily and recommended remaining on this for at least 3 months for chronic PE, as well as narrowing and/or thrombosis of SVC and brachiocephalic vein. - Continue Eliquis. (4) CAD (coronary artery disease): Plan: - [place] in [place] s/p ADELAIDA to LAD at [facility]. - Continue beta-amber, statin, baby aspirin, Lasix. - As the patient is >1-year out from ADELAIDA, DAPT was narrowed to aspirin alone on last admission given he was placed on Eliquis x3 months for chronic PE. - Echo 10/03/2021 showed EF 50-55%, moderate apical wall hypokinesis, RVSP elevated at 30-40 mmHg. Inferior vena cava is mildly dilated. - Patient not complaining of chest pain today, troponin WNL. - Referral was made on discharge last admission for cardiology follow-up. (5) History of tobacco use: Plan: - Patient quit smoking this summer, utilize nicotine patches. Will offer them to patient while admitted. Admission and Anticipated Discharge Date Admission Date: October 23, 2021 Subjective 60 yo male is intubated. Review of Systems Review of Systems: All systems reviewed & are unremarkable except as noted in HPI & below Physical Exam Physical Exam: General: intubated sedated Head: Normocephalic, atraumatic ENT: PERRL, EOMI, no pharyngeal exudate, mucous membranes moist Chest: decreased breath soiunds Cardiac: Regular rate and rhythm, no murmur, no JVD, normal peripheral pulses, good capillary refill Abdominal: NABS x 4 quadrants, soft, nontender to palpation, no rebound, guarding or tenderness Extremities: Normal inspection, no peripheral edema or erythema, calfs nontender to palpation Psych: Normal mood and affect Neuro: sedated Skin: no rash or erythema Results & Data Results & Data ([facility]) Vital Signs (Past 12 Hours) Vital Signs Temp Pulse Pulse Resp BP Pulse Ox Pulse Ox 10/24/21 20:30 75 15 92 10/24/21 20:29 75 92 10/24/21 18:08 36.8 C 75 14 94 10/24/21 18:08 115/68 10/24/21 18:00 36.9 C 78 14 94 10/24/21 17:53 105/67 10/24/21 17:53 36.9 C 80 14 94 10/24/21 17:38 106/71 10/24/21 17:38 36.9 C 78 14 94 10/24/21 17:23 115/68 10/24/21 17:23 36.9 C 80 14 94 10/24/21 17:08 37.0 C 80 14 95 10/24/21 17:08 105/68 10/24/21 17:00 36.9 C 79 14 95 10/24/21 16:53 37.0 C 80 14 95 10/24/21 16:53 115/70 10/24/21 16:38 37.0 C 82 36 H 94 10/24/21 16:38 105/66 10/24/21 16:23 37.0 C 81 36 H 95 10/24/21 16:23 110/66 10/24/21 16:08 37.0 C 84 16 94 10/24/21 16:08 106/66 10/24/21 16:00 37.0 C 83 12 94 10/24/21 15:53 37.0 C 85 14 94 10/24/21 15:53 108/67 10/24/21 15:38 37.0 C 85 14 94 10/24/21 15:38 107/71 10/24/21 15:23 109/68 10/24/21 15:23 37.0 C 85 14 94 10/24/21 15:08 37.0 C 87 14 92 10/24/21 15:08 111/69 10/24/21 15:00 37.0 C 87 14 93 10/24/21 14:53 104/66 10/24/21 14:53 37.0 C 88 14 93 10/24/21 14:38 37.0 C 88 14 92 10/24/21 14:38 103/65 10/24/21 14:23 37.0 C 87 14 93 10/24/21 14:23 106/66 10/24/21 14:08 37.1 C 85 14 93 10/24/21 14:08 108/69 10/24/21 14:00 37.1 C 84 14 94 10/24/21 13:53 108/66 10/24/21 13:53 37.1 C 81 14 94 10/24/21 13:38 37.0 C 78 14 95 10/24/21 13:38 104/67 10/24/21 13:23 37.1 C 77 14 95 10/24/21 13:23 105/67 10/24/21 13:08 37.1 C 77 14 95 10/24/21 13:08 109/68 10/24/21 13:00 37.1 C 78 14 95 10/24/21 12:53 106/69 10/24/21 12:53 37.1 C 79 12 95 10/24/21 16:00 10/24/21 15:39 94 10/24/21 15:11 86 14 93 10/24/21 12:00 10/24/21 12:25 82 16 95 O2 Del Method O2 Del Method FiO2 10/24/21 20:30 35 10/24/21 20:29 Mechanical Vent 35 10/24/21 18:08 10/24/21 18:08 10/24/21 18:00 10/24/21 17:53 10/24/21 17:53 10/24/21 17:38 10/24/21 17:38 10/24/21 17:23 10/24/21 17:23 10/24/21 17:08 10/24/21 17:08 10/24/21 17:00 10/24/21 16:53 10/24/21 16:53 10/24/21 16:38 10/24/21 16:38 10/24/21 16:23 10/24/21 16:23 10/24/21 16:08 10/24/21 16:08 10/24/21 16:00 10/24/21 15:53 10/24/21 15:53 10/24/21 15:38 10/24/21 15:38 10/24/21 15:23 10/24/21 15:23 10/24/21 15:08 10/24/21 15:08 10/24/21 15:00 10/24/21 14:53 10/24/21 14:53 10/24/21 14:38 10/24/21 14:38 10/24/21 14:23 10/24/21 14:23 10/24/21 14:08 10/24/21 14:08 10/24/21 14:00 10/24/21 13:53 10/24/21 13:53 10/24/21 13:38 10/24/21 13:38 10/24/21 13:23 10/24/21 13:23 10/24/21 13:08 10/24/21 13:08 10/24/21 13:00 10/24/21 12:53 10/24/21 12:53 10/24/21 16:00 35 10/24/21 15:39 Mechanical Vent 10/24/21 15:11 35 10/24/21 12:00 30 10/24/21 12:25 30 PG Care Time/CCT Total # of Minutes Spent Total Time Spent with Patient: Total time spent is greater than 50% in coordination of care (as documented) at patient's floor/unit and/or counseling patient: Coding Level of Care Code 58951 Subseq Hosp Care Lvl 3 Diagnoses Acute on chronic respiratory failure with hypoxia and hypercapnia J96.21; J96.22 [id number] deficiency carrier Z14.8 Chronic pulmonary embolism I27.82 CAD (coronary artery disease) I25.10 History of tobacco use Z87.891 Time Spent (min) 35
[2021-10-25] MEDS: NORMOSOL-R 1,000 ML IV SCH ×2 (00:14→12:14)
[2021-10-25] MEDS: TUBE FEEDING WATER FLUSH OG SCH ×4 (00:14→12:11)
[2021-10-25] MEDS: ALBUT/IPRATROP 3MG/0.5MG NEB 3 ML VIAL INH SCH ×3 (00:24→13:04)
[2021-10-25] MEDS: CEFEPIME 2,000 MG in SYRINGE 0 ML IV SCH ×3 (00:29→15:59)
[2021-10-25] MEDS: propofoL 1,000 MG/100 ML VIAL IV SCH ×3 (01:57→12:11)
[2021-10-25] MEDS: VANCOMYCIN HCL 1,500 MG in SODIUM CHLORIDE 0.9% 500 ML IV SCH ×2 (04:02→21:20)
[2021-10-25] MEDS: DOXYCYCLINE HYCLATE 100 MG in DEXTROSE 5% 100 ML IV SCH ×2 (04:02→15:58)
[2021-10-25 04:44] LABS: iSTAT Allen Test Pass; iSTAT Art Bld Gas pCO2 Correct 61 mmHg (35-46); iSTAT Art Bld Gas pH Corrected 7.406 (7.35-7.45); iSTAT Arterial Blood Gas HCO3 39 meg/L (19-24); iSTAT Arterial Blood Gas pCO2 63 mmHg (35-46); iSTAT Arterial Blood Gas pH 7.39 (7.35-7.45); iSTAT Arterial Blood Gas pO2 89 mmHg (80-95); iSTAT Arterial Blood Gas pO2 C 84; iSTAT Carbon Dioxide > 40 mmol/L (24-31); iSTAT FiO2 35 %; iSTAT Hematocrit 34 % (42-52); iSTAT Hemoglobin 11.6 g/dl (14.0-18.0); iSTAT Potassium 3.5 mmol/L (3.3-5.0); iSTAT Site L Radial; iSTAT Sodium 134 mmol/L (135-144)
[2021-10-25] MEDS: fentaNYL citrate 2,500 MCG/250 ML BAG IV SCH (05:33)
[2021-10-25] MEDS ORDERED: SUCCINYLCHOLINE CHLORIDE 20 MG/ML 10 ML VIAL IV ONE (06:18)
[2021-10-25] MEDS ORDERED: ROCURONIUM BROMIDE 10 MG/ML 5 ML VIAL IV ONE (06:18)
[2021-10-25 06:19] LABS: BUN Creatinine Ratio 39.1 (10-20); Calcium 7.8 mg/dl (8.5-10.1); Creatinine Clr Calc Pharmacy 111.9 ml/min; Est GFR (African American) 121.6 ml/min; Est GFR (Non-African American) 104.9 ml/min; Magnesium 2.2 mg/dl (1.7-2.4); Phosphorus 3.8 mg/dl (2.5-4.9); Potassium 3.8 mmol/L (3.5-5.1)
[2021-10-25] MEDS: ICU ELECTROLYTE REPLACEMENT PROTOCOL SCH ×2 (06:34→15:59)
[2021-10-25] MEDS: ROFLUMILAST 500 MCG TAB PO SCH (08:06)
[2021-10-25] MEDS: POTASSIUM CHLORIDE 20 MEQ/15 ML UDC NG SCH ×2 (08:06→12:08)
[2021-10-25] MEDS: APIXABAN 5 MG TABLET PO SCH ×2 (08:07→21:20)
[2021-10-25] MEDS: guaiFENesin 600 MG TABCR PO SCH ×2 (08:07→21:21)
[2021-10-25] MEDS: ASPIRIN 81 MG ECTAB PO SCH (08:07)
[2021-10-25] MEDS: MULTI VIT W/MINERALS LIQUID 15 ML UDP NG SCH (08:07)
[2021-10-25] MEDS: methylPREDNISolone 40 MG in SYRINGE 0 ML IV SCH (08:10)
--- NOTE | 2021-10-25 08:36 | Critical Care Progress Note ---
Date of Service October 25, 2021 Assessment & Plan (1) Acute on chronic respiratory failure with hypoxia and hypercapnia: Plan: 60-year-old male with advanced COPD (FEV1 of 19%), heterozygote for alpha-1 antitrypsin mutation (MZ genotype with normal alpha-1 antitrypsin levels) and coronary artery disease who presented to the hospital with shortness of breath and severe hypercapnia. He was ultimately intubated 10/23/2021 due to worsening hypoxemic and hypercapnic respiratory failure. Neuro - No significant issues at present. Cardiac - Diastolic heart failurepatient with previous MN in 2019 which she received ADELAIDA to the LAD. Last echo 10/01 EF 50 to 55%, moderate apical wall hypokinesis, elevated RA VSP -Troponin WNL -Sinus tachycardia on monitor -Restart metoprolol once blood pressure improves. -Continue ASA, statin -Continuous monitoring on telemetry -He has cor pulmonale due to severe lung disease. Continue oxygen and diuretics as able. Respiratory - Acute on chronic respiratory failure with hypoxia and hypercapniapatient on spontaneous breathing trial. Anticipate extubation to BiPAP. -Patient follows in pulmonary clinic for severe COPD with emphysema, FEV1 19% predicted. On 3 L nasal cannula baseline -Patient with history of chronic PE and on Eliquis. Lower extremity Doppler negative. Hypoxia seems to be at baseline -Viral PCR positive for rhinovirus/enterovirus -Chest x-ray without evidence of infiltrates, edema -Continue IV Solu-Medrol, continue scheduled nebs, continue Mucinex, Roflumilast -Wean vent as tolerated. -Continuous end-tidal CO2 and pulse ox monitoring -Follow-up chest x-ray and ABG in a.m. GI - Continue Protonix. Hold tube feeds. RENAL/LYTES - Creatinine within normal limits. Replace electrolytes aggressively. - Foleystrict I's and O's TSH last checked in September within normal limits. HEME - Patient with a history of tiny chronic subsegmental pulmonary embolism within the right lower lobe dating back to 08/24/2021 last seen on CTA 10/01/2021. Continue Eliquis. ID - Sputum culture pending. No leukocytosis or fevers. Viral PCR positive for rhinovirus/enterovirus Continue with empiric doxycycline, vancomycin and cefepime. MRSA screen was positive. Blood cultures growing coag negative staph, likely contaminant. LINES/IV ACCESS - Peripheral IVs, OG tube, ET tube DVT PROPHYLAXIS - SCDs, on Eliquis I have personally spent 38 minutes of critical care time in the direct management of this patient. This is a life/limb threatening event. This includes time spent evaluating patient, direct bedside care, chart review, placing orders, interpretation of diagnostic studies, discussion with consultants, patient, and family members, as well as other required patient management activities. This time is exclusive of all separately billable procedures, and teaching time and separate from and in addition to any other critical care service time. Thank you for allowing us to participate in the care of this patient. Please refer to my attending physician's documentation for any further recommendations. (2) COPD exacerbation: (3) Pulmonary hypertension: (4) Chronic pulmonary embolism: (5) CAD (coronary artery disease): Admission and Anticipated Discharge Date Admission Date: October 23, 2021 Subjective Patient seen and examined. Hemodynamically stable. On a sedation vacation at this time and he is awake and alert. Proceeding with spontaneous breathing trial. Holding tube feeds. Review of Systems Review of Systems: Unobtainable due to endotracheal tube Physical Exam Constitutional: + mechanically ventilated Eyes: PERRL, conjunctivae normal, anicteric sclerae ENMT: external ear and nose normal, oropharynx normal Neck: trachea midline, no thyromegaly Respiratory: Coarse bilaterally. No wheezes. Cardiovascular: RRR, no murmur, no edema Heart Sounds: normal S1 and normal S2; no murmur Extremities: normal capillary refill; no edema Gastrointestinal (Abdomen): normal bowel sounds, soft, nontender, no hepatosplenomegaly Musculoskeletal: no cyanosis or clubbing, extremities motor strength 5/5 Skin: no rashes, warm and dry Neurologic: Follows commands. Moves limbs spontaneously. Psychiatric: Mildly anxious appearing. Genitourinary: Indwelling Bazzi catheter present Results & Data Results & Data ([facility]) Vital Signs (Past 12 Hours) Vital Signs Temp Pulse Pulse Resp BP Pulse Ox O2 Del Method 10/25/21 08:10 10/25/21 07:30 69 15 100 10/25/21 05:00 36.0 C L 71 14 90 10/25/21 04:45 36.0 C L 70 14 90 10/25/21 04:30 36.0 C L 71 14 92 09/15/22 04:23 116/73 10/25/21 04:23 36.0 C L 69 17 97 10/25/21 04:15 36.0 C L 72 14 89 L 10/25/21 04:00 36.1 C L 72 14 88 L 10/25/21 03:45 36.1 C L 71 14 90 10/25/21 03:30 36.2 C L 74 14 93 10/25/21 03:23 36.2 C L 73 14 93 10/25/21 03:23 107/73 10/25/21 03:15 36.2 C L 73 14 93 10/25/21 03:00 36.3 C L 74 14 96 10/25/21 02:45 36.4 C L 76 12 97 10/25/21 02:30 36.5 C 79 13 97 10/25/21 02:23 108/77 10/25/21 02:23 36.5 C 85 14 97 10/25/21 02:19 105/73 10/25/21 02:19 36.6 C 80 14 97 10/25/21 02:15 36.6 C 82 14 97 10/25/21 02:00 36.7 C 84 14 99 10/25/21 01:45 36.8 C 93 H 15 99 10/25/21 01:30 36.7 C 88 14 98 10/25/21 01:15 36.7 C 116 H 16 90 10/25/21 01:00 36.7 C 90 14 89 L 10/25/21 00:45 36.7 C 93 H 14 90 10/25/21 00:30 36.6 C 88 14 87 L 10/25/21 00:23 111/80 10/25/21 00:23 36.5 C 83 17 94 10/25/21 00:15 36.6 C 70 25 H 95 10/25/21 00:00 36.6 C 70 37 H 95 10/24/21 23:45 36.6 C 69 23 95 10/24/21 23:30 36.6 C 70 14 95 10/24/21 23:23 111/73 10/24/21 23:23 36.6 C 71 14 95 10/24/21 23:15 36.6 C 70 14 95 10/24/21 23:00 36.6 C 72 25 H 94 10/24/21 22:45 36.6 C 73 14 95 10/24/21 22:30 36.6 C 74 39 H 94 10/24/21 22:23 111/74 10/24/21 22:23 36.6 C 75 18 94 10/24/21 22:15 36.6 C 74 19 93 10/24/21 22:00 36.6 C 75 17 94 10/24/21 21:45 36.6 C 76 17 94 10/24/21 21:30 36.6 C 76 14 93 10/24/21 21:23 117/76 10/24/21 21:23 36.6 C 79 14 94 10/24/21 21:15 36.6 C 79 13 94 10/24/21 21:00 36.6 C 84 15 95 10/24/21 20:45 36.7 C 82 14 93 10/25/21 04:00 10/25/21 04:05 72 14 90 10/25/21 02:38 74 10/25/21 00:00 10/25/21 00:24 70 14 94 Mechanical Vent 10/24/21 23:20 70 14 94 10/24/21 20:51 76 FiO2 10/25/21 08:10 40 10/25/21 07:30 70 10/25/21 05:00 10/25/21 04:45 10/25/21 04:30 10/25/21 04:23 10/25/21 04:23 10/25/21 04:15 10/25/21 04:00 10/25/21 03:45 10/25/21 03:30 10/25/21 03:23 10/25/21 03:23 10/25/21 03:15 10/25/21 03:00 10/25/21 02:45 10/25/21 02:30 10/25/21 02:23 10/25/21 02:23 10/25/21 02:19 10/25/21 02:19 10/25/21 02:15 10/25/21 02:00 10/25/21 01:45 10/25/21 01:30 10/25/21 01:15 10/25/21 01:00 10/25/21 00:45 10/25/21 00:30 10/25/21 00:23 10/25/21 00:23 10/25/21 00:15 10/25/21 00:00 10/24/21 23:45 10/24/21 23:30 10/24/21 23:23 10/24/21 23:23 10/24/21 23:15 10/24/21 23:00 10/24/21 22:45 10/24/21 22:30 10/24/21 22:23 10/24/21 22:23 10/24/21 22:15 10/24/21 22:00 10/24/21 21:45 10/24/21 21:30 10/24/21 21:23 10/24/21 21:23 10/24/21 21:15 10/24/21 21:00 10/24/21 20:45 10/25/21 04:00 35 10/25/21 04:05 35 10/25/21 02:38 10/25/21 00:00 50 10/25/21 00:24 35 10/24/21 23:20 35 10/24/21 20:51 Coding Level of Care Code Critical Care 1st 30-74 mins Diagnoses Acute on chronic respiratory failure with hypoxia and hypercapnia J96.21; J96.22 COPD exacerbation J44.1 Pulmonary hypertension I27.20 Chronic pulmonary embolism I27.82 CAD (coronary artery disease) I25.10 Time Spent (min) 38
--- NOTE | 2021-10-25 11:29 | Hospitalist Progress Note ---
Date of Service October 25, 2021 Assessment & Plan (1) Acute on chronic respiratory failure with hypoxia and hypercapnia: Plan: - Patient's daughter, patient has been complaining of face puffiness and worsening shortness of breath over several days. When EMS was called morning of admission, patient was found to be at 79% on his chronic 3L NC. - He was placed on 10L NC in route and O2 improved to 94%. - Resp PCR: positive for rhinovirus/enterovirus Patient admitted 2 weeks ago for COPD exacerbation at that time changes made: - BiPAP at night (patient's insurance denied trilogy) - Daliresp 250 mcg daily. - Azithromycin M-W-F. Overnight 10/23, patient remained acidotic and required mechanical ventilation. Patient intubated on 10/23 - 10/25 D/W Dr Juarez. Continue vancomycin, cefepime, doxycycline. Will downgrade to PCU now stable off mechanical ventilation. 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 - No longer has port. - Alpha-1 antitrypsin level checked last admission: 86 mg/dL (4) Chronic pulmonary embolism: Plan: - Patient last month, he was found to have a chronic isolated segmental PE, Dopplers at the time negative for acute DVT. - He was started on heparin drip and converted to Eliquis 5 mg twice daily and recommended remaining on this for at least 3 months for chronic PE, as well as narrowing and/or thrombosis of SVC and brachiocephalic vein. - Continue Eliquis. (5) CAD (coronary artery disease): Plan: - DC in 2019 s/p ADELAIDA to LAD at [facility]. - Continue beta-amber, statin, baby aspirin, Lasix. - As the patient is >1-year out from ADELAIDA, DAPT was narrowed to aspirin alone on last admission given he was placed on Eliquis x3 months for chronic PE. - Echo 10/03/2021 showed EF 50-55%, moderate apical wall hypokinesis, RVSP elevated at 30-40 mmHg. Inferior vena cava is mildly dilated. - Patient not complaining of chest pain on admission, troponin WNL. - Referral was made on discharge last admission for cardiology follow-up. (6) History of tobacco use: Plan: - Patient quit smoking this summer, utilize nicotine patches. Plan VTE Prophylaxis - Eliquis Diet - heart healthy, minced and moist Disposition - stable for step down to PCU Admission and Anticipated Discharge Date Admission Date: October 23, 2021 Subjective Patient seen once extubated mid morning. He reports significant improvement since admission but still with significant wheezing. Unable to tolerate a full c onversation. Not yet been out of bed. No cough. Tolerating BiPAP intermittently. Discussed with Dr Juarez. Updated his daughter Taamra over the phone. Review of Systems Review of Systems: All systems reviewed & are unremarkable except as noted in Subjective Physical Exam Constitutional: well developed and + acute distress (respiratory); + not well nourished Eyes: + anicteric sclerae; normal pupil size ENMT: external ear and nose normal, oropharynx normal Neck: trachea midline, no thyromegaly Respiratory: + respiratory distress, + uses accessory muscles, + prolonged expiratory phase and + audible wheezes Auscultation: + diminished lung sounds (throughout) and + wheezes (expiratory); no crackles, no rales and no rhonchi Cardiovascular: Rate/Rhythm: regular rhythm and + tachycardic Heart Sounds: no murmur Extremities: normal capillary refill; no pedal edema Gastrointestinal (Abdomen): normal bowel sounds, soft, nontender, no hepatosplenomegaly Skin: no rashes, warm and dry Neurologic: moves all extremities and awake; not confused Psychiatric: Orientation: alert Results & Data Results & Data ([facility]) Vital Signs (Past 12 Hours) Vital Signs Temp Pulse Pulse Resp BP Pulse Ox O2 Del Method 10/25/21 09:20 99 H 20 94 10/25/21 08:00 Room Air 10/25/21 08:00 69 10/25/21 08:00 10/25/21 08:10 10/25/21 07:30 69 15 100 10/25/21 05:00 36.0 C L 71 14 90 10/25/21 04:45 36.0 C L 70 14 90 10/25/21 04:30 36.0 C L 71 14 92 10/25/21 04:23 116/73 10/25/21 04:23 36.0 C L 69 17 97 10/25/21 04:15 36.0 C L 72 14 89 L 10/25/21 04:00 36.1 C L 72 14 88 L 10/25/21 03:45 36.1 C L 71 14 90 10/25/21 03:30 36.2 C L 74 14 93 10/25/21 03:23 36.2 C L 73 14 93 10/25/21 03:23 107/73 10/25/21 03:15 36.2 C L 73 14 93 10/25/21 03:00 36.3 C L 74 14 96 10/25/21 02:45 36.4 C L 76 12 97 10/25/21 02:30 36.5 C 79 13 97 10/25/21 02:23 108/77 10/25/21 02:23 36.5 C 85 14 97 10/25/21 02:19 105/73 10/25/21 02:19 36.6 C 80 14 97 10/25/21 02:15 36.6 C 82 14 97 10/25/21 02:00 36.7 C 84 14 99 10/25/21 01:45 36.8 C 93 H 15 99 10/25/21 01:30 36.7 C 88 14 98 10/25/21 01:15 36.7 C 116 H 16 90 10/25/21 01:00 36.7 C 90 14 89 L 10/25/21 00:45 36.7 C 93 H 14 90 10/25/21 00:30 36.6 C 88 14 87 L 10/25/21 00:23 111/80 10/25/21 00:23 36.5 C 83 17 94 10/25/21 00:15 36.6 C 70 25 H 95 10/25/21 00:00 36.6 C 70 37 H 95 10/24/21 23:45 36.6 C 69 23 95 10/24/21 23:30 36.6 C 70 14 95 10/25/21 04:00 10/25/21 04:05 72 14 90 10/25/21 02:38 74 10/25/21 00:00 10/25/21 00:24 70 14 94 Mechanical Vent FiO2 10/25/21 09:20 40 10/25/21 08:00 10/25/21 08:00 10/25/21 08:00 40 10/25/21 08:10 40 10/25/21 07:30 70 10/25/21 05:00 10/25/21 04:45 10/25/21 04:30 10/25/21 04:23 10/25/21 04:23 10/25/21 04:15 10/25/21 04:00 10/25/21 03:45 10/25/21 03:30 10/25/21 03:23 10/25/21 03:23 10/25/21 03:15 10/25/21 03:00 10/25/21 02:45 10/25/21 02:30 10/25/21 02:23 10/25/21 02:23 10/25/21 02:19 10/25/21 02:19 10/25/21 02:15 10/25/21 02:00 10/25/21 01:45 10/25/21 01:30 10/25/21 01:15 10/25/21 01:00 10/25/21 00:45 10/25/21 00:30 10/25/21 00:23 10/25/21 00:23 10/25/21 00:15 10/25/21 00:00 10/24/21 23:45 10/24/21 23:30 10/25/21 04:00 35 10/25/21 04:05 35 10/25/21 02:38 10/25/21 00:00 50 10/25/21 00:24 35 PG Care Time/CCT Total # of Minutes Spent Total Time Spent with Patient: Total time spent is greater than 50% in coordination of care (as documented) at patient's floor/unit and/or counseling patient: Coding Level of Care Code 12797 Subseq Hosp Care Lvl 3 Diagnoses Acute on chronic respiratory failure with hypoxia and hypercapnia J96.21; J96.22 Viral pneumonia J12.9 Vxhwf-6-[id number] deficiency carrier Z14.8 Chronic pulmonary embolism I27.82 CAD (coronary artery disease) I25.10 History of tobacco use Z87.891
[2021-10-25] MEDS: PANTOprazole 40 MG in SYRINGE 0 ML IV SCH (12:14)
[2021-10-25] MEDS ORDERED: ALBUT/IPRATROP 3MG/0.5MG NEB 3 ML VIAL INH PRN (15:45)
[2021-10-25] MEDS: FORMOTEROL 20 MCG/2 ML VIAL INH SCH (20:09)
[2021-10-25] MEDS: BUDESONIDE 0.25 MG/2 ML VIAL (PULMICORT) NEB SCH (20:13)
[2021-10-25] MEDS: ATORVASTATIN 40 MG TAB PO SCH (21:20)
[2021-10-26] MEDS: CEFEPIME 2,000 MG in SYRINGE 0 ML IV SCH ×4 (00:48→23:06)
[2021-10-26] MEDS: DOXYCYCLINE HYCLATE 100 MG in DEXTROSE 5% 100 ML IV SCH ×2 (03:48→17:01)
[2021-10-26] MEDS: ICU ELECTROLYTE REPLACEMENT PROTOCOL SCH ×2 (05:18→20:29)
[2021-10-26 06:20] LABS: Basophils # (auto) 0.02 K/uL (0-0.2); Basophils % (auto) 0.1 %; Hematocrit (blood only) 36.6 % (40.1-51.0); Hemoglobin 11.8 g/dl (14.0-18.0); Immature Granulocytes # (auto) 0.09 K/uL (0.00-0.02); Immature Granulocytes % (auto) 0.6 %; Lymphocytes # (auto) 1.37 K/uL (1.2-3.4); Lymphocytes % (auto) 9.1 %; Mean Corpuscular Hemoglobin 31.1 pg (25.0-34.0); Mean Corpuscular Hgb Conc 32.2 g/dL (32.0-36.0); Mean Corpuscular Volume 96.6 fL (80.0-100.0); Mean Platelet Volume 9.7 fL (9.4-12.4); Monocytes # (auto) 1.29 K/uL (0.24-0.82); Monocytes % (auto) 8.6 %; Neutrophils # (auto) 12.27 K/uL (1.4-6.5); Neutrophils % (auto) 81.6 %; Platelet Count 166 K/uL (130-400); RDW Coefficient of Variation 13.2 % (11.5-14.5); RDW Standard Deviation 46.8 fL (36.4-46.3); Red Blood Count 3.79 M/uL (4.63-6.08); White Blood Count 15.04 K/ul (4.8-10.8)
[2021-10-26 06:44] LABS: BUN Creatinine Ratio 38.2 (10-20); Calcium 8.1 mg/dl (8.5-10.1); Creatinine Clr Calc Pharmacy 130.2 ml/min; Est GFR (African American) 129.4 ml/min; Est GFR (Non-African American) 111.7 ml/min; Magnesium 2.3 mg/dl (1.7-2.4); Phosphorus 2.6 mg/dl (2.5-4.9); Potassium 4.3 mmol/L (3.5-5.1)
[2021-10-26] MEDS: BUDESONIDE 0.25 MG/2 ML VIAL (PULMICORT) NEB SCH ×2 (07:12→19:57)
[2021-10-26] MEDS: FORMOTEROL 20 MCG/2 ML VIAL INH SCH ×2 (07:13→20:03)
[2021-10-26] MEDS: VANCOMYCIN HCL 1,750 MG in SODIUM CHLORIDE 0.9% 500 ML IV SCH ×2 (08:26→20:22)
[2021-10-26] MEDS: METOPROLOL SUCC 25MG EXT REL TAB PO SCH (08:27)
[2021-10-26] MEDS: predniSONE 20 MG TAB PO SCH (08:28)
[2021-10-26] MEDS: guaiFENesin 600 MG TABCR PO SCH ×2 (08:28→21:04)
[2021-10-26] MEDS: ROFLUMILAST 500 MCG TAB PO SCH (08:28)
[2021-10-26] MEDS: ASPIRIN 81 MG ECTAB PO SCH (08:28)
[2021-10-26] MEDS: APIXABAN 5 MG TABLET PO SCH ×2 (08:28→20:56)
[2021-10-26] MEDS: UMECLIDINIUM BROMIDE 62.5MCG/BLISTER 7 PUFFS/INHALER INH SCH (08:29)
--- NOTE | 2021-10-26 10:04 | Pulmonology Progress Note ---
Date of Service October 26, 2021 Assessment & Plan (1) COPD exacerbation: Plan: Continue prednisone for total of 7 days. Continue Breo and Incruse Ellipta. Continue Roflumilast. Continue DuoNebs every 6 hours. Discussed with respiratory therapist. Last PFT 10/09/2020 revealed an FEV1 of 19% predicted and a DLCO of 60% predicted. Patient with essentially end-stage COPD. ABG from 10/25/2021 reviewed with chronic hypercapnic respiratory failure noted with a PCO2 of 53 and a serum bicarbonate greater than 40. Continue a 7-day course of antibiotics. Discussed with pharmacist. Due to chronic hypercapnic respiratory failure consequent to COPD, the patient now requires a noninvasive home ventilator. Bilevel therapy with and without a rate would be ineffective as patient requires a volume targeted mode. Ventilation is required to decrease work of breathing and improve pulmonary status. Interruption of ventilator support would lead to decline of health status. NIMV settings should be AVAPS-AE; Breath rate: auto; Inspiratory time: auto; Sigh: off; Tidal Volume: [350-450], PS min: [4-10 PS max: 12-20]; EPAP min: [6- 10]; EPAP max: [10-16]; AVAPS rate: [14 during sleep and as needed] (2) Acute on chronic respiratory failure with hypoxia and hypercapnia: Plan: Wean O2 as able to maintain sats of 88 to 92%. (3) Chronic pulmonary embolism: Plan: Continue chronic anticoagulation Admission and Anticipated Discharge Date Admission Date: October 23, 2021 Subjective Patient seen and examined. Stable at this time. Admitted hypertensive. Currently requiring 4 L of oxygen. Review of Systems Review of Systems: All systems reviewed & are unremarkable except as noted in HPI & below Physical Exam Physical Exam: Constitutional: Sickly appearing male in moderate distress. Eyes: Pupils are equal round and reactive to light. Conjunctivae are normal. Anicteric sclera. Ears nose, mouth and throat: Nasal cannula in place. Neck: Trachea is midline. Visual inspection is normal. Respiratory: Prolonged phase of exhalation. Diffuse expiratory wheeze with increased tachypnea. Cardiovascular: Regular rate and rhythm. No murmurs. No edema. Gastrointestinal: Normal bowel sounds, soft, nontender and nondistended. No hepatosplenomegaly noted. Musculoskeletal: No cyanosis. Patient is able to move all extremities. Strength is 5 out of 5 in the upper and lower extremities. Skin: No rashes, warm dry and intact. Neurologic: No obvious focal neurological deficits seen. Psychiatric: Alert and oriented x3 with a euthymic affect. Results & Data Results & Data ([facility]) Vital Signs (Past 12 Hours) Vital Signs Temp Pulse Pulse Resp BP Pulse Ox O2 Del Method 10/26/21 08:00 Nasal Cannula 10/26/21 08:00 81 10/26/21 08:21 36.7 C 92 H 28 H 164/96 H 92 Nasal Cannula 10/26/21 07:15 72 20 96 Nasal Cannula 10/26/21 04:00 36.5 C 76 24 166/112 H 94 BiPAP 10/26/21 03:30 76 27 H 94 10/26/21 00:00 36.6 C 82 23 178/102 H 94 BiPAP 10/25/21 23:05 79 29 H 94 O2 Flow Rate FiO2 10/26/21 08:00 4 10/26/21 08:00 10/26/21 08:21 4 10/26/21 07:15 3 10/26/21 04:00 35 10/26/21 03:30 35 10/26/21 00:00 35 10/25/21 23:05 35 PG Care Time/CCT Total # of Minutes Spent Total Time Spent with Patient: Total time spent is greater than 50% in coordination of care (as documented) at patient's floor/unit and/or counseling patient: Coding Level of Care Code 50335 Subseq Hosp Care Lvl 3 Diagnoses COPD exacerbation J44.1 Acute on chronic respiratory failure with hypoxia and hypercapnia J96.21; J96.22 Chronic pulmonary embolism I27.82
[2021-10-26] MEDS: MULTI VIT W/MINERALS LIQUID 15 ML UDP NG SCH (10:38)
--- NOTE | 2021-10-26 11:07 | Pharmacy Report ---
Pharmacy PK ABX Note - Date of Service October 26, 2021 - Assessment and Plan Assessment 60 year old M receiving IV vancomycin, cefepime, and doxycycline for treatment of pulmonary infection. Extubated yesterday. MRSA nasal (+), blood and sputum cultures pending. 10/23 blood culture (+) CoNS in 02/13, Staph epidermidis, (likely contaminant), sputum culture- baltazar. Renal function stable. Day #3 of antimicrobial therapy. Plan Vancomycin * Random vancomycin level 12mcg/mL this AM (~8.5hr level) which is not associated with a therapeutic AUC/MANJIT (steady state ~ 306mg/L.hr). * Increase vancomycin to 1750mg IV q12h to start now * Regimen is predicted to achieve target AUC/MANJIT of 400-600 mg/L.hr * Will obtain a random level tomorrow AM to assess regimen Pharmacy will continue to follow and will adjust dose/frequency as necessary. Thank you. Pharmacy has transitioned to AUC monitoring for vancomycin. AUC/MANJIT is the preferred PK/PD target and is associated with decreased risk of nephrotoxicity compared to traditional trough targets.
[2021-10-26] MEDS: PANTOprazole 40 MG in SYRINGE 0 ML IV SCH (12:07)
--- NOTE | 2021-10-26 18:58 | Hospitalist Progress Note ---
Date of Service October 26, 2021 Assessment & Plan (1) Acute on chronic respiratory failure with hypoxia and hypercapnia: Plan: - Patient's daughter, patient has been complaining of face puffiness and worsening shortness of breath over several days. When EMS was called morning of admission, patient was found to be at 79% on his chronic 3L NC. - He was placed on 10L NC in route and O2 improved to 94%. - Resp PCR: positive for rhinovirus/enterovirus Patient admitted 2 weeks ago for COPD exacerbation at that time changes made: - BiPAP at night (patient's insurance denied trilogy) - Daliresp 250 mcg daily. - Azithromycin M-W-. Overnight 10/23, patient remained acidotic and required mechanical ventilation. Patient intubated on 10/23 - 10/25 D/W Dr Juarez. Continue vancomycin, cefepime, doxycycline for possible bacterial component; MRSA nose swab positive. Now downgraded to PCU. Sputum culture - moderate normal baltazar Blood culture - coag neg staph 1/2 - suspected contamination Solu-medrol switched to prednisone by pulmonology, will continue on this Budesonide and formoterol nebulizers instead of Breo Ellipta. Continue Incruse Ellipta Continue duonebs Use BiPAP NEEDED during the day and HS - patient finding it hard to tolerate this but willing to wear at night. Will need Bilevel therapy. Aim O2 sats 88-92% while on nasal cannula (2) Viral pneumonia: Plan: As above (3) Nbdxz-3-mvaxvtejuoj deficiency carrier: Plan: - S/p port placement for transfusions, previously getting weekly injections with Prolastin, last done in October 2020. - No longer has port. - Alpha-1 antitrypsin level checked last admission: 86 mg/dL (4) Chronic pulmonary embolism: Plan: - Patient last month, he was found to have a chronic isolated segmental PE, Dopplers at the time negative for acute DVT. - He was started on heparin drip and converted to Eliquis 5 mg twice daily and recommended remaining on this for at least 3 months for chronic PE, as well as narrowing and/or thrombosis of SVC and brachiocephalic vein. - Continue Eliquis. (5) CAD (coronary artery disease): Plan: - [place] in 2019 s/p ADELAIDA to LAD at [facility]. - Continue beta-amber, statin, baby aspirin, Lasix. - As the patient is >1-year out from ADELAIDA, DAPT was narrowed to aspirin alone on last admission given he was placed on Eliquis x3 months for chronic PE. - Echo 10/03/2021 showed EF 50-55%, moderate apical wall hypokinesis, RVSP elevated at 30-40 mmHg. Inferior vena cava is mildly dilated. - Patient not complaining of chest pain on admission, troponin WNL. - Referral was made on discharge last admission for cardiology follow-up. (6) History of tobacco use: Plan: - Patient quit smoking this summer, utilize nicotine patches. Plan VTE Prophylaxis - Eliquis Diet - heart healthy, minced and moist Disposition - continue on PCU Admission and Anticipated Discharge Date Admission Date: October 23, 2021 Subjective Patient reports no significant change from yesterday. Still significantly short of breath at rest. Audible wheezing. Review of Systems Review of Systems: All systems reviewed & are unremarkable except as noted in Subjective Physical Exam Constitutional: well developed and + acute distress (respiratory); + not well nourished Eyes: + anicteric sclerae; normal pupil size ENMT: external ear and nose normal, oropharynx normal Neck: trachea midline, no thyromegaly Respiratory: + respiratory distress, + uses accessory muscles, + prolonged expiratory phase and + audible wheezes Auscultation: + diminished lung sounds (throughout) and + wheezes (expiratory); no crackles, no rales and no rhonchi Cardiovascular: Rate/Rhythm: regular rhythm and + tachycardic Heart Sounds: no murmur Extremities: normal capillary refill; no pedal edema Gastrointestinal (Abdomen): normal bowel sounds, soft, nontender, no hepatosplenomegaly Skin: no rashes, warm and dry Neurologic: moves all extremities and awake; not confused Psychiatric: Orientation: alert Results & Data Results & Data ([facility]) Vital Signs (Past 12 Hours) Vital Signs Temp Pulse Pulse Resp BP Pulse Ox Pulse Ox 10/26/21 15:00 94 10/26/21 10:44 85 28 H 95 10/26/21 10:41 85 28 H 95 10/26/21 08:00 10/26/21 08:00 81 10/26/21 08:21 36.7 C 92 H 28 H 164/96 H 92 10/26/21 07:15 72 20 96 O2 Del Method O2 Del Method O2 Flow Rate O2 Flow Rate FiO2 10/26/21 15:00 Nasal Cannula, Mechanical Vent 4 10/26/21 10:44 35 10/26/21 10:41 BiPAP 35 10/26/21 08:00 Nasal Cannula 4 10/26/21 08:00 10/26/21 08:21 Nasal Cannula 4 10/26/21 07:15 Nasal Cannula 3 PG Care Time/CCT Total # of Minutes Spent Total Time Spent with Patient: Total time spent is greater than 50% in coordination of care (as documented) at patient's floor/unit and/or counseling patient: Coding Level of Care Code 95707 Subseq Hosp Care Lvl 2 Diagnoses Acute on chronic respiratory failure with hypoxia and hypercapnia J96.21; J96.22 Viral pneumonia J12.9 Rheyt-8-hbizemyiuxy deficiency carrier Z14.8 Chronic pulmonary embolism I27.82 CAD (coronary artery disease) I25.10 History of tobacco use Z87.891
[2021-10-26] MEDS: ALBUT/IPRATROP 3MG/0.5MG NEB 3 ML VIAL INH SCH (19:57)
[2021-10-26] MEDS: ATORVASTATIN 40 MG TAB PO SCH (20:56)
[2021-10-27] MEDS: ALBUT/IPRATROP 3MG/0.5MG NEB 3 ML VIAL INH SCH ×4 (00:03→19:51)
[2021-10-27] MEDS: DOXYCYCLINE HYCLATE 100 MG in DEXTROSE 5% 100 ML IV SCH ×2 (04:06→16:40)
[2021-10-27] MEDS: ICU ELECTROLYTE REPLACEMENT PROTOCOL SCH ×2 (05:25→17:48)
[2021-10-27 05:56] LABS: BUN Creatinine Ratio 32.1 (10-20); Calcium 8.2 mg/dl (8.5-10.1); Creatinine Clr Calc Pharmacy 127.9 ml/min; Est GFR (African American) 128.5 ml/min; Est GFR (Non-African American) 110.9 ml/min; Magnesium 2.1 mg/dl (1.7-2.4); Phosphorus 2.4 mg/dl (2.5-4.9); Potassium 4.2 mmol/L (3.5-5.1)
[2021-10-27] MEDS: BUDESONIDE 0.25 MG/2 ML VIAL (PULMICORT) NEB SCH ×2 (07:33→19:51)
[2021-10-27] MEDS: FORMOTEROL 20 MCG/2 ML VIAL INH SCH ×2 (07:33→19:51)
[2021-10-27] MEDS: PANTOprazole 40 MG TAB PO SCH (08:57)
[2021-10-27] MEDS: VANCOMYCIN HCL 1,750 MG in SODIUM CHLORIDE 0.9% 500 ML IV SCH ×2 (08:57→20:32)
[2021-10-27] MEDS: guaiFENesin 600 MG TABCR PO SCH ×2 (08:57→20:32)
[2021-10-27] MEDS: CEFEPIME 2,000 MG in SYRINGE 0 ML IV SCH ×3 (08:57→23:53)
[2021-10-27] MEDS: ASPIRIN 81 MG ECTAB PO SCH (08:58)
[2021-10-27] MEDS: ROFLUMILAST 500 MCG TAB PO SCH (08:58)
[2021-10-27] MEDS: METOPROLOL SUCC 25MG EXT REL TAB PO SCH (08:58)
[2021-10-27] MEDS: APIXABAN 5 MG TABLET PO SCH ×2 (08:58→20:32)
[2021-10-27] MEDS: MULTI VIT W/MINERALS LIQUID 15 ML UDP NG SCH (08:58)
[2021-10-27] MEDS: predniSONE 20 MG TAB PO SCH (08:58)
[2021-10-27] MEDS: UMECLIDINIUM BROMIDE 62.5MCG/BLISTER 7 PUFFS/INHALER INH SCH (08:59)
--- NOTE | 2021-10-27 11:35 | Pharmacy Report ---
Pharmacy PK ABX Note - Date of Service October 27, 2021 - Assessment and Plan Assessment 60 year old M receiving IV vancomycin, cefepime, and doxycycline for treatment of pulmonary infection. Extubated yesterday. MRSA nasal (+), blood and sputum cultures pending. 10/23 blood culture (+) CoNS in 1/, Staph epidermidis, (likely contaminant), sputum culture- baltazar. Renal function stable. Day #4 of antimicrobial therapy. Plan 10/27: Vancomycin * Random vancomycin level 16 mcg/mL this AM (~8.5hr level) is predicted to achieve a therapeutic AUC/MANJIT (steady state ~ 533mg/L.hr). * Continue vancomycin to 1750mg IV q12h * Regimen is predicted to achieve target AUC/MANJIT of 400-600 mg/L.hr * Can consider a repeat random level 10/29 as clinically indicated 10/26 Vancomycin * Random vancomycin level 12mcg/mL this AM (~8.5hr level) which is not associated with a therapeutic AUC/MANJIT (steady state ~ 306mg/L.hr). * Increase vancomycin to 1750mg IV q12h to start now * Regimen is predicted to achieve target AUC/MANJIT of 400-600 mg/L.hr * Will obtain a random level tomorrow AM to assess regimen Pharmacy will continue to follow and will adjust dose/frequency as necessary. Thank you. Pharmacy has transitioned to AUC monitoring for vancomycin. AUC/MANJIT is the preferred PK/PD target and is associated with decreased risk of nephrotoxicity compared to traditional trough targets.
--- NOTE | 2021-10-27 12:37 | Pulmonology Progress Note ---
Date of Service October 27, 2021 Assessment & Plan (1) COPD exacerbation: Plan: Continue prednisone for total of 7 days. Continue Incruse. Hold Breo while inpatient. Continue Perforomist and budesonide nebs while inpatient. Restart Breo when ready for discharge. Continue Roflumilast. Continue DuoNebs every 6 hours. Last PFT 10/09/2020 revealed an FEV1 of 19% predicted and a DLCO of 60% predicted. Patient with essentially end-stage COPD. ABG from 10/25/2021 reviewed with chronic hypercapnic respiratory failure noted with a PCO2 of 53 and a serum bicarbonate greater than 40. Continue a 7-day course of antibiotics. Due to chronic hypercapnic respiratory failure consequent to COPD, the patient now requires a noninvasive home ventilator. Bilevel therapy with and without a rate would be ineffective as patient requires a volume targeted mode. Ventilation is required to decrease work of breathing and improve pulmonary status. Interruption of ventilator support would lead to decline of health status. NIMV settings should be AVAPS-AE; Breath rate: auto; Inspiratory time: auto; Sigh: off; Tidal Volume: [350-450], PS min: [4-10 PS max: 12-20]; EPAP min: [6- 10]; EPAP max: [10-16]; AVAPS rate: [14 during sleep and as needed] (2) Acute on chronic respiratory failure with hypoxia and hypercapnia: Plan: Wean O2 as able to maintain sats of 88 to 92%. Recommend palliative consult given end-stage lung disease. (3) Chronic pulmonary embolism: Plan: Continue chronic anticoagulation Plan No further recommendations from pulmonary perspective. Please call with questions. Admission and Anticipated Discharge Date Admission Date: October 23, 2021 Subjective Patient seen and examined. Breathing a little easier today. Continues with significant wheeze. Discussed with bedside nurse. Review of Systems Review of Systems: All systems reviewed & are unremarkable except as noted in HPI & below Physical Exam Physical Exam: Constitutional: Sickly appearing male in moderate distress. Eyes: Pupils are equal round and reactive to light. Conjunctivae are normal. Anicteric sclera. Ears nose, mouth and throat: Nasal cannula in place. Neck: Trachea is midline. Visual inspection is normal. Respiratory: Prolonged phase of exhalation. Diffuse expiratory wheeze with tachypnea. Cardiovascular: Regular rate and rhythm. No murmurs. No edema. Gastrointestinal: Normal bowel sounds, soft, nontender and nondistended. No hepatosplenomegaly noted. Musculoskeletal: No cyanosis. Patient is able to move all extremities. Strength is 5 out of 5 in the upper and lower extremities. Skin: No rashes, warm dry and intact. Neurologic: No obvious focal neurological deficits seen. Psychiatric: Alert and oriented x3 with a euthymic affect. Results & Data Results & Data ([facility]) Vital Signs (Past 12 Hours) Vital Signs Temp Pulse Pulse Resp BP BP Pulse Ox 10/27/21 08:00 88 10/27/21 08:00 10/27/21 08:12 146/87 H 10/27/21 08:12 36.8 C 71 22 91 10/27/21 08:00 36.8 C 76 16 93 10/27/21 07:00 36.8 C 64 26 H 94 10/27/21 07:25 78 18 92 10/27/21 04:00 36.8 C 71 27 H 129/80 94 O2 Del Method O2 Flow Rate 10/27/21 08:00 10/27/21 08:00 Nasal Cannula 4 10/27/21 08:12 10/27/21 08:12 10/27/21 08:00 10/27/21 07:00 10/27/21 07:25 Nasal Cannula 3 10/27/21 04:00 Nasal Cannula 3 PG Care Time/CCT Total # of Minutes Spent Total Time Spent with Patient: Total time spent is greater than 50% in coordination of care (as documented) at patient's floor/unit and/or counseling patient: Coding Level of Care Code 81690 Subseq Hosp Care Lvl 2 Diagnoses COPD exacerbation J44.1 Acute on chronic respiratory failure with hypoxia and hypercapnia J96.21; J96.22 Chronic pulmonary embolism I27.82
--- NOTE | 2021-10-27 15:45 | Hospitalist Progress Note ---
Date of Service October 27, 2021 Assessment & Plan (1) Acute on chronic respiratory failure with hypoxia and hypercapnia: Plan: - Patient's daughter, patient has been complaining of face puffiness and worsening shortness of breath over several days. When EMS was called morning of admission, patient was found to be at 79% on his chronic 3L NC. - He was placed on 10L NC in route and O2 improved to 94%. - Resp PCR: positive for rhinovirus/enterovirus Patient admitted 2 weeks ago for COPD exacerbation at that time changes made: - BiPAP at night (patient's insurance denied trilogy) - Daliresp 250 mcg daily. - Azithromycin M-W-. Overnight 10/23, patient remained acidotic and required mechanical ventilation. Patient intubated on 10/23 - 10/25 D/W Dr Juarez. Continue vancomycin, cefepime, doxycycline for possible bacterial component; MRSA nose swab positive. Now downgraded to PCU. Sputum culture - moderate normal baltazar Blood culture - coag neg staph 1/2 - suspected contamination Solu-medrol switched to prednisone by pulmonology, will continue on this for 7 days per pulm Budesonide and formoterol nebulizers instead of Breo Ellipta. Continue Incruse Ellipta Continue duonebs Use BiPAP NEEDED during the day and HS - patient finding it hard to tolerate this but willing to wear at night. Will need Bilevel therapy. Aim O2 sats 88-92% while on nasal cannula, tolerating 3LPM O2 NC but with significant shortness of breath on light exertion. 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 - No longer has port. - Alpha-1 antitrypsin level checked last admission: 86 mg/dL (4) Chronic pulmonary embolism: Plan: - Patient last month, he was found to have a chronic isolated segmental PE, Dopplers at the time negative for acute DVT. - He was started on heparin drip and converted to Eliquis 5 mg twice daily and recommended remaining on this for at least 3 months for chronic PE, as well as narrowing and/or thrombosis of SVC and brachiocephalic vein. - Continue Eliquis. (5) CAD (coronary artery disease): Plan: - [place] in 2019 s/p ADELAIDA to LAD at [facility]. - Continue beta-amber, statin, baby aspirin, Lasix. - As the patient is >1-year out from ADELAIDA, DAPT was narrowed to aspirin alone on last admission given he was placed on Eliquis x3 months for chronic PE. - Echo 10/03/2021 showed EF 50-55%, moderate apical wall hypokinesis, RVSP elevated at 30-40 mmHg. Inferior vena cava is mildly dilated. - Patient not complaining of chest pain on admission, troponin WNL. - Referral was made on discharge last admission for cardiology follow-up. (6) History of tobacco use: Plan: - Patient quit smoking this summer, utilize nicotine patches. Plan VTE Prophylaxis - Eliquis Diet - heart healthy, minced and moist Disposition - continue on PCU Admission and Anticipated Discharge Date Admission Date: October 23, 2021 Subjective No events overnight. Tolerated BiPAP until 1am. Eating and drinking well. No significant change from yesterday. Very short of breath on even light movement to the edge of the bed. Review of Systems Review of Systems: All systems reviewed & are unremarkable except as noted in Subjective Physical Exam Constitutional: well developed and + acute distress (respiratory); + not well nourished Eyes: + anicteric sclerae; normal pupil size ENMT: external ear and nose normal, oropharynx normal Respiratory: + respiratory distress, + uses accessory muscles, + prolonged expiratory phase and + audible wheezes Auscultation: + diminished lung sounds (throughout, improved from yesterday) and + wheezes (expiratory); no crackles, no rales and no rhonchi Cardiovascular: Rate/Rhythm: regular rhythm and + tachycardic Heart Sounds: no murmur Extremities: normal capillary refill; no pedal edema Gastrointestinal (Abdomen): normal bowel sounds, soft, nontender, no hepatosplenomegaly Skin: no rashes, warm and dry Neurologic: moves all extremities and awake; not confused Psychiatric: Orientation: alert Results & Data Results & Data ([facility]) Vital Signs (Past 12 Hours) Vital Signs Temp Pulse Pulse Resp BP BP Pulse Ox 10/27/21 15:00 37.3 C 84 23 91 10/27/21 14:00 37.3 C 93 10/27/21 13:00 37.2 C 82 25 H 92 10/27/21 12:00 37.3 C 84 34 H 90 10/27/21 11:59 37.3 C 86 25 H 89 L 10/27/21 11:59 152/99 H 10/27/21 11:00 37.1 C 91 H 28 H 94 10/27/21 10:00 36.9 C 68 27 H 96 10/27/21 09:00 36.8 C 68 22 93 10/27/21 15:13 72 18 94 10/27/21 08:00 88 10/27/21 08:00 10/27/21 08:12 146/87 H 10/27/21 08:12 36.8 C 71 22 91 10/27/21 08:00 36.8 C 76 16 93 10/27/21 07:00 36.8 C 64 26 H 94 10/27/21 07:25 78 18 92 10/27/21 04:00 36.8 C 71 27 H 129/80 94 O2 Del Method O2 Flow Rate 10/27/21 15:00 10/27/21 14:00 10/27/21 13:00 10/27/21 12:00 10/27/21 11:59 10/27/21 11:59 10/27/21 11:00 10/27/21 10:00 10/27/21 09:00 10/27/21 15:13 Nasal Cannula 3 10/27/21 08:00 10/27/21 08:00 Nasal Cannula 4 10/27/21 08:12 10/27/21 08:12 10/27/21 08:00 10/27/21 07:00 10/27/21 07:25 Nasal Cannula 3 10/27/21 04:00 Nasal Cannula 3 PG Care Time/CCT Total # of Minutes Spent Total Time Spent with Patient: Total time spent is greater than 50% in coordination of care (as documented) at patient's floor/unit and/or counseling patient: Coding Level of Care Code 19244 Subseq Hosp Care Lvl 2 Diagnoses Acute on chronic respiratory failure with hypoxia and hypercapnia J96.21; J96.22 Viral pneumonia J12.9 Vaxhf-9-tbeazmxache deficiency carrier Z14.8 Chronic pulmonary embolism I27.82 CAD (coronary artery disease) I25.10 History of tobacco use Z87.896
[2021-10-27] MEDS: ATORVASTATIN 40 MG TAB PO SCH (20:32)
[2021-10-28] MEDS: ALBUT/IPRATROP 3MG/0.5MG NEB 3 ML VIAL INH SCH ×4 (00:52→19:53)
[2021-10-28] MEDS: DOXYCYCLINE HYCLATE 100 MG in DEXTROSE 5% 100 ML IV SCH ×2 (03:53→17:16)
[2021-10-28 05:31] LABS: BUN Creatinine Ratio 29.2 (10-20); Calcium 8.3 mg/dl (8.5-10.1); Creatinine Clr Calc Pharmacy 149.2 ml/min; Est GFR (African American) 136.9 ml/min; Est GFR (Non-African American) 118.1 ml/min; Magnesium 1.9 mg/dl (1.7-2.4); Phosphorus 2.3 mg/dl (2.5-4.9)
[2021-10-28] MEDS: FORMOTEROL 20 MCG/2 ML VIAL INH SCH ×2 (06:56→19:52)
[2021-10-28] MEDS: BUDESONIDE 0.25 MG/2 ML VIAL (PULMICORT) NEB SCH ×2 (06:57→19:53)
[2021-10-28] MEDS: METOPROLOL SUCC 25MG EXT REL TAB PO SCH (08:45)
[2021-10-28] MEDS: guaiFENesin 600 MG TABCR PO SCH ×2 (08:45→20:40)
[2021-10-28] MEDS: APIXABAN 5 MG TABLET PO SCH ×2 (08:45→20:41)
[2021-10-28] MEDS: PANTOprazole 40 MG TAB PO SCH (08:45)
[2021-10-28] MEDS: ASPIRIN 81 MG ECTAB PO SCH (08:45)
[2021-10-28] MEDS: MULTI VIT W/MINERALS LIQUID 15 ML UDP NG SCH ×2 (08:45→09:35)
[2021-10-28] MEDS: ROFLUMILAST 500 MCG TAB PO SCH (08:46)
[2021-10-28] MEDS: predniSONE 20 MG TAB PO SCH (08:46)
[2021-10-28] MEDS: UMECLIDINIUM BROMIDE 62.5MCG/BLISTER 7 PUFFS/INHALER INH SCH (08:46)
[2021-10-28] MEDS: CEFEPIME 2,000 MG in SYRINGE 0 ML IV SCH ×2 (08:51→17:16)
[2021-10-28] MEDS: VANCOMYCIN HCL 1,750 MG in SODIUM CHLORIDE 0.9% 500 ML IV SCH ×2 (08:51→20:39)
--- NOTE | 2021-10-28 16:04 | Hospitalist Progress Note ---
Date of Service October 28, 2021 Assessment & Plan (1) Acute on chronic respiratory failure with hypoxia and hypercapnia: Plan: - Patient's daughter, patient has been complaining of face puffiness and worsening shortness of breath over several days. When EMS was called morning of admission, patient was found to be at 79% on his chronic 3L NC. - He was placed on 10L NC in route and O2 improved to 94%. - Resp PCR: positive for rhinovirus/enterovirus Patient admitted 2 weeks ago for COPD exacerbation at that time changes made: - BiPAP at night (patient's insurance denied trilogy) - Daliresp 250 mcg daily. - Azithromycin M-W-. Overnight 10/23, patient remained acidotic and required mechanical ventilation. Patient intubated on 10/23 - 10/25 D/W Dr Juarez. Continue vancomycin, cefepime, doxycycline for possible bacterial component; MRSA nose swab positive. Now downgraded to PCU. Sputum culture - moderate normal baltazar Blood culture - coag neg staph 1/2 - suspected contamination Solu-medrol switched to prednisone by pulmonology, will continue on this for 7 days per pulm Budesonide and formoterol nebulizers instead of Breo Ellipta. Continue Incruse Ellipta Continue duonebs Use BiPAP NEEDED during the day and HS - patient finding it hard to tolerate this but willing to wear at night. Will need Bilevel therapy. Aim O2 sats 88-92% while on nasal cannula, tolerating 3LPM O2 NC but with significant shortness of breath on light exertion. (2) Viral pneumonia: Plan: As above (3) Yiyax-6-qxktwlyeszn deficiency carrier: Plan: - S/p port placement for transfusions, previously getting weekly injections with Prolastin, last done in October 2020. - No longer has port. - Alpha-1 antitrypsin level checked last admission: 86 mg/dL (4) Chronic pulmonary embolism: Plan: - Patient last month, he was found to have a chronic isolated segmental PE, Dopplers at the time negative for acute DVT. - He was started on heparin drip and converted to Eliquis 5 mg twice daily and recommended remaining on this for at least 3 months for chronic PE, as well as narrowing and/or thrombosis of SVC and brachiocephalic vein. - Continue Eliquis. (5) CAD (coronary artery disease): Plan: - [place] in 2019 s/p ADELAIDA to LAD at [facility]. - Continue beta-amber, statin, baby aspirin, Lasix. - As the patient is >1-year out from ADELAIDA, DAPT was narrowed to aspirin alone on last admission given he was placed on Eliquis x3 months for chronic PE. - Echo 10/03/2021 showed EF 50-55%, moderate apical wall hypokinesis, RVSP elevated at 30-40 mmHg. Inferior vena cava is mildly dilated. - Patient not complaining of chest pain on admission, troponin WNL. - Referral was made on discharge last admission for cardiology follow-up. (6) History of tobacco use: Plan: - Patient quit smoking this summer, utilize nicotine patches. Plan VTE Prophylaxis - Eliquis Diet - heart healthy, minced and moist Disposition - medically stable for downgrade to med/surg, PT/OT evals pending Admission and Anticipated Discharge Date Admission Date: October 23, 2021 Subjective No acute event overnight. 3 hours of BiPAP noted overnight. Reports significant improvement from yesterday. Not yet been seen by PT/OT but reportedly out of bed. No BM since admission but was also not eating for 2 days. Review of Systems Review of Systems: All systems reviewed & are unremarkable except as noted in Subjective Results & Data Results & Data ([facility]) Vital Signs (Past 12 Hours) Vital Signs Temp Pulse Resp BP Pulse Ox Pulse Ox Pulse Ox 10/28/21 14:32 90 94 10/28/21 13:17 84 18 94 10/28/21 08:00 10/28/21 08:00 36.5 C 87 28 H 125/72 95 10/28/21 06:57 90 18 88 L Pulse Ox O2 Del Method O2 Flow Rate O2 Flow Rate O2 Flow Rate O2 Flow Rate 10/28/21 14:32 88 L 3 3 3 10/28/21 13:17 Nasal Cannula 3 10/28/21 08:00 Nasal Cannula 3 10/28/21 08:00 Nasal Cannula 3 10/28/21 06:57 Nasal Cannula 3 PG Care Time/CCT Total # of Minutes Spent Total Time Spent with Patient: Total time spent is greater than 50% in coordination of care (as documented) at patient's floor/unit and/or counseling patient: Coding Level of Care Code 03010 Subseq Hosp Care Lvl 2 Diagnoses Acute on chronic respiratory failure with hypoxia and hypercapnia J96.21; J96.22 Viral pneumonia J12.9 Dtscy-1-zfkwyzdgjtr deficiency carrier Z14.8 Chronic pulmonary embolism I27.82 CAD (coronary artery disease) I25.10 History of tobacco use Z87.891
[2021-10-28] MEDS: POLYETHYLENE (MIRALAX) 17 GM PACK PO SCH (16:48)
[2021-10-28] MEDS: ATORVASTATIN 40 MG TAB PO SCH (20:41)
[2021-10-29] MEDS: ALBUT/IPRATROP 3MG/0.5MG NEB 3 ML VIAL INH SCH ×4 (00:05→19:40)
[2021-10-29] MEDS: CEFEPIME 2,000 MG in SYRINGE 0 ML IV SCH ×4 (00:52→22:50)
[2021-10-29] MEDS: DOXYCYCLINE HYCLATE 100 MG in DEXTROSE 5% 100 ML IV SCH ×2 (05:00→16:43)
[2021-10-29 06:01] LABS: Calcium 8.3 mg/dl (8.5-10.1); Creatinine Clr Calc Pharmacy 141.4 ml/min; Est GFR (African American) 133.7 ml/min; Est GFR (Non-African American) 115.3 ml/min
[2021-10-29] MEDS: BUDESONIDE 0.25 MG/2 ML VIAL (PULMICORT) NEB SCH ×2 (06:01→19:40)
[2021-10-29] MEDS: FORMOTEROL 20 MCG/2 ML VIAL INH SCH ×2 (06:01→19:40)
[2021-10-29] MEDS: VANCOMYCIN HCL 1,750 MG in SODIUM CHLORIDE 0.9% 500 ML IV SCH ×2 (07:38→19:59)
[2021-10-29] MEDS: MULTI VIT W/MINERALS LIQUID 15 ML UDP NG SCH ×2 (08:30→08:41)
[2021-10-29] MEDS: APIXABAN 5 MG TABLET PO SCH ×2 (08:31→20:01)
[2021-10-29] MEDS: predniSONE 20 MG TAB PO SCH (08:31)
[2021-10-29] MEDS: POLYETHYLENE (MIRALAX) 17 GM PACK PO SCH (08:31)
[2021-10-29] MEDS: ROFLUMILAST 500 MCG TAB PO SCH (08:32)
[2021-10-29] MEDS: PANTOprazole 40 MG TAB PO SCH (08:33)
[2021-10-29] MEDS: UMECLIDINIUM BROMIDE 62.5MCG/BLISTER 7 PUFFS/INHALER INH SCH (08:33)
[2021-10-29] MEDS: METOPROLOL SUCC 25MG EXT REL TAB PO SCH (08:33)
[2021-10-29] MEDS: ASPIRIN 81 MG ECTAB PO SCH (08:33)
[2021-10-29] MEDS: guaiFENesin 600 MG TABCR PO SCH ×2 (08:34→20:00)
--- NOTE | 2021-10-29 17:01 | Hospitalist Progress Note ---
Date of Service October 29, 2021 Assessment & Plan (1) Acute on chronic respiratory failure with hypoxia and hypercapnia: Plan: - Patient's daughter, patient has been complaining of face puffiness and worsening shortness of breath over several days. When EMS was called morning of admission, patient was found to be at 79% on his chronic 3L NC. - He was placed on 10L NC in route and O2 improved to 94%. - Resp PCR: positive for rhinovirus/enterovirus Patient admitted 2 weeks ago for COPD exacerbation at that time changes made: - BiPAP at night (patient's insurance denied trilogy) - Daliresp 250 mcg daily. - Azithromycin M-W-. Overnight 10/23, patient remained acidotic and required mechanical ventilation. Patient intubated on 10/23 - 10/25 D/W Dr Juarez. Continue vancomycin, cefepime, doxycycline for possible bacterial component; MRSA nose swab positive. Now downgraded to med/surg. last day of antibiotics tomorrow for 7 day course. Sputum culture - moderate normal baltazar Blood culture - coag neg staph 1/2 - suspected contamination Solu-medrol switched to prednisone by pulmonology, will continue on this for 7 days per pulm Budesonide and formoterol nebulizers instead of Breo Ellipta. Continue Incruse Ellipta Continue duonebs Use BiPAP NEEDED during the day and HS - patient finding it hard to tolerate this but willing to wear at night. Will need Bilevel therapy - asked case management to have pulmonology to appeal as suspect they will be more successful. Aim O2 sats 88-92% while on nasal cannula, tolerating 3LPM O2 NC but with significant shortness of breath on light exertion. Will be off antibiotics tomorrow and if able to manage at home per PT/OT possible medically stable discharge on 10/31. OT recommending d/c to rehab. Bazzi catheter can be removed now able to get up and go to bathroom. (2) Viral pneumonia: Plan: As above (3) Wqqcl-9-[id number] deficiency carrier: Plan: - S/p port placement for transfusions, previously getting weekly injections with Prolastin, last done in October 2020. - No longer has port. - Alpha-1 antitrypsin level checked last admission: 86 mg/dL (4) Chronic pulmonary embolism: Plan: - Patient last month, he was found to have a chronic isolated segmental PE, Dopplers at the time negative for acute DVT. - He was started on heparin drip and converted to Eliquis 5 mg twice daily and recommended remaining on this for at least 3 months for chronic PE, as well as narrowing and/or thrombosis of SVC and brachiocephalic vein. - Continue Eliquis. (5) CAD (coronary artery disease): Plan: - [place] in 2019 s/p ADELAIDA to LAD at [facility]. - Continue beta-amber, statin, baby aspirin, Lasix. - As the patient is >1-year out from ADELA[place], DAPT was narrowed to aspirin alone on last admission given he was placed on Eliquis x3 months for chronic PE. - Echo 10/03/2021 showed EF 50-55%, moderate apical wall hypokinesis, RVSP elevated at 30-40 mmHg. Inferior vena cava is mildly dilated. - Patient not complaining of chest pain on admission, troponin WNL. - Referral was made on discharge last admission for cardiology follow-up. (6) History of tobacco use: Plan: - Patient quit smoking this summer, utilize nicotine patches. Plan VTE Prophylaxis - Eliquis Diet - heart healthy, minced and moist Disposition - continue on med/surg, OT recommending discharge to rehabilitation Admission and Anticipated Discharge Date Admission Date: October 23, 2021 Subjective Patient reports slow improvement in his shortness of breath especially on exertion and making it to the bathroom. Bringing up clear sputum in cough. No chest pain. Did well with physical therapy today, OT recommending d/c to rehab. Review of Systems Review of Systems: All systems reviewed & are unremarkable except as noted in Subjective Physical Exam Constitutional: well developed and + acute distress (respiratory); + not well nourished Eyes: + anicteric sclerae; normal pupil size ENMT: external ear and nose normal, oropharynx normal Respiratory: + respiratory distress, + uses accessory muscles, + prolonged expiratory phase and + audible wheezes Auscultation: + wheezes (expiratory); no diminished lung sounds, no crackles, no rales and no rhonchi Cardiovascular: Rate/Rhythm: regular rate and regular rhythm Heart Sounds: no murmur Extremities: normal capillary refill; no pedal edema Gastrointestinal (Abdomen): normal bowel sounds, soft, nontender, no hepatosplenomegaly Skin: no rashes, warm and dry Neurologic: moves all extremities and awake; not confused Psychiatric: Orientation: alert Results & Data Results & Data ([facility]) Vital Signs (Past 12 Hours) Vital Signs Temp Pulse Resp BP Pulse Ox O2 Del Method O2 Flow Rate 10/29/21 15:32 36.8 C 88 16 133/79 93 Nasal Cannula 3 10/29/21 12:20 84 18 94 Nasal Cannula 3 10/29/21 07:43 Nasal Cannula 3 10/29/21 09:14 96 Nasal Cannula 3 10/29/21 08:36 37 C 88 22 149/93 H 90 Nasal Cannula 5 10/29/21 06:09 86 16 94 Nasal Cannula 3 PG Care Time/CCT Total # of Minutes Spent Total Time Spent with Patient: Total time spent is greater than 50% in coordination of care (as documented) at patient's floor/unit and/or counseling patient: Coding Level of Care Code 34308 Subseq Hosp Care Lvl 2 Diagnoses Acute on chronic respiratory failure with hypoxia and hypercapnia J96.21; J96. 22 Viral pneumonia J12.9 Uiqqq-0-xbgyikajbcy deficiency carrier Z14.8 Chronic pulmonary embolism I27.82 CAD (coronary artery disease) I25.10 History of tobacco use Z87.891
[2021-10-29] MEDS: ATORVASTATIN 40 MG TAB PO SCH (20:01)
[2021-10-30] MEDS: ALBUT/IPRATROP 3MG/0.5MG NEB 3 ML VIAL INH SCH ×4 (00:10→19:33)
[2021-10-30] MEDS: DOXYCYCLINE HYCLATE 100 MG in DEXTROSE 5% 100 ML IV SCH ×2 (05:25→15:23)
[2021-10-30 06:44] LABS: BUN Creatinine Ratio 23.2 (10-20); Calcium 8.4 mg/dl (8.5-10.1); Creatinine Clr Calc Pharmacy 126.2 ml/min; Est GFR (African American) 127.6 ml/min; Est GFR (Non-African American) 110.1 ml/min; Potassium 3.8 mmol/L (3.5-5.1)
[2021-10-30] MEDS: VANCOMYCIN HCL 1,750 MG in SODIUM CHLORIDE 0.9% 500 ML IV SCH ×2 (07:38→20:05)
[2021-10-30] MEDS: CEFEPIME 2,000 MG in SYRINGE 0 ML IV SCH ×3 (07:39→23:56)
[2021-10-30] MEDS: BUDESONIDE 0.25 MG/2 ML VIAL (PULMICORT) NEB SCH ×2 (07:53→19:32)
[2021-10-30] MEDS: FORMOTEROL 20 MCG/2 ML VIAL INH SCH ×2 (07:53→19:32)
[2021-10-30] MEDS: PANTOprazole 40 MG TAB PO SCH (08:37)
[2021-10-30] MEDS: UMECLIDINIUM BROMIDE 62.5MCG/BLISTER 7 PUFFS/INHALER INH SCH (08:37)
[2021-10-30] MEDS: APIXABAN 5 MG TABLET PO SCH ×2 (08:37→20:05)
[2021-10-30] MEDS: guaiFENesin 600 MG TABCR PO SCH ×2 (08:37→20:05)
[2021-10-30] MEDS: METOPROLOL SUCC 25MG EXT REL TAB PO SCH (08:38)
[2021-10-30] MEDS: MULTIVITAMIN TAB PO SCH (08:38)
[2021-10-30] MEDS: ASPIRIN 81 MG ECTAB PO SCH (08:38)
[2021-10-30] MEDS: ROFLUMILAST 500 MCG TAB PO SCH (08:38)
[2021-10-30] MEDS: predniSONE 20 MG TAB PO SCH (08:39)
[2021-10-30] MEDS: POLYETHYLENE (MIRALAX) 17 GM PACK PO SCH (08:39)
[2021-10-30] MEDS: ATORVASTATIN 40 MG TAB PO SCH (20:05)
--- NOTE | 2021-10-30 20:34 | Hospitalist Progress Note ---
Date of Service October 30, 2021 Assessment & Plan (1) Acute on chronic respiratory failure with hypoxia and hypercapnia: Plan: - Patient's daughter, patient has been complaining of face puffiness and worsening shortness of breath over several days. When EMS was called morning of admission, patient was found to be at 79% on his chronic 3L NC. - He was placed on 10L NC in route and O2 improved to 94%. - Resp PCR: positive for rhinovirus/enterovirus Patient admitted 2 weeks ago for COPD exacerbation at that time changes made: - BiPAP at night (patient's insurance denied trilogy) - Daliresp 250 mcg daily. - Azithromycin M-W-. Overnight 10/23, patient remained acidotic and required mechanical ventilation. Patient intubated on 10/23 - 10/25 D/W Dr Juarez. Continue vancomycin, cefepime, doxycycline for possible bacterial component; MRSA nose swab positive. Now downgraded to med/surg. last day of antibiotics today for 7 day course. Sputum culture - moderate normal baltazar Blood culture - coag neg staph 1/2 - suspected contamination Solu-medrol switched to prednisone by pulmonology, will continue on this for 7 days per pulm Budesonide and formoterol nebulizers instead of Breo Ellipta. Continue Incruse Ellipta Continue duonebs Use BiPAP NEEDED during the day and HS - patient finding it hard to tolerate this but willing to wear at night. Will need Bilevel therapy - asked case management to have pulmonology to appeal as suspect they will be more successful. Aim O2 sats 88-92% while on nasal cannula, tolerating 3LPM O2 NC but with significant shortness of breath on light exertion. Will be off antibiotics tomorrow and if able to manage at home per PT/OT possible medically stable discharge on 10/31. OT recommending d/c to rehab. 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 - No longer has port. - Alpha-1 antitrypsin level checked last admission: 86 mg/dL (4) Chronic pulmonary embolism: Plan: - Patient last month, he was found to have a chronic isolated segmental PE, Dopplers at the time negative for acute DVT. - He was started on heparin drip and converted to Eliquis 5 mg twice daily and recommended remaining on this for at least 3 months for chronic PE, as well as narrowing and/or thrombosis of SVC and brachiocephalic vein. - Continue Eliquis. (5) CAD (coronary artery disease): Plan: - [place] in [place] s/p ADELAIDA to LAD at [facility]. - Continue beta-amber, statin, baby aspirin, Lasix. - As the patient is >1-year out from ADELAIDA, DAPT was narrowed to aspirin alone on last admission given he was placed on Eliquis x3 months for chronic PE. - Echo 10/03/2021 showed EF 50-55%, moderate apical wall hypokinesis, RVSP elevated at 30-40 mmHg. Inferior vena cava is mildly dilated. - Patient not complaining of chest pain on admission, troponin WNL. - Referral was made on discharge last admission for cardiology follow-up. (6) History of tobacco use: Plan: - Patient quit smoking this summer, utilize nicotine patches. Plan VTE Prophylaxis - Eliquis Diet - heart healthy, minced and moist Disposition - continue on med/surg, OT recommending discharge to rehabilitation - may need reassessment of this Admission and Anticipated Discharge Date Admission Date: October 23, 2021 Subjective Bazzi catheter removed without issue yesterday. Shortness of breath slowly improving day to day. Coughing up clear sputum. Using incentive spirometer regularly. No acute concerns or questions to me. Review of Systems Review of Systems: All systems reviewed & are unremarkable except as noted in Subjective Physical Exam Constitutional: well developed and + acute distress (respiratory); + not well nourished Eyes: + anicteric sclerae; normal pupil size Respiratory: normal respiratory effort; no respiratory distress, no retractions, does not use accessory muscles, expiratory phase not prolonged and no audible wheezes Auscultation: + wheezes (expiratory); no diminished lung sounds, no crackles, no rales and no rhonchi Cardiovascular: Rate/Rhythm: regular rate and regular rhythm Heart Sounds: no murmur Extremities: normal capillary refill; no pedal edema Gastrointestinal (Abdomen): normal bowel sounds, soft, nontender, no hepatosplenomegaly Skin: no rashes, warm and dry Neurologic: moves all extremities and awake; not confused Psychiatric: Orientation: alert Results & Data Results & Data ([facility]) Vital Signs (Past 12 Hours) Vital Signs Temp Pulse Resp BP Pulse Ox O2 Del Method O2 Flow Rate 10/30/21 19:34 85 18 95 Nasal Cannula 3 10/30/21 14:53 36.8 C 88 16 137/90 93 Nasal Cannula 3 10/30/21 12:06 78 15 96 Nasal Cannula 3 PG Care Time/CCT Total # of Minutes Spent Total Time Spent with Patient: Total time spent is greater than 50% in coordination of care (as documented) at patient's floor/unit and/or counseling patient: Coding Level of Care Code 17474 Subseq Hosp Care Lvl 2 Diagnoses Acute on chronic respiratory failure with hypoxia and hypercapnia J96.21; J96.22 Viral pneumonia J12.9 Pfxzw-2-kdfgvuyardi deficiency carrier Z14.8 Chronic pulmonary embolism I27.82 CAD (coronary artery disease) I25.10 History of tobacco use Z87.891
[2021-10-31] MEDS: ALBUT/IPRATROP 3MG/0.5MG NEB 3 ML VIAL INH SCH ×3 (00:04→13:54)
[2021-10-31 06:50] LABS: BUN Creatinine Ratio 24.1 (10-20); Calcium 8.4 mg/dl (8.5-10.1); Creatinine Clr Calc Pharmacy 130.9 ml/min; Est GFR (African American) 129.5 ml/min; Est GFR (Non-African American) 111.7 ml/min; Potassium 3.8 mmol/L (3.5-5.1)
[2021-10-31 07:02] LABS: Hematocrit (blood only) 36.3 % (40.1-51.0); Mean Corpuscular Hemoglobin 31.3 pg (25.0-34.0); Mean Corpuscular Hgb Conc 33.1 g/dL (32.0-36.0); Mean Corpuscular Volume 94.8 fL (80.0-100.0); Mean Platelet Volume 9.6 fL (9.4-12.4); Platelet Count 286 K/uL (130-400); RDW Coefficient of Variation 12.8 % (11.5-14.5); RDW Standard Deviation 44.1 fL (36.4-46.3); Red Blood Count 3.83 M/uL (4.63-6.08); White Blood Count 11.78 K/ul (4.8-10.8)
[2021-10-31] MEDS: BUDESONIDE 0.25 MG/2 ML VIAL (PULMICORT) NEB SCH (07:16)
[2021-10-31] MEDS: FORMOTEROL 20 MCG/2 ML VIAL INH SCH (07:16)
[2021-10-31 07:51] LABS: ALC (manual) 1.77 K/uL (1.2-3.4); ANC (manual) 8.25 K/uL (1.4-6.5); Eosinophils # (manual) 0.12 K/uL (0-0.50); Lymphocytes # (manual) 1.77 K/uL (1.2-3.4); Metamyelocytes # (manual) 0.12 K/uL (0-0); Myelocytes # (manual) 0.35 K/uL (0-0); Neutrophils # (manual) 8.25 K/uL (1.4-6.5); Neutrophils % (manual) 70 %; RBC Morphology Unremarkable
[2021-10-31] MEDS: guaiFENesin 600 MG TABCR PO SCH (08:21)
[2021-10-31] MEDS: predniSONE 20 MG TAB PO SCH (08:21)
[2021-10-31] MEDS: MULTIVITAMIN TAB PO SCH (08:21)
[2021-10-31] MEDS: APIXABAN 5 MG TABLET PO SCH (08:21)
[2021-10-31] MEDS: ROFLUMILAST 500 MCG TAB PO SCH (08:21)
[2021-10-31] MEDS: ASPIRIN 81 MG ECTAB PO SCH (08:21)
[2021-10-31] MEDS: PANTOprazole 40 MG TAB PO SCH (08:21)
[2021-10-31] MEDS: METOPROLOL SUCC 25MG EXT REL TAB PO SCH (08:22)
[2021-10-31] MEDS: UMECLIDINIUM BROMIDE 62.5MCG/BLISTER 7 PUFFS/INHALER INH SCH (08:22)
[2021-10-31] MEDS: POLYETHYLENE (MIRALAX) 17 GM PACK PO SCH (08:22)
--- NOTE | 2021-10-31 15:38 | Discharge Summary ---
Date of Service October 31, 2021 Admission HPI Per Admitting Provider Abdulaziz Louie is a 60 y/o male with a PMH of COPD, alpha-1 antitrypsin deficiency, CAD, and chronic segmental PE on Eliquis who presents today for worsening SOB over the past several days. Patient is very poor historian, history obtained from EMS report as well as daughter, Tamara who I spoke to over the phone. On his age her father was discharged from the hospital on 10/09 for COPD exacerbation and has been doing well since then and she reports he has been compliant with his medications. For the last 3 days, he has been more short of breath and has noticed that his face has been more puffy. Initially it seemed to get better, but again this morning woke up with a bloated appearing face and continued shortness of breath, therefore EMS was called for transportation to the ED. Patient is on 3 L NC chronically, when EMS arrived he was reportedly 79% on this. He was placed on 10 LNC with improvement of SPO2 to 94%. En route to ED, patient received 2 DuoNebs, 125 IV Solu-Medrol, and 200cc NSS. BSG 75. Again, patient is poor historian and also has BiPAP on making history difficult obtain, but he does seem confused and answers yes to any and all questions. Upon presentation to the ED, he was tachypneic with RR in 30s, SpO2 > 92%. He was transitioned to BIPAP. He is afebrile, normotensive, HR wnl. Labs significant for Elevated bicarb of 42 on BMP. Without leukocytosis, change in chronic anemia, electrolyte abnormalities, or decreased renal function. Lactate 0.6. ABG, respiratory bio fire panel pending. Principal Diagnosis Acute on chronic respiratory failure with hypoxia and hypercarbia, Rhino/Enterovirus, COPD Exacerbation Discharge Exam Vitals reviewed Gen: [AAOx3, NAD] HEENT: [anicteric sclerae, EOMI] CV: [RRR no mgr nl S1S2] Pulm: [a fe exp wheezes, diminished BS throughout, no resp distress, no crackles or rhonchi] Abd: [+BS soft NT ND no masses or hernias] Ext: [no edema, 2+ DP pulses] Skin: [no rashes, warm/dry] Neuro: [full strength throughout] Discharge Data Allergies Allergy/AdvReac Type Severity Reaction Status Date / Time No Known Allergies Allergy Verified 08/24/21 15:47 Consultations 10/23/21 11:29 ED Decision to Admit Stat 10/23/21 15:39 Consult Pulmonology Routine 10/23/21 18:50 Consult Retirement Benefits Specialist Routine Hospital Course (1) Acute on chronic respiratory failure with hypoxia and hypercapnia: - Patient's daughter, patient has been complaining of face puffiness and worsening shortness of breath over several days. When EMS was called morning of admission, patient was found to be at 79% on his chronic 3L NC. - He was placed on 10L NC in route and O2 improved to 94%. - Resp PCR: positive for rhinovirus/enterovirus Patient admitted 2 weeks ago for COPD exacerbation and was sent home on BiPAP, started on Daliresp and azithro 3x/week Overnight 10/23, patient remained acidotic and required mechanical ventilation. Patient intubated on 10/23 - 10/25 D/W Dr Juarez. Was given vancomycin, cefepime, doxycycline for possible bacterial component; MRSA nose swab positive.Then downgraded to med/surg and completed 7 days of abx Sputum culture - moderate normal baltazar Blood culture - coag neg staph 1/2 - suspected contamination Solu-medrol switched to prednisone by pulmonology,finish out 7 days per pulm continue home inhalers maintenance and nebs prn - continue BiPAP at night (patient's insurance denied trilogy)-he reports he doesn't know how to turn this on/off at home--> our RT will do some teaching but also will have home health do teaching at home after discharge - Daliresp 250 mcg daily. - Azithromycin M-W-F. Stable for dc to home with close outpt PULM and PCP f/u (2) Viral pneumonia: with Rhino/Enterovirus positive here supportive care given as above (3) Gfhji-2-vcxijsefulo deficiency carrier: - S/p port placement for transfusions, previously getting weekly injections with Prolastin, last done in October 2020. - No longer has port. - Alpha-1 antitrypsin level checked last admission: 86 mg/dL (4) Chronic pulmonary embolism: - Patient last month, he was found to have a chronic isolated segmental PE, Dopplers at the time negative for acute DVT. - He was started on heparin drip and converted to Eliquis 5 mg twice daily and recommended remaining on this for at least 3 months for chronic PE, as well as narrowing and/or thrombosis of SVC and brachiocephalic vein. - Continue Eliquis. (5) CAD (coronary artery disease): - [place] in [place] s[place]p ADELAIDA to L[place] at [facility]. - Continue beta-amber, statin, baby aspirin, Lasix. - As the patient is >1-year out from ADELA[place], DAPT was narrowed to aspirin alone on last admission given he was placed on Eliquis x3 months for chronic PE. - Echo 10/03/2021 showed EF 50-55%, moderate apical wall hypokinesis, RVSP elevated at 30-40 mmHg. Inferior vena cava is mildly dilated. - Patient not complaining of chest pain on admission, troponin WNL. - Referral was made on discharge last admission for cardiology follow-up. (6) History of tobacco use: - Patient quit smoking this summer, utilize nicotine patches. Plan VTE Prophylaxis - Eliquis Disposition - dc to home today Total Time Total Time Spent Total Time Spent (In Minutes): 35 min Discharge Plan Discharge Items Patient Disposition: Home - Home Health Services Reason For Visit: COPD EXACERBATION Discharge Diagnosis: COPD Exacerbation, Rhino/Enterovirus, Pneumonia, Ventilator dependent respiratory failure Condition on Discharge: Serious Activity: Resume your previous activity Non-emergency contact: Primary Care Provider and Patient Care Manager Call non-emergency contact if: you have any medication questions and your symptoms worsen Follow-up/Referrals: [facility] [Primary Care Provider] - (Follow up within 1-2 weeks) Diet: Regular Addtl Attending Provider Instructions: You were admitted for respiratory failure due to your severe COPD and required a ventilator to support your breathing for 2 days. You were diagnosed with a viral infection but were also treated with antibiotics for 7 days in case of bacterial pneumonia. Please finish out 3 more days of prednisone. Continue your usual inhalers, azithromycin three times a week, and your new Daliresp. It is VERY IMPORTANT that you continue to use the BiPAP you recently received EVERY NIGHT and with naps to prevent this from happening again. Follow up with your PCP and Patient Care Manager within 1-2 weeks. Pending Studies at Discharge: No Stand-Alone Forms: [facility], Smoking Cessation Medications and DC Order Prescriptions: New prednisone 20 mg Tablet 40 mg PO DAILY Qty: 6 0RF Continued (DME) Oxygen Home Liters Per Minute See Dose Instructions .ROUTE .MEDSUPPLY Qty: 1 Rx Instructions: As directed aspirin 81 mg tablet,delayed release (DR/EC) 81 mg PO DAILY atorvastatin 80 mg tablet 80 mg PO HS Qty: 30 0RF metoprolol succinate 25 mg tablet extended release 24 hr 25 mg PO DAILY Qty: 30 0RF albuterol sulfate 2.5 mg /3 mL (0.083 %) solution for nebulization 2.5 mg inhalation DIRECTED PRN (Reason: Shortness Of Breath) Qty: 75 0RF furosemide 20 mg tablet 20 mg PO DAILY Qty: 30 2RF albuterol sulfate 90 mcg/actuation HFA aerosol inhaler 2 inh inhalation Q6H PRN (Reason: Shortness Of Breath Or Wheezing) Qty: 6.7 0RF tiotropium bromide 2.5 mcg/actuation mist 2 inh inhalation DAILY Qty: 4 5RF Eliquis 5 mg (74 tabs) tablets,dose pack 5 mg PO BID Qty: 74 0RF Daliresp 250 mcg tablet 250 mcg PO DAILY 28 Days Qty: 28 0RF azithromycin 250 mg Tablet 250 mg PO MoWeFr@0900 Qty: 36 0RF fluticasone furoate-vilanterol 200-25 mcg/dose blister with device 1 inh inhalation DAILY Qty: 1 5RF guaifenesin [Mucinex] 600 mg Tablet Extended Release 12hr 600 mg PO Q12 Qty: 60 0RF (DME) BiPap Machine Misc See Rx Instructions .ROUTE Qty: 1 0RF Rx Instructions: As directed Discharge Orders: Discharge Order (Routine); Ordered 10/31/21 Ordered By: Carley Mckeon Admission Data Admit Date/Time: 10/23/21 11:49 Attending Provider: Carley Mckeon Admit Provider: Ariel Tanner Primary Care Provider: [facility] Other Providers: Blas Juarez ; Addy England Coding Level of Care Code D/C DAY MANAGEMENT >30 MINS Diagnoses Acute on chronic respiratory failure with hypoxia and hypercapnia J96.21; J96.22 Viral pneumonia J12.9 Fopkk-7-vwvrmjdlrcs deficiency carrier Z14.8 Chronic pulmonary embolism I27.82 CAD (coronary artery disease) I25.10 History of tobacco use Z87.891
== END 2021-10-31 18:39 | disposition home health service (06) | DRG 208 ==
LOC: ED 10:31 → 2S 11:49 → SUATTDRO 11:49 → 2S 14:38 → 1E 19:28 → 3E 10-29 00:37